=== PATIENT | male | born 1950 | race Caucasian/White ===

== ENCOUNTER 2017-12-21 10:11 | Outpatient (RCR) | payer MEDICARE, OTHER, SELFPAY | END 2017-12-27 23:59 | LOC: WC 10:11 | PROVIDERS: Visit Provider Podiatrist | DX: Z09 Encounter for follow-up examination after completed treatment for conditions other than malignant neoplasm (principal) ==

== ENCOUNTER → 2019-07-22 14:06 | Outpatient (CLI) | payer MEDICARE, OTHER, SELFPAY ==
--- NOTE | 2019-07-22 12:15 | TISS_PTH ---
PATIENT: KOSTAS WOLF LOC: [facility] U#:[id number] AGE/SX: 75/M ROOM: RE07/22/[address]: Dr. William Keating MD : [id number] BED: DIS: SPEC #: [id number] RECD: 07/22/19 13:47 STATUS: DELIA SHELLEY #: [id number] LAKISHA: 07/22/19 12:[address]: William Keating DEPT: SURGICAL PATHOLOGY RECD BY: Alan Carrizales Tissues: Skin of lip, NOS Procedures: Surgery Specimen Level IV HEADER OPERATION: Not noted PRE-OP DIAGNOSIS: Non healing ulcer, right lower lip TISSUE SUBMITTED: Bottom right lip, ulcer MICROSCOPIC DIAGNOSIS Bottom right lip, ulcer, punch biopsy: Moderate to marked chronic inflammation and lymphoid aggregates formation, favor benign. Reactive epithelial changes and hyperkeratosis. Special stain for fungi is negative for organisms; matched controls is appropriate. Negative for malignancy. SJ:sp 07/23/19 COMMENT Case has been reviewed in consultation with Dr. Renee who concurs with the above diagnosis. IDC:AM MICROSCOPIC DESCRIPTION Slides are reviewed. GROSS DESCRIPTION Received is one container labeled with the patient's name and not further designated. The specimen consists of a punch biopsy of mix-white skin measuring 0.4 cm in diameter and 0.3 cm in length. The specimen is entirely submitted on one cassette. /JESENIA:linda 07/22/19 TC: 3 CPT: 26934, 00817
== END ==
PROVIDERS: Referring Provider Otolaryngology; Visit Provider Otolaryngology
DX: K13.0 Diseases of lips (principal)
CPT/HCPCS: 88305

== ENCOUNTER 2023-02-08 02:52 | Emergency (ER) | payer OTHER, SELFPAY ==
[2023-02-08] VITALS (12 sets, daily range): BP systolic 86–112; BP diastolic 43–56; PULSE 60–87; RESP 18–26; TEMP 36.4–37.8; O2SAT 88–97; BMI 27.3
--- NOTE | 2023-02-08 03:28 | RAD_ITS ---
INDICATION: SOB EXAMINATION/TECHNIQUE: X-RAY - XR Chest 1 View COMPARISON: None. FINDINGS: LINES/DEVICES: Pacemaker on the left. LUNGS: No consolidation, edema or effusion. No pneumothorax. MEDIASTINUM AND CARDIOVASCULAR STRUCTURES: Moderate cardiomegaly and pulmonary vascular congestion. BONES AND SOFT TISSUES: Unremarkable. RAD/Chest 1 View (Portable) IMPRESSION: Moderate cardiomegaly and pulmonary vascular congestion. Electronically Signed: Sheri Doshi MD at 4:05 EDT ,
[2023-02-08 03:46] LABS: Absolute Lymphocyte Count 0.16 X10^3/uL (0.83-4.51); Absolute Neutrophil Count 12.2 X10^3/uL (2.0-7.7); Basophil# 0.07 X10^3/uL; Basophil% 0.5 % (0-1); Eosinophil# 0.03 X10^3/uL; Eosinophils% 0.2 % (0-5); Hematocrit 37.5 % (40-54); Hemoglobin 12.3 g/dL (13.0-16.5); Lymphocyte # 0.16 X10^3/ul (0.83-4.51); Lymphocyte % 1.2 % (19-41); Mean Corp Hgb Conc 32.8 g/dL (32-36); Mean Corpuscular Hgb 30.3 pg (27.0-32.0); Mean Corpuscular Volume 92.4 fL (80-94); Mean Platelet Vol. 10.6 fl (6.2-12.0); Monocyte# 0.75 X10^3/uL; Monocyte% 5.6 % (0-10); NRBC Flagged by Analyzer 0 % (0-5); Neutrophil # 12.24 X10^3/uL (2.7-7.7); Neutrophil % 91.8 % (47-70); POSITIVE DIFFERENTIAL YES; Platelet Count 211 K/mm3 (150-450); RBC Distribution Width CV 16.8 % (11.6-14.6); RBC Distribution Width SD 56.9 fl (35.1-43.9); Red Blood Count 4.06 M/mm3 (4.6-6.2); White Blood Count 13.3 K/mm3 (4.4-11.0)
[2023-02-08 03:49] LABS: Differential Indicated SCAN CRITERIA MET
[2023-02-08] MEDS: Acetaminophen 500 MG Tablet 1000 MG PO (03:49)
[2023-02-08 04:00] LABS: International Normalized Ratio 2.2; Prothrombin Time (Protime)PT. 23.9 SECONDS (11.7-14.9)
[2023-02-08 04:11] LABS: Anion Gap 9 (5-15); BUN 20 mg/dL (7-18); BUN/Creat Ratio 23.1 RATIO (10-20); Calcium,Total 8.3 mg/dL (8.5-10.1); Chloride 97 mmol/L (98-107); Creatinine, Serum 0.86 mg/dL (0.70-1.30); EST Glomerular Filtration Rate 92 mL/min (>60); Est Glom Filt Rate - Afr Amer 111 mL/min (>60); Estimated Creatinine Clearance 70.46 ml/min; Glucose 184 mg/dL (74-106); Magnesium 1.7 mg/dL (1.6-2.6); Potassium 3.2 mmol/L (3.5-5.1); Sodium Level 135 mmol/L (136-145)
[2023-02-08 04:11] LABS: BNP,B-Type NATRIURETIC PEPTIDE 510.8 pg/mL (0-100)
[2023-02-08 04:17] LABS: Lactic Acid 1.3 mmol/L (0.4-1.9)
[2023-02-08 04:21] LABS: Procalcitonin 0.32 ng/mL (0.00-0.09)
[2023-02-08 04:23] LABS: Differential Comment SCANNED
--- NOTE | 2023-02-08 05:14 | EDS_ITS ---
HPI History of Present Illness Chief Complaint: Shortness of Breath Narrative Narrative: Patient is a 72-year-old male with past medical history of COPD as well as mitral valve disease requiring replacement and aortic stenosis currently on Coumadin. He also has a past medical history of congestive heart failure and takes torsemide. Patient states he received his COVID booster yesterday around 1:00 or 2:00 in the afternoon. He states roughly 12 hours later he began experiencing chills and increased shortness of breath. Secondary to this EMS was called. EMS states when they arrive the patient had a pulse ox of 88% on room air and secondary to his report of increased shortness of breath with hypoxia was brought in for evaluation [facility] Home Medications amiodarone 200 mg tablet 200 mg PO DAILY 02/08/23 [History Last Taken Unknown] carvedilol 6.25 mg tablet 6.25 mg PO BID 02/08/23 [History Last Taken Unknown] Allergy/AdvReac Type Severity Reaction Status Date / Time lisinopril AdvReac Other Verified 02/08/23 02:59 Social History Smoking Status: Former smoker ROS ROS ED Constitutional Constitutional ED: Reports chills and subjective; Denies fever(s) ENT ENT ED: Denies sore throat Cardiovascular Cardiovascular: Denies chest pain Respiratory/Chest Respiratory/Chest: Reports cough, dyspnea and dyspnea on exertion Gastrointestinal Gastrointestinal: Denies abdominal pain, diarrhea, nausea or vomiting Genitourinary Genitourinary ED: Denies dysuria or hematuria Musculoskeletal Musculoskeletal: Denies myalgias Integumentary Denies rash Neurologic Neurologic: Denies headache(s) Hematologic/Lymphatic Hematologic/Lymphatic: Reports easy bleeding and easy bruising EXAM Physical Exam Const Vital Signs: 02/08/23 02:53 02/08/23 03:03 02/08/23 04:18 Temperature 100.0 F H Temperature Source Temporal Pulse Rate 65 62 Respiratory Rate 18 20 H Respiratory Effort Short of Breath Respiratory Depth Normal Respiratory Pattern Tachypnea Blood Pressure 105/43 L 94/55 L Blood Pressure Mean 63 68 Pulse Ox 88 92 Oxygen Delivery Method Room Air Room Air Nasal Cannula Oxygen Flow Rate (L/min) 2 02/08/23 04:50 02/08/23 06:00 02/08/23 06:00 Temperature 99.2 F H 99.6 F H Temperature Source Oral Oral Pulse Rate 64 63 63 Respiratory Rate 26 H 19 H 20 H Respiratory Effort Respiratory Depth Respiratory Pattern Blood Pressure 99/55 L 86/47 L 86/47 L Blood Pressure Mean 69 60 60 Pulse Ox 95 96 95 Oxygen Delivery Method Nasal Cannula Nasal Cannula Nasal Cannula Oxygen Flow Rate (L/min) 2 2 2 02/08/23 06:24 02/08/23 06:51 Temperature 98.7 F Temperature Source Oral Pulse Rate 61 60 Respiratory Rate 21 H 21 H Respiratory Effort Respiratory Depth Respiratory Pattern Blood Pressure 95/52 L 92/55 L Blood Pressure Mean 66 67 Pulse Ox 97 94 Oxygen Delivery Method Nasal Cannula Nasal Cannula Oxygen Flow Rate (L/min) 3 3 Positive well nourished and well developed General Appearance ED: well developed and pallor HEENT Reports dry mucous membranes HEENT Narrative: No tongue or lip swelling no oral lesions no airway edema or compromise Mouth ED: Yes dry mucous membranes Mouth: dry mucous membranes Eyes PERRL and EOMs intact bilaterally General Eye ED: Yes pale conjunctiva; Negative for scleral icterus Neck supple Neck Narrative: Bilateral JVD noted Chest Wall palpation of chest normal Resp Resp Narrative: Patient has mild tachypnea with diminished breath sounds throughout with diffuse rhonchi and crackles noted in the bilateral bases. No nasal flaring or retractions present Cardio regular rate and regular rhythm Rate: other Other Details: Radial pulses are plus 2 out of 4 bilaterally are equal and symmetric GI normal to inspection, nondistended, normoactive bowel sounds, non-tender, non- distended and no masses GI Narrative: No voluntary guarding or rigidity no pulsatile mass or fluid wave. Auscultation: normoactive bowel sounds Palpation: soft Extremity Extremity Narrative: Trace to +1 pitting edema to the bilateral lower extremities that is equal and symmetric Neuro oriented x3 and CN's II-XII intact bilaterally Sensorium / Orientation: alert Psych mental status grossly normal Skin no rashes or lesions noted General Skin Exam: pallor MDM MDM MDM Narrative Medical decision making narrative: Pain to the ER with low-grade fever and mild increased work of breathing. On 2 L of oxygen he is satting in the mid to low 90s. With his report of COVID vaccination this afternoon and increased work of breathing 12 hours later there is concern this could be a side effect of the recent vaccination. However there is also concern that this could be related to a pneumonia pneumothorax large pleural effusion or even acute anemia and secondary to this a work-up was obtained. As patient had a low-grade temperature there is also concern for underlying septicemia so blood cultures and lactic acid were ordered. Patient's white count is elevated at 13 but lactic acid is normal. The remainder of his labs show no clinically significant finding. His INR is just slightly subtherapeutic at 2.2 and proBNP is mildly elevated at 510. Chest x-ray showed cardiomegaly with vascular congestion which could be his baseline as we have no old images to compare to. He states he had a heart cath 2 to 3 weeks ago which was reportedly clean and as he has no chest pain I do not feel there is a need for troponin or acute EKG. the patient was ambulated in the ER without oxygen as he does not require supplemental oxygen at home and with this his pulse ox dropped to 84%. Therefore at this time as patient is showing oxygen desaturation with ambulation and is requiring supplemental oxygen which she does not have access to her need to be admitted to the hospital. As the patient receives all of his care at an outside facility he will be transferred as he is a complex patient and will receive more complete care if he is at a facility where he is known. This plan of care was discussed with the patient and family and both are agreeable to it. Please note that the patient did trigger the sepsis protocol but antibiotics were held as his chest x-ray and chest CT did not show acute lung infection and fluids were held as he is having a congestive heart failure exacerbation leading to hypoxia and the fluid bolus could lead to worsening of his shortness of breath. After discussion with [facility] they did request a CTA of his chest secondary to his symptoms and therefore this was obtained. CTA revealed no pulmonary embolus or dissection or acute pneumonia and these results were faxed to [facility] for their evaluation. History & Record Review Discussion w/independent historian: EMS personnel, Patient and Family Lab Data Attestation: I reviewed the patient's lab results. Labs: Laboratory Results - last 24 hr 02/08/23 02/08/23 02/08/23 03:03 03:38 03:38 WBC 13.3 H RBC 4.06 L Hgb 12.3 L Hct 37.5 L MCV 92.4 MCH 30.3 MCHC 32.8 RDW Std Deviation 56.9 H RDW Coeff of Rohit 16.8 H Plt Count 211 MPV 10.6 Immature Gran % (Auto) 0.700 Neut % (Auto) 91.8 H Lymph % (Auto) 1.2 L [place] % (Auto) 5.6 Eos % (Auto) 0.2 Baso % (Auto) 0.5 Absolute Neuts (auto) 12.2 H Absolute Lymphs (auto) 0.16 L Nucleated RBC % 0 Differential Comment SCANNED PT 23.9 H INR 2.2 Sodium Potassium Chloride Carbon Dioxide Anion Gap BUN Creatinine Estim Creat Clear Calc Est GFR (MDRD) Af Amer Est GFR (MDRD) Non-Af BUN/Creatinine Ratio Glucose Lactic Acid Calcium Magnesium B-Natriuretic Peptide 510.8 H Procalcitonin 02/08/23 02/08/23 02/08/23 03:38 03:38 03:38 WBC RBC Hgb Hct MCV MCH MCHC RDW Std Deviation RDW Coeff of Rohit Plt Count MPV Immature Gran % (Auto) Neut % (Auto) Lymph % (Auto) [place] % (Auto) Eos % (Auto) Baso % (Auto) Absolute Neuts (auto) Absolute Lymphs (auto) Nucleated RBC % Differential Comment PT INR Sodium 135 L Potassium 3.2 L Chloride 97 L Carbon Dioxide 29.0 Anion Gap 9 BUN 20 H Creatinine 0.86 Estim Creat Clear Calc 70.46 Est GFR (MDRD) Af Amer 111 Est GFR (MDRD) Non-Af 92 BUN/Creatinine Ratio 23.1 H Glucose 184 H Lactic Acid 1.3 Calcium 8.3 L Magnesium 1.7 B-Natriuretic Peptide Procalcitonin 0.32 H Radiography Diagnostic Testing: Clinical Impression(s) from Imaging Studies Chest X-Ray 02/08/23 03:28 IMPRESSION: Moderate cardiomegaly and pulmonary vascular congestion. Electronically Signed: Sheri Doshi MD at 4:05 EDT , Chest CTA 02/08/23 05:38 IMPRESSION: No demonstrated pulmonary embolism or arterial dissection. Electronically Signed: Sheri Doshi MD at 6:51 EDT , Chest x-ray as interpreted by the emergency medicine physician reveals moderate cardiomegaly with pulmonary vascular congestion but no acute infiltrate or pneumothorax Management Discussion w/another healthcare provider: Hospitalist Discharge Plan Triage Chief Complaint: Shortness of Breath ED Provider: Félix Razo Dx/Rx/DC Orders Clinical Impression: Acute respiratory failure with hypoxia, CHF exacerbation, Current use of penitentiary anticoagulation, Leukocytosis Prescriptions: No Action carvedilol 6.25 mg tablet 6.25 mg PO BID amiodarone 200 mg tablet 200 mg PO DAILY Primary Care Provider: Jovi Bradley NP Referrals: Jovi Bradley CERTIFIED HYPERBARIC TECHNICIAN, CERTIFIED HYPERBARIC TECHNICIAN-C [Primary Care Provider] - Disposition Disposition: Acute Care Hospital Discharge Location: [facility]
--- NOTE | 2023-02-08 05:38 | CT_ITS ---
STUDY: CTA CHEST REASON FOR EXAM: Male, 72 years old. dyspnea. COPD RADIATION DOSAGE (If Supplied By Facility): CTDIvol = ( 11.49 ) mGy, DLP = ( 396.47 ) mGycm TECHNIQUE: The examination was performed with the intravenous administration of IV 100mL Isovue-370. Post-processing of the angiographic images was performed, with multiplanar reformation and 3D reconstruction. Individualized dose optimization techniques were used for this CT. COMPARISON: None. FINDINGS: Normal enhancement of the main pulmonary artery and right and left pulmonary arteries. Normal enhancement of the bilateral peripheral pulmonary arteries. There is no demonstrated pulmonary embolism. Normal thoracic aorta and visualized great vessels. There is no demonstrated aortic dissection. Normal heart and pericardium. Normal mediastinum. Normal hilar regions. Normal visualized trachea and bronchi. There is dependent atelectasis in the lung bases. Normal pulmonary parenchyma. Normal pleura. Normal chest wall structures. Multiple compression fractures of T4, T5, T6, T7, T8, T9, T10, T11, T12, L1, L2. Normal visualized upper abdomen. CT/CTA Chest W/WO Contrast IMPRESSION: No demonstrated pulmonary embolism or arterial dissection. Electronically Signed: Sheri Doshi MD at 6:51 EDT ,
--- NOTE | 2023-02-08 06:05 | ED.RN ---
Dr. Razo notified for BP of /47, qualifying pt for sepsis protocols. no new orders at this time.
--- NOTE | 2023-02-08 07:00 | NURSING ---
faxed cta results to [phone]
--- NOTE | 2023-02-08 07:39 | ED.RN ---
PER DR. REDMOND AND DR. GALLEGO FLUID RESUSCITATION NOT INITIATED DUE TO PATIENT HAVING CHF EXACERBATION AND HYPOXIC. WILL CONTINUE TO MONITOR.
--- NOTE | 2023-02-08 07:50 | NURSING ---
CALLED [facility]. TALKED TO SAPNA.
--- NOTE | 2023-02-08 09:47 | NURSING ---
0911 CALLED ROSIE, ETA IS 90 MIN
== END 2023-02-08 10:05 | disposition short-term general hospital (02) ==
PROVIDERS: Emergency Provider Emergency Medicine; PCP Nurse Practitioner Family; Visit Provider Emergency Medicine
DX: J96.01 Acute respiratory failure with hypoxia (principal); J44.9 Chronic obstructive pulmonary disease, unspecified; I50.9 Heart failure, unspecified; Z87.891 Personal history of nicotine dependence; D72.829 Elevated white blood cell count, unspecified; Z79.01 Long term (current) use of anticoagulants; Z79.899 Other long term (current) drug therapy
CPT/HCPCS: 71045; 71275; 80048; 83605; 83735; 83880; 84145; 85025; 85610; 87040; 87428; 99285; Q9967

== ENCOUNTER 2023-03-29 09:33 | Inpatient (IN) | payer MEDICARE, OTHER, SELFPAY ==
[2023-03-29 09:35] VITALS: BP 115/59; PULSE 61; RESP 12; TEMP 36.4; O2SAT 93; BMI 24.5
[2023-03-29 09:42] VITALS: O2SAT 94
--- NOTE | 2023-03-29 09:59 | EX.ED.GENINJ ---
HPI History of Present Illness Chief Complaint: Fall Detail of Chief Complaint: Injury right hip Informant: patient Onset/Context/Timing Onset: Hours Mechanism/Context: Blunt Injury and Fall (Fell rolling out of bed) Location of pain/injuries: Right hip Quality of Pain: Dull Current Severity: Mild Maximum Severity: Severe Worsened by: Movement Relieved by: Remaining still Associated Symptoms Associated Symptoms: Positive for Loss of function and Inability to ambulate; Negative for Parasthesias, Weakness, Loss of consciousness or Amnesia Narrative Narrative: Patient is a 73-year-old male who recently had valvular heart surgery at [facility]. He also has history of pacemaker. Patient fell rolling out of bed this morning. He was unable to use his right lower extremity. He denies head trauma. He states blood thinners were discontinued last week. He denies head trauma. He denies headache. He denies visual, ocular auditory symptoms. He denies neck pain. He denies chest pain or shortness of breath. He denies upper or lower back pain. He denies pain in his shoulders, elbows or hands. He denies pain in his feet. He denies fever, chills night sweats. Denies weight gain or weight loss. He denies upper respiratory infectious symptoms. He denies GI or symptoms. Tetanus Immunization: Unknown Prior similar symptoms: No Recent Illness/[facility] Home Medications amiodarone 200 mg tablet 200 mg PO DAILY 02/08/23 [History Last Taken Unknown] carvedilol 6.25 mg tablet 6.25 mg PO BID 02/08/23 [History Last Taken Unknown] Allergy/AdvReac Type Severity Reaction Status Date / Time lisinopril Allergy Mild Laryngospas Verified 03/29/23 09:41 ms Social History Smoking Status: Former smoker ROS ROS ED Constitutional Constitutional ED: Denies chills, fever(s), subjective, sweats or weight loss Eyes Eyes: Denies blurry vision or change in vision ENT ENT ED: Denies ear pain, rhinorrhea or sore throat Cardiovascular Cardiovascular: Denies chest pain, palpitations, paroxysmal nocturnal dyspnea or racing heartbeat Respiratory/Chest Respiratory/Chest: Denies cough, dyspnea, dyspnea on exertion or paroxysmal nocturnal dyspnea Gastrointestinal Gastrointestinal: Denies abdominal pain, diarrhea, melena, nausea or vomiting Genitourinary Genitourinary ED: Denies dysuria, hematuria or urinary frequency Musculoskeletal Musculoskeletal: Reports other Details: Right hip pain ; Denies arthralgias, back pain, myalgias or neck pain Integumentary Denies rash Neurologic Neurologic: Denies headache(s), paresthesias or weakness Endocrine Endocrinology: Denies cold intolerance or heat intolerance Hematologic/Lymphatic Hematologic/Lymphatic: Reports easy bruising; Denies easy bleeding Allergic/Immunologic Allergic/Immunologic ED: Denies mouth swelling or tongue swelling EXAM Physical Exam Const Vital Signs: 03/29/23 09:35 03/29/23 09:42 Temperature 97.6 F L Temperature Source Temporal Pulse Rate 61 Respiratory Rate 12 Respiratory Effort Normal Non-Labored Respiratory Depth Normal Respiratory Pattern Normal Blood Pressure 115/59 L Blood Pressure Mean 77 Pulse Ox 93 94 Oxygen Delivery Method Room Air Room Air Positive well nourished and well developed General Appearance ED: well developed and NAD HEENT Reports TM's clear HEENT Narrative: Head is atraumatic and normocephalic. There is no clinical findings of basilar skull fracture. There is no septal deviation hematoma. Uvula is midline. There is no deviation of tongue with protrusion. There is no evidence of facial trauma. Tympanic Membrane ED: Yes TM's clear Eyes PERRL and EOMs intact bilaterally Neck full ROM Neck Narrative: Is no pain the patient of the posterior neck. Full active range of motion. Chest Wall inspection of chest normal and palpation of chest normal Resp normal respiratory effort and clear to auscultation bilaterally Cardio regular rhythm, S1 normal heart sound, S2 normal heart sound and no murmurs GI normal to inspection, nondistended, normoactive bowel sounds, non-tender, non-distended and no masses GI Narrative: There is no pain the patient over the left or right iliac wing or pubic symphysis. Extremity Negative for normal to inspection Extremity Narrative: The right lower extremity is slightly shortened and externally rotated. Neuro oriented x3, CN's II-XII intact bilaterally, moves all extremities and No gait normal Neuro Narrative: Patient is able to wiggle his toes on the right side. Edmund Coma Scale: document GCS findings Spontaneous Obeys Commands Oriented 15 Sensorium / Orientation: alert Plantar Reflex: Downgoing: bilateral Psych mental status grossly normal and thought process normal Skin no rashes or lesions noted, no wounds and No skin turgor normal Skin Narrative: Patient has multiple ecchymotic areas right forearm. He states this was to bruising easily when he was on anticoagulant, which she is no longer on. MDM MDM MDM Narrative Medical decision making narrative: Clinically patient has a fractured hip. Will obtain x-ray to determine what type of fracture. Since patient recently received care at [facility] he was question whether he had issues staying at [facility] for his presumed hip fracture and he responded no. We will need to ask patient and spouse his medications since he has not been here before. Will attempt to determine if there is any records using [employer]. Appropriate blood work was obtained for preoperative risk stratification which included EKG, chest x-ray, blood work and patient was typed and screened. Since patient has multiple bruises and was recently on anticoagulant coags were obtained. I was informed at approximately 1050 by dairy laboratory technician and patient's nurse that he is now requesting pain medicine. Pain medicine was ordered to facilitate obtaining x-rays of his chest and hip. History & Record Review Additional record(s) reviewed:: No prior records (Are available through [employer] Lab Data Attestation: I reviewed the patient's lab results. Lab results narrative: White count is slightly elevated and H&H is 12.3 and 37.9 which is slightly below lower end of normal. Coag are under workable. Sick metabolic panel reveals a glucose of 126 with normal CO2 and anion gap. Labs: Laboratory Results - last 24 hr 03/29/23 03/29/23 03/29/23 10:15 10:15 10:15 WBC 11.7 H RBC 4.14 L Hgb 12.3 L Hct 37.9 L MCV 91.5 MCH 29.7 MCHC 32.5 RDW Std Deviation 52.4 H RDW Coeff of Rohit 15.6 H Plt Count 273 MPV 10.1 Immature Gran % (Auto) 0.900 Neut % (Auto) 83.8 H Lymph % (Auto) 6.1 L [place] % (Auto) 9.0 Eos % (Auto) 0.0 Baso % (Auto) 0.2 Absolute Neuts (auto) 9.8 H Absolute Lymphs (auto) 0.71 L Nucleated RBC % 0 PT 15.1 H INR 1.2 APTT 30.1 Sodium 139 Potassium 3.5 Chloride 105 Carbon Dioxide 30.0 Anion Gap 4 L BUN 12 Creatinine 0.64 L Estim Creat Clear Calc 63.83 Est GFR (MDRD) Af Amer 156 Est GFR (MDRD) Non-Af 129 BUN/Creatinine Ratio 18.7 Glucose 126 H Calcium 8.4 L Radiography Chest X-Ray - ED: 1 View (1 view chest x-ray reveals cardiomegaly. There is a dual-chamber pacemaker noted as well as hardware due to valve replacement. There is no effusion, pneumothorax or hemothorax noted. There is no fractured ribs noted. This was independent reviewed interpreted by me at 1129.) and Read by ED Physician (Three-view x-ray of the right hip reveals a comminuted intertrochanteric fracture.) EKG Initial EKG: Interpretation: Paced (Rate is 64. EKG reveals AV dual paced rhythm. MT interval is 104 ms. Cures duration under 72 ms. QT duration 518 ms. [place] to left.) Management Discussion w/another healthcare provider: Hospitalist (Hospitalist was called for admission and surgical risk ratification prior to surgery.) and Real Estate Sales Agent (Dr. Vidal the orthopedist was contacted since patient require admission and open reduction internal fixation of his intertrochanteric fracture.) Discharge Plan Dx/Rx/DC Orders Clinical Impression: Closed comminuted intertrochanteric fracture of proximal end of right femur, Injury due to fall Disposition Disposition: Acute Care Hospital [facility]
--- NOTE | 2023-03-29 10:08 | NURSING ---
NO OLD EKGS
[2023-03-29 10:24] LABS: Absolute Lymphocyte Count 0.71 X10^3/uL (0.83-4.51); Absolute Neutrophil Count 9.8 X10^3/uL (2.0-7.7); Basophil# 0.02 X10^3/uL; Basophil% 0.2 % (0-1); Hematocrit 37.9 % (40-54); Hemoglobin 12.3 g/dL (13.0-16.5); Lymphocyte # 0.71 X10^3/ul (0.83-4.51); Lymphocyte % 6.1 % (19-41); Mean Corp Hgb Conc 32.5 g/dL (32-36); Mean Corpuscular Hgb 29.7 pg (27.0-32.0); Mean Corpuscular Volume 91.5 fL (80-94); Mean Platelet Vol. 10.1 fl (6.2-12.0); Monocyte# 1.05 X10^3/uL; NRBC Flagged by Analyzer 0 % (0-5); Neutrophil # 9.77 X10^3/uL (2.7-7.7); Neutrophil % 83.8 % (47-70); Platelet Count 273 K/mm3 (150-450); RBC Distribution Width CV 15.6 % (11.6-14.6); RBC Distribution Width SD 52.4 fl (35.1-43.9); Red Blood Count 4.14 M/mm3 (4.6-6.2); White Blood Count 11.7 K/mm3 (4.4-11.0)
[2023-03-29 10:31] LABS: International Normalized Ratio 1.2; Prothrombin Time (Protime)PT. 15.1 SECONDS (11.7-14.9)
[2023-03-29 10:32] LABS: Partial Thromboplast Time 30.1 Seconds (24.1-36.2)
[2023-03-29 10:36] LABS: Anion Gap 4 (5-15); BUN 12 mg/dL (7-18); BUN/Creat Ratio 18.7 RATIO (10-20); Calcium,Total 8.4 mg/dL (8.5-10.1); Chloride 105 mmol/L (98-107); Creatinine, Serum 0.64 mg/dL (0.70-1.30); EST Glomerular Filtration Rate 129 mL/min (>60); Est Glom Filt Rate - Afr Amer 156 mL/min (>60); Estimated Creatinine Clearance 63.83 ml/min; Glucose 126 mg/dL (74-106); Potassium 3.5 mmol/L (3.5-5.1); Sodium Level 139 mmol/L (136-145)
[2023-03-29] MEDS: Ondansetron 4 MG/2 ML Vial IV (11:03)
[2023-03-29] MEDS: HYDROmorphone 1 MG/ML Syringe 0.5 MG IV (11:03)
--- NOTE | 2023-03-29 11:20 | RAD_ITS ---
STUDY: X-RAY CHEST REASON FOR EXAM: Male, 73 years old. Preoperative evaluation. TECHNIQUE: Single AP portable view of the chest. COMPARISON: Comparison is made with prior study February 08, 2023. FINDINGS: EKG electrodes are seen. Scattered calcified granulomas. No acute abnormality is seen. There is no demonstrated pleural abnormality. Sternal cerclage wires are present from a prior sternotomy. Prior mitral valve and aortic valve replacement. A left-sided vertebral pacemaker is seen. Moderate degree of cardiomegaly. Clipping of the left atrial appendage. Normal mediastinum and billy. Normal visualized pulmonary arteries. There is atherosclerotic calcification of the aortic arch with tortuosity. Normal visualized thoracic spine. Normal visualized ribs, clavicles, and shoulders. There is no demonstrated abnormality of the visualized soft tissue structures of the upper abdomen. RAD/Chest 1 View (Portable) IMPRESSION: Cardiomegaly. No acute abnormality is seen. Electronically Signed: Capo Shafer MD at 11:55 EDT ,
--- NOTE | 2023-03-29 11:20 | RAD_ITS ---
STUDY: X-RAY - PELVIS AND RIGHT HIP REASON FOR EXAM: Male, 73 years old. Right hip pain following a fall from bed. TECHNIQUE: 3 views of the pelvis and hip. COMPARISON: None. FINDINGS: Large amount of fecal material is seen in the colon. There are atherosclerotic vascular calcifications of the pelvic arteries. There is narrowing with cortical sclerosis and osteophyte formation of the sacroiliac joint consistent with degenerative osteoarthritic changes. Normal bilateral superior and inferior pubic rami. There is narrowing with sclerosis of the pubic symphysis. Normal bilateral ischial tuberosities. Deformity of the lateral aspect of the left iliac wing most likely representing a graft bone donor site. Nondisplaced right intertrochanteric fracture. Prior pinning of the left proximal femur. RAD/HIP, UNI W/ Pelvis 2-3 Views IMPRESSION: Nondisplaced right intertrochanteric fracture. Electronically Signed: Capo Shafer MD at 11:57 EDT ,
--- NOTE | 2023-03-29 11:47 | NURSING ---
MED SURG KITTOE COMMINUTED RIGHT INTERTROCHANTIC FRACTURE
--- NOTE | 2023-03-29 11:56 | HP.PCM.HOS_ITS ---
HPI - General General Date of Admission: 03/29/23 Date of Service: 03/29/23 Chief Complaint: Right hip pain HPI Narrative KOSTAS WOLF, is a 73 M past cardiac history including recent TAVR at [facility], history of mitral valve repair as well as conduction system disorder status post pacemaker placement who presented with right hip pain. Per patient he woke up on the morning of his presentation tried to pivot and lost his danette ce resulting in the fall with resultant right hip pain. Patient presented to the emergency department as a result. Imaging studies obtained did show Nondisplaced right intertrochanteric fracture. Patient denied any lightheadedness chest pain or shortness of breath prior to the fall. Patient was admitted to regular nursing floor after the orthopedic surgeon on-call Dr. Vidal had been notified by Dr. Hilario from the ED. [facility] Medical History (Updated 03/29/23 @ 13:[address] Feroz Bucio MD) A-fib Closed right hip fracture Eye abnormality Pacemaker Home Medications amiodarone 200 mg tablet 200 mg PO DAILY 02/08/23 [History Last Taken Unknown] carvedilol 6.25 mg tablet 6.25 mg PO BID 02/08/23 [History Last Taken Unknown] acetaminophen 500 mg tablet 1,000 mg PO Q6H 03/29/23 [History Last Taken Unknown] aspirin 81 mg chewable tablet 81 mg PO DAILY 03/29/23 [History Last Taken Unkno wn] atorvastatin 80 mg tablet 80 mg PO DAILY 03/29/23 [History Last Taken Unknown] eplerenone 25 mg tablet 25 mg PO DAILY 03/29/23 [History Last Taken Unknown] fexofenadine 180 mg tablet (Reva Allergy) 180 mg PO DAILY 03/29/23 [History Last Taken Unknown] fluoxetine 40 mg capsule (Prozac) 40 mg PO DAILY 03/29/23 [History Last Taken Unknown] mecobalamin (vitamin B12) 1,000 mcg chewable tablet (B12 Active) 1,000 mcg PO DAILY 03/29/23 [History Last Taken Unknown] mexiletine 200 mg capsule 200 mg 03/29/23 [History Last Taken Unknown] potassium chloride 20 mEq tablet,extended release(part/cryst) 20 meq PO DAILY 03/29/23 [History Last Taken Unknown] sacubitril 24 mg-valsartan 26 mg tablet (Entresto) 1 tab PO BID 03/29/23 [History Last Taken Unknown] torsemide 20 mg tablet 20 mg PO DAILY 03/29/23 [History Last Taken Unknown] Allergy/AdvReac Type Severity Reaction Status Date / Time lisinopril Allergy Mild Laryngospas Verified 03/29/23 09:41 ms Family History Father CVA (cerebral vascular accident) Mother Laryngeal cancer Surgical History H/O cardiac radiofrequency ablation H/O eye surgery H/O heart surgery H/O total knee replacement History of appendectomy History of hip surgery History of surgery on arm Stented coronary artery Social History household members: spouse Smoking Status: Former smoker ROS ROS Narrative GENERAL: cooperative HEENT: Atraumatic; normocephalic EYES; Anicteric, Normal Conjunctiva NECK; supple, normal thyroid, RESPIRATORY: Diminished to auscultation CARDIOVASCULAR: Regular S1 S2, GI: soft, normoactive bowel sounds, : No Renal angle tenderness; EXTREMITIES: No edema, no clubbing, MUSCULOSKELETAL: no muscle wasting NEURO: Awake; no lateralizing signs. SKIN: No Rash PSYCH; Flat affect Vital Signs Vital Signs Vital Signs: 03/29/23 09:35 03/29/23 09:42 Temperature 97.6 F L Temperature Source Temporal Pulse Rate 61 Respiratory Rate 12 Respiratory Effort Normal Non-Labored Respiratory Depth Normal Respiratory Pattern Normal Blood Pressure 115/59 L Blood Pressure Mean 77 Pulse Ox 93 94 Oxygen Delivery Method Room Air Room Air Weight Weight: 75.4 kg Body Mass Index (BMI) 24.5 Results Lab / Micro Data Result Diagrams: 03/29/23 10:15 03/29/23 10:15 Labs: Laboratory Results - last 24 hr 03/29/23 10:15: WBC 11.7 H, RBC 4.14 L, Hgb 12.3 L, Hct 37.9 L, MCV 91.5, MCH 29.7, MCHC 32.5, RDW Std Deviation 52.4 H, RDW Coeff of Rohit 15.6 H, Plt Count 273, MPV 10.1, Immature Gran % (Auto) 0.900, Neut % (Auto) 83.8 H, Lymph % (Auto) 6.1 L, Sargent % (Auto) 9.0, Eos % (Auto) 0.0, Baso % (Auto) 0.2, Absolute Neuts (auto) 9.8 H, Absolute Lymphs (auto) 0.71 L, Nucleated RBC % 0 03/29/23 10:15: PT 15.1 H, INR 1.2, APTT 30.1 03/29/23 10:15: Sodium 139, Potassium 3.5, Chloride 105, Carbon Dioxide 30.0, Anion Gap 4 L, BUN 12, Creatinine 0.64 L, Estim Creat Clear Calc 63.83, Est GFR (MDRD) Af Amer 156, Est GFR (MDRD) Non-Af 129, BUN/Creatinine Ratio 18.7, Glucose 126 H, Calcium 8.4 L 03/29/23 10:28: Blood Type A POSITIVE, Antibody Screen NEGATIVE Radiology Impression Chest X-Ray 03/29/23 11:20 IMPRESSION: Cardiomegaly. No acute abnormality is seen. Electronically Signed: Capo Shafer MD at 11:55 EDT , Assessment & Plan Assessment/Plan (1) Closed right hip fracture: PLAN: Patient is a 73-year-old gentleman presented with a fall imaging studies demonstrated Nondisplaced right intertrochanteric fracture. Admitted to a monitored bed for further management 1. Nonsyncopal mechanical fall with resultant right hip fracture ? Imaging studies on admission demonstrated nondisplaced right intertrochanteric fracture. Patient has been admitted to regular nursing floor managed with immobilization pain meds with consultation placed to orthopedic surgery Patient has significant cardiac history including history of mitral valve repair, recent TAVR for aortic stenosis, paroxysmal A-fib and conduction system disorder. Patient has been admitted to regular nursing floor placed on continuous telemetry as part of his preop assessment ordered a 2D echo if there is any abnormality on the echo will obtain cardiology consultation. Patient risk for perioperative morbidity and mortality remains at moderate level 2. Valvular heart disease ? With recent TAVR at [facility] for aortic stenosis as well as previous history of mitral valve repair did obtain old records from [facility] 3. Conduction system disorder ? Status post pacemaker placement 4. Paroxysmal A-fib ? Rate controlled on amiodarone patient was previously on systemic anticoagulation which has since been discontinued 5.? Cardiomyopathy ? Patient is on torsemide, eplerenone as well as Entresto continued. Also o rdered a 2D echo for EF assessment 6. Hypertension - Blood pressure controlled, home medications continued with dose adjustment as needed 7. Depression ? Patient is on fluoxetine did continue 8. DVT prophylaxis ? Bilateral SCDs for now with plans to initiate chemoprophylaxis following patient surgical intervention Time spent in the patient's overall evaluation,decision-making process, review of diagnostic data, adjustment of management, discussion with other providers, nursing nursing and ancillary staff involved in patient's care documentation, 78 minutes Advance planning; did discuss with the patient and family regarding advanced directives as well as CODE STATUS. Did explain the various scenarios involved ( FULL CODE, DNR CCA, DNR CCA with no intubation, and DNR CC and what each meant) patient elected to remain full code with CPR and intubation if needed. Order was placed. Time spent on discussion 18 minutes. Charges/Coding Visit Charges Inpatient E&M: 50643 Init Hosp L3 Procedures Hospitalists Procedures: 33999 Advncd Care Plan 30 Min
[2023-03-29 12:02] VITALS: BP 129/60; PULSE 62; RESP 23; TEMP 36.3; O2SAT 93
--- NOTE | 2023-03-29 12:11 | ECHOD_ITS ---
Reason For Study: MURMUR Procedure This was a 2D Doppler, Color Flow transthoracic echocardiogram. Exam performed portable in patient room. Left Ventricle Normal LV size. The left ventricular ejection fraction is 55 %. Diastolic function is indeterminate. Right Ventricle Moderately dilated right ventricle. Moderately decreased right ventricular systolic function. Atria The left atrium is severely enlarged. The right atrium is severely enlarged. Mitral Valve Mitral valve annuloplasty repair. Trivial mitral valve insufficiency. Tricuspid Valve Moderate (2+) tricuspid valve insufficiency. Right ventricular systolic pressure estimated to be 58 mmHg. Aortic Valve Bioprosthetic aortic valve functioning normally. Pulmonic Valve The pulmonic valve is not well visualized. Mild (1+) pulmonic valve insufficiency. Great Vessels Normal sized aortic root. Pericardium/Pleural No pericardial effusion. MMode/2D Measurements & Calculations LVIDd: 6.2 cm IVSd: 1.2 cm LVOT diam: 2.2 cm LVIDs: 4.2 cm LVPWd: 1.0 cm LVOT area: 4.0 cm2 FS: 31.8 % Ao root diam: 3.6 cm LAV(MOD-bp): 155.4 ml LVAd ap4: 33.5 cm2 LAV(MOD-bp) Indexed: 81.4 ml/m2 LVLd ap4: 7.5 cm LAV(MOD-sp2): 148.6 ml EDV(MOD-sp4): 126.9 ml LAV(MOD-sp4): 157.9 ml EDV(sp4-el): 127.4 ml LVAs ap4: 18.0 cm2 LVLs ap4: 6.3 cm ESV(MOD-sp4): 44.3 ml ESV(sp4-el): 43.7 ml EF(MOD-sp4): 65.1 % EF(sp4-el): 65.7 % SV(MOD-sp4): 82.6 ml SV(sp4-el): 83.7 ml LA A4 area: 37.5 cm2 LA dimension(2D): 6.2 cm RA A4 area: 35.3 cm2 Time Measurements MV dec time: 0.23 sec Doppler Measurements & Calculations MV E max marco: 115.5 cm/sec Lat Peak E' Marco: 11.6 cm/sec Med Peak E' Marco: 8.9 cm/sec MV A max marco: 32.8 cm/sec E/E' lat: 9.9 E/E' med: 13.0 MV E/A: 3.5 MV V2 max: 153.6 cm/sec Ao V2 max: 199.5 cm/sec MV max P.4 mmHg MV dec slope: 512.9 cm/sec2 Ao max P.9 mmHg MV V2 mean: 68.0 cm/sec Ao V2 mean: 130.7 cm/sec MV mean P.4 mmHg Ao mean P.1 mmHg MV V2 VTI: 40.0 cm Ao V2 VTI: 41.1 cm AV (velocity ratio): 0.77 MVA(VTI): 3.2 cm2 WILL(I,D): 3.1 cm2 WILL(V,D): 2.9 cm2 LV V1 max: 146.0 cm/sec SV(LVOT): 125.9 ml PA V2 max: 120.6 cm/sec LV V1 max P.6 mmHg PA V2 mean: 71.0 cm/sec LV V1 mean P.4 mmHg LV V1 mean: 112.0 cm/sec LV V1 VTI: 31.8 cm TR max marco: 367.0 cm/sec TR max P.9 mmHg ECHO/Echo Complete Interpretation Summary The left ventricular ejection fraction is 55 %. Diastolic function is indeterminate. Moderately dilated right ventricle. Moderately decreased right ventricular systolic function The left atrium is severely enlarged. The right atrium is severely enlarged. Moderate (2+) tricuspid valve insufficiency. Right ventricular systolic pressure estimated to be 58 mmHg. Bioprosthetic aortic valve functioning normally. Ordering Physician: Feroz Bucio Referring Physician: FITO RAMIREZ Performed By: Yulissa Martinez RCS
[2023-03-29 13:02] VITALS: BMI 24.1
[2023-03-29] MEDS: HYDROmorphone 1 MG/ML Syringe IV ×3 (13:29→21:44)
[2023-03-29 13:30] VITALS: BP 104/60; PULSE 61; RESP 18; TEMP 36.8; O2SAT 95
[2023-03-29] MEDS: 0.9% Saline Lock 10 ML Syringe IV ×2 (13:30→18:06)
--- NOTE | 2023-03-29 13:33 | CON.PCM.OR_ITS ---
HPI Consult Data Date of Consult: 03/29/23 HPI Narrative HPI Narrative: KOSTAS WOLF, is a 73 M who presents to [facility] after patient lost his balance and fell on his right hip this morning. Noted immediate pain and inability to bear weight on his right lower extremity. He denies any antecedent right hip or groin pain. Denied any syncopal presyncopal symptoms, denies head injury or loss consciousness. Revealed a right intertrochanteric proximal femur fracture. I was consulted from the emergency department. Recommended admission under the service of the hospitalist. Of note, patient had recent TAVR at [facility] as well as history of mitral valve repair and pacemaker placement. Patient is no longer on any blood thinners, these were discontinued recently after his TAVR. Patient states he is minimally ambulatory with use of walker and rollator. He reports extensive history of low back pain and issues which is limited his ability to ambulate. Denies any history of anesthesia complications. [facility] Medical History (Updated 03/29/23 @ 13:[address] Feroz Bucio MD) A-fib Closed right hip fracture Eye abnormality Pacemaker Home Medications amiodarone 200 mg tablet 200 mg PO DAILY 02/08/23 [History Last Taken Unknown] carvedilol 6.25 mg tablet 6.25 mg PO BID 02/08/23 [History Last Taken Unknown] acetaminophen 500 mg tablet 1,000 mg PO Q6H 03/29/23 [History Last Taken Unknown] aspirin 81 mg chewable tablet 81 mg PO DAILY 03/29/23 [History Last Taken Unknown] atorvastatin 80 mg tablet 80 mg PO DAILY 03/29/23 [History Last Taken Unknown] eplerenone 25 mg tablet 25 mg PO DAILY 03/29/23 [History Last Taken Unknown] fexofenadine 180 mg tablet (Reva Allergy) 180 mg PO DAILY 03/29/23 [History Last Taken Unknown] fluoxetine 40 mg capsule (Prozac) 40 mg PO DAILY 03/29/23 [History Last Taken Unknown] mecobalamin (vitamin B12) 1,000 mcg chewable tablet (B12 Active) 1,000 mcg PO DAILY 03/29/23 [History Last Taken Unknown] mexiletine 200 mg capsule 200 mg 03/29/23 [History Last Taken Unknown] potassium chloride 20 mEq tablet,extended release(part/cryst) 20 meq PO DAILY 03/29/23 [History Last Taken Unknown] sacubitril 24 mg-valsartan 26 mg tablet (Entresto) 1 tab PO BID 03/29/23 [History Last Taken Unknown] torsemide 20 mg tablet 20 mg PO DAILY 03/29/23 [History Last Taken Unknown] Allergy/AdvReac Type Severity Reaction Status Date / Time lisinopril Allergy Mild Laryngospas Verified 03/29/23 09:41 ms Family History Father CVA (cerebral vascular accident) Mother Laryngeal cancer Surgical History H/O cardiac radiofrequency ablation H/O eye surgery H/O heart surgery H/O total knee replacement History of appendectomy History of hip surgery History of surgery on arm Stented coronary artery Social History household members: spouse Smoking Status: Former smoker ROS ROS Narrative 12 point review systems obtained, negative unless otherwise noted in HPI. Vital Signs Vital Signs Vital Signs: 03/29/23 09:35 03/29/23 09:42 03/29/23 12:02 Temperature 97.6 F L 97.4 F L Temperature Source Temporal Temporal Pulse Rate 61 62 Respiratory Rate 12 23 H Respiratory Effort Normal Non-Labored Respiratory Depth Normal Respiratory Pattern Normal Blood Pressure 115/59 L 129/60 H Blood Pressure Mean 77 83 Pulse Ox 93 94 93 Oxygen Delivery Method Room Air Room Air Room Air Weight Weight: 163 lb 5.8 oz Body Mass Index (BMI) 24.1 Physical Exam Narrative General -A&Ox3, NAD, appears stated age. Vital signs stable, afebrile. Respiratory -normal work of breathing, no intercostal retractions. CV -pulses regular, brisk capillary refill ?4 limbs. Abdomen-soft, nontender, nondistended. No guarding, rigidity, rebound tenderness. Musculoskeletal/neurologic -full range of motion nontender throughout bilateral upper extremities, left lower extremity with full sensation and strength in all dermatomes and myotomes. No midline cervical tenderness. Right lower extremity-no obvious deformity. Pain with logroll of the right lower extremity. Nontender throughout the right knee femoral shaft, tibial shaft and left foot/ankle. Brisk capillary refill. Sensation intact light touch L3-S1 dermatomes. DF, PF, EHL intact. DP, PT 2+. Pelvis is stable, nontender. Bilateral anterior knee small skin tears noted. Lab / Micro Data Result Diagrams: 03/29/23 10:15 03/29/23 10:15 Labs: Laboratory Results - last 24 hr 03/29/23 10:15: WBC 11.7 H, RBC 4.14 L, Hgb 12.3 L, Hct 37.9 L, MCV 91.5, MCH 29.7, MCHC 32.5, RDW Std Deviation 52.4 H, RDW Coeff of Rohit 15.6 H, Plt Count 273, MPV 10.1, Immature Gran % (Auto) 0.900, Neut % (Auto) 83.8 H, Lymph % (Auto) 6.1 L, Estill % (Auto) 9.0, Eos % (Auto) 0.0, Baso % (Auto) 0.2, Absolute Neuts (auto) 9.8 H, Absolute Lymphs (auto) 0.71 L, Nucleated RBC % 0 03/29/23 10:15: PT 15.1 H, INR 1.2, APTT 30.1 03/29/23 10:15: Sodium 139, Potassium 3.5, Chloride 105, Carbon Dioxide 30.0, Anion Gap 4 L, BUN 12, Creatinine 0.64 L, Estim Creat Clear Calc 63.83, Est GFR (MDRD) Af Amer 156, Est GFR (MDRD) Non-Af 129, BUN/Creatinine Ratio 18.7, Glucose 126 H, Calcium 8.4 L 03/29/23 10:28: Blood Type A POSITIVE, Antibody Screen NEGATIVE Radiology Impression Chest X-Ray 03/29/23 11:20 IMPRESSION: Cardiomegaly. No acute abnormality is seen. Electronically Signed: Capo Shafer MD at 11:55 EDT , Hip/Pelvis X-Ray 03/29/23 11:20 IMPRESSION: Nondisplaced right intertrochanteric fracture. Electronically Signed: Capo Shafer MD at 11:57 EDT , Assessment & Plan Assessment/Plan (1) Closed comminuted intertrochanteric fracture of proximal end of right femur: PLAN: Patient sustained a right intertrochanteric proximal femur fracture. -Closed, neurovascularly intact -Isolated injury -Recommending surgical intervention in the form of right femur cephalomedullary nailing -I discussed the procedure-its risks, benefits and alternative. Risks include but are not limited to bleeding, infection, loss of life or limb, risk of anest hesia, persistent pain or disability, need for additional surgery, nonunion, malunion, failure of orthopedic hardware, neurovascular injury, DVT or PE. Patient expressed understanding these risks and wished proceed with surgery. -Maintenance IV fluids, clear liquid diet after midnight n.p.o. at 2 hours prior to surgery -Type and screen -2 g Ancef on-call to the OR -Bedrest, heel protectors -Plan to proceed with surgery tomorrow when the OR time becomes available Thank you for this consultation.
--- NOTE | 2023-03-29 14:07 | NURSING ---
CALLED [facility] AND LEFT MESSAGE FOR THEM TO CALL US. NOT A SECURE LINE FOR OTHER INFO TO BE LEFT
[2023-03-29] MEDS: Acetaminophen 500 MG Tablet 1000 MG PO ×2 (14:25→22:29)
[2023-03-29] MEDS: KCl 20MEQ in D5NS 20 MEQ/1,000 ML IV.SOLN. 75 MEQ IV (14:59)
--- NOTE | 2023-03-29 17:10 | NURSING ---
CALLED [facility], TALKED TO ERNESTINA. HE TOOK INFO AND WILL RELAY IT.
[2023-03-29] MEDS: SACUBITRIL/VALSARTAN 24/26 MG TABLET 1 EACH PO (22:29)
[2023-03-29] MEDS: Carvedilol 6.25 MG Tablet PO (22:29)
[2023-03-29 22:32] VITALS: BP 115/62; PULSE 61; RESP 18; TEMP 36.4; O2SAT 94
[2023-03-30] VITALS (12 sets, daily range): BP systolic 94–116; BP diastolic 52–60; PULSE 59–65; RESP 16–18; TEMP 36.1–36.8; O2SAT 94–98; BMI 24.1
[2023-03-30] MEDS: HYDROmorphone 1 MG/ML Syringe IV ×4 (01:42→21:28)
[2023-03-30] MEDS: KCl 20MEQ in D5NS 20 MEQ/1,000 ML IV.SOLN. 75 MEQ IV ×2 (04:10→18:48)
[2023-03-30] MEDS: Acetaminophen 500 MG Tablet 1000 MG PO ×2 (06:09→20:20)
[2023-03-30 07:38] LABS: Absolute Lymphocyte Count 0.88 X10^3/uL (0.83-4.51); Absolute Neutrophil Count 11.4 X10^3/uL (2.0-7.7); Basophil# 0.03 X10^3/uL; Basophil% 0.2 % (0-1); Eosinophil# 0.01 X10^3/uL; Eosinophils% 0.1 % (0-5); Hematocrit 38.1 % (40-54); Hemoglobin 12.3 g/dL (13.0-16.5); Lymphocyte # 0.88 X10^3/ul (0.83-4.51); Lymphocyte % 6.1 % (19-41); Mean Corp Hgb Conc 32.3 g/dL (32-36); Mean Corpuscular Hgb 30.5 pg (27.0-32.0); Mean Corpuscular Volume 94.5 fL (80-94); Mean Platelet Vol. 10.1 fl (6.2-12.0); Monocyte% 13.9 % (0-10); NRBC Flagged by Analyzer 0 % (0-5); Neutrophil # 11.37 X10^3/uL (2.7-7.7); Neutrophil % 79.1 % (47-70); POSITIVE DIFFERENTIAL YES; Platelet Count 224 K/mm3 (150-450); RBC Distribution Width CV 15.9 % (11.6-14.6); RBC Distribution Width SD 55.6 fl (35.1-43.9); Red Blood Count 4.03 M/mm3 (4.6-6.2); White Blood Count 14.4 K/mm3 (4.4-11.0)
[2023-03-30 07:43] LABS: Anion Gap 5 (5-15); BUN 12 mg/dL (7-18); BUN/Creat Ratio 22.4 RATIO (10-20); Calcium,Total 8.3 mg/dL (8.5-10.1); Chloride 106 mmol/L (98-107); Creatinine, Serum 0.54 mg/dL (0.70-1.30); EST Glomerular Filtration Rate 159 mL/min (>60); Est Glom Filt Rate - Afr Amer 192 mL/min (>60); Estimated Creatinine Clearance 63.83 ml/min; Glucose 123 mg/dL (74-106); Magnesium 2.3 mg/dL (1.6-2.6); Phosphorus 3.8 mg/dL (2.5-4.9); Potassium 4.3 mmol/L (3.5-5.1); Sodium Level 138 mmol/L (136-145)
[2023-03-30 07:44] LABS: Differential Indicated SCAN CRITERIA MET
--- NOTE | 2023-03-30 08:20 | PN.HOSP_ITS ---
Reason for Visit Reason for Visit: Diagnoses Fracture of unspecified part of neck of right femur, initial encounter for clos ed fracture (03/29/23) Displaced intertrochanteric fracture of right femur, initial encounter for cl osed fracture (03/29/23) Subjective Subjective Patient is a 73-year-old gentleman presented with a fall imaging studies dem
--- NOTE | 2023-03-30 08:20 | PCM.PN.HOSP ---
Reason for Visit Reason for Visit: Diagnoses Fracture of unspecified part of neck of right femur, initial encounter for closed fracture (03/29/23) Displaced intertrochanteric fracture of right femur, initial encounter for closed fracture (03/29/23) Subjective Subjective Patient is a 73-year-old gentleman presented with a fall imaging studies demonstrated Nondisplaced right intertrochanteric fracture. Admitted to a monitored bed for further management 2D echo was ordered for evaluation prior to the patient's surgical procedure results pending. Objective Data Objective Data Vital Signs: Vital Signs Temp Pulse Resp BP Pulse Ox O2 Del Method 97.9 F 65 16 102/54 L 94 Room Air 03/30/23 01:50 03/30/23 01:50 03/30/23 01:50 03/30/23 01:50 03/30/23 07:39 03/30/23 07:39 Oxygen Delivery Method Room Air Weight: 74.1 kg Body Mass Index (BMI) 24.1 Intake & Output: Intake and Output for Last 24 Hours 03/28/23 03/29/23 03/30/23 23:59 23:59 23:59 Intake Total 988.75 / 988.75 Output Total 200 / 200 Balance -200 / -200 988.75 / 988.75 Lab / Micro Data Result Diagrams: 03/30/23 06:02 03/30/23 06:02 Labs: Laboratory Results - last 24 hr 03/29/23 10:15: WBC 11.7 H, RBC 4.14 L, Hgb 12.3 L, Hct 37.9 L, MCV 91.5, MCH 29.7, MCHC 32.5, RDW Std Deviation 52.4 H, RDW Coeff of Rohit 15.6 H, Plt Count 273, MPV 10.1, Immature Gran % (Auto) 0.900, Neut % (Auto) 83.8 H, Lymph % (Auto) 6.1 L, Glenn % (Auto) 9.0, Eos % (Auto) 0.0, Baso % (Auto) 0.2, Absolute Neuts (auto) 9.8 H, Absolute Lymphs (auto) 0.71 L, Nucleated RBC % 0 03/29/23 10:15: PT 15.1 H, INR 1.2, APTT 30.1 03/29/23 10:15: Sodium 139, Potassium 3.5, Chloride 105, Carbon Dioxide 30.0, Anion Gap 4 L, BUN 12, Creatinine 0.64 L, Estim Creat Clear Calc 63.83, Est GFR (MDRD) Af Amer 156, Est GFR (MDRD) Non-Af 129, BUN/Creatinine Ratio 18.7, Glucose 126 H, Calcium 8.4 L 03/29/23 10:28: Blood Type A POSITIVE, Antibody Screen NEGATIVE 03/30/23 06:02: WBC 14.4 H, RBC 4.03 L, Hgb 12.3 L, Hct 38.1 L, MCV 94.5 H, MCH 30.5, MCHC 32.3, RDW Std Deviation 55.6 H, RDW Coeff of Rohit 15.9 H, Plt Count 224, MPV 10.1, Immature Gran % (Auto) 0.600, Neut % (Auto) 79.1 H, Lymph % (Auto) 6.1 L, Glenn % (Auto) 13.9 H, Eos % (Auto) 0.1, Baso % (Auto) 0.2, Absolute Neuts (auto) 11.4 H, Absolute Lymphs (auto) 0.88, Nucleated RBC % 0 03/30/23 06:02: Sodium 138, Potassium 4.3, Chloride 106, Carbon Dioxide 27.0, Anion Gap 5, BUN 12, Creatinine 0.54 L, Estim Creat Clear Calc 63.83, Est GFR (MDRD) Af Amer 192, Est GFR (MDRD) Non-Af 159, BUN/Creatinine Ratio 22.4 H, Glucose 123 H, Calcium 8.3 L, Phosphorus 3.8, Magnesium 2.3 Radiography Diagnostic Testing: Radiology Impression Chest X-Ray 03/29/23 11:20 IMPRESSION: Cardiomegaly. No acute abnormality is seen. Electronically Signed: Capo Shafer MD at 11:55 EDT , Hip/Pelvis X-Ray 03/29/23 11:20 IMPRESSION: Nondisplaced right intertrochanteric fracture. Electronically Signed: Capo Shafer MD at 11:57 EDT , Physical Exam Narrative GENERAL: cooperative HEENT: Atraumatic; normocephalic EYES; Anicteric, Normal Conjunctiva NECK; supple, normal thyroid, RESPIRATORY: Diminished to auscultation CARDIOVASCULAR: Regular S1 S2, GI: soft, normoactive bowel sounds, : No Renal angle tenderness; EXTREMITIES: No edema, no clubbing, MUSCULOSKELETAL: no muscle wasting NEURO: Awake; no lateralizing signs. SKIN: No Rash PSYCH; Flat affect Assessment & Plan Assessment/Plan (1) Closed right hip fracture: PLAN: Patient is a 73-year-old gentleman presented with a fall imaging studies demonstrated Nondisplaced right intertrochanteric fracture. Admitted to a monitored bed for further management 1. Nonsyncopal mechanical fall with resultant right hip fracture ? Imaging studies on admission demonstrated nondisplaced right intertrochanteric fracture. Patient has been admitted to regular nursing floor managed with immobilization pain meds with consultation placed to orthopedic surgery Patient has significant cardiac history including history of mitral valve repair, recent TAVR for aortic stenosis, paroxysmal A-fib and conduction system disorder. Patient has been admitted to regular nursing floor placed on continuous telemetry as part of his preop assessment ordered a 2D echo if there is any abnormality on the echo will obtain cardiology consultation. Patient risk for perioperative morbidity and mortality remains at moderate level ? 03/30/2023 results of 2D echo ordered the day prior pending 2. Valvular heart disease ? With recent TAVR at [facility] for aortic stenosis as well as previous history of mitral valve repair did obtain old records from [facility] 3. Conduction system disorder ? Status post pacemaker placement 4. Paroxysmal A-fib ? Rate controlled on amiodarone patient was previously on systemic anticoagulation which has since been discontinued 5.? Cardiomyopathy ? Patient is on torsemide, eplerenone as well as Entresto continued. Also ordered a 2D echo for EF assessment 6. Hypertension - Blood pressure controlled, home medications continued with dose adjustment as needed 7. Depression ? Patient is on fluoxetine did continue 8. DVT prophylaxis ? Bilateral SCDs for now with plans to initiate chemoprophylaxis following patient surgical intervention Time spent in the patient's overall evaluation,decision-making process, review of diagnostic data, adjustment of management, discussion with other providers, nursing nursing and ancillary staff involved in patient's care documentation,55 minutes Charges/Coding Visit Charges Inpatient E&M: 32417 Subs Hosp L3
[2023-03-30] MEDS: Carvedilol 6.25 MG Tablet PO ×2 (09:20→20:20)
--- NOTE | 2023-03-30 10:52 | CASEMGMT ---
Discharge Planning SNF list created and given to SW. Michelle Díaz
--- NOTE | 2023-03-30 11:42 | CASEMGMT ---
Addendum entered by Valeriano Piedra 03/30/23 14:20: interested in medical alert information. Information placed in pt's room at this time. Original Note: RN?CM?HEALTH INFORMATION TECHNICIAN?CM?to room to meet with patient for initial transition planning/care coordination?assessment.?RN?CM?introduced self and role at [facility].? Pt voices understanding and consents to?assessment?at this time.? Pt resting in bed in no distress at this time.?, Kathleen, @ bedside. Pt is A/O at this time and answers all questions appropriately.?? Care providers, pharmacy, and demographics verified/updated at this time. PCP: Jovi Bradley, RADHA. Pt also goes to [facility] Specialists: Dr Pickett-import customs clearing agent in [place], Dr Joseph-cardiovascular surgeon in [place] Preferred Pharmacy: [facility] in [place] Insurance: [facility], [facility] Prescription Benefit:?[place] only Living Will/HPOA:?Has LW and HCPOA, who is his dtrAlethea. Pt and made aware copies are not on file @ [facility]. LNOK: Dtr/Alethea MAYORGA. , Kathleen. Son Living Arrangements: Lives w/ in 2-story home w/a basement and ramp entrance. FFSU. Indep @ baseline w/ADL's. does home mgmt tasks. Transportation:? DME: States has the following DME:?shower chair, comfort height commode, rails/grab bars, straight cane, quad cane, rollator, walker, lift chair. ?Pt states no need for further DME at this time.? HHC/SNF: No hx of SNF. Has had HHC in the past. Discussed options of SNF and HHC. A list of SNF providers and HHC providers including quality and resource use data and consistent with the patient?s preferred geographic region, medical needs, and insurance network were provided from the [employer] Guide. Pt states he wishes to return home and thinks he will be able to manage w/his 's assistance. He would like HHC and chose [facility] as his 1st choice. Call placed to Bertha @ [facility] and referral made. They are able to accept pt w/slated SOC for Sat, if pt is medically ready for discharge tomorrow. Pt and made aware, if after working w/therapy tomorrow, if they feel pt needs SNF prior to returning home, to let CM/SW know. They voice understanding. Pt wishes to return home and states has no concerns with going home at time of discharge.? CM?to follow for any further discharge planning/needs.? Pt and voice no further concerns/needs at this time.? Advised them to ask for?CM?if any further questions/concerns/needs arise.? They voice understanding. PLAN:??Home w/[facility] PT/OT evals pending. CM to follow for further d/c needs. Jarrett BSN?RN?CM
--- NOTE | 2023-03-30 11:48 | CASEMGMT ---
Discharge Planning Patient Choice list for HH created for patient and given to RN CM. Michelle Díaz
--- NOTE | 2023-03-30 12:12 | CASEMGMT ---
Social Work Per RNCM, pt does have advance directives in place and is aware that documents are not on file. RNCM requested documents be brought in for scanning into medical record. AVIS Manuel
--- NOTE | 2023-03-30 12:15 | RAD_ITS ---
STUDY: X-RAY - PELVIS AND RIGHT HIP REASON FOR EXAM: Male, 73 years old. Comminuted right intertrochanteric fx -- gamma nail TECHNIQUE: 3 views of the pelvis and hip. COMPARISON: None. FINDINGS: Intraoperative imaging provided for ORIF of the intertrochanteric fracture using a gamma nail. RAD/Hip 1 view with Pelvis IMPRESSION: Intraoperative imaging provided for ORIF of the right intertrochanteric fracture. Electronically Signed: Capo Shafer MD at 15:02 EDT ,
--- NOTE | 2023-03-30 13:39 | PCM.PN.ORT ---
Subjective Subjective Patient seen and examined. Pain controlled. Denies any new complaints. Denies fevers, chills, nausea vomiting, chest pain or shortness of breath. Objective Data Objective Data Vital Signs: Vital Signs Temp Pulse Resp BP Pulse Ox O2 Del Method 96.9 F L 63 16 96/55 L 94 Room Air 03/30/23 07:30 03/30/23 07:30 03/30/23 07:30 03/30/23 07:30 03/30/23 07:39 03/30/23 09:28 Oxygen Delivery Method Room Air Weight: 163 lb 5.8 oz Body Mass Index (BMI) 24.1 Intake & Output: Intake and Output for Last 24 Hours 03/28/23 03/29/23 03/30/23 23:59 23:59 23:59 Intake Total 988.75 / 988.75 Output Total 200 / 200 Balance -200 / -200 988.75 / 988.75 Lab / Micro Data Result Diagrams: 03/30/23 06:02 03/30/23 06:02 Labs: Laboratory Results - last 24 hr 03/30/23 06:02: WBC 14.4 H, RBC 4.03 L, Hgb 12.3 L, Hct 38.1 L, MCV 94.5 H, MCH 30.5, MCHC 32.3, RDW Std Deviation 55.6 H, RDW Coeff of Rohit 15.9 H, Plt Count 224, MPV 10.1, Immature Gran % (Auto) 0.600, Neut % (Auto) 79.1 H, Lymph % (Auto) 6.1 L, [place] % (Auto) 13.9 H, Eos % (Auto) 0.1, Baso % (Auto) 0.2, Absolute Neuts (auto) 11.4 H, Absolute Lymphs (auto) 0.88, Nucleated RBC % 0, Diff Path Review March03/30/23 06:02: Sodium 138, Potassium 4.3, Chloride 106, Carbon Dioxide 27.0, Anion Gap 5, BUN 12, Creatinine 0.54 L, Estim Creat Clear Calc 63.83, Est GFR (MDRD) Af Amer 192, Est GFR (MDRD) Non-Af 159, BUN/Creatinine Ratio 22.4 H, Glucose 123 H, Calcium 8.3 L, Phosphorus 3.8, Magnesium 2.3 Radiography Diagnostic Testing: Radiology Impression Echocardiogram 03/29/23 12:11 Interpretation Summary The left ventricular ejection fraction is 55 %. Diastolic function is indeterminate. Moderately dilated right ventricle. Moderately decreased right ventricular systolic function The left atrium is severely enlarged. The right atrium is severely enlarged. Moderate (2+) tricuspid valve insufficiency. Right ventricular systolic pressure estimated to be 58 mmHg. Bioprosthetic aortic valve functioning normally. Ordering Physician: Feroz Bucio Referring Physician: FITO RAMIREZ Performed By: Yulissa Martinez RCS Physical Exam Narrative General -A&Ox3, NAD, appears stated age. Vital signs stable, afebrile. Respiratory -normal work of breathing, no intercostal retractions. CV -pulses regular, brisk capillary refill ?4 limbs. Abdomen-soft, nontender, nondistended. No guarding, rigidity, rebound tenderness. Musculoskeletal/neurologic -full range of motion nontender throughout bilateral upper extremities, left lower extremity with full sensation and strength in all dermatomes and myotomes. No midline cervical tenderness. Right lower extremity-no obvious deformity. Pain with logroll of the right lower extremity. Nontender throughout the right knee femoral shaft, tibial shaft and left foot/ankle. Brisk capillary refill. Sensation intact light touch L3-S1 dermatomes. DF, PF, EHL intact. DP, PT 2+. Pelvis is stable, nontender. Bilateral anterior knee small skin tears noted. Assessment & Plan Assessment/Plan (1) Closed comminuted intertrochanteric fracture of proximal end of right femur: PLAN: Plan to proceed with right hip cephalomedullary nail. Informed consent confirmed with patient. All questions answered to the patient's satisfaction. Further recommendations pending surgery.
[2023-03-30] MEDS: Cefazolin 2 GM in 0.9% Normal Saline 100 ML IV ×2 (13:40→21:29)
--- NOTE | 2023-03-30 15:08 | OP.PCM_ITS ---
Report of Operation Date of Procedure: 03/30/23 Description of Surgical Findings:: Preoperative diagnosis: Right intertrochanteric proximal femur fracture Postoperative diagnosis: Right intertrochanteric proximal femur fracture Procedure: Treatment of intertrochanteric hip fracture with intramedullary nail right femur Surgeon: Chandler Vidal DO Terrazzo Finisher Helper: Whitney Foster PA-C Anesthesia: General endotracheal Anesthesiologist: Dr. Spivey Complications: None Drains: None Estimated blood loss: 250 cc Urinary output: None recorded IV fluids: 800 cc crystalloid Specimens: None Surgical implants: Spangler Gamma3 Cephalomedullary Nail 125 degree 11 mm x 180 mm right, 10.5 mm x 105 mm lag screw, Interlocking screw size 5 mm x 37.5 mm Surgical indications: This is a 73 male who presents presented to [facility] emergency department after a mechanical fall yesterday. EMS was called and brought the patient to the emergency department where x-rays revealed a right intertrochanteric proximal femur fracture. He denied any head injury, loss consciousness, syncopal or presyncopal symptoms prior to the fall. Denies any antecedent right hip or groin pain. Patient uses a walker to ambulate due to bilateral lower extremity weakness. Patient was admitted under the service of the hospitalist 03/29/2023. Orthopedics was consulted for surgical recommendations.I recommended cephalomedullary nail fixation of his right intertrochanteric proximal femur fracture. The risks, benefits, alternatives to procedure reviewed with the patient. The risks of the surgery included bleeding, infection, loss of life or limb, malunion, nonunion, damage to vital structures, neurovascular injury, failure of orthopedic hardware, need for additional surgery, persistent pain or disability, risk of anesthesia. The patient expressed understanding of these risks and agreed to proceed with surgery. Blood consent was also obtained. Description of procedure: Patient was seen in preoperative holding area. He was identified by name, medical record number, date of . The operative extremity was marked with a surgical marker. We confirmed informed consent with the patient and questions were answered to his satisfaction. Patient was brought to the operative suite, and general anesthesia was induced on her hospital bed. Endotracheal tube was secured. After adequate anesthesia, patient was transferred to a fracture table with all bony prominences being well-padded. A perineal post was placed to secure the patient on the table. We then applied a ski boot which was well-padded to the operative extremity. The well leg was dropped into extension and secured to the axial post of the fracture table with a pillow and Coban. The right arm was brought across patient's chest with a blanket on his chest. We then performed a closed reduction maneuver with external rotation, traction, internal rotation and adduction. Fluoroscopic images were obtained. Fracture appeared to be acceptably reduced following closed reduction. We then prepped and draped the right lower extremity in normal, sterile orthopedic fashion. A timeout was performed with all parties in attendance in agreement with the side, site, and operation be performed. 2 g Ancef was administered prior to incision. No concerns were voiced and we elected to proceed. I first used fluoroscopy to jamari the level of the fracture and planned incision for insertion of the cephalomedullary nail device. In line with the long axis of the femur, 4 fingerbreadths proximal to the tip of the greater trochanter, a full-thickness skin incision was planned.. Skin was sharply incised with 10 blade scalpel, carried into the subcutaneous tissues. The IT band was encountered and split and planned trajectory of the nail placement. The greater trochanter was then able to be palpated digitally. I then placed a threaded guidewire just medial to the tip of the greater trochanter and in the anterior third of it on the lateral. Opening reamer was then placed over top of the guidewire after placement was confirmed on C arm. A ball-tipped guidewire then was passed into the intramedullary canal after reamer was removed. We used C arm to confirm our placement within the bone. We then sequentially reamed to a final diameter of 12.5 mm using flexible reamers. Reduction was again confirmed. We selected her nail to be 18 cm x 11 mm diameter. Reamers were removed. Nail was assembled on the back table. We placed it over the ball- tipped guidewire and impacted to an appropriate depth. Rotation was confirmed on the lateral. Drill sleeve was placed through the targeting guide. Due to some calcar displacement, I placed a bone hook around the medial femoral neck applying a lateral transitory force. My assistant wrestling coach held the fracture reduced while I drilled the pin for the lag screw at an appropriate position and depth, tip to apex distance less than 25 mm on AP and lateral combined. Depth gauge was used to measure the length of the screw, 105 mm. We then used the cannulated drill to drill to an appropriate depth. Drill was removed, drill pin left in place. Lag screw was placed over top of the drill pin and tightened to an appropriate depth. Setscrew was then placed and tightened, and then turned back a quarter turn to allow the lag screw to slide. I then drilled for a static interlocking screw in the distal portion of the screw utilizing the outrigger. Skin was incised full-thickness down the level of the IT band which was also split in line with the skin incision. I drilled bicortically through the distal interlocking slot of the nail. I measured for a 37.5 mm interlocking screw which was placed by hand with excellent purchase. Instruments were removed as well as the outrigger for the nail. Final fluoroscopic images were obtained at the hip. Final fluoroscopic images were obtained. We irrigated the wounds copiously with normal saline solution. Hemostasis was excellent at this point. We then closed the deeper layers, IT band with 0 Vicryl. Intradermal buried stitches of 2-0 Vicryl were utilized and skin finally reapproximated with skin charles. Sterile compression dressing of Xeroform, 4 x 4's, and Tegaderm was applied. Patient tolerated procedure well without complication. He was transferred back to her hospital bed and subsequently to PACU in stable condition. Need for skilled assistant wrestling coach: Whitney Foster PA-C was critical to the outcome of the case. During the course of the procedure the physician assistant wrestling coach played a vital role. Her intimate knowledge of my steps in the procedure aided in safe and expedient completion of the procedure. The PA played a vital role in positioning particularly in obtaining the appropriate positioning. The PA was also vital in the retraction of soft tissues during the exposure and protecting vital structures. The PA was also vital and obtaining fracture reduction and assisting with hardware placement. She also played a vital role in closure and dressing application with my direct supervision. Intraoperative medications: 2 g Ancef IV Post Operative Plan: Weightbearing: Weightbearing as tolerated right lower extremity with a walker Antibiotics: Ancef 2 g x 3 doses postoperatively, 1 dose given preoperatively DVT Prophylaxis: Lovenox to start tomorrow morning, SCDs, TEDS, early mobilization Mcintosh: None Dressing: Dry sterile dressing changes daily and as needed for saturation X-Rays: 2 weeks postop in the office Follow-up: 2 weeks post-operatively with me in the office
[2023-03-30] MEDS: Calcium Carbonate 500 MG Tablet PO (16:47)
[2023-03-30] MEDS: Atorvastatin Calcium 80 MG Tablet PO (20:20)
[2023-03-30] MEDS: SACUBITRIL/VALSARTAN 24/26 MG TABLET 1 EACH PO (20:20)
[2023-03-31 05:00] VITALS: BP 107/62; PULSE 62; RESP 18; TEMP 36.7; O2SAT 94
[2023-03-31] MEDS: Acetaminophen 500 MG Tablet 1000 MG PO ×3 (05:41→22:36)
[2023-03-31] MEDS: Cefazolin 2 GM in 0.9% Normal Saline 100 ML IV ×2 (05:41→13:06)
[2023-03-31] MEDS: HYDROmorphone 1 MG/ML Syringe IV (05:47)
[2023-03-31 06:08] LABS: Absolute Lymphocyte Count 0.52 X10^3/uL (0.83-4.51); Absolute Neutrophil Count 14.4 X10^3/uL (2.0-7.7); Basophil# 0.02 X10^3/uL; Basophil% 0.1 % (0-1); Hematocrit 31.8 % (40-54); Hemoglobin 10.1 g/dL (13.0-16.5); Lymphocyte # 0.52 X10^3/ul (0.83-4.51); Lymphocyte % 3.1 % (19-41); Mean Corp Hgb Conc 31.8 g/dL (32-36); Mean Corpuscular Hgb 30.1 pg (27.0-32.0); Mean Corpuscular Volume 94.6 fL (80-94); Mean Platelet Vol. 10.2 fl (6.2-12.0); Monocyte# 1.88 X10^3/uL; Monocyte% 11.1 % (0-10); NRBC Flagged by Analyzer 0 % (0-5); Neutrophil # 14.41 X10^3/uL (2.7-7.7); Neutrophil % 84.7 % (47-70); POSITIVE DIFFERENTIAL YES; Platelet Count 194 K/mm3 (150-450); RBC Distribution Width CV 15.7 % (11.6-14.6); RBC Distribution Width SD 54.4 fl (35.1-43.9); Red Blood Count 3.36 M/mm3 (4.6-6.2)
[2023-03-31 06:13] LABS: Differential Indicated SCAN CRITERIA MET
[2023-03-31 06:43] LABS: Anion Gap 5 (5-15); BUN 13 mg/dL (7-18); BUN/Creat Ratio 22.7 RATIO (10-20); Calcium,Total 7.9 mg/dL (8.5-10.1); Chloride 108 mmol/L (98-107); Creatinine, Serum 0.57 mg/dL (0.70-1.30); EST Glomerular Filtration Rate 147 mL/min (>60); Est Glom Filt Rate - Afr Amer 178 mL/min (>60); Estimated Creatinine Clearance 63.83 ml/min; Glucose 161 mg/dL (74-106); Potassium 3.9 mmol/L (3.5-5.1); Sodium Level 139 mmol/L (136-145)
--- NOTE | 2023-03-31 07:27 | PCM.PN.HOSP ---
Reason for Visit Reason for Visit: Diagnoses Fracture of unspecified part of neck of right femur, initial encounter for closed fracture (03/29/23) Displaced intertrochanteric fracture of right femur, initial encounter for closed fracture (03/29/23) Subjective Subjective Patient underwent treatment of intertrochanteric hip fracture with intramedullary nail right femur on 03/30/2023 Objective Data Objective Data Vital Signs: Vital Signs Temp Pulse Resp BP Pulse Ox O2 Del Method O2 Flow Rate 98.0 F 62 18 107/62 94 Nasal Cannula 1 03/31/23 05:00 03/31/23 05:00 03/31/23 05:00 03/31/23 05:00 03/31/23 05:00 03/31/23 05:00 03/31/23 05:00 Oxygen Flow Rate (L/min) 1 Oxygen Delivery Method Nasal Cannula Weight: 74.1 kg Body Mass Index (BMI) 24.1 Intake & Output: Intake and Output for Last 24 Hours 03/29/23 03/30/23 03/31/23 23:59 23:59 23:59 Intake Total 2568.75 / 2568.75 926.25 / 926.25 Output Total 200 / 200 450 / 450 Balance -200 / -200 2568.75 / 2568.75 476.25 / 476.25 Lab / Micro Data Result Diagrams: 03/31/23 05:50 03/31/23 05:50 Labs: Laboratory Results - last 24 hr 03/30/23 06:02: WBC 14.4 H, RBC 4.03 L, Hgb 12.3 L, Hct 38.1 L, MCV 94.5 H, MCH 30.5, MCHC 32.3, RDW Std Deviation 55.6 H, RDW Coeff of Rohit 15.9 H, Plt Count 224, MPV 10.1, Immature Gran % (Auto) 0.600, Neut % (Auto) 79.1 H, Lymph % (Auto) 6.1 L, [place] % (Auto) 13.9 H, Eos % (Auto) 0.1, Baso % (Auto) 0.2, Absolute Neuts (auto) 11.4 H, Absolute Lymphs (auto) 0.88, Nucleated RBC % 0, Diff Path Review March03/30/23 06:02: Sodium 138, Potassium 4.3, Chloride 106, Carbon Dioxide 27.0, Anion Gap 5, BUN 12, Creatinine 0.54 L, Estim Creat Clear Calc 63.83, Est GFR (MDRD) Af Amer 192, Est GFR (MDRD) Non-Af 159, BUN/Creatinine Ratio 22.4 H, Glucose 123 H, Calcium 8.3 L, Phosphorus 3.8, Magnesium 2.3 03/31/23 05:50: WBC 17.0 H, RBC 3.36 L, Hgb 10.1 L, Hct 31.8 L, MCV 94.6 H, MCH 30.1, MCHC 31.8 L, RDW Std Deviation 54.4 H, RDW Coeff of Rohit 15.7 H, Plt Count 194, MPV 10.2, Immature Gran % (Auto) 1.000 H, Neut % (Auto) 84.7 H, Lymph % (Auto) 3.1 L, [place] % (Auto) 11.1 H, Eos % (Auto) 0.0, Baso % (Auto) 0.1, Absolute Neuts (auto) 14.4 H, Absolute Lymphs (auto) 0.52 L, Nucleated RBC % 0 03/31/23 05:50: Sodium 139, Potassium 3.9, Chloride 108 H, Carbon Dioxide 26.0, Anion Gap 5, BUN 13, Creatinine 0.57 L, Estim Creat Clear Calc 63.83, Est GFR (MDRD) Af Amer 178, Est GFR (MDRD) Non-Af 147, BUN/Creatinine Ratio 22.7 H, Glucose 161 H, Calcium 7.9 L Radiography Diagnostic Testing: Radiology Impression Echocardiogram 03/29/23 12:11 Interpretation Summary The left ventricular ejection fraction is 55 %. Diastolic function is indeterminate. Moderately dilated right ventricle. Moderately decreased right ventricular systolic function The left atrium is severely enlarged. The right atrium is severely enlarged. Moderate (2+) tricuspid valve insufficiency. Right ventricular systolic pressure estimated to be 58 mmHg. Bioprosthetic aortic valve functioning normally. Ordering Physician: Feroz Bucio Referring Physician: FITO RAMIREZ Performed By: Yulissa Martinez RCS Hip/Pelvis X-Ray 03/30/23 12:15 IMPRESSION: Intraoperative imaging provided for ORIF of the right intertrochanteric fracture. Electronically Signed: Capo Shafer MD at 15:02 EDT , Physical Exam Narrative GENERAL: cooperative HEENT: Atraumatic; normocephalic EYES; Anicteric, Normal Conjunctiva NECK; supple, normal thyroid, RESPIRATORY: Diminished to auscultation CARDIOVASCULAR: Regular S1 S2, GI: soft, normoactive bowel sounds, : No Renal angle tenderness; EXTREMITIES: No edema, no clubbing, MUSCULOSKELETAL: no muscle wasting NEURO: Awake; no lateralizing signs. SKIN: No Rash PSYCH; Flat affect Assessment & Plan Assessment/Plan (1) Closed right hip fracture: PLAN: Patient is a 73-year-old gentleman presented with a fall imaging studies demonstrated Nondisplaced right intertrochanteric fracture. Admitted to a monitored bed for further management 1. Nonsyncopal mechanical fall with resultant right hip fracture ? Imaging studies on admission demonstrated nondisplaced right intertrochanteric fracture. Patient has been admitted to regular nursing floor managed with immobilization pain meds with consultation placed to orthopedic surgery Patient has significant cardiac history including history of mitral valve repair, recent TAVR for aortic stenosis, paroxysmal A-fib and conduction system disorder. Patient has been admitted to regular nursing floor placed on continuous telemetry as part of his preop assessment ordered a 2D echo if there is any abnormality on the echo will obtain cardiology consultation. Patient risk for perioperative morbidity and mortality remains at moderate level ? 03/30/2023 results of 2D echo ordered the day prior pending 03/31/2023; patient underwent treatment of intertrochanteric hip fracture with intramedullary nail right femur on 03/30/2023 2. Valvular heart disease ? With recent TAVR at [facility] for aortic stenosis as well as previous history of mitral valve repair did obtain old records from [facility] 3. Conduction system disorder ? Status post pacemaker placement 4. Paroxysmal A-fib ? Rate controlled on amiodarone patient was previously on systemic anticoagulation which has since been discontinued 5.? Cardiomyopathy ? Patient is on torsemide, eplerenone as well as Entresto continued. Also ordered a 2D echo for EF assessment 6. Hypertension - Blood pressure controlled, home medications continued with dose adjustment as needed 7. Depression ? Patient is on fluoxetine did continue 8. DVT prophylaxis ? SC Lovenox 9. Anemia - Secondary to chronic disorder as well as anemia following surgery monitoring H&H and transfuse if patient becomes symptomatic or hemoglobin falls below 7 10. Physical deconditioning - Requested for PT OT eval and elementary school social worker to assist with discharge planning 11. Leukocytosis -most likely reactive no signs of infection we will continue with Time spent in the patient's overall evaluation,decision-making process, review of diagnostic data, adjustment of management, discussion with other providers, nursing nursing and ancillary staff involved in patient's care documentation,5 5 minutes Charges/Coding Visit Charges Inpatient E&M: 47311 Subs Hosp L3
[2023-03-31 08:18] VITALS: O2SAT 93
[2023-03-31 08:24] LABS: Differential Comment SCANNED
[2023-03-31 08:38] VITALS: BP 117/60; PULSE 78; RESP 18; TEMP 36.5; O2SAT 98
[2023-03-31] MEDS: Enoxaparin 40 MG/0.4 ML Syringe SC (08:43)
[2023-03-31] MEDS: Carvedilol 6.25 MG Tablet PO ×2 (08:43→22:36)
[2023-03-31] MEDS: Amiodarone 200 MG Tablet PO (08:43)
[2023-03-31] MEDS: Aspirin 81 MG TAB.CHEW PO (08:43)
[2023-03-31] MEDS: Calcium Carbonate 500 MG Tablet PO ×3 (08:43→16:42)
[2023-03-31] MEDS: Loratadine 10 MG Tablet PO (08:43)
[2023-03-31] MEDS: Fluoxetine HCl 40 MG CAPSULE PO (08:44)
[2023-03-31] MEDS: Eplerenone 25 MG Tablet 12.5 MG PO (08:44)
[2023-03-31] MEDS: Cyanocobalamin 500 MCG Tablet 1000 MCG PO (08:44)
[2023-03-31] MEDS: Furosemide 40 MG Tablet PO (08:44)
[2023-03-31] MEDS: SACUBITRIL/VALSARTAN 24/26 MG TABLET 1 EACH PO ×2 (08:44→22:36)
[2023-03-31] MEDS: Potassium Chloride Oral Tablet 20 MEQ PO (08:44)
[2023-03-31] MEDS: KCl 20MEQ in D5NS 20 MEQ/1,000 ML IV.SOLN. 75 MEQ IV (09:37)
[2023-03-31 10:03] LABS: Pathologist Review Reviewed
--- NOTE | 2023-03-31 10:46 | CASEMGMT ---
Addendum entered by Lisa Drummond 03/31/23 10:51: Updated by hospitalist that pt will dc tomorrow. Pt updated and Bertha at [facility] as well. Original Note: RN CM into pt room, sister at bedside. Pt states he feels he did well with therapy and has had other surgeries and would like to return home with [facility]. He is aware that they will be out tomorrow to see him. Updated Bertha at [facility] on dc. Pt son will be present when pt gets home to help him get into the house. Pt will be with him to assist as well. Pt denies further needs.
--- NOTE | 2023-03-31 12:30 | PCM.PN.ORT ---
Subjective Subjective Patient seen and examined. Denies any complaints. Up with therapy this morning. Therapy notes report patient able to ambulate with assistance 40 feet with walker. Patient reports some soreness in the right hip but he states he likely could have gone farther. Denies any fevers, chills, nausea vomiting, chest pain or shortness of breath. Patient states he is adamant about going home and feels comfortable with home health care as well as assistance from his neighbors and family at home. Objective Data Objective Data Vital Signs: Vital Signs Temp Pulse Resp BP Pulse Ox O2 Del Method O2 Flow Rate 97.7 F L 78 18 117/60 98 Room Air 1 03/31/23 08:38 03/31/23 08:38 03/31/23 08:38 03/31/23 08:38 03/31/23 08:38 03/31/23 08:50 03/31/23 08:18 Oxygen Flow Rate (L/min) 1 Oxygen Delivery Method Room Air Weight: 163 lb 5.8 oz Body Mass Index (BMI) 24.1 Intake & Output: Intake and Output for Last 24 Hours 03/29/23 03/30/23 03/31/23 23:59 23:59 23:59 Intake Total 2568.75 / 2568.75 1110.00 / 1110.00 Output Total 200 / 200 450 / 450 Balance -200 / -200 2568.75 / 2568.75 660.00 / 660.00 Lab / Micro Data Result Diagrams: 03/31/23 05:50 03/31/23 05:50 Labs: Laboratory Results - last 24 hr 03/30/23 06:02: Diff Path Review Reviewed 03/31/23 05:50: WBC 17.0 H, RBC 3.36 L, Hgb 10.1 L, Hct 31.8 L, MCV 94.6 H, MCH 30.1, MCHC 31.8 L, RDW Std Deviation 54.4 H, RDW Coeff of Rohit 15.7 H, Plt Count 194, MPV 10.2, Immature Gran % (Auto) 1.000 H, Neut % (Auto) 84.7 H, Lymph % (Auto) 3.1 L, [place] % (Auto) 11.1 H, Eos % (Auto) 0.0, Baso % (Auto) 0.1, Absolute Neuts (auto) 14.4 H, Absolute Lymphs (auto) 0.52 L, Nucleated RBC % 0, Differential Comment SCANNED, Diff Path Review March03/31/23 05:50: Sodium 139, Potassium 3.9, Chloride 108 H, Carbon Dioxide 26.0, Anion Gap 5, BUN 13, Creatinine 0.57 L, Estim Creat Clear Calc 63.83, Est GFR (MDRD) Af Amer 178, Est GFR (MDRD) Non-Af 147, BUN/Creatinine Ratio 22.7 H, Glucose 161 H, Calcium 7.9 L Radiography Diagnostic Testing: Radiology Impression Hip/Pelvis X-Ray 03/30/23 12:15 IMPRESSION: Intraoperative imaging provided for ORIF of the right intertrochanteric fracture. Electronically Signed: Capo Shafer MD at 15:02 EDT , Physical Exam Narrative General - A&Ox3, NAD. VSS/AF Right lower extremity -incisional dressing shows serosanguineous drainage. SILT Sural, Saphenous, SPN, DPN, Tibial N. distributions. DP, PT 2+. BCR. DF, PF, EHL 5/5. No calf TTP. Assessment & Plan Assessment/Plan (1) Closed comminuted intertrochanteric fracture of proximal end of right femur: PLAN: POD#1 s/p right femur CMN -Patient doing well from orthopedic standpoint. Anticipated drop in hemoglobin consistent with acute blood loss anemia, likely somewhat dilution component - Pain control - Medicine following for medical management - PT/OT -weightbearing as tolerated right lower extremity - DVT PPX -Lovenox 40 mg subcutaneously daily x28 days, SCDs, ANGELA hose, early mobilization - Dry sterile dressing changes as needed right hip incisions. Okay to leave open to air 7 days postoperatively. Okay to shower 7 days postoperatively if no drainage. I agree with 1 more day of inpatient physical therapy ensuring patient is safe for home discharge with home health care. -Plan to follow-up with me in 2 weeks for staple removal and x-rays. - Case management - D/C planning
[2023-03-31] MEDS: oxyCODONE 5 MG Tablet 10 MG PO ×2 (13:05→22:40)
[2023-03-31 13:07] VITALS: BP 95/53; PULSE 67; RESP 18; TEMP 36.8; O2SAT 98
[2023-03-31 16:38] VITALS: BP 110/55; PULSE 97; RESP 16; TEMP 36.5; O2SAT 97
[2023-03-31 22:32] VITALS: BP 136/50; PULSE 68; RESP 18; TEMP 36.4; O2SAT 93
[2023-03-31] MEDS: Atorvastatin Calcium 80 MG Tablet PO (22:36)
[2023-03-31] MEDS: 0.9% Saline Lock 10 ML Syringe IV (22:40)
[2023-04-01 05:46] VITALS: BP 106/50; PULSE 67; RESP 18; TEMP 36.3; O2SAT 92
[2023-04-01] MEDS: oxyCODONE 5 MG Tablet 10 MG PO ×2 (05:59→12:48)
[2023-04-01] MEDS: Acetaminophen 500 MG Tablet 1000 MG PO (05:59)
[2023-04-01 06:30] LABS: Absolute Lymphocyte Count 0.73 X10^3/uL (0.83-4.51); Absolute Neutrophil Count 13.3 X10^3/uL (2.0-7.7); Basophil# 0.01 X10^3/uL; Basophil% 0.1 % (0-1); Hematocrit 28.4 % (40-54); Hemoglobin 9.1 g/dL (13.0-16.5); Lymphocyte # 0.73 X10^3/ul (0.83-4.51); Lymphocyte % 4.5 % (19-41); Mean Corpuscular Hgb 30.1 pg (27.0-32.0); Mean Platelet Vol. 10.8 fl (6.2-12.0); Monocyte% 11.8 % (0-10); NRBC Flagged by Analyzer 0 % (0-5); Neutrophil # 13.33 X10^3/uL (2.7-7.7); Neutrophil % 82.5 % (47-70); POSITIVE DIFFERENTIAL YES; Platelet Count 184 K/mm3 (150-450); RBC Distribution Width CV 15.8 % (11.6-14.6); RBC Distribution Width SD 54.2 fl (35.1-43.9); Red Blood Count 3.02 M/mm3 (4.6-6.2); White Blood Count 16.2 K/mm3 (4.4-11.0)
[2023-04-01 06:44] LABS: Differential Indicated SCAN CRITERIA MET
--- NOTE | 2023-04-01 07:03 | PCM.PN.HOSP ---
Reason for Visit Reason for Visit: Diagnoses Fracture of unspecified part of neck of right femur, initial encounter for closed fracture (03/29/23) Displaced intertrochanteric fracture of right femur, initial encounter for closed fracture (03/29/23) Subjective Subjective Patient seen pain is tolerable plan is for patient to be assessed for possible discharge Objective Data Objective Data Vital Signs: Vital Signs Temp Pulse Resp BP Pulse Ox O2 Del Method O2 Flow Rate 97.4 F L 67 18 106/50 L 92 Nasal Cannula 1 04/01/23 05:46 04/01/23 05:46 04/01/23 05:46 04/01/23 05:46 04/01/23 05:46 04/01/23 05:46 03/31/23 08:18 Oxygen Flow Rate (L/min) 1 Oxygen Delivery Method Nasal Cannula Weight: 74.1 kg Body Mass Index (BMI) 24.1 Intake & Output: Intake and Output for Last 24 Hours 03/30/23 03/31/23 04/01/23 23:59 23:59 23:59 Intake Total 2568.75 / 2568.75 2436.25 / 2436.25 Output Total 1000 / 1000 250 / 250 Balance 2568.75 / 2568.75 1436.25 / 1436.25 -250 / -250 Lab / Micro Data Result Diagrams: 04/01/23 05:15 04/01/23 05:15 Labs: Laboratory Results - last 24 hr 03/30/23 06:02: Diff Path Review Reviewed 03/31/23 05:50: Differential Comment SCANNED, Diff Path Review March04/01/23 05:15: WBC 16.2 H, RBC 3.02 L, Hgb 9.1 L, Hct 28.4 L, MCV 94.0, MCH 30.1, MCHC 32.0, RDW Std Deviation 54.2 H, RDW Coeff of Rohit 15.8 H, Plt Count 184, MPV 10.8, Immature Gran % (Auto) 1.100 H, Neut % (Auto) 82.5 H, Lymph % (Auto) 4.5 L, [place] % (Auto) 11.8 H, Eos % (Auto) 0.0, Baso % (Auto) 0.1, Absolute Neuts (auto) 13.3 H, Absolute Lymphs (auto) 0.73 L, Nucleated RBC % 0 Physical Exam Narrative GENERAL: cooperative HEENT: Atraumatic; normocephalic EYES; Anicteric, Normal Conjunctiva NECK; supple, normal thyroid, RESPIRATORY: Diminished to auscultation CARDIOVASCULAR: Regular S1 S2, GI: soft, normoactive bowel sounds, : No Renal angle tenderness; EXTREMITIES: No edema, no clubbing, MUSCULOSKELETAL: no muscle wasting NEURO: Awake; no lateralizing signs. SKIN: No Rash PSYCH; Flat affect Assessment & Plan Assessment/Plan (1) Closed right hip fracture: PLAN: Patient is a 73-year-old gentleman presented with a fall imaging studies demonstrated Nondisplaced right intertrochanteric fracture. Admitted to a monitored bed for further management 1. Nonsyncopal mechanical fall with resultant right hip fracture ? Imaging studies on admission demonstrated nondisplaced right intertrochanteric fracture. Patient has been admitted to regular nursing floor managed with immobilization pain meds with consultation placed to orthopedic surgery Patient has significant cardiac history including history of mitral valve repair, recent TAVR for aortic stenosis, paroxysmal A-fib and conduction system disorder. Patient has been admitted to regular nursing floor placed on continuous telemetry as part of his preop assessment ordered a 2D echo if there is any abnormality on the echo will obtain cardiology consultation. Patient risk for perioperative morbidity and mortality remains at moderate level ? 03/30/2023 results of 2D echo ordered the day prior pending 03/31/2023; patient underwent treatment of intertrochanteric hip fracture with intramedullary nail right femur on 03/30/2023 2. Valvular heart disease ? With recent TAVR at [facility] for aortic stenosis as well as previous history of mitral valve repair did obtain old records from [facility] 3. Conduction system disorder ? Status post pacemaker placement 4. Paroxysmal A-fib ? Rate controlled on amiodarone patient was previously on systemic anticoagulation which has since been discontinued 5.? Cardiomyopathy ? Patient is on torsemide, eplerenone as well as Entresto continued. Also ordered a 2D echo for EF assessment 6. Hypertension - Blood pressure controlled, home medications continued with dose adjustment as needed 7. Depression ? Patient is on fluoxetine did continue 8. DVT prophylaxis ? SC Lovenox 9. Anemia - Secondary to chronic disorder as well as anemia following surgery monitoring H&H and transfuse if patient becomes symptomatic or hemoglobin falls below 7 10. Physical deconditioning - Requested for PT OT eval and group social worker to assist with discharge planning 11. Leukocytosis -most likely reactive no signs of infection we will continue with Time spent in the patient's overall evaluation,decision-making process, review of diagnostic data, adjustment of management, discussion with other providers, nursing nursing and ancillary staff involved in patient's care documentation, 45 minutes Charges/Coding Visit Charges Inpatient E&M: 74358 Subs Hosp L2
[2023-04-01 07:07] LABS: Anion Gap 4 (5-15); BUN 17 mg/dL (7-18); BUN/Creat Ratio 29.7 RATIO (10-20); Calcium,Total 8.2 mg/dL (8.5-10.1); Chloride 108 mmol/L (98-107); Creatinine, Serum 0.57 mg/dL (0.70-1.30); EST Glomerular Filtration Rate 147 mL/min (>60); Est Glom Filt Rate - Afr Amer 178 mL/min (>60); Estimated Creatinine Clearance 63.83 ml/min; Glucose 115 mg/dL (74-106); Potassium 4.7 mmol/L (3.5-5.1); Sodium Level 138 mmol/L (136-145)
[2023-04-01 07:10] LABS: Differential Comment SCANNED
[2023-04-01 07:50] VITALS: O2SAT 92
[2023-04-01] MEDS: Calcium Carbonate 500 MG Tablet PO ×2 (08:46→12:48)
[2023-04-01] MEDS: Fluoxetine HCl 40 MG CAPSULE PO (08:46)
[2023-04-01] MEDS: Cyanocobalamin 500 MCG Tablet 1000 MCG PO (08:46)
[2023-04-01] MEDS: Potassium Chloride Oral Tablet 20 MEQ PO (08:47)
[2023-04-01] MEDS: Loratadine 10 MG Tablet PO (08:48)
[2023-04-01] MEDS: Carvedilol 6.25 MG Tablet PO (08:48)
[2023-04-01] MEDS: Aspirin 81 MG TAB.CHEW PO (08:48)
--- NOTE | 2023-04-01 09:02 | DS.PCM_ITS ---
Providers Date of Admission: 03/29/23 Date of Discharge: 04/01/23 Primary Care Physician: VIV Mcdaniel Consultations 03/29/23 11:48 Consult: Orthopedics Routine Consulting Provider: Chandler Vidal Reason for Consult: Hip fracture EMERGENT Consult: No MD Notified: Yes Date Notified: 03/29/23 Time Notified: 11:53 Method of Notification: ED Physician Initiated Reason For Visit: COMMINUATED RIGHT INTERTROCHANTERIC FRACTURE Diagnosis Discharge Diagnosis (1) Closed right hip fracture: Status: Acute Code(s): S72.001A - Fracture of unspecified part of neck of right femur, initial en counter for closed fracture Plan: Patient is a 73-year-old gentleman presented with a fall imaging studies demonstrated Nondisplaced right intertrochanteric fracture. Admitted to a monitored bed for further management 1. Nonsyncopal mechanical fall with resultant right hip fracture ? Imaging studies on admission demonstrated nondisplaced right intertrochanteric fracture. Patient has been admitted to regular nursing floor managed with i mmobilization pain meds with consultation placed to orthopedic surgery Patient has significant cardiac history including history of mitral valve repair, recent TAVR for aortic stenosis, paroxysmal A-fib and conduction system disorder. Patient has been admitted to regular nursing floor placed on co ntinuous telemetry as part of his preop assessment ordered a 2D echo if there is any abnormality on the echo will obtain cardiology consultation. Patient risk for perioperative morbidity and mortality remains at moderate level ? 03/30/2023 results of 2D echo ordered the day prior pending 03/31/2023; patient underwent treatment of intertrochanteric hip fracture with intramedullary nail right femur on 03/30/2023 2. Valvular heart disease ? With recent TAVR at [facility] for aortic stenosis as well as previous history of mitral valve repair did obtain old records from [facility] 3. Conduction system disorder ? Status post pacemaker placement 4. Paroxysmal A-fib ? Rate controlled on amiodarone patient was previously on systemic anticoagulation which has since been discontinued 5.? Cardiomyopathy ? Patient is on torsemide, eplerenone as well as Entresto continued. Also or dered a 2D echo for EF assessment 6. Hypertension - Blood pressure controlled, home medications continued with dose adjustment as needed 7. Depression ? Patient is on fluoxetine did continue 8. DVT prophylaxis ? SC Lovenox 9. Anemia - Secondary to chronic disorder as well as anemia following surgery monitoring H&H and transfuse if patient becomes symptomatic or hemoglobin falls below 7 10. Physical deconditioning - Requested for PT OT eval and mental health social worker to assist with discharge planning 11. Leukocytosis -most likely reactive no signs of infection we will continue with Time spent in the patient's overall evaluation,decision-making process, review of diagnostic data, adjustment of management, discussion with other providers, nursing nursing and ancillary staff involved in patient's care documentation, 45 minutes Medications at Discharge Home Medications amiodarone 200 mg tablet 200 mg PO DAILY 02/08/23 carvedilol 6.25 mg tablet 6.25 mg PO BID 02/08/23 acetaminophen 500 mg tablet 1,000 mg PO Q6H 03/29/23 aspirin 81 mg chewable tablet 81 mg PO DAILY 03/29/23 atorvastatin 80 mg tablet 80 mg PO DAILY 03/29/23 eplerenone 25 mg tablet 12.5 mg PO DAILY Check with primary doctor 03/29/23 fexofenadine 180 mg tablet (Reva Allergy) 180 mg PO DAILY 03/29/23 fluoxetine 40 mg capsule (Prozac) 40 mg PO DAILY 03/29/23 mecobalamin (vitamin B12) 1,000 mcg chewable tablet (B12 Active) 1,000 mcg PO DAILY 03/29/23 mexiletine 200 mg capsule 200 mg 03/29/23 potassium chloride 20 mEq tablet,extended release(part/cryst) 20 meq PO DAILY 03/29/23 sacubitril 24 mg-valsartan 26 mg tablet (Entresto) 1 tab PO BID 03/29/23 torsemide 20 mg tablet 20 mg PO DAILY 03/29/23 oxycodone 5 mg tablet 5 mg PO Q4H PRN PRN Pain Score 4-10 5 days #20 tabs 04/01/23 rivaroxaban 10 mg tablet (Xarelto) 10 mg PO DAILY #35 tabs 04/01/23 sennosides 8.6 mg-docusate sodium 50 mg tablet (Stool Softener-Stimulant Laxative) 2 tab PO BID PRN PRN Constipation #60 tabs 04/01/23 Hospital Course Summary of Care Provided Minutes Spent on Discharge: 45 Physical Exam Narrative GENERAL: cooperative HEENT: Atraumatic; normocephalic EYES; Anicteric, Normal Conjunctiva NECK; supple, normal thyroid, RESPIRATORY: Diminished to auscultation CARDIOVASCULAR: Regular S1 S2, GI: soft, normoactive bowel sounds, : No Renal angle tenderness; EXTREMITIES: No edema, no clubbing, MUSCULOSKELETAL: no muscle wasting NEURO: Awake; no lateralizing signs. SKIN: No Rash PSYCH; Flat affect Weight / BMI Weight Weight: 74.1 kg Body Mass Index (BMI) 24.1 ABG / Lab / Microbiology Data Result Diagrams: 04/01/23 05:15 04/01/23 05:15 Laboratory: Laboratory Results - last 24 hr 03/30/23 06:02: Diff Path Review Reviewed 04/01/23 05:15: WBC 16.2 H, RBC 3.02 L, Hgb 9.1 L, Hct 28.4 L, MCV 94.0, MCH 30.1, MCHC 32.0, RDW Std Deviation 54.2 H, RDW Coeff of Rohit 15.8 H, Plt Count 184, MPV 10.8, Immature Gran % (Auto) 1.100 H, Neut % (Auto) 82.5 H, Lymph % (Auto) 4.5 L, [place] % (Auto) 11.8 H, Eos % (Auto) 0.0, Baso % (Auto) 0.1, Ab solute Neuts (auto) 13.3 H, Absolute Lymphs (auto) 0.73 L, Nucleated RBC % 0, Differential Comment SCANNED, Diff Path Review March04/01/23 05:15: Sodium 138, Potassium 4.7, Chloride 108 H, Carbon Dioxide 26.0, Anion Gap 4 L, BUN 17, Creatinine 0.57 L, Estim Creat Clear Calc 63.83, Est GFR (MDRD) Af Amer 178, Est GFR (MDRD) Non-Af 147, BUN/Creatinine Ratio 29.7 H, Glucose 115 H, Calcium 8.2 L D/C Instructions Discharge Diet: No restrictions Discharge Activity: Return to Normal Activity Call your doctor if you observe: Fever of 101 or Higher, Shortness of breath, Fainting spells and Chest pain Meaningful Use Info Meaningful Use Diagnoses (Choose all that apply): None applicable Discharge Plan Admission Admit Date/Time: 03/29/23 17:27 Attending Provider: Feroz Bucio Primary Care Provider: Jovi Bradley [employer]IGAR [employer]KING SUPERVISOR Consulting Providers: Chandler Vidal Discharge Orders/Prescriptions Prescriptions: New oxycodone 5 mg Tablet 5 mg PO Q4H PRN PRN (Reason: Pain Score 4-10) 5 Days Qty: 20 0RF Xarelto 10 mg tablet 10 mg PO DAILY Qty: 35 0RF sennosides-docusate sodium [Stool Softener-Stimulant Laxat] 8.6-50 mg Tablet 2 tab PO BID PRN PRN (Reason: Constipation) Qty: 60 0RF Continued carvedilol 6.25 mg tablet 6.25 mg PO BID amiodarone 200 mg tablet 200 mg PO DAILY acetaminophen 500 mg Tablet 1,000 mg PO Q6H mexiletine 200 mg capsule 200 mg fluoxetine [Prozac] 40 mg Capsule 40 mg PO DAILY atorvastatin 80 mg Tablet 80 mg PO DAILY torsemide 20 mg Tablet 20 mg PO DAILY fexofenadine [Reva Allergy] 180 mg Tablet 180 mg PO DAILY potassium chloride 20 mEq Tablet,Er Particles/Crystals 20 meq PO DAILY aspirin 81 mg Tablet,Chewable 81 mg PO DAILY eplerenone 25 mg Tablet 12.5 mg PO DAILY Entresto 24-26 mg Tablet 1 tab PO BID mecobalamin (vitamin B12) [B12 Active] 1,000 mcg Tablet,Chewable 1,000 mcg PO DAILY Referrals / Follow Up: Chandler Vidal DO [Med Staff - Active Staff] - 04/17/23 Jovi Bradley NP, CIGAR MAKING SUPERVISOR-C [Primary Care Provider] - Within 2 Weeks Disposition Disposition (needs filled in before D/C Order can be placed): Home Health Service Charges/Coding Visit Charges Inpatient E&M: 19279 Disch Hosp >30min
[2023-04-01 09:51] VITALS: BP 75/44; PULSE 60; RESP 16; TEMP 36.8; O2SAT 94
[2023-04-01 11:33] VITALS: BP 112/56; PULSE 75; RESP 18; TEMP 36.6; O2SAT 95
[2023-04-01] MEDS: Amiodarone 200 MG Tablet PO (11:38)
[2023-04-01] MEDS: Enoxaparin 40 MG/0.4 ML Syringe SC (11:39)
--- NOTE | 2023-04-01 12:43 | CASEMGMT ---
Cost of pt meds are $609.53. Xarelto savings card cannot be used for the dosage. Notified hospitalist, med changed to xarelto and savings card applied. NICOL CM into pt room to make aware, he would like meds delivered to room. Notified pharmacy. Cost is approx $18.
--- NOTE | 2023-04-01 13:41 | NURSING ---
Dr Bucio infomred that pt's bp 112/56, bp/heart meds were held, except amidarone. His reply was ok.
[2023-04-04 09:45] LABS: Pathologist Review Reviewed
[2023-04-04 09:48] LABS: Pathologist Review Reviewed
== END 2023-04-01 13:15 | disposition home health service (06) | DRG 481 ==
LOC: ED 12:00 → MS3 13:19
PROVIDERS: Student in an Organized Health Care Education/Training Program; Admitting Provider Internal Medicine; Emergency Provider Emergency Medicine; PCP Nurse Practitioner Family; Visit Provider Internal Medicine
PROC: 0QS636Z Reposition Right Upper Femur with Intramedullary Internal Fixation Device, Percutaneous Approach (ICD-10-PCS; CPT 27245; principal; 2023-03-30 12:55)
DX: S72.144A Nondisplaced intertrochanteric fracture of right femur, initial encounter for closed fracture (principal); I42.9 Cardiomyopathy, unspecified; D62 Acute posthemorrhagic anemia; I48.0 Paroxysmal atrial fibrillation; I35.0 Nonrheumatic aortic (valve) stenosis; I10 Essential (primary) hypertension; W19.XXXA Unspecified fall, initial encounter; Z95.5 Presence of coronary angioplasty implant and graft; Z95.2 Presence of prosthetic heart valve; Z95.0 Presence of cardiac pacemaker; Z87.891 Personal history of nicotine dependence; F32.A Depression, unspecified; Z79.899 Other long term (current) drug therapy
CPT/HCPCS: 36415; 71045; 73501; 73502; 76000; 80048; 83735; 84100; 85025; 85610; 85730; 86850; 86900; 86901; 93005; 93306; 97162; 97166; 97802; 99285; C1713; A4216; J2405

== ENCOUNTER 2023-04-08 10:11 | Inpatient (IN) | payer OTHER, SELFPAY ==
[2023-04-08] VITALS (11 sets, daily range): BP systolic 84–109; BP diastolic 42–76; PULSE 63–71; RESP 16–18; TEMP 36.3–37.2; O2SAT 88–98; BMI 25.6
--- NOTE | 2023-04-08 10:47 | CT_ITS ---
STUDY: CT BRAIN WITHOUT CONTRAST REASON FOR EXAM: Male, 73 years old.head injury FALL YEST, HIT RIBS ON RIGHT-C/O PAIN TO RT SIDE W/MOVEMENT AND DEEP BREATHING. 50MCG FENT IM X2 GIVEN PER SQUAD. RECENT RT HIP SURGERY RADIATION DOSAGE (If Supplied By Facility): CTDIvol = ( 44.99 ) mGy, DLP = ( 897.35 ) mGycm TECHNIQUE: Transaxial CT imaging of the brain was performed without administration of intravenous contrast material. Individualized dose optimization techniques were used for this CT. COMPARISON: None. FINDINGS: Normal soft tissue structures. Normal calvarium. No visualized skull fracture or significant scalp swelling or hematoma formation by CT criteria. No subdural hematoma or hemorrhagic contusions are seen. There is mild cerebral atrophy with widening of the extra-axial spaces and ventricular dilatation. Normal white matter tracts of the cerebral hemispheres. Normal basal ganglia and thalami. Normal brainstem. Normal cerebellum. There is no intracranial hemorrhage. There are no findings of an acute ischemic infarction. Normal visualized paranasal sinuses. CT/Brain/Head without Contrast IMPRESSION: 1. Chronic involutional changes of the brain. 2. No visualized skull fracture or significant scalp swelling or hematoma formation by CT criteria. No subdural hematoma or hemorrhagic contusions are seen. 3. If symptoms persist further assessment with brain MRI is recommended to look for diffuse axonal injury or other findings not detected by CT. Electronically Signed: Giovanny Shields MD at 12:30 EDT ,
--- NOTE | 2023-04-08 10:47 | CT_ITS ---
STUDY: CT CERVICAL SPINE WITHOUT CONTRAST REASON FOR EXAM: Male, 73 years old. Headache and neck pain after trauma RADIATION DOSAGE (If Supplied By Facility): CTDIvol = ( 23.98 ) mGy, DLP = ( 468.58 ) mGy TECHNIQUE: High resolution transaxial imaging was performed without contrast material. Sagittal and coronal images were reconstructed. Individualized dose optimization techniques were used for this CT. COMPARISON: None FINDINGS: Normal craniovertebral junction. There are degenerative changes of the anterior atlantoaxial articulation. Normal odontoid process. There is an exaggerated cervical lordosis. Bones are diffusely demineralized. C2-3: Normal endplates. Mild disc space narrowing.. Normal central canal and intervertebral neuroforamina. C3-4: Normal endplates. Mild disc space narrowing.. Normal central canal and intervertebral neuroforamina. C4-5: Normal endplates. Mild disc space narrowing. No central canal stenosis, mild bilateral foraminal narrowing due to facet joint hypertrophy. C5-6: Sclerotic endplate changes with significant disc space narrowing and vacuum disc phenomenon. No central canal stenosis, bilateral foraminal narrowing due to facet joint hypertrophy. C6-7: Normal endplates. Mild disc space narrowing. No central canal stenosis, mild bilateral foraminal narrowing due to facet joint hypertrophy. C7-T1: Normal endplates. Mild disc space narrowing.. Normal central canal and intervertebral neuroforamina. Normal visualized soft tissue structures. CT/Spine Cervical without Contras IMPRESSION: Multilevel degenerative changes, as described above. Electronically Signed: Lupillo Henderson MD at 12:20 EDT ,
--- NOTE | 2023-04-08 10:47 | EKG12_ITS ---
Test Reason : FALL Blood Pressure : / mmHG Vent. Rate : 069 BPM Atrial Rate : 067 BPM P-R Int : 000 ms QRS Dur : 168 ms QT Int : 508 ms P-R-T Axes : 000 -27 005 degrees QTc Int : 544 ms Ventricular-paced rhythm Abnormal ECG Confirmed by MARGARITA ANTON, CARISSA ([id number]), features editor IRAIS LAYTON ([id number]) on 04/10/2023 11:28:07 A M Referred By: Confirmed By:RICCARDO AVILA MD
--- NOTE | 2023-04-08 10:47 | CT_ITS ---
STUDY: CT CHEST WITHOUT CONTRAST REASON FOR EXAM: Male, 73 years old. blunt ches -- right ribs FALL YEST, HIT RIBS ON RIGHT-C/O PAIN TO RT SIDE W/MOVEMENT AND DEEP BREATHING. 50MCG FENT IM X2 GIVEN PER SQUAD. RECENT RT HIP SURGERY RADIATION DOSAGE (If Supplied By Facility): CTDIvol = ( 16.20 ) mGy, DLP = ( 668.12 ) mGycm TECHNIQUE: Transaxial imaging was performed without the administration of intravenous contrast material. Individualized dose optimization techniques were used for this CT. COMPARISON: Chest x-ray dated March 29, 2023. CTA of the chest dated February 07, 2023 FINDINGS: An acute mildly displaced fracture is present in the posterior midline of the right 10th rib. There are also acute minimally and nondisplaced fractures at the lateral aspects of the right ninth and 11th ribs. No pneumothorax or pleural effusion is present. No significant pulmonary contusion is seen. Mild bilateral lower lobe linear atelectasis and fibrotic scarring is visualized. All focal nodular areas of fibrosis and calcified granuloma are seen in the left lower lobe as well. The bilateral upper lung stanton are normal as well as the right middle lobe. Sternal cerclage wires and vascular clips are present from a prior sternotomy and coronary artery bypass graft procedure (CABG). There are calcifications of the coronary arteries. Normal heart size. No pericardial effusion is present. Left chest cardiac device and right heart leads and coronary sinus leads noted. No sternal fracture or mediastinal hematoma is present. Normal mediastinum. Normal hilar regions. Normal unenhanced pulmonary arteries. There is atherosclerotic calcification of the aortic arch with tortuosity and elongation of the aortic arch and descending thoracic aorta. There are multi-level degenerative changes of the thoracic spine. There is no demonstrated abnormality of the visualized upper abdomen. Fatty atrophy is seen in several of the flank and posterior body wall muscles. Diffuse body wall edema/anasarca noted. Numerous age indeterminate compression deformities of the thoracic and lumbar vertebral bodies are present with exaggeration of the thoracic kyphosis. Several of the vertebral bodies have a vertebra plana deformity due to significant loss of height. CT/Chest without Contrast IMPRESSION: 3 acute right rib fractures without pneumothorax or significant pulmonary contusion 1. An acute mildly displaced fracture is present in the posterior midline of the right 10th rib. There are also acute minimally and nondisplaced fractures at the lateral aspects of the right ninth and 11th ribs. No pneumothorax or pleural effusion is present. No significant pulmonary contusion is seen. 2. Mild bilateral lower lobe linear atelectasis and fibrotic scarring is visualized. All focal nodular areas of fibrosis and calcified granuloma are seen in the left lower lobe as well. The bilateral upper lung stanton are normal as well as the right middle lobe. 3. Numerous age indeterminate compression deformities of the thoracic and lumbar vertebral bodies are present with exaggeration of the thoracic kyphosis. Several of the vertebral bodies have a vertebra plana deformity due to significant loss of height. Electronically Signed: Giovanny Shields MD at 12:36 EDT ,
--- NOTE | 2023-04-08 10:52 | ED.VIS.FALL ---
HPI HPI - Fall History of Present Illness Chief Complaint: Fall Informant: patient, spouse/S.O. and EMS Narrative Narrative: Presenting here with sick no other by EMS from home fall yesterday right rib injury. He is approximate 1 week postop right hip replacement due to fall and fracture. He was discharged a week ago today. He went home and wanted to do home rehab but was started he is using a walker yesterday got up was feeling weak he fell to his right side. He is on Eliquis for DVT prophylaxis. Significant other reports increasing leg swelling bilaterally. He does have difficulty walking. Skin tear to the right elbow from the fall, tetanus unknown. History of cardiomyopathy with a defibrillator. Tetanus Immunization: Unknown [facility] Medical History A-fib Closed right hip fracture Eye abnormality Pacemaker Home Medications amiodarone 200 mg tablet 200 mg PO DAILY 02/08/23 [History Last Taken Unknown] carvedilol 6.25 mg tablet 6.25 mg PO BID 02/08/23 [History Last Taken Unknown] acetaminophen 500 mg tablet 1,000 mg PO Q6H 03/29/23 [History Last Taken Unknown] aspirin 81 mg chewable tablet 81 mg PO DAILY 03/29/23 [History Last Taken Unknown] atorvastatin 80 mg tablet 80 mg PO DAILY 03/29/23 [History Last Taken Unknown] eplerenone 25 mg tablet 12.5 mg PO DAILY Check with primary doctor 03/29/23 [History Last Taken Unknown] fexofenadine 180 mg tablet (Reva Allergy) 180 mg PO DAILY 03/29/23 [History Last Taken Unknown] fluoxetine 40 mg capsule (Prozac) 40 mg PO DAILY 03/29/23 [History Last Taken Unknown] mecobalamin (vitamin B12) 1,000 mcg chewable tablet (B12 Active) 1,000 mcg PO DAILY 03/29/23 [History Last Taken Unknown] mexiletine 200 mg capsule 200 mg PO TID 03/29/23 [History Last Taken Unknown] potassium chloride 20 mEq tablet,extended release(part/cryst) 20 meq PO DAILY 03/29/23 [History Last Taken Unknown] sacubitril 24 mg-valsartan 26 mg tablet (Entresto) 1 tab PO BID 03/29/23 [History Last Taken Unknown] torsemide 20 mg tablet 20 mg PO DAILY 03/29/23 [History Last Taken Unknown] apixaban 2.5 mg tablet 2.5 mg PO BID #60 tabs 04/01/23 [Rx Last Taken Unknown] oxycodone 5 mg tablet 5 mg PO Q4H PRN PRN Pain Score 4-10 5 days #20 tabs 04/01/23 [Rx Last Taken Unknown] sennosides 8.6 mg-docusate sodium 50 mg tablet (Stool Softener-Stimulant Laxative) 2 tab PO BID PRN PRN Constipation #60 tabs 04/01/23 [Rx Last Taken Unknown] Allergy/AdvReac Type Severity Reaction Status Date / Time lisinopril Allergy Mild Laryngospas Verified 04/08/23 10:21 ms Family History Father CVA (cerebral vascular accident) Mother Laryngeal cancer Surgical History H/O cardiac radiofrequency ablation H/O eye surgery H/O heart surgery H/O total knee replacement History of appendectomy History of hip surgery History of surgery on arm Stented coronary artery Social History household members: spouse Smoking Status: Former smoker ROS ROS ED Constitutional Constitutional ED: Denies chills, fever(s) or sweats Eyes Eyes: Denies change in vision ENT ENT ED: Denies dysphagia or sore throat Cardiovascular Cardiovascular: Denies chest pain, leg edema, palpitations or racing heartbeat Respiratory/Chest Respiratory/Chest: Reports cough; Denies dyspnea or dyspnea on exertion Gastrointestinal Gastrointestinal: Denies abdominal pain, diarrhea, nausea or vomiting Genitourinary Genitourinary ED: Denies dysuria, hematuria or urinary frequency Musculoskeletal Musculoskeletal: Reports other Details: Right rib pain ; Denies back pain, extremity pain or neck pain Integumentary Denies rash or wounds Neurologic Neurologic: Reports weakness; Denies headache(s) or paresthesias EXAM Physical Exam Const Vital Signs: 04/08/23 10:12 04/08/23 10:12 04/08/23 10:21 Temperature 97.7 F L Temperature Source Oral Pulse Rate 71 Respiratory Rate 16 Respiratory Effort Normal Non-Labored Respiratory Depth Normal Respiratory Pattern Normal Blood Pressure 92/55 L Blood Pressure Mean 67 Pulse Ox 88 92 Oxygen Delivery Method Room Air Room Air 04/08/23 12:08 04/08/23 13:26 04/08/23 13:26 Temperature 97.6 F L Temperature Source Oral Pulse Rate 64 65 66 Respiratory Rate 16 18 17 Respiratory Effort Respiratory Depth Respiratory Pattern Blood Pressure 91/57 L 95/76 109/63 Blood Pressure Mean 68 82 78 Pulse Ox 92 92 95 Oxygen Delivery Method Room Air Room Air Room Air Positive well nourished and well developed Constitutional Narrative: CS 15 General Appearance ED: well developed and NAD HEENT Reports TM's normal bilaterally and moist mucous membranes normocephalic and atraumatic Eyes PERRL, EOMs intact bilaterally and conjunctivae normal General Eye ED: Yes normal appearance of both eyes Neck full ROM, no lymphadenopathy and supple General: Negative for tenderness Chest Wall Chest Narrative: Tenderness right lateral ribs there is no crepitus no ecchymosis Chest: Negative for tenderness Resp normal respiratory effort and normal air movement Effort and Inspection: symmetric chest movement; Negative for respiratory distress Cardio regular rate, regular rhythm and no murmurs Peripheral Pulses: pulses 2+ throughout GI normal to inspection, nondistended, normoactive bowel sounds and non-tender Palpation: Negative for guarding or rebound tenderness present Back/Spine no CVA tenderness and no thoracic nor lumbar tenderness Extremity Extremity Narrative: Right upper extremity: Dressing taken at the elbow there is palm-sized skin tear across the joint there is no active bleeding. Bandage at the distal forearm clean, dry, intact. No deformities or tenderness at the forearm or wrist. Neuro vas intact distally. Left upper extremity: Full range of motion without tenderness. Right lower extremity: Dressing removed from the incision, there is dried drainage on the dressing there were charles are clean, dry, intact. Negative logroll. 2+ lower extremity edema with clear drainage anteriorly. General Extremety ED: Negative for edema or tenderness General Extremity: Negative for edema Neuro oriented x3 and no sensory deficits noted Sensorium / Orientation: awake and alert Skin Skin Narrative: See above MDM MDM MDM Narrative Medical decision making narrative: Interventions / MDM: Differential diagnosis: Rib fractures, chest wall contusion, weakness, electrolyte abnormalities, infection Diagnosis considered but do not suspect: N/A My EKG interpretation: Ventricular paced 69, no acute findings Imaging independently reviewed and interpreted by myself: CT brain/cervical spine: No intracranial bleed, no cervical fractures. Also read by radiology. CT chest noncontrast: Right rib fractures 9, 10 and 11, no pneumothorax. This was read by radiology. External documents reviewed: Echocardiogram 03/29/2023: EF of 55% Test considered but not ordered:N/A ED course: Patient soft blood pressure in the 90s on arrival however presents with bilateral leg swelling status post fall with increasing weakness. He status post fentanyl IM by EMS. Tender right rib cage. He is on Eliquis DVT prophylaxis twice a day. Trauma scans head and neck obtained and negative. Chest scan positive with 3 rib fractures pain only with movement. Laboratory studies no KELVIN creatinine 1.3 up from 0.5 a week ago. Hemoglobin 10.5. White count up to 28 from 13-week ago. His surgical wound clean, dry intact with no exudates or erythema around this area. Chest scan had no signs of infiltrates. Urine was added with him clinically being asymptomatic. I added blood cultures and urine culture due to the leukocytosis. Per family he had dexamethasone injection with spine a week before his hip fracture this would have been nearly 3 weeks ago. He had a 13,000 white count on discharge. Is less likely the reason for this. Re-evaluation: stable, spoke with hospitalist Dr. Dennison, with preserved ejection fraction we will give additional 500 cc bolus will continue at 150 for concerns for prerenal. Discussed his leg swelling he is on Eliquis therefore lower suspicion for DVT. We will empirically cover with Zosyn due to the leukocytosis. Patient be admitted to the medical floor for further management. Urine to test positive leukocytes at 25. Disposition discussed with patient/family/significant other: Patient and family Case discussed with consulting clinician: Hospitalist Dr. dennison Lab Data Attestation: I reviewed the patient's lab results. Labs: Laboratory Results - last 24 hr 04/08/23 04/08/23 04/08/23 11:22 11:22 13:20 WBC 28.0 H RBC 3.43 L Hgb 10.5 L Hct 31.6 L MCV 92.1 MCH 30.6 MCHC 33.2 RDW Std Deviation 53.9 H RDW Coeff of Rohit 16.3 H Plt Count 328 MPV 10.3 Immature Gran % (Auto) 3.300 H Neut % (Auto) 85.5 H Lymph % (Auto) 3.3 L Norman % (Auto) 7.7 Eos % (Auto) 0.0 Baso % (Auto) 0.2 Absolute Neuts (auto) 23.9 H Absolute Lymphs (auto) 0.91 Nucleated RBC % 0 Differential Comment SCANNED Diff Path Review May foll Sodium 131 L Potassium 3.8 Chloride 94 L Carbon Dioxide 29.0 Anion Gap 8 BUN 48 H Creatinine 1.31 H Estim Creat Clear Calc 47.14 Est GFR (MDRD) Af Amer 69 Est GFR (MDRD) Non-Af 57 L BUN/Creatinine Ratio 36.6 H Glucose 136 H Calcium 7.9 L Urine Color Yellow Urine Clarity Clear Urine pH 5.0 Ur Specific [place] 1.015 Urine Protein 15 H Urine Glucose (UA) Normal Urine Ketones Negative Urine Occult Blood Negative Urine Nitrite Negative Urine Bilirubin Negative Urine Urobilinogen 1 H Ur Leukocyte Esterase 25 H Radiography Diagnostic Testing: Clinical Impression(s) from Imaging Studies Brain CT 04/08/23 10:47 IMPRESSION: 1. Chronic involutional changes of the brain. 2. No visualized skull fracture or significant scalp swelling or hematoma formation by CT criteria. No subdural hematoma or hemorrhagic contusions are seen. 3. If symptoms persist further assessment with brain MRI is recommended to look for diffuse axonal injury or other findings not detected by CT. Electronically Signed: Giovanny Shields MD at 12:30 EDT Reading Location ID and State: [facility] / [place] , Service support , Cervical Spine CT 04/08/23 10:47 IMPRESSION: Multilevel degenerative changes, as described above. Electronically Signed: Lupillo Henderson MD at 12:20 EDT , Chest CT 04/08/23 10:47 IMPRESSION: 3 acute right rib fractures without pneumothorax or significant pulmonary contusion 1. An acute mildly displaced fracture is present in the posterior midline of the right 10th rib. There are also acute minimally and nondisplaced fractures at the lateral aspects of the right ninth and 11th ribs. No pneumothorax or pleural effusion is present. No significant pulmonary contusion is seen. 2. Mild bilateral lower lobe linear atelectasis and fibrotic scarring is visualized. All focal nodular areas of fibrosis and calcified granuloma are seen in the left lower lobe as well. The bilateral upper lung [place] are normal as well as the right middle lobe. 3. Numerous age indeterminate compression deformities of the thoracic and lumbar vertebral bodies are present with exaggeration of the thoracic kyphosis. Several of the vertebral bodies have a vertebra plana deformity due to significant loss of height. Electronically Signed: Giovanny Shields MD at 12:36 EDT , Elbow X-Ray 04/08/23 11:09 IMPRESSION: Osteopenia with degenerative arthrosis, no demonstrated fracture or suspicious osseous lesion Electronically Signed: Lupillo Henderson MD at 11:40 EDT , Discharge Plan Triage Chief Complaint: Fall ED Provider: Fidencio Fontana Dx/Rx/DC Orders Clinical Impression: Multiple rib fractures, Fall, Weakness, KELVIN (acute kidney injury), Leukocytosis, Edema, peripheral, S/P total right hip arthroplasty Primary Care Provider: Jovi Bradley NP Disposition Disposition: Acute Care [facility]
--- NOTE | 2023-04-08 11:09 | RAD_ITS ---
STUDY: X-RAY - RIGHT ELBOW REASON FOR EXAM: Male, 73 years old. Pain and stiffness TECHNIQUE: 3 view(s) of the elbow. COMPARISON: None. FINDINGS: There is demineralization of the visualized humerus, radius and ulna. There is degenerative arthrosis of the radiocapitellar and ulnotrochlear articulations. The soft tissue structures are unremarkable. RAD/Elbow min 3 Views IMPRESSION: Osteopenia with degenerative arthrosis, no demonstrated fracture or suspicious osseous lesion Electronically Signed: Lupillo Henderson MD at 11:40 EDT ,
[2023-04-08] MEDS: Diphth,Pertuss(Acell),Tet Vac 0.5 ML Vial IM (11:27)
[2023-04-08] MEDS: BACITRACIN 15 GM Tube 1 APPLIC TOPICAL (11:28)
[2023-04-08 11:35] LABS: Absolute Lymphocyte Count 0.91 X10^3/uL (0.83-4.51); Absolute Neutrophil Count 23.9 X10^3/uL (2.0-7.7); Basophil# 0.05 X10^3/uL; Basophil% 0.2 % (0-1); Eosinophil# 0.01 X10^3/uL; Hematocrit 31.6 % (40-54); Hemoglobin 10.5 g/dL (13.0-16.5); Lymphocyte # 0.91 X10^3/ul (0.83-4.51); Lymphocyte % 3.3 % (19-41); Mean Corp Hgb Conc 33.2 g/dL (32-36); Mean Corpuscular Hgb 30.6 pg (27.0-32.0); Mean Corpuscular Volume 92.1 fL (80-94); Mean Platelet Vol. 10.3 fl (6.2-12.0); Monocyte# 2.16 X10^3/uL; Monocyte% 7.7 % (0-10); NRBC Flagged by Analyzer 0 % (0-5); Neutrophil # 23.94 X10^3/uL (2.7-7.7); Neutrophil % 85.5 % (47-70); POSITIVE DIFFERENTIAL YES; Platelet Count 328 K/mm3 (150-450); RBC Distribution Width CV 16.3 % (11.6-14.6); RBC Distribution Width SD 53.9 fl (35.1-43.9); Red Blood Count 3.43 M/mm3 (4.6-6.2)
[2023-04-08 11:39] LABS: Differential Indicated SCAN CRITERIA MET
[2023-04-08 11:42] LABS: Anion Gap 8 (5-15); BUN 48 mg/dL (7-18); BUN/Creat Ratio 36.6 RATIO (10-20); Calcium,Total 7.9 mg/dL (8.5-10.1); Chloride 94 mmol/L (98-107); Creatinine, Serum 1.31 mg/dL (0.70-1.30); EST Glomerular Filtration Rate 57 mL/min (>60); Est Glom Filt Rate - Afr Amer 69 mL/min (>60); Estimated Creatinine Clearance 47.14 ml/min; Glucose 136 mg/dL (74-106); Potassium 3.8 mmol/L (3.5-5.1); Sodium Level 131 mmol/L (136-145)
[2023-04-08 12:12] LABS: Differential Comment SCANNED
--- NOTE | 2023-04-08 13:03 | ED.RN ---
Paged hospitalist for Dr Fontana
[2023-04-08 13:32] LABS: Mucous, Urine 0 SEEN /hpf (<or=2+); Red Blood Cells-Urine 0 SEEN /hpf (0-5)
[2023-04-08 13:55] LABS: Color, Urine Yellow (Yellow); Glucose, Dipstick Normal (Normal); Ketone-Dipstick Negative (Negative); Leukocyte Esterase-Dipstick 25 /ul (Negative); Nitrite-Dipstick Negative (Negative); Occult Blood-Urine Negative /ul (Negative); Protein-Dipstick 15 mg/dl (Negative); Specific Gravity, Urine 1.015 (1.002-1.030); Urine Bilirubin Dipstick Negative (Negative); Urine Clarity Clear (Clear); Urine Urobilinogen 1 mg/dl (Normal)
[2023-04-08] MEDS: 0.9% Normal Saline 1,000 ML 150 ML IV (14:00)
[2023-04-08 14:10] LABS: Bacteria RARE /hpf (None Seen); Squamous Epithelial Cells - UA 0-5 SEEN /hpf (0-5); White Blood Cells 0-5 SEEN /hpf (0-5)
--- NOTE | 2023-04-08 14:10 | CT_ITS ---
CT RIGHT LOWER EXTREMITY WITH 3-D IMAGING CLINICAL INDICATION: swelling bruising right thigh TECHNIQUE: Axial CT images of the RIGHT lower extremity was performed IV contrast material. Coronal and sagittal reformats were provided. RADIATION DOSAGE (If Supplied By Facility): CTDIvol = ( 18.59 ) mGy, DLP = ( 1116.24 ) mGycm COMPARISON: Right hip x-rays March 30, 2023 FINDINGS: Bones: Postsurgical changes status post open reduction internal fixation of intratrochanteric fracture of the right hip with indwelling orthopedic hardware.. There is incomplete fusion of the supratrochanteric fracture fragments as well as the greater trochanter fracture with separation of fracture fragments. The acetabulum is intact Soft Tissues: There is swelling of the gluteal muscles as well as intramuscular hemorrhage. There also appears to be a hematoma within the posterolateral fat.. There is a large right inguinal hernia containing small bowel CT/Extremity Lower without Contra IMPRESSION: Postsurgical changes status post open reduction internal fixation of intertrochanteric fracture of the right hip with associated hematoma in the subcutaneous fat as well as intramuscular swelling and hematoma.. Electronically Signed: Neri Ventura MD at 19:54 EDT ,
--- NOTE | 2023-04-08 14:10 | VDLE_ITS ---
Reason For Study: BLE SWELLING RIGHT LEFT GSV is normal. GSV is normal. CFV is compressible, spontaneous, phasic, CFV is compressible, spontaneous, phasic, competent and demonstrates normal competent, and demonstrates normal augmentation. augmentation. FV is compressible, spontaneous, phasic, FV is compressible, spontaneous, phasic, competent and demonstrates normal competent and demonstrates normal augmentation. augmentation. PTV is compressible. PTV is compressible. RT PerV is compressible. LT PerV is compressible. Procedure This is a venous duplex using B-mode, color flow and spectral Doppler. Exam performed portable in patient room. The study was technically difficult. Unable to image POP V & T/P Trunk due to PT unable to hold position accordingly. Multiple attempts. A preliminary report was called and/or faxed to [id number]. VL/Venous Duplex US - Ron Extrem Interpretation Summary Deep veins of the bilateral lower extremities are patent and compressible segme ntally. There is no evidence of bilateral lower extremity deep vein thrombosis. The bilateral great saphenous veins appear patent and compressible segmentally. Ordering Physician: Barbara Dean Referring Physician: Jovi Bradley Performed By: Katheryn Lam, ANA, RVT
[2023-04-08] MEDS: fentaNYL 100 MCG/2 ML Ampul 50 MCG IV (14:27)
--- NOTE | 2023-04-08 14:28 | PCM.HP.STD ---
HPI - General General Date of Admission: 04/08/23 Date of Service: 04/08/23 Chief Complaint: Generalized weakness and functional decline HPI Narrative KOSTAS WOLF, is a 73 M with a history of cardiomyopathy, aortic stenosis status post TAVR, paroxysmal atrial fibrillation and mitral valve repair and hypertension and who recently underwent ORIF with intramedullary nail insertion for right hip intertrochanteric fracture. Was discharged home however has been progressively getting weak with a functional decline and yesterday suffered a mechanical fall onto a table with subsequent right-sided posterior rib fractures as noted on the x-rays done today in the emergency department. Patient's appetite has been poor and intake as well poor. Denies any fever or chills or feeling particularly unwell. Denies any pain from the site of surgery or drainage and wound appears to be healing well. He does not report any chest pain no particular shortness of breath. Does not report any urinary symptoms. Has continued to take his torsemide and is compliant with his low-dose Eliquis at 2.5 mg twice a day which I believe was prescribed for DVT prophylaxis. [facility] Medical History A-fib Closed right hip fracture Eye abnormality Pacemaker Home Medications amiodarone 200 mg tablet 200 mg PO DAILY 02/08/23 [History Last Taken Unknown] carvedilol 6.25 mg tablet 6.25 mg PO BID 02/08/23 [History Last Taken Unknown] acetaminophen 500 mg tablet 1,000 mg PO Q6H 03/29/23 [History Last Taken Unknown] aspirin 81 mg chewable tablet 81 mg PO DAILY 03/29/23 [History Last Taken Unknown] atorvastatin 80 mg tablet 80 mg PO DAILY 03/29/23 [History Last Taken Unknown] eplerenone 25 mg tablet 12.5 mg PO DAILY Check with primary doctor 03/29/23 [History Last Taken Unknown] fexofenadine 180 mg tablet (Reva Allergy) 180 mg PO DAILY 03/29/23 [History Last Taken Unknown] fluoxetine 40 mg capsule (Prozac) 40 mg PO DAILY 03/29/23 [History Last Taken Unknown] mecobalamin (vitamin B12) 1,000 mcg chewable tablet (B12 Active) 1,000 mcg PO DAILY 03/29/23 [History Last Taken Unknown] mexiletine 200 mg capsule 200 mg PO TID 03/29/23 [History Last Taken Unknown] potassium chloride 20 mEq tablet,extended release(part/cryst) 20 meq PO DAILY 03/29/23 [History Last Taken Unknown] sacubitril 24 mg-valsartan 26 mg tablet (Entresto) 1 tab PO BID 03/29/23 [History Last Taken Unknown] torsemide 20 mg tablet 20 mg PO DAILY 03/29/23 [History Last Taken Unknown] apixaban 2.5 mg tablet 2.5 mg PO BID #60 tabs 04/01/23 [Rx Last Taken Unknown] oxycodone 5 mg tablet 5 mg PO Q4H PRN PRN Pain Score 4-10 5 days #20 tabs 04/01/23 [Rx Last Taken Unknown] sennosides 8.6 mg-docusate sodium 50 mg tablet (Stool Softener-Stimulant Laxative) 2 tab PO BID PRN PRN Constipation #60 tabs 04/01/23 [Rx Last Taken Unknown] Allergy/AdvReac Type Severity Reaction Status Date / Time lisinopril Allergy Mild Laryngospas Verified 04/08/23 10:21 ms Family History Father CVA (cerebral vascular accident) Mother Laryngeal cancer Surgical History H/O cardiac radiofrequency ablation H/O eye surgery H/O heart surgery H/O total knee replacement History of appendectomy History of hip surgery History of surgery on arm Stented coronary artery Social History household members: spouse Smoking Status: Former smoker ROS ROS Narrative Denies any substernal chest pain or shortness of breath. States he has a rattling cough. Has right-sided rib pain from the fractures. Has had some nausea but no vomiting. All other systems reviewed and essentially negative. Vital Signs Vital Signs Vital Signs: 04/08/23 10:12 04/08/23 10:12 04/08/23 10:21 Temperature 36.5 C L Temperature Source Oral Pulse Rate 71 Respiratory Rate 16 Respiratory Effort Normal Non-Labored Respiratory Depth Normal Respiratory Pattern Normal Blood Pressure 92/55 L Blood Pressure Mean 67 Pulse Ox 88 92 Oxygen Delivery Method Room Air Room Air 04/08/23 12:08 04/08/23 13:26 04/08/23 13:26 Temperature 36.4 C L Temperature Source Oral Pulse Rate 64 65 66 Respiratory Rate 16 18 17 Respiratory Effort Respiratory Depth Respiratory Pattern Blood Pressure 91/57 L 95/76 109/63 Blood Pressure Mean 68 82 78 Pulse Ox 92 92 95 Oxygen Delivery Method Room Air Room Air Room Air Weight Weight: 78.5 kg Body Mass Index (BMI) 25.6 Physical Exam Narrative General exam. Elderly man, ill-appearing, weak appearing but not in any particular distress HEENT. Oral mucosa moist no pallor or jaundice. Neck. No jugular venous distention Lungs. Diminished breath sounds in the bases but otherwise clear. Heart. Heart sounds regular. No murmurs heard Abdomen. Moves with respiration Extremities. Bilateral lower extremity swelling right significantly worse than the left skin tear noted in the preston of the right leg with excessive serous drainage and seepage. Extensive bruising noted in the medial compartment of the right thigh with induration. Surgical incisions in the right lateral thigh are well opposed with charles and gentle pressure did not elicit any drainage or oozing. There is no malodor and wound appears to be healing well. [employer]. Conscious alert to exam 3. Hard of hearing. Has hearing aid in the right ear. Results Medical Records Data Attestation: I reviewed the patient's medical records Medical records narrative: Reviewed previous echocardiograms and most recent discharge summary Lab / Micro Data Attestation: I reviewed the patient's lab results. Result Diagrams: 04/08/23 11:22 04/08/23 11:22 Labs: Laboratory Results - last 24 hr 04/08/23 11:22: WBC 28.0 H, RBC 3.43 L, Hgb 10.5 L, Hct 31.6 L, MCV 92.1, MCH 30.6, MCHC 33.2, RDW Std Deviation 53.9 H, RDW Coeff of Rohit 16.3 H, Plt Count 328, MPV 10.3, Immature Gran % (Auto) 3.300 H, Neut % (Auto) 85.5 H, Lymph % (Auto) 3.3 L, [place] % (Auto) 7.7, Eos % (Auto) 0.0, Baso % (Auto) 0.2, Absolute Neuts (auto) 23.9 H, Absolute Lymphs (auto) 0.91, Nucleated RBC % 0, Differential Comment SCANNED, Diff Path Review March04/08/23 11:22: Sodium 131 L, Potassium 3.8, Chloride 94 L, Carbon Dioxide 29.0, Anion Gap 8, BUN 48 H, Creatinine 1.31 H, Estim Creat Clear Calc 47.14, Est GFR (MDRD) Af Amer 69, Est GFR (MDRD) Non-Af 57 L, BUN/Creatinine Ratio 36.6 H, Glucose 136 H, Calcium 7.9 L 04/08/23 13:20: Urine Color Yellow, Urine Clarity Clear, Urine pH 5.0, Ur Specific [place] 1.015, Urine Protein 15 H, Urine Glucose (UA) Normal, Urine Ketones Negative, Urine Occult Blood Negative, Urine Nitrite Negative, Urine Bilirubin Negative, Urine Urobilinogen 1 H, Ur Leukocyte Esterase 25 H, Urine RBC 0 SEEN, Urine WBC 0-5 SEEN, Ur Squamous Epith Cells 0-5 SEEN, Urine Bacteria RARE, Urine Mucus 0 SEEN Radiology Impression Brain CT 04/08/23 10:47 IMPRESSION: 1. Chronic involutional changes of the brain. 2. No visualized skull fracture or significant scalp swelling or hematoma formation by CT criteria. No subdural hematoma or hemorrhagic contusions are seen. 3. If symptoms persist further assessment with brain MRI is recommended to look for diffuse axonal injury or other findings not detected by CT. Electronically Signed: Giovanny Shields MD at 12:30 EDT Reading Location ID and State: [facility] / [place] , Service support , Cervical Spine CT 04/08/23 10:47 IMPRESSION: Multilevel degenerative changes, as described above. Electronically Signed: Lupillo Henderson MD at 12:20 EDT , Chest CT 04/08/23 10:47 IMPRESSION: 3 acute right rib fractures without pneumothorax or significant pulmonary contusion 1. An acute mildly displaced fracture is present in the posterior midline of the right 10th rib. There are also acute minimally and nondisplaced fractures at the lateral aspects of the right ninth and 11th ribs. No pneumothorax or pleural effusion is present. No significant pulmonary contusion is seen. 2. Mild bilateral lower lobe linear atelectasis and fibrotic scarring is visualized. All focal nodular areas of fibrosis and calcified granuloma are seen in the left lower lobe as well. The bilateral upper lung stanton are normal as well as the right middle lobe. 3. Numerous age indeterminate compression deformities of the thoracic and lumbar vertebral bodies are present with exaggeration of the thoracic kyphosis. Several of the vertebral bodies have a vertebra plana deformity due to significant loss of height. Electronically Signed: Giovanny Shields MD at 12:36 EDT , Elbow X-Ray 04/08/23 11:09 IMPRESSION: Osteopenia with degenerative arthrosis, no demonstrated fracture or suspicious osseous lesion Electronically Signed: Lupillo Henderson MD at 11:40 EDT , Assessment & Plan Assessment/Plan (1) Weakness: PLAN: Plan Assessment and plan 1. Progressive weakness, functional decline and fall post surgery for right hip fracture. Unclear etiology and possibly patient has just not been able to bounce back from surgery. Nutritional and fluid intake has been poor this might be contributing as well. We will get physical Occupational Therapy to evaluate and I think patient may benefit this time from short-term rehabilitation. 2. Bilateral lower extremity swelling right significantly worse than the left. Patient has been on low-dose Eliquis presumed for DVT prophylaxis. Given differential and swelling significant bruising in the right thigh as well as relative immobility and believe we should rule out DVT. Will order venous ultrasound Doppler for both lower extremities and if positive start on heparin by weight. I do not believe lower extremity swelling is related to heart disease or heart failure exacerbation but likely from a possible DVT or immobility/venous insufficiency. Consult wound care for draining superficial wound. 3. Acute kidney injury. Most likely prerenal secondary to reduced intake in the face of continued use of diuretics and ARNI. We will hold Torsemide for now as well as Entresto. Gentle IV fluids for 24 to 48 hours. 4. Leukocytosis. Had leukocytosis at time of discharge however this has worsened. We will follow-up with urinalysis and do urine cultures. Follow-up on blood cultures that were obtained as well. Doubt full effect related to wound infection from prior surgery as clinically wound does not appear infected and is not dehisced. Nonetheless we will do a CT of the thigh to rule out any potential underlying infectious collections. DVT to be ruled out as above. Start on empiric antibiotics with vancomycin and Zosyn. 5. Right-sided rib fractures. Optimize pain control. Provide other supportive care. 6. Paroxysmal atrial fibrillation, status post TAVR for aortic stenosis and mitral valve repair, hypertension. Stable at this time. We will keep in view his chronic diagnosis during his hospitalization. Charges/Coding Visit Charges Inpatient E&M: 50260 Init Hosp L3
[2023-04-08] MEDS: guaiFENesin 1,200 MG Tablet 1200 MG PO (15:47)
[2023-04-08] MEDS: 0.9% Saline Lock 10 ML Syringe IV (15:47)
[2023-04-08] MEDS: KCl 20MEQ in D5NS 20 MEQ/1,000 ML IV.SOLN. 75 MEQ IV (16:05)
[2023-04-08] MEDS: oxyCODONE 5 MG Tablet PO (17:55)
--- NOTE | 2023-04-08 20:32 | PCM.PN.BLA ---
Progress Note Patient meet 1 of 2 criteria for sepsis. She has leukocytosis but does not meet other SIRS criteria He is hypotensive. Sepsis ruled out at this point. Blood pressure will be repeated and if it is still low will consider additional fluid bolus vs pressors. Echo on 03/29/2023 showed preserved EF of 55%
[2023-04-08] MEDS: 0.9% Normal Saline 1,000 ML 999 ML IV (21:31)
[2023-04-08] MEDS: Atorvastatin Calcium 80 MG Tablet PO (21:39)
[2023-04-08] MEDS: APIXABAN 2.5 MG TABLET (WCH) PO (21:39)
[2023-04-08] MEDS: Acetaminophen 500 MG Tablet 1000 MG PO (21:39)
--- NOTE | 2023-04-08 22:54 | NURSING ---
2119-PER DR HILLMAN, PT HAVING ONLY HAVING THE LOW BP DOES NOT MEET SEPSIS PROTOCOL
[2023-04-09 00:05] LABS: Lactic Acid 2.8 mmol/L (0.4-1.9)
[2023-04-09] MEDS: oxyCODONE 5 MG Tablet PO ×5 (00:15→23:23)
[2023-04-09 00:25] VITALS: BP 95/45; PULSE 71; RESP 17; TEMP 36.7; O2SAT 93
[2023-04-09 03:30] LABS: Reflex Lactate? Y
[2023-04-09 03:34] VITALS: BMI 25.6
[2023-04-09 03:58] LABS: Absolute Lymphocyte Count 0.96 X10^3/uL (0.83-4.51); Basophil# 0.03 X10^3/uL; Basophil% 0.1 % (0-1); Eosinophil# 0.01 X10^3/uL; Hemoglobin 8.8 g/dL (13.0-16.5); Lymphocyte # 0.96 X10^3/ul (0.83-4.51); Lymphocyte % 4.4 % (19-41); Mean Corp Hgb Conc 33.8 g/dL (32-36); Mean Corpuscular Volume 91.5 fL (80-94); Mean Platelet Vol. 10.2 fl (6.2-12.0); Monocyte# 2.17 X10^3/uL; NRBC Flagged by Analyzer 0 % (0-5); Neutrophil # 17.97 X10^3/uL (2.7-7.7); Neutrophil % 82.7 % (47-70); POSITIVE DIFFERENTIAL YES; Platelet Count 280 K/mm3 (150-450); RBC Distribution Width CV 16.5 % (11.6-14.6); RBC Distribution Width SD 53.6 fl (35.1-43.9); Red Blood Count 2.84 M/mm3 (4.6-6.2); White Blood Count 21.8 K/mm3 (4.4-11.0)
[2023-04-09 04:00] VITALS: BP 102/50; PULSE 77; RESP 16; TEMP 36.7; O2SAT 98
[2023-04-09 04:00] LABS: Differential Indicated SCAN CRITERIA MET
[2023-04-09 04:21] LABS: Lactic Acid 1.4 mmol/L (0.4-1.9)
[2023-04-09 04:22] LABS: Anion Gap 4 (5-15); BUN 40 mg/dL (7-18); BUN/Creat Ratio 47.5 RATIO (10-20); Calcium,Total 7.1 mg/dL (8.5-10.1); Chloride 103 mmol/L (98-107); Creatinine, Serum 0.84 mg/dL (0.70-1.30); EST Glomerular Filtration Rate 94 mL/min (>60); Est Glom Filt Rate - Afr Amer 114 mL/min (>60); Estimated Creatinine Clearance 73.51 ml/min; Glucose 123 mg/dL (74-106); Potassium 3.8 mmol/L (3.5-5.1); Sodium Level 134 mmol/L (136-145)
[2023-04-09 06:05] LABS: Differential Comment SCANNED; Smudge Cells RARE
[2023-04-09] MEDS: Acetaminophen 500 MG Tablet 1000 MG PO ×3 (06:08→21:28)
[2023-04-09] MEDS: KCl 20MEQ in D5NS 20 MEQ/1,000 ML IV.SOLN. 75 MEQ IV (06:10)
--- NOTE | 2023-04-09 07:44 | PN.HOSP_ITS ---
Reason for Visit Reason for Visit: Diagnoses Weakness (04/08/23) Presence of right artificial hip joint (04/08/23) Subjective Subjective Reports having some pain and feeling like it is difficult to take deep breath due to the pain in his ribs, is coughing but does have chronic cough. Describes right preston pain as well Objective Data Objective Data Vital Signs: Vital Signs Temp Pulse Resp BP Pulse Ox O2 Del Method 98.0 F 77 16 102/50 L 98 Room Air 04/09/23 04:00 04/09/23 04:00 04/09/23 04:00 04/09/23 04:00 04/09/23 04:00 04/09/23 04:00 Oxygen Delivery Method Room Air Weight: 78.5 kg Body Mass Index (BMI) 25.6 Intake & Output: Intake and Output for Last 24 Hours 04/07/23 04/08/23 04/09/23 23:59 23:59 23:59 Intake Total 2823.75 / 3123.75 1313.75 / 1313.75 Output Total 151 / 451 1100 / 1100 Balance 2672.75 / 2672.75 213.75 / 213.75 Lab / Micro Data Result Diagrams: 04/09/23 03:48 04/09/23 03:48 Labs: Laboratory Results - last 24 hr 04/08/23 11:22: WBC 28.0 H, RBC 3.43 L, Hgb 10.5 L, Hct 31.6 L, MCV 92.1, MCH 30.6, MCHC 33.2, RDW Std Deviation 53.9 H, RDW Coeff of Rohit 16.3 H, Plt Count 328, MPV 10.3, Immature Gran % (Auto) 3.300 H, Neut % (Auto) 85.5 H, Lymph % (Auto) 3.3 L, [place] % (Auto) 7.7, Eos % (Auto) 0.0, Baso % (Auto) 0.2, Absolute Neuts (auto) 23.9 H, Absolute Lymphs (auto) 0.91, Nucleated RBC % 0, Differential Comment SCANNED, Diff Path Review March04/08/23 11:22: Sodium 131 L, Potassium 3.8, Chloride 94 L, Carbon Dioxide 29.0, Anion Gap 8, BUN 48 H, Creatinine 1.31 H, Estim Creat Clear Calc 47.14, Est GFR (MDRD) Af Amer 69, Est GFR (MDRD) Non-Af 57 L, BUN/Creatinine Ratio 36.6 H, Glucose 136 H, Calcium 7.9 L 04/08/23 13:20: Urine Color Yellow, Urine Clarity Clear, Urine pH 5.0, Ur Specific [place] 1.015, Urine Protein 15 H, Urine Glucose (UA) Normal, Urine Ketones Negative, Urine Occult Blood Negative, Urine Nitrite Negative, Urine Bilirubin Negative, Urine Urobilinogen 1 H, Ur Leukocyte Esterase 25 H, Urine RBC 0 SEEN, Urine WBC 0-5 SEEN, Ur Squamous Epith Cells 0-5 SEEN, Urine Bacteria RARE, Urine Mucus 0 SEEN 04/08/23 23:25: Lactic Acid 2.8 H* 04/09/23 03:48: WBC 21.8 H, RBC 2.84 L, Hgb 8.8 L, Hct 26.0 L, MCV 91.5, MCH 31.0, MCHC 33.8, RDW Std Deviation 53.6 H, RDW Coeff of Rohit 16.5 H, Plt Count 280, MPV 10.2, Immature Gran % (Auto) 2.800 H, Neut % (Auto) 82.7 H, Lymph % (Auto) 4.4 L, [place] % (Auto) 10.0, Eos % (Auto) 0.0, Baso % (Auto) 0.1, Absolute Neuts (auto) 18.0 H, Absolute Lymphs (auto) 0.96, Nucleated RBC % 0, Differential Comment SCANNED, Diff Path Review May foll, Smudge Cells RARE 04/09/23 03:48: Sodium 134 L, Potassium 3.8, Chloride 103, Carbon Dioxide 27.0, Anion Gap 4 L, BUN 40 H, Creatinine 0.84, Estim Creat Clear Calc 73.51, Est GFR (MDRD) Af Amer 114, Est GFR (MDRD) Non-Af 94, BUN/Creatinine Ratio 47.5 H, G lucose 123 H, Calcium 7.1 L 04/09/23 03:48: Lactic Acid 1.4 Radiography Diagnostic Testing: Radiology Impression Brain CT 04/08/23 10:47 IMPRESSION: 1. Chronic involutional changes of the brain. 2. No visualized skull fracture or significant scalp swelling or hematoma formation by CT criteria. No subdural hematoma or hemorrhagic contusions are seen. 3. If symptoms persist further assessment with brain MRI is recommended to look for diffuse axonal injury or other findings not detected by CT. Electronically Signed: Giovanny Shields MD at 12:30 EDT , Cervical Spine CT 04/08/23 10:47 IMPRESSION: Multilevel degenerative changes, as described above. Electronically Signed: Lupillo Henderson MD at 12:20 EDT , Chest CT 04/08/23 10:47 IMPRESSION: 3 acute right rib fractures without pneumothorax or significant pulmonary contusion 1. An acute mildly displaced fracture is present in the posterior midline of the right 10th rib. There are also acute minimally and nondisplaced fractures at the lateral aspects of the right ninth and 11th ribs. No pneumothorax or pleural effusion is present. No significant pulmonary contusion is seen. 2. Mild bilateral lower lobe linear atelectasis and fibrotic scarring is visualized. All focal nodular areas of fibrosis and calcified granuloma are seen in the left lower lobe as well. The bilateral upper lung stanton are normal as well as the right middle lobe. 3. Numerous age indeterminate compression deformities of the thoracic and lumbar vertebral bodies are present with exaggeration of the thoracic kyphosis. Several of the vertebral bodies have a vertebra plana deformity due to significant loss of height. Electronically Signed: Giovanny Shields MD at 12:36 EDT , Elbow X-Ray 04/08/23 11:09 IMPRESSION: Osteopenia with degenerative arthrosis, no demonstrated fracture or suspicious osseous lesion Electronically Signed: Lupillo Henderson MD at 11:40 EDT , Lower Extremity CT 04/08/23 14:10 IMPRESSION: Postsurgical changes status post open reduction internal fixation of intertrochanteric fracture of the right hip with associated hematoma in the subcutaneous fat as well as intramuscular swelling and hematoma.. Electronically Signed: Neri Ventura MD at 19:54 EDT Reading Location ID and State: [address] [place] [address] , Service support , Physical Exam Narrative General: Alert, oriented, no apparent distress HEENT: Atraumatic, normocephalic Eyes: Anicteric, normal conjunctiva, extraocular movements grossly intact Neck: Supple Respiratory: Sounds to have wet cough in the room, normal respiratory effort Cardiovascular: Regular rate GI: Soft, nontender, nondistended Extremities: Bilateral lower extremity swelling Musculoskeletal: Moving all extremities Neuro: No overt focal neurological deficits Skin: No rashes appreciated Psych: Cooperative Assessment & Plan Assessment/Plan (1) Weakness: PLAN: Plan KOSTAS WOLF, is a 73 M with a history of cardiomyopathy, aortic stenosis status post TAVR, paroxysmal atrial fibrillation and mitral valve repair and hypertension and who recently underwent ORIF with intramedullary nail insertion for right hip intertrochanteric fracture.? Was discharged home however has been progressively getting weak with a functional decline. Day prior to admission suffered mechanical fall with right-sided posterior rib fractures noted on x- rays in the ED. #Progressive weakness, functional decline, fall status post surgery for right hip fracture -Surgery on 03/[address] Vidal -PT/OT -Will likely need placement -Continued hematoma and swelling as well as some of the residual pain may be part of the falls and failure to thrive -Optimize volume and nutritional status -Pain control #Bilateral lower extremity swelling -Right leg greater than left -Was on low-dose Eliquis for possible DVT prophylaxis -Lower extremity duplex ordered to rule out DVT, will need full dose anticoagulation if positive but do not feel we need to fully anticoagulate at this time -Wound care consult for draining wound -Echo 03/29/2023 with preserved EF of 55% #Leukocytosis -Possibly reactive in nature, afebrile, no other signs or symptoms of infection -White blood cell count downtrending today with fluids and supportive care -UA not suggestive of infection -Lower extremity CT on admission with postsurgical changes with associated hematoma which could be culprit of his leukocytosis -Started empirically on Zosyn -We will follow cultures that were drawn in the ED just to verify no other underlying infection and de-escalate antibiotics as appropriate #KELVIN -Likely prerenal, improving with fluids #Lactic acidosis?resolved -Status post fluids, sepsis ruled out on admission #Right-sided rib fractures -Pain control -Supportive care -Incentive spirometry #Paroxysmal atrial fibrillation/status post TAVR for aortic stenosis and mitral valve repair/hypertension -Stable -Echo 03/29/2023 with preserved EF of 55% #DVT ppx: Low-dose Tiannaquis Magalys Peres MD Time spent in the patient's overall evaluation,decision-making process, review of diagnostic data, adjustment of management, discussion with other providers, nursing nursing and ancillary staff involved in patient's care documentation, 30 minutes Charges/Coding Visit Charges Inpatient E&M: 77674 Subs Hosp L2
[2023-04-09] MEDS: Fluoxetine HCl 40 MG CAPSULE PO (08:32)
[2023-04-09] MEDS: APIXABAN 2.5 MG TABLET (WCH) PO (08:32)
[2023-04-09] MEDS: Senna/Docusate Sodium 1 Tablet 2 TABLET PO ×2 (08:32→21:28)
[2023-04-09] MEDS: Aspirin 81 MG TAB.CHEW PO (08:32)
[2023-04-09] MEDS: guaiFENesin 1,200 MG Tablet 1200 MG PO ×2 (08:33→21:28)
[2023-04-09 09:42] VITALS: BP 96/54; PULSE 65; RESP 16; TEMP 36.6; O2SAT 93
[2023-04-09] MEDS: Ensure Plus High Protein 120 ML LIQUID PO ×2 (14:33→17:22)
[2023-04-09 15:00] VITALS: BP 97/49; PULSE 64; RESP 16; TEMP 36.6; O2SAT 98
[2023-04-09] MEDS: Lidocaine 5% Patch 1 PATCH TOPICAL (15:22)
[2023-04-09] MEDS: Arthritis Pain Compound 60 CLICK TUBE TOPICAL (15:25)
--- NOTE | 2023-04-09 17:03 | PCM.HOSP.N ---
Hospitalist Note Discussed ED findings with Dr. Willis on-call for Dr. Vidal and he was felt that these changes are not unexpected postsurgery and that this could be monitored and no need for further evaluation or intervention at this time.
[2023-04-09 21:21] VITALS: BP 107/51; PULSE 68; RESP 18; TEMP 36.6; O2SAT 96
[2023-04-09] MEDS: Atorvastatin Calcium 80 MG Tablet PO (21:28)
[2023-04-09] MEDS: Morphine 2 MG/ML Syringe IV (21:37)
[2023-04-09] MEDS: 0.9% Saline Lock 10 ML Syringe IV (21:38)
[2023-04-10 02:35] VITALS: BMI 25.6
[2023-04-10 04:00] VITALS: BP 116/47; PULSE 67; RESP 18; TEMP 36.5; O2SAT 95
[2023-04-10] MEDS: 0.9% Saline Lock 10 ML Syringe IV ×2 (04:35→10:19)
[2023-04-10] MEDS: Morphine 2 MG/ML Syringe IV ×2 (04:36→10:18)
[2023-04-10] MEDS: oxyCODONE 5 MG Tablet PO ×4 (06:16→23:23)
[2023-04-10] MEDS: Acetaminophen 500 MG Tablet 1000 MG PO ×3 (06:17→21:08)
[2023-04-10 06:20] LABS: Absolute Lymphocyte Count 0.87 X10^3/uL (0.83-4.51); Absolute Neutrophil Count 14.8 X10^3/uL (2.0-7.7); Basophil# 0.04 X10^3/uL; Basophil% 0.2 % (0-1); Eosinophil# 0.05 X10^3/uL; Eosinophils% 0.3 % (0-5); Hematocrit 26.1 % (40-54); Hemoglobin 8.5 g/dL (13.0-16.5); Lymphocyte # 0.87 X10^3/ul (0.83-4.51); Lymphocyte % 4.8 % (19-41); Mean Corp Hgb Conc 32.6 g/dL (32-36); Mean Corpuscular Hgb 30.4 pg (27.0-32.0); Mean Corpuscular Volume 93.2 fL (80-94); Mean Platelet Vol. 10.3 fl (6.2-12.0); Monocyte% 10.4 % (0-10); NRBC Flagged by Analyzer 0 % (0-5); Neutrophil # 14.84 X10^3/uL (2.7-7.7); Neutrophil % 81.6 % (47-70); POSITIVE DIFFERENTIAL YES; Platelet Count 306 K/mm3 (150-450); RBC Distribution Width CV 17.2 % (11.6-14.6); RBC Distribution Width SD 56.6 fl (35.1-43.9); White Blood Count 18.2 K/mm3 (4.4-11.0)
[2023-04-10 06:24] LABS: Differential Indicated SCAN CRITERIA MET
[2023-04-10 06:40] LABS: Anisocytosis 1+
[2023-04-10 07:05] LABS: Anion Gap 5 (5-15); BUN 23 mg/dL (7-18); BUN/Creat Ratio 39.2 RATIO (10-20); Calcium,Total 7.5 mg/dL (8.5-10.1); Chloride 106 mmol/L (98-107); Creatinine, Serum 0.59 mg/dL (0.70-1.30); EST Glomerular Filtration Rate 143 mL/min (>60); Est Glom Filt Rate - Afr Amer 174 mL/min (>60); Estimated Creatinine Clearance 61.75 ml/min; Glucose 100 mg/dL (74-106); Potassium 3.8 mmol/L (3.5-5.1); Sodium Level 137 mmol/L (136-145)
--- NOTE | 2023-04-10 07:32 | PN.HOSP_ITS ---
Reason for Visit Reason for Visit: Diagnoses Weakness (04/08/23) Presence of right artificial hip joint (04/08/23) Subjective Subjective Patient complain of pain over both chest with more on the right anterolateral lower region. Hematoma on the right posterior lateral thigh Objective Data Objective Data Vital Signs: Vital Signs Temp Pulse Resp BP Pulse Ox O2 Del Method 97.7 F L 67 18 116/47 L 95 Room Air 04/10/23 04:00 04/10/23 04:00 04/10/23 04:00 04/10/23 04:00 04/10/23 04:00 04/10/23 04:00 Oxygen Delivery Method Room Air Weight: 173 lb 1.006 oz Body Mass Index (BMI) 25.6 Intake & Output: Intake and Output for Last 24 Hours 04/08/23 04/09/23 04/10/23 23:59 23:59 23:59 Intake Total 2823.75 / 3123.75 2613.75 / 2613.75 50 / 50 Output Total 151 / 451 2450 / 2450 600 / 600 Balance 2672.75 / 2672.75 163.75 / 163.75 -550 / -550 Medical Nutrition Assessment Dietitian: Malnutrition Criteria Met Start: 04/09/23 10:40 Freq: Status: Active Protocol: Document 04/09/23 10:40 AG (Rec: 04/09/23 10:40 AG [id number]) Nutrition Malnutrition Evidence of Malnutrition Exists Yes Malnutrition (moderate): Chronic Evidenced By Suboptimal Energy Intake ( Moderate),Physical Changes ( Mild) Clinical Problem Chronic Disease or Condition Related Malnutrition Etiology moderate, chronic malnutrition related to inadequate energy intake d/t decreased appetite Signs/Symptoms as evidenced by estimated PO intake meeting <75% of estimated energy needs > 3 months; Mild muscle wasting/ fat loss evident in orbital, clavicle, acromion, and temporal areas per physical exam Status Active Problem Recommendation Dietitian Recommendations/Changes regular diet w/ 120mL ensure plus high protein 4x/day given evidence of malnutrition Lab / Micro Data Result Diagrams: 04/10/23 05:38 04/10/23 05:38 Labs: Laboratory Results - last 24 hr 04/10/23 05:38: WBC 18.2 H, RBC 2.80 L, Hgb 8.5 L, Hct 26.1 L, MCV 93.2, MCH 30.4, MCHC 32.6, RDW Std Deviation 56.6 H, RDW Coeff of Rohit 17.2 H, Plt Count 306, MPV 10.3, Immature Gran % (Auto) 2.700 H, Neut % (Auto) 81.6 H, Lymph % (Auto) 4.8 L, [place] % (Auto) 10.4 H, Eos % (Auto) 0.3, Baso % (Auto) 0.2, Absolute Neuts (auto) 14.8 H, Absolute Lymphs (auto) 0.87, Nucleated RBC % 0, Diff Path Review May foll, Anisocytosis 1+ 04/10/23 05:38: Sodium 137, Potassium 3.8, Chloride 106, Carbon Dioxide 26.0, Anion Gap 5, BUN 23 H, Creatinine 0.59 L, Estim Creat Clear Calc 61.75, Est GFR (MDRD) Af Amer 174, Est GFR (MDRD) Non-Af 143, BUN/Creatinine Ratio 39.2 H, Glucose 100, Calcium 7.5 L Micro: Microbiology 04/08/23 13:20 Urine, Clean Catch Urine Culture - Final Mixed Gram Pos & Gram Neg Org Radiography Diagnostic Testing: Radiology Impression Venous Doppler Study 04/08/23 14:10 Interpretation Summary Deep veins of the bilateral lower extremities are patent and compressible segmentally. There is no evidence of bilateral lower extremity deep vein thrombosis. The bilateral great saphenous veins appear patent and compressible segmentally. Ordering Physician: Barbara Dean Referring Physician: Jovi Bradley Performed By: Katheryn Lam, ANA, RVT Physical Exam Narrative Patient has mild low pitch cough, not able to bring up phlegm. Seen and examined. General: Awake, Oriented x3, lethargy HEENT: Atraumatic, PERRLA, EOMI, Normocephalic Oral: Oral mucosa moist. No Gingival or Mucosal Lesions/ Ulcerations Neck: Supple, No JVD, Negative Carotid Bruits Chest/lungs: Tenderness present over her right anterior lateral chest wall. No crepitation/surgical emphysema palpable. Air entry diminished in bilateral lung bases. No crepitation/rhonchi Cardiovascular: Regular rate, Regular Rhythm, Normal S1, Normal S2, No murmurs Abdomen: Bowel Sounds Present, Soft, Non Tender, Non-Distended : No renal angle tenderness. No suprapubic tenderness. Extremities: No edema, Capillary Refill Less than 3 Seconds Skin: No rashes, No breakdown Musculoskeletal: Tenderness present over right posterior thigh. Hematoma. Dressing present. ROM restricted and did not attempt. Neurological: Cranial nerves II-XII grossly intact, DTR 2+/4, muscle strength right lower extremity decreased due to hematoma and pain Psych/Mental Status: Flat affect. Assessment & Plan Assessment/Plan (1) Weakness: PLAN: Krishan WOLF, is a 73 M with a history of cardiomyopathy, aortic stenosis status post TAVR, paroxysmal atrial fibrillation and mitral valve repair and hypertension and who recently underwent ORIF with intramedullary nail insertion for right hip intertrochanteric fracture.? Was discharged home however has been progressively getting weak with a functional decline. Day prior to admission suffered mechanical fall with right-sided posterior rib fractures noted on x- rays in the ED. #Progressive weakness, functional decline, fall status post surgery for right hip fracture -Surgery on 03/[address] Vidal. Hospitalist Patient discussed with Dr. Willis on-call for [facility] and reviewed CT scan. Orthopedics suggested no further evaluation or intervention needed at this time. Pain control. PT and OT. Clinical monitoring of hematoma and swelling. #Bilateral lower extremity swelling -Right leg greater than left -Was on low-dose Eliquis for possible DVT prophylaxis. Venous duplex negative for acute DVT. -Wound care consult for draining wound -Echo 03/29/2023 with preserved EF of 55% #Leukocytosis -Possibly reactive in nature, fall with hematoma, afebrile, no other signs or symptoms of infection -White blood cell count downtrending today with fluids and supportive care -UA not suggestive of infection -Lower extremity CT on admission with postsurgical changes with associated hematoma which could be culprit of his leukocytosis -Started empirically on Zosyn. Blood cultures showed no growth for 48 hours. If no further fever, will discontinue tomorrow a.m. #KELVIN -Likely prerenal, improving with fluids . UN/creatinine 23/0.59. KELVIN resolved. #Lactic acidosis?resolved -Status post fluids, sepsis ruled out on admission #Right-sided rib fractures -Pain control -Supportive care -Incentive spirometry. PEP added. #Paroxysmal atrial fibrillation/status post TAVR for aortic stenosis and mitral valve repair/hypertension -Stable -Echo 03/29/2023 with preserved EF of 55% #DVT ppx: Low-dose Eliquis on hold due to hematoma. Charges/Coding Visit Charges Inpatient E&M: 46961 Subs Hosp L2
[2023-04-10] MEDS: Aspirin 81 MG TAB.CHEW PO (07:56)
[2023-04-10 08:04] VITALS: BP 126/63; PULSE 66; RESP 18; TEMP 36.7; O2SAT 98
--- NOTE | 2023-04-10 09:18 | WOUNDNOTE ---
wound photo: right lower leg
--- NOTE | 2023-04-10 09:19 | WOUNDNOTE ---
wound photo: right elbow
--- NOTE | 2023-04-10 09:49 | CASEMGMT ---
NICOL ROBINS Readmission Note Previous Admission:? ?? Diagnosis:? R comminuted intertrochanteric fx DC Disposition: Home with?[facility] PT, OT Current Admission? Current Diagnosis: weakness, leukocytosis? Pt is a 73 M with a history of cardiomyopathy, aortic stenosis status post TAVR, paroxysmal atrial fibrillation and mitral valve repair and hypertension and who recently underwent ORIF with intramedullary nail insertion for right hip intertrochanteric fracture.? Was discharged home however has been progressively getting weak with a functional decline. Day prior to admission suffered mechanical fall with right-sided posterior rib fractures noted on x-rays in the ED. NICOL ROBINS into pt room, pt sitting up in bed. Pt states [facility] had been out to see him for one visit. States the following day after [facility] eval, he was attempting to do exercises and fell at home. Pt states he has been taking his medications as ordered and has not yet had a follow up appt with ortho. Pt reports this is on the of this month. Noted therapy is recommending SNF at this time as pt is not safe to go home. Discussed this with pt. Pt states he would like to return home with [facility] coming everday. Discussed with pt that [facility] cannot visit daily for therapy. Pt is aware to have daily therapy, he could go to a facility of his choosing short term. Pt states his sister and other family are coming to visit him. He would like to discuss this with them. He does request a list of available SNF's. Updated SW. DC Plan: TBD, therapy recommending SNF
--- NOTE | 2023-04-10 10:05 | CASEMGMT ---
Discharge Planning SNF list created for patient and sent to SW. Michelle Díaz
[2023-04-10] MEDS: Arthritis Pain Compound 60 CLICK TUBE TOPICAL ×2 (10:21→21:08)
[2023-04-10] MEDS: guaiFENesin 1,200 MG Tablet 1200 MG PO ×2 (10:22→21:09)
[2023-04-10] MEDS: Lidocaine 5% Patch 1 PATCH TOPICAL (10:22)
[2023-04-10] MEDS: Fluoxetine HCl 40 MG CAPSULE PO (10:23)
[2023-04-10] MEDS: Senna/Docusate Sodium 1 Tablet 2 TABLET PO ×2 (10:23→21:09)
[2023-04-10] MEDS: Ensure Plus High Protein 120 ML LIQUID PO ×4 (10:23→21:08)
--- NOTE | 2023-04-10 11:14 | CASEMGMT ---
Addendum entered by Glendy Castro 04/10/23 15:58: SW in to follow up with pt regarding SNF choice. Pt stated he had seen the list but has not yet had time to review it with and asked for time to discuss with later tonight. SW will follow up with pt tomorrow morning. Original Note: Social Work RN JULIENNE reported to SW that pt considering SNF- TBD pending todays therapy session and discussion with family. RN stated pt wanting list of SNFs just in case it is needed. A list of SNF providers including quality and resource use data consistent with the patient?s preferred geographic region, medical needs, and insurance network was provided from the [employer] Guide. Pt sleeping soundly, not waking at this time. SW left list on bedside table and will follow up with pt once a determination is made on if SNF is needed. AVIS Saenz
[2023-04-10 12:41] LABS: Pathologist Review Reviewed
[2023-04-10 12:42] LABS: Pathologist Review Reviewed
[2023-04-10] MEDS: Pantoprazole Sodium 40 MG Tablet PO (12:53)
[2023-04-10 13:15] VITALS: O2SAT 98
[2023-04-10 16:05] VITALS: BP 94/45; PULSE 67; RESP 18; TEMP 36.9; O2SAT 98
[2023-04-10] MEDS: Atorvastatin Calcium 80 MG Tablet PO (21:09)
[2023-04-10 21:43] VITALS: BP 103/55; PULSE 103; RESP 18; TEMP 36.9; O2SAT 94
[2023-04-10 22:00] VITALS: PULSE 103; O2SAT 94
[2023-04-11 05:37] VITALS: BP 113/47; PULSE 66; RESP 15; TEMP 37; O2SAT 98
[2023-04-11] MEDS: oxyCODONE 5 MG Tablet PO ×4 (05:41→22:59)
[2023-04-11] MEDS: Acetaminophen 500 MG Tablet 1000 MG PO ×3 (05:41→22:59)
[2023-04-11 05:56] VITALS: BMI 24.8
[2023-04-11 06:50] LABS: Anion Gap 4 (5-15); BUN 19 mg/dL (7-18); BUN/Creat Ratio 36.5 RATIO (10-20); Calcium,Total 7.3 mg/dL (8.5-10.1); Chloride 107 mmol/L (98-107); Creatinine, Serum 0.52 mg/dL (0.70-1.30); EST Glomerular Filtration Rate 164 mL/min (>60); Est Glom Filt Rate - Afr Amer 199 mL/min (>60); Estimated Creatinine Clearance 61.75 ml/min; Glucose 95 mg/dL (74-106); Potassium 4.7 mmol/L (3.5-5.1); Sodium Level 135 mmol/L (136-145)
[2023-04-11 07:47] VITALS: BP 120/61; PULSE 68; RESP 16; TEMP 37.2; O2SAT 98
[2023-04-11] MEDS: Aspirin 81 MG TAB.CHEW PO (07:48)
[2023-04-11 08:09] LABS: Absolute Lymphocyte Count 1.01 X10^3/uL (0.83-4.51); Absolute Neutrophil Count 16.6 X10^3/uL (2.0-7.7); Basophil# 0.04 X10^3/uL; Basophil% 0.2 % (0-1); Eosinophil# 0.07 X10^3/uL; Eosinophils% 0.3 % (0-5); Lymphocyte # 1.01 X10^3/ul (0.83-4.51); Mean Corpuscular Hgb 30.4 pg (27.0-32.0); Mean Platelet Vol. 10.8 fl (6.2-12.0); Monocyte# 2.14 X10^3/uL; Monocyte% 10.6 % (0-10); NRBC Flagged by Analyzer 0 % (0-5); POSITIVE DIFFERENTIAL YES; Platelet Count 300 K/mm3 (150-450); RBC Distribution Width CV 17.4 % (11.6-14.6); RBC Distribution Width SD 61.7 fl (35.1-43.9); Red Blood Count 2.96 M/mm3 (4.6-6.2); White Blood Count 20.3 K/mm3 (4.4-11.0)
[2023-04-11 08:28] LABS: Differential Indicated SCAN CRITERIA MET
--- NOTE | 2023-04-11 08:30 | CONS.ORTHO ---
HPI Consult Data Date of Consult: 04/11/23 HPI Narrative Reason for Consultation: Right hip hematoma status post right femur cephalomedullary nail HPI Narrative: KOSTAS WOLF, is a 73 M who presented to [facility] emergency department after mechanical fall due to progressive weakness at home 04/07/2023. Patient underwent uncomplicated right femur cephalomedullary nail fixation with myself on 03/30/2023 due to a mechanical fall. Patient was discharged home with home health care. He returned to the emergency department due to rib pain status post most recent fall. CT scan of the chest revealed fracture of the right ninth through 11th ribs without pneumothorax with multiple compression deformities were noted in the thoracic spine as well as considerable kyphotic deformity. Patient states his right hip has been draining fluid as well as significant bruising about the lateral right hip. He reports his right hip feels great . His main complaint is his right-sided chest and back. He reports difficulty with mobilizing due to this pain. He denies any fevers, chills, nausea or vomiting, chest pain or shortness of breath but does report it is difficult to take a deep breath due to pain. [facility] Medical History A-fib Closed right hip fracture Eye abnormality Pacemaker Home Medications amiodarone 200 mg tablet 200 mg PO DAILY 02/08/23 [History Last Taken Unknown] carvedilol 6.25 mg tablet 6.25 mg PO BID 02/08/23 [History Last Taken Unknown] acetaminophen 500 mg tablet 1,000 mg PO Q6H 03/29/23 [History Last Taken Unknown] aspirin 81 mg chewable tablet 81 mg PO DAILY 03/29/23 [History Last Taken Unknown] atorvastatin 80 mg tablet 80 mg PO DAILY 03/29/23 [History Last Taken Unknown] eplerenone 25 mg tablet 12.5 mg PO DAILY Check with primary doctor 03/29/23 [History Last Taken Unknown] fexofenadine 180 mg tablet (Reva Allergy) 180 mg PO DAILY 03/29/23 [History Last Taken Unknown] fluoxetine 40 mg capsule (Prozac) 40 mg PO DAILY 03/29/23 [History Last Taken Unknown] mecobalamin (vitamin B12) 1,000 mcg chewable tablet (B12 Active) 1,000 mcg PO DAILY 03/29/23 [History Last Taken Unknown] mexiletine 200 mg capsule 200 mg PO TID 03/29/23 [History Last Taken Unknown] potassium chloride 20 mEq tablet,extended release(part/cryst) 20 meq PO DAILY 03/29/23 [History Last Taken Unknown] sacubitril 24 mg-valsartan 26 mg tablet (Entresto) 1 tab PO BID 03/29/23 [History Last Taken Unknown] torsemide 20 mg tablet 20 mg PO DAILY 03/29/23 [History Last Taken Unknown] apixaban 2.5 mg tablet 2.5 mg PO BID #60 tabs 04/01/23 [Rx Last Taken Unknown] oxycodone 5 mg tablet 5 mg PO Q4H PRN PRN Pain Score 4-10 5 days #20 tabs 04/01/23 [Rx Last Taken Unknown] sennosides 8.6 mg-docusate sodium 50 mg tablet (Stool Softener-Stimulant Laxative) 2 tab PO BID PRN PRN Constipation #60 tabs 04/01/23 [Rx Last Taken Unknown] Allergy/AdvReac Type Severity Reaction Status Date / Time lisinopril Allergy Mild Laryngospas Verified 04/08/23 10:21 ms Family History Father CVA (cerebral vascular accident) Mother Laryngeal cancer Surgical History H/O cardiac radiofrequency ablation H/O eye surgery H/O heart surgery H/O total knee replacement History of appendectomy History of hip surgery History of surgery on arm Stented coronary artery Social History household members: spouse Smoking Status: Former smoker ROS ROS Narrative 12 point review of systems obtained, negative unless otherwise noted in HPI. Vital Signs Vital Signs Vital Signs: 04/10/23 09:54 04/10/23 10:00 04/10/23 13:15 Temperature Temperature Source Pulse Rate Pulse Strength Weak (1+) Respiratory Rate Respiratory Effort Normal Non-Labored Respiratory Depth Respiratory Pattern Blood Pressure Blood Pressure Mean Blood Pressure Source Blood Pressure Position Blood Pressure Location Pulse Ox 98 Oxygen Delivery Method Room Air 04/10/23 13:15 04/10/23 16:05 04/10/23 16:00 Temperature 98.5 F Temperature Source Oral Pulse Rate 67 Pulse Strength Respiratory Rate 18 Respiratory Effort Non-Labored Respiratory Depth Respiratory Pattern Blood Pressure 94/45 L Blood Pressure Mean 61 Blood Pressure Source Monitor Blood Pressure Position Semi-Fowlers Blood Pressure Location Right Arm Pulse Ox 98 98 Oxygen Delivery Method Room Air 04/10/23 21:39 04/10/23 21:43 04/10/23 22:00 Temperature 98.5 F Temperature Source Temporal Pulse Rate 103 H 103 H Pulse Strength Normal (2+) Respiratory Rate 18 Respiratory Effort Normal Respiratory Depth Normal Respiratory Pattern Normal Blood Pressure 103/55 L Blood Pressure Mean 71 Blood Pressure Source Monitor Blood Pressure Position Semi-Fowlers Blood Pressure Location Right Arm Pulse Ox 94 94 Oxygen Delivery Method Room Air Room Air 04/11/23 05:37 04/11/23 07:47 Temperature 98.6 F 98.9 F Temperature Source Oral Oral Pulse Rate 66 68 Pulse Strength Respiratory Rate 15 16 Respiratory Effort Respiratory Depth Respiratory Pattern Blood Pressure 113/47 L 120/61 Blood Pressure Mean 69 80 Blood Pressure Source Monitor Monitor Blood Pressure Position Semi-Fowlers Semi-Fowlers Blood Pressure Location Right Arm Right Arm Pulse Ox 98 98 Oxygen Delivery Method Room Air Room Air Weight Weight: 167 lb 15.876 oz Body Mass Index (BMI) 24.8 Physical Exam Narrative General -A&Ox3, NAD, appears stated age. Vital signs stable, afebrile. Respiratory -normal work of breathing, no intercostal retractions. CV -pulses regular, brisk capillary refill ?4 limbs. Abdomen-soft, nontender, nondistended. No guarding, rigidity, rebound tenderness. Musculoskeletal/neurologic -full range of motion nontender throughout bilateral upper extremities, left lower extremity with full sensation and strength in all dermatomes and myotomes. No midline cervical tenderness. Posterior lateral chest wall tenderness noted. Right lower extremity-diffuse ecchymosis noted along the lateral and posterior lateral right thigh. Compartments are soft and compressible. Lateral hip incisions are well approximated with charles. There is serous drainage noted on the surgical dressings which were removed for examination. There is no significant erythema surrounding the incisions. No pain with logroll of the right hip. Negative Homans' sign. Calves are soft and nontender. DP pulse 2+ brisk capillary fill in toes. Edema is noted bilateral lower extremities. Medical Records Data Medical Nutrition Assessment Dietitian: Malnutrition Criteria Met Start: 04/09/23 10:40 Freq: Status: Active Protocol: Document 04/09/23 10:40 AG (Rec: 04/09/23 10:40 AG [id number]) Nutrition Malnutrition Evidence of Malnutrition Exists Yes Malnutrition (moderate): Chronic Evidenced By Suboptimal Energy Intake ( Moderate),Physical Changes ( Mild) Clinical Problem Chronic Disease or Condition Related Malnutrition Etiology moderate, chronic malnutrition related to inadequate energy intake d/t decreased appetite Signs/Symptoms as evidenced by estimated PO intake meeting <75% of estimated energy needs > 3 months; Mild muscle wasting/ fat loss evident in orbital, clavicle, acromion, and temporal areas per physical exam Status Active Problem Recommendation Dietitian Recommendations/Changes regular diet w/ 120mL ensure plus high protein 4x/day given evidence of malnutrition Lab / Micro Data Result Diagrams: 04/11/23 07:59 04/11/23 05:35 Labs: Laboratory Results - last 24 hr 04/08/23 11:22: Diff Path Review Reviewed 04/09/23 03:48: Diff Path Review Reviewed 04/11/23 05:20: WBC Cancelled, Corrected WBC Cancelled, RBC Cancelled, Hgb Cancelled, Hct Cancelled, MCV Cancelled, MCH Cancelled, MCHC Cancelled, RDW Std Deviation Cancelled, RDW Coeff of Rohit Cancelled, Plt Count Cancelled, MPV Cancelled, Immature Gran % (Auto) Cancelled, Neut % (Auto) Cancelled, Lymph % (Auto) Cancelled, [place] % (Auto) Cancelled, Eos % (Auto) Cancelled, Baso % (Auto) Cancelled, Absolute Neuts (auto) Cancelled, Absolute Lymphs (auto) Cancelled, Total Counted Cancelled, Neutrophils % (Manual) Cancelled, Band Neutrophils % Cancelled, Lymphocytes % (Manual) Cancelled, Monocytes % (Manual) Cancelled, Eosinophils % (Manual) Cancelled, Basophils % (Manual) Cancelled, Metamyelocytes % Cancelled, Myelocytes % Cancelled, Promyelocytes % Cancelled, Blast Cells % Cancelled, Plasma Cell % (Manual) Cancelled, Other Cells % Cancelled, Nucleated RBC % Cancelled, Nucleated RBCs/100 WBC Cancelled, Differential Comment Cancelled, Diff Path Review Cancelled, Hypersegmented Neuts Cancelled, Atypical Lymphocytes Cancelled, Reactive Lymphocytes Cancelled, Smudge Cells Cancelled, Toxic Granulation Cancelled, Toxic Vacuolation Cancelled, Dohle Bodies Cancelled, Eileen Rods Cancelled, Platelet Estimate Cancelled, Plt Morphology Comment Cancelled, RBC Morphology Cancelled, Polychromasia Cancelled, Hypochromasia Cancelled, Poikilocytosis Cancelled, Basophilic Stippling Cancelled, Anisocytosis Cancelled, Microcytosis Cancelled, Macrocytosis Cancelled, Spherocytes Cancelled, Sickle Cells Cancelled, Target Cells Cancelled, Tear Drop Cells Cancelled, Ovalocytes Cancelled, Stomatocytes Cancelled, [place] Bodies Cancelled, [place] Cells Cancelled, Bite Cells Cancelled, Crenated Cell Cancelled, Acanthocytes (Spur) Cancelled, Rouleaux Cancelled, Schistocytes Cancelled 04/11/23 05:35: Sodium 135 L, Potassium 4.7, Chloride 107, Carbon Dioxide 24.0, Anion Gap 4 L, BUN 19 H, Creatinine 0.52 L, Estim Creat Clear Calc 61.75, Est GFR (MDRD) Af Amer 199, Est GFR (MDRD) Non-Af 164, BUN/Creatinine Ratio 36.5 H, Glucose 95, Calcium 7.3 L 04/11/23 07:59: WBC 20.3 H, RBC 2.96 L, Hgb 9.0 L, Hct 29.0 L, MCV 98.0 H D, MCH 30.4, MCHC 31.0 L, RDW Std Deviation 61.7 H, RDW Coeff of Rohit 17.4 H, Plt Count 300, MPV 10.8, Immature Gran % (Auto) 1.900 H, Neut % (Auto) 82.0 H, Lymph % (Auto) 5.0 L, [place] % (Auto) 10.6 H, Eos % (Auto) 0.3, Baso % (Auto) 0.2, Absolute Neuts (auto) 16.6 H, Absolute Lymphs (auto) 1.01, Nucleated RBC % 0 Micro: Microbiology 04/08/23 13:22 Blood Culture (Wb) - Left Forearm Blood Culture - Preliminary No growth in 48 hours. 04/08/23 13:05 Blood Culture (Wb) - Right Forearm Blood Culture - Preliminary No growth in 48 hours. Assessment & Plan Assessment/Plan (1) Closed intertrochanteric fracture of right femur with routine healing: QUALIFIERS: Fracture alignment: displaced Qualified Code(s): S72.141D - Displaced intertrochanteric fracture of right femur, subsequent encounter for closed fracture with routine healing PLAN: Patient is status post right hip cephalomedullary nail fixation on 03/30/2023. Hematoma noted on CT scan upon admission, bony fixation appears stable. No evidence of impending skin necrosis or compartment syndrome. No plan for additional surgical intervention at this time. Due to high risk of DVT and low concern for continued bleeding in the right hip, I would recommend restarting some form of DVT prophylaxis. Suspect third spacing causing serous drainage to the right hip. Edema control per primary. Encourage patient to mobilize as much as possible physical therapy to help with edema. No evidence of infection on exam of the right hip. Dry sterile dressing changes daily and as needed for saturation. Further evaluation of leukocytosis per primary. Plan to remove surgical charles approximately 04/15/23. I will plan to follow peripherally. Please not hesitate to call if any questions or concerns arise.
[2023-04-11 08:38] LABS: Burr Cells 1+
[2023-04-11 08:39] LABS: Total Cells Counted 20.3 (MANUAL DIFF)
--- NOTE | 2023-04-11 08:58 | CASEMGMT ---
Social Work SW in to pt room to follow up on SNF choice. Pt stated has not had much time to discuss with but [facility] would be first choice. Pt does not have other choices at this time, until meets with today. SW sent referral to [facility] at [facility]. Will await determination from [facility] on acceptance. PLAN: [facility], pending acceptance AVIS Saenz
--- NOTE | 2023-04-11 10:23 | CASEMGMT ---
Addendum entered by Lisa Drummond 04/11/23 14:21: Updated Bertha at [facility] that pt will dc to [facility]. Original Note: NICOL CM into pt room, [facility] a [facility].
[2023-04-11] MEDS: Arthritis Pain Compound 60 CLICK TUBE TOPICAL ×2 (10:39→20:24)
[2023-04-11] MEDS: Senna/Docusate Sodium 1 Tablet 2 TABLET PO ×2 (10:40→20:24)
[2023-04-11] MEDS: Pantoprazole Sodium 40 MG Tablet PO (10:40)
[2023-04-11] MEDS: Lidocaine 5% Patch 1 PATCH TOPICAL (10:40)
[2023-04-11] MEDS: Ensure Plus High Protein 120 ML LIQUID PO ×4 (10:40→20:25)
[2023-04-11] MEDS: guaiFENesin 1,200 MG Tablet 1200 MG PO ×2 (10:40→20:24)
[2023-04-11] MEDS: Polyethylene Glycol 3350 17 GM PACKET PO (10:42)
--- NOTE | 2023-04-11 14:12 | CASEMGMT ---
Social Work Mulu from [facility] has accepted pt on stipulation that pt cannot have eplerenone (Inspra), medication from pt's home med list or bring it from home due to being Medicare patient. Upon review of pt chart, pt is not taking this med while at [facility] currently. SW in to speak with pt. Shared details and stipulation for being accepted at [facility]. Pt stated has not taken this med for some time and is alright with not having it while at [facility]. Pt also gave SW permission to call and update on the plan. SW called pt , Kathleen, to report plan for TCU. Left voicemail with update and provided contact number should Kathleen need to call back with questions. MD See updated as well. PLAN: TCU, tomorrow when bed opens AVIS Saenz
[2023-04-11 14:43] LABS: Pathologist Review Reviewed
--- NOTE | 2023-04-11 14:46 | PCM.PN.HOSP ---
Reason for Visit Reason for Visit: Diagnoses Weakness (04/08/23) Displaced intertrochanteric fracture of right femur, subsequent encounter for closed fracture with routine healing (04/08/23) Presence of right artificial hip joint (04/08/23) Subjective Subjective Follow-up after fall with gluteal and posterior lateral thigh, right-sided hematoma Patient sitting in the chair. Objective Data Objective Data Vital Signs: Vital Signs Temp Pulse Resp BP Pulse Ox O2 Del Method 98.9 F 68 16 120/61 98 Room Air 04/11/23 07:47 04/11/23 07:47 04/11/23 07:47 04/11/23 07:47 04/11/23 07:47 04/11/23 08:52 Oxygen Delivery Method Room Air Weight: 167 lb 15.876 oz Body Mass Index (BMI) 24.8 Intake & Output: Intake and Output for Last 24 Hours 04/09/23 04/10/23 04/11/23 23:59 23:59 23:59 Intake Total 2613.75 / 2613.75 1400 / 1650 300 / 300 Output Total 2450 / 2450 1650 / 1950 500 / 500 Balance 163.75 / 163.75 -250 / -300 -200 / -200 Medical Nutrition Assessment Dietitian: Malnutrition Criteria Met Start: 04/09/23 10:40 Freq: Status: Active Protocol: Document 04/09/23 10:40 AG (Rec: 04/09/23 10:40 AG [id number]) Nutrition Malnutrition Evidence of Malnutrition Exists Yes Malnutrition (moderate): Chronic Evidenced By Suboptimal Energy Intake ( Moderate),Physical Changes ( Mild) Clinical Problem Chronic Disease or Condition Related Malnutrition Etiology moderate, chronic malnutrition related to inadequate energy intake d/t decreased appetite Signs/Symptoms as evidenced by estimated PO intake meeting <75% of estimated energy needs > 3 months; Mild muscle wasting/ fat loss evident in orbital, clavicle, acromion, and temporal areas per physical exam Status Active Problem Recommendation Dietitian Recommendations/Changes regular diet w/ 120mL ensure plus high protein 4x/day given evidence of malnutrition Lab / Micro Data Result Diagrams: 04/11/23 07:59 04/11/23 05:35 Labs: Laboratory Results - last 24 hr 04/10/23 05:38: Diff Path Review Reviewed 04/11/23 05:20: WBC Cancelled, Corrected WBC Cancelled, RBC Cancelled, Hgb Cancelled, Hct Cancelled, MCV Cancelled, MCH Cancelled, MCHC Cancelled, RDW Std Deviation Cancelled, RDW Coeff of Rohit Cancelled, Plt Count Cancelled, MPV Cancelled, Immature Gran % (Auto) Cancelled, Neut % (Auto) Cancelled, Lymph % (Auto) Cancelled, Reagan % (Auto) Cancelled, Eos % (Auto) Cancelled, Baso % (Auto) Cancelled, Absolute Neuts (auto) Cancelled, Absolute Lymphs (auto) Cancelled, Total Counted Cancelled, Neutrophils % (Manual) Cancelled, Band Neutrophils % Cancelled, Lymphocytes % (Manual) Cancelled, Monocytes % (Manual) Cancelled, Eosinophils % (Manual) Cancelled, Basophils % (Manual) Cancelled, Metamyelocytes % Cancelled, Myelocytes % Cancelled, Promyelocytes % Cancelled, Blast Cells % Cancelled, Plasma Cell % (Manual) Cancelled, Other Cells % Cancelled, Nucleated RBC % Cancelled, Nucleated RBCs/100 WBC Cancelled, Differential Comment Cancelled, Diff Path Review Cancelled, Hypersegmented Neuts Cancelled, Atypical Lymphocytes Cancelled, Reactive Lymphocytes Cancelled, Smudge Cells Cancelled, Toxic Granulation Cancelled, Toxic Vacuolation Cancelled, Dohle Bodies Cancelled, Eileen Rods Cancelled, Platelet Estimate Cancelled, Plt Morphology Comment Cancelled, RBC Morphology Cancelled, Polychromasia Cancelled, Hypochromasia Cancelled, Poikilocytosis Cancelled, Basophilic Stippling Cancelled, Anisocytosis Cancelled, Microcytosis Cancelled, Macrocytosis Cancelled, Spherocytes Cancelled, Sickle Cells Cancelled, Target Cells Cancelled, Tear Drop Cells Cancelled, Ovalocytes Cancelled, Stomatocytes Cancelled, Do-Roxbury Bodies Cancelled, Beverley Cells Cancelled, Bite Cells Cancelled, Crenated Cell Cancelled, Acanthocytes (Spur) Cancelled, Rouleaux Cancelled, Schistocytes Cancelled 04/11/23 05:35: Sodium 135 L, Potassium 4.7, Chloride 107, Carbon Dioxide 24.0, Anion Gap 4 L, BUN 19 H, Creatinine 0.52 L, Estim Creat Clear Calc 61.75, Est GFR (MDRD) Af Amer 199, Est GFR (MDRD) Non-Af 164, BUN/Creatinine Ratio 36.5 H, Glucose 95, Calcium 7.3 L 04/11/23 07:59: WBC 20.3 H, RBC 2.96 L, Hgb 9.0 L, Hct 29.0 L, MCV 98.0 H D, MCH 30.4, MCHC 31.0 L, RDW Std Deviation 61.7 H, RDW Coeff of Rohit 17.4 H, Plt Count 300, MPV 10.8, Immature Gran % (Auto) 1.900 H, Neut % (Auto) 82.0 H, Lymph % (Auto) 5.0 L, Reagan % (Auto) 10.6 H, Eos % (Auto) 0.3, Baso % (Auto) 0.2, Absolute Neuts (auto) 16.6 H, Absolute Lymphs (auto) 1.01, Total Counted 20.3, Nucleated RBC % 0, Diff Path Review March Garret hintonr Cells 1+ Micro: Microbiology 04/08/23 13:22 Blood Culture (Wb) - Left Forearm Blood Culture - Preliminary No growth in 48 hours. 04/08/23 13:05 Blood Culture (Wb) - Right Forearm Blood Culture - Preliminary No growth in 48 hours. 04/08/23 13:20 Urine, Clean Catch Urine Culture - Final Mixed Gram Pos & Gram Neg Org Physical Exam Narrative Patient still needs 1 person assist for standing. Difficulty in walking. Needs rehab. Patient is stated he felt little confused yesterday but he is good now. He also has constipation, last bowel movement Monday/Monday. Seen and examined. General: Awake, Oriented x3, alert. HEENT: Atraumatic, PERRLA, EOMI, Normocephalic Oral: Oral mucosa moist. No Gingival or Mucosal Lesions/ Ulcerations Neck: Supple, No JVD, Negative Carotid Bruits Chest/lungs: Tenderness present over her right anterior lateral chest wall. No crepitation/surgical emphysema palpable. Air entry diminished in bilateral lung bases. No crepitation/rhonchi Cardiovascular: Regular rate, Regular Rhythm, Normal S1, Normal S2, No murmurs Abdomen: Bowel Sounds Present, Soft, Non Tender, Non-Distended : No renal angle tenderness. No suprapubic tenderness. Extremities: No edema, Capillary Refill Less than 3 Seconds Skin: Skin discoloration/bruise, subcutaneous hematoma over right posterior lateral upper thigh and gluteal region. Musculoskeletal: Mild tenderness present over right posterior thigh. Hematoma. Dressing present. ROM restricted and did not attempt. Neurological: Cranial nerves II-XII grossly intact, DTR 2+/4, muscle strength right lower extremity decreased due to hematoma and pain Psych/Mental Status: Flat affect. Assessment & Plan Assessment/Plan (1) Weakness: PLAN: Plan KOSTAS WOLF, is a 73 M with a history of cardiomyopathy, aortic stenosis status post TAVR, paroxysmal atrial fibrillation and mitral valve repair and hypertension and who recently underwent ORIF with intramedullary nail insertion for right hip intertrochanteric fracture.? Was discharged home however has been progressively getting weak with a functional decline. Day prior to admission suffered mechanical fall with right-sided posterior rib fractures noted on x-rays in the ED. #Progressive weakness, functional decline, fall status post surgery for right hip fracture -Surgery on 03/[address] Vidal. Hospitalist Patient discussed with Dr. Willis on-call for [facility] and reviewed CT scan. Orthopedics suggested no further evaluation or intervention needed at this time. Pain control. PT and OT. Clinical monitoring of hematoma and swelling. 04/11: Discussed with the PT case management assistant and psychiatric social worker. Plan for transfer to TCU. Patient was evaluated by orthopedic surgeon in the morning today. Bony surgical fixation appears stable. No impending skin necrosis or compartment syndrome. No plan for additional surgical intervention. Patient is started on low-dose Eliquis today. #Bilateral lower extremity swelling -Right leg greater than left -Was on low-dose Eliquis for possible DVT prophylaxis. Venous duplex negative for acute DVT. -Wound care consult for draining wound -Echo 03/29/2023 with preserved EF of 55% #Leukocytosis -Possibly reactive in nature, fall with hematoma, afebrile, no other signs or symptoms of infection -White blood cell count downtrending today with fluids and supportive care -UA not suggestive of infection -Lower extremity CT on admission with postsurgical changes with associated hematoma which could be culprit of his leukocytosis -Started empirically on Zosyn. Blood cultures showed no growth for 48 hours. If no further fever, will discontinue tomorrow a.m. #KELVIN -Likely prerenal, improving with fluids . UN/creatinine 23/0.59. KELVIN resolved. #Lactic acidosis?resolved -Status post fluids, sepsis ruled out on admission #Right-sided rib fractures -Pain control -Supportive care -Incentive spirometry. PEP added. #CAD status post stent, paroxysmal atrial fibrillation/status post TAVR for aortic stenosis and mitral valve repair/hypertension, status post radiofrequency ablation and pacemaker -Stable -Echo 03/29/2023 with preserved EF of 55%. Patient on baby aspirin. Home medications amiodarone, carvedilol, mexiletine, Entresto, torsemide continued. Eplerenone is nonformulary and serum potassium is 4.7. Patient on high intensity atorvastatin. #DVT ppx: Low-dose Eliquis on hold due to hematoma. Charges/Coding Visit Charges Inpatient E&M: 77262 Subs Hosp L2
[2023-04-11 15:26] VITALS: BP 122/49; PULSE 67; RESP 16; TEMP 36.9; O2SAT 98
--- NOTE | 2023-04-11 15:36 | CASEMGMT ---
Provided update to [facility] for dc plan for pt. He requests DC summary be faxed to [phone] upon dc.
[2023-04-11 19:55] VITALS: RESP 28; O2SAT 85
[2023-04-11 20:03] VITALS: BP 149/59; PULSE 79; RESP 22; TEMP 36.3; O2SAT 98
[2023-04-11] MEDS: 0.9% Saline Lock 10 ML Syringe IV (20:24)
[2023-04-11] MEDS: SACUBITRIL/VALSARTAN 24/26 MG TABLET 1 EACH PO (20:26)
[2023-04-11] MEDS: Carvedilol 6.25 MG Tablet PO (20:26)
[2023-04-11] MEDS: Atorvastatin Calcium 80 MG Tablet PO (20:26)
[2023-04-11] MEDS: Mexiletine 150 MG Capsule PO (20:27)
[2023-04-11] MEDS: MELATONIN 3 MG TABLET PO (23:01)
[2023-04-11 23:03] VITALS: BP 97/50; PULSE 66; RESP 20; TEMP 36.3; O2SAT 94
[2023-04-12 06:00] VITALS: BMI 24.7
[2023-04-12 07:04] LABS: Basophil# 0.03 X10^3/uL; Basophil% 0.2 % (0-1); Eosinophil# 0.07 X10^3/uL; Eosinophils% 0.4 % (0-5); Hematocrit 27.1 % (40-54); Mean Corp Hgb Conc 33.2 g/dL (32-36); Mean Corpuscular Hgb 30.3 pg (27.0-32.0); Mean Corpuscular Volume 91.2 fL (80-94); Mean Platelet Vol. 10.5 fl (6.2-12.0); Monocyte# 1.77 X10^3/uL; Monocyte% 9.8 % (0-10); NRBC Flagged by Analyzer 0 % (0-5); Neutrophil # 14.96 X10^3/uL (2.7-7.7); Neutrophil % 82.5 % (47-70); POSITIVE DIFFERENTIAL YES; Platelet Count 348 K/mm3 (150-450); RBC Distribution Width CV 17.2 % (11.6-14.6); RBC Distribution Width SD 57.1 fl (35.1-43.9); Red Blood Count 2.97 M/mm3 (4.6-6.2); White Blood Count 18.1 K/mm3 (4.4-11.0)
[2023-04-12] MEDS: Acetaminophen 500 MG Tablet 1000 MG PO ×2 (07:04→13:27)
[2023-04-12] MEDS: oxyCODONE 5 MG Tablet PO ×2 (07:04→11:51)
[2023-04-12] MEDS: Mexiletine 150 MG Capsule PO ×2 (07:05→13:26)
[2023-04-12 07:07] VITALS: BP 111/52; PULSE 66; RESP 22; TEMP 36.6; O2SAT 95
[2023-04-12 07:08] LABS: Differential Indicated SCAN CRITERIA MET
[2023-04-12 07:24] LABS: Anisocytosis 1+
--- NOTE | 2023-04-12 07:40 | PCM.TXEXTCAR ---
Diet Diet Order/Speech Therapy: 04/09/23 10:40 Diet: Regular - General Is pt able to select menu?: Yes Routine Orders/Code Status Suppository Type: Dulcolax 10mg Suppository Frequency: Daily PRN Code Status: Full Code Wound(s) RIGHT HIP: Wound Type: Surgical Incision RIGHT ELBOW: Wound Type: Skin Tear Dressing Change: Adaptic mid [place]: Wound Type: Skin Tear Dressing Change: Adaptic outside of rt knee: Wound Type: Skin Tear Dressing Change: Adaptic Therapies Weight Bearing: Weight bearing as tolerated Extremity Affected:: Right Lower Physical Therapy: Eval and Treat Occupational Therapy: Eval and Treat Speech Therapy: Eval and Treat Problem/Diagnosis (1) Weakness: Status: Acute Code(s): R53.1 - Weakness Plan KOSTAS WOLF, is a 73 M with a history of cardiomyopathy, aortic stenosis status post TAVR, paroxysmal atrial fibrillation and mitral valve repair and hypertension and who recently underwent ORIF with intramedullary nail insertion for right hip intertrochanteric fracture.? Was discharged home however has been progressively getting weak with a functional decline. Day prior to admission suffered mechanical fall with right-sided posterior rib fractures noted on x-rays in the ED. #Progressive weakness, functional decline, fall status post surgery for right hip fracture -Surgery on 03/[address] Vidal. Hospitalist Patient discussed with Dr. Willis on-call for Dr. Cardoza and reviewed CT scan. Orthopedics suggested no further evaluation or intervention needed at this time. Pain control. PT and OT. Clinical monitoring of hematoma and swelling. 04/11: Discussed with the PT gearcase assembler and social media community manager. Plan for transfer to TCU. Patient was evaluated by orthopedic surgeon in the morning today. Bony surgical fixation appears stable. No impending skin necrosis or compartment syndrome. No plan for additional surgical intervention. Patient is started on low-dose Eliquis today. #Bilateral lower extremity swelling -Right leg greater than left -Was on low-dose Eliquis for possible DVT prophylaxis. Venous duplex negative for acute DVT. -Wound care consult for draining wound -Echo 03/29/2023 with preserved EF of 55% #Leukocytosis -Possibly reactive in nature, fall with hematoma, afebrile, no other signs or symptoms of infection -White blood cell count downtrending today with fluids and supportive care -UA not suggestive of infection -Lower extremity CT on admission with postsurgical changes with associated hematoma which could be culprit of his leukocytosis -Started empirically on Zosyn. Blood cultures showed no growth for 48 hours. If no further fever, will discontinue tomorrow a.m. #KELVIN -Likely prerenal, improving with fluids . UN/creatinine 23/0.59. KELVIN resolved. #Lactic acidosis?resolved -Status post fluids, sepsis ruled out on admission #Right-sided rib fractures -Pain control -Supportive care -Incentive spirometry. PEP added. #CAD status post stent, paroxysmal atrial fibrillation/status post TAVR for aortic stenosis and mitral valve repair/hypertension, status post radiofrequency ablation and pacemaker -Stable -Echo 03/29/2023 with preserved EF of 55%. Patient on baby aspirin. Home medications amiodarone, carvedilol, mexiletine, Entresto, torsemide continued. Eplerenone is nonformulary and serum potassium is 4.7. Patient on high intensity atorvastatin. #DVT ppx: Low-dose Eliquis on hold due to hematoma. Allergies/Procedures Done in Hospital Allergies lisinopril Allergy (Mild, Verified 04/08/23 10:21) Laryngospasms Type of Care/Length of Stay Estimated LOS: Convalescent Care Less Than 30 days Type of Care Needed: Skilled Rehab Potential: Good Prognosis: Good Additional Orders/Day of Discharge Day of Discharge: 04/12/23 Dietary and Speech Recommendations Dietitian Recommendations/Changes: regular diet w/ 120mL ensure plus high protein 4x/day given evidence of malnutrition Discharge Plan Admission Admit Date/Time: 04/08/23 14:12 Primary Reason for Your Visit: Fall with gluteal, posterior lateral thigh hematoma, right ribs fracture. Attending Provider: Cam See Primary Care Provider: Jovi Bradley [employer] Consulting Providers: Barbara Dean ; Magalys Peres ; Chandler Vidal Discharge Orders/Prescriptions Prescriptions: New polyethylene glycol 3350 17 gram Powder In Packet 17 g PO DAILY Qty: 0 0RF sennosides-docusate sodium [Stool Softener-Stimulant Laxat] 8.6-50 mg Tablet 2 tab PO BID Qty: 0 0RF acetaminophen 500 mg Tablet 1,000 mg PO TID Qty: 0 0RF Rx Instructions: For 5 more days and then as needed pain pantoprazole 40 mg Tablet,Delayed Release (Dr/Ec) 40 mg PO DAILY Qty: 0 0RF lidocaine 5 % Adhesive Patch,Medicated 1 patch topical DAILY Qty: 0 0RF Protocol: *Topical Application Instructions APPLICATION INSTRUCTIONS: to right side/ ribs Rx Instructions: Remove for sedation confusion or disorientation. oxycodone 5 mg Tablet 2.5 - 5 mg PO Q6 Qty: 0 0RF Mucus Relief ER 1,200 mg Tablet Extended Release 12hr 1,200 mg PO BID 7 Days Qty: 14 0RF Remove Patch 1 patch topical DAILY@2200 Qty: 0 0RF Continued carvedilol 6.25 mg tablet 6.25 mg PO BID amiodarone 200 mg tablet 200 mg PO DAILY mexiletine 200 mg capsule 200 mg PO TID fluoxetine [Prozac] 40 mg Capsule 40 mg PO DAILY atorvastatin 80 mg Tablet 80 mg PO DAILY torsemide 20 mg Tablet 20 mg PO DAILY aspirin 81 mg Tablet,Chewable 81 mg PO DAILY Entresto 24-26 mg Tablet 1 tab PO BID mecobalamin (vitamin B12) [B12 Active] 1,000 mcg Tablet,Chewable 1,000 mcg PO DAILY apixaban 2.5 mg tablet 2.5 mg PO BID Qty: 60 0RF Changed fexofenadine [Reva Allergy] 180 mg Tablet 180 mg PO DAILY PRN (Reason: allergy) 30 Days Qty: 0 0RF eplerenone 25 mg Tablet 25 mg PO DAILY Qty: 30 0RF Rx Instructions: Hold for potassium more than 5.0. Discontinued acetaminophen 500 mg Tablet 1,000 mg PO Q6H potassium chloride 20 mEq Tablet,Er Particles/Crystals 20 meq PO DAILY oxycodone 5 mg Tablet 5 mg PO Q4H PRN PRN (Reason: Pain Score 4-10) 5 Days Qty: 20 0RF sennosides-docusate sodium [Stool Softener-Stimulant Laxat] 8.6-50 mg Tablet 2 tab PO BID PRN PRN (Reason: Constipation) Qty: 60 0RF Referrals / Follow Up: Jovi Bradley NP, [employer] [Primary Care Provider] - Disposition Disposition (needs filled in before D/C Order can be placed): [facility]
[2023-04-12 07:44] LABS: Anion Gap 5 (5-15); BUN 20 mg/dL (7-18); BUN/Creat Ratio 36.4 RATIO (10-20); Calcium,Total 7.8 mg/dL (8.5-10.1); Chloride 104 mmol/L (98-107); Creatinine, Serum 0.55 mg/dL (0.70-1.30); EST Glomerular Filtration Rate 155 mL/min (>60); Est Glom Filt Rate - Afr Amer 187 mL/min (>60); Estimated Creatinine Clearance 61.75 ml/min; Glucose 107 mg/dL (74-106); Potassium 3.9 mmol/L (3.5-5.1); Sodium Level 135 mmol/L (136-145)
--- NOTE | 2023-04-12 07:50 | DS.PCM_ITS ---
Providers Date of Admission: 04/08/23 Date of Discharge: 04/12/23 Primary Care Physician: Jovi Bradley, VIV Consultations 04/08/23 14:13 Consult: Onc/Wound/director employment Routine Comment: Reason for Consult:: leg wounds 04/10/23 14:53 Consult: Orthopedics Routine Consulting Provider: Chandler Vidal Reason for Consult: right gluteal hematoma, s/p right hip ORIF EMERGENT Consult: No MD Notified: Yes Date Notified: 04/10/23 Time Notified: 14:53 Method of Notification: Verbal Reason For Visit: WEAKNESS, LEUKOCYTOSIS Diagnosis Discharge Diagnosis (1) Weakness: Status: Acute Code(s): R53.1 - Weakness Plan KOSTAS WOLF, is a 73 M with a history of cardiomyopathy, aortic stenosis status post TAVR, paroxysmal atrial fibrillation and mitral valve repair and hypertension and who recently underwent ORIF with intramedullary nail insertion for right hip intertrochanteric fracture.? Was discharged home however has been progressively getting weak with a functional decline. Day prior to admission suffered mechanical fall with right-sided posterior rib fractures noted on x- rays in the ED. #Progressive weakness, functional decline, fall status post surgery for right hip fracture -Surgery on 03/[address] Vidal. Hospitalist Patient discussed with Dr. Willis on-call for [facility] and reviewed CT scan. Orthopedics suggested no further evaluation or intervention needed at this time. Pain control. PT and OT. Clinical monitoring of hematoma and swelling. 04/11: Discussed with the PT skilled nursing case manager and social worker clinical. Plan for transfer to TCU. Patient was evaluated by orthopedic surgeon in the morning today. Bony surgical fixation appears stable. No impending skin necrosis or compartment syndrome. No plan for additional surgical intervention. Patient is started on low-dose Eliquis today. 04/12: Planning discharge to TCU. Rest as mentioned above. #Bilateral lower extremity swelling -Right leg greater than left -Was on low-dose Eliquis for possible DVT prophylaxis. Venous duplex negative for acute DVT. -Wound care consult for draining wound -Echo 03/29/2023 with preserved EF of 55% #Leukocytosis -Possibly reactive in nature, fall with hematoma, afebrile, no other signs or symptoms of infection -White blood cell count downtrending today with fluids and supportive care -UA not suggestive of infection -Lower extremity CT on admission with postsurgical changes with associated hematoma which could be culprit of his leukocytosis -Started empirically on Zosyn. Blood cultures showed no growth for 48 hours. If no further fever, will discontinue tomorrow a.m. 04/12: Urine culture shows mixed gram-positive and negative organisms history of contamination. Antibiotic discontinued admission 04/10 night. #KELVIN -Likely prerenal, improving with fluids . UN/creatinine 23/0.59. KELVIN resolved. 04/12: KELVIN resolved. #Lactic acidosis?resolved -Status post fluids, sepsis ruled out on admission #Right-sided rib fractures -Pain control -Supportive care -Incentive spirometry. PEP added. #CAD status post stent, paroxysmal atrial fibrillation/status post TAVR for aortic stenosis and mitral valve repair/hypertension, status post radiofrequency ablation and pacemaker -Stable -Echo 03/29/2023 with preserved EF of 55%. Patient on baby aspirin. Home medications amiodarone, carvedilol, mexiletine, Entresto, torsemide continued. Eplerenone is nonformulary and serum potassium is 4.7. Patient on high intensity atorvastatin. 04/12: Patient follows outside pathology specialist Dr. Pickett, in [place]. Advised to follow-up in 1 month. Home medications resumed as mentioned above. Potassium 3.9. Heparin 1 dose increased to 25 mg daily with holding parameters of serum potassium more than 5.0. Potassium supplement discontinued. Continue follow-up weekly BMP and CBC. #DVT ppx: Low-dose Eliquis on hold due to hematoma. Discharge medication reconciliation done. Discharge follow-up instructions completed. Discharge process discussed with the patient and all questions were answered to patient's satisfaction. Total time spent, exact 35 minutes on discharge meds reconciliation, examination, coordination of care with nurses and ancillary staff, review of imaging and blood test and discussion with the patient on follow-up instructions. Microbiology Past 72 Hours 04/08/23 13:22 Blood Culture (Wb) - Left Forearm Blood Culture - Preliminary No growth in 48 hours. 04/08/23 13:05 Blood Culture (Wb) - Right Forearm Blood Culture - Preliminary No growth in 48 hours. 04/08/23 13:20 Urine, Clean Catch Urine Culture - Final Mixed Gram Pos & Gram Neg Org Laboratory Results 04/10/23 05:38: Diff Path Review Reviewed 04/11/23 07:59: Total Counted 20.3, Diff Path Review May jamaal, Beverley Cells 1+ 04/12/23 06:25: WBC 18.1 H, RBC 2.97 L, Hgb 9.0 L, Hct 27.1 L, MCV 91.2 D, MCH 30.3, MCHC 33.2 D, RDW Std Deviation 57.1 H, RDW Coeff of Rohit 17.2 H, Plt Count 348, MPV 10.5, Immature Gran % (Auto) 2.100 H, Neut % (Auto) 82.5 H, Lymph % (Auto) 5.0 L, Saunders % (Auto) 9.8, Eos % (Auto) 0.4, Baso % (Auto) 0.2, Absolute Neuts (auto) 15.0 H, Absolute Lymphs (auto) 0.90, Nucleated RBC % 0, Diff Path Review May foll, Anisocytosis 1+ 04/12/23 06:25: Sodium 135 L, Potassium 3.9, Chloride 104, Carbon Dioxide 26.0, Anion Gap 5, BUN 20 H, Creatinine 0.55 L, Estim Creat Clear Calc 61.75, Est GFR (MDRD) Af Amer 187, Est GFR (MDRD) Non-Af 155, BUN/Creatinine Ratio 36.4 H, Glucose 107 H, Calcium 7.8 L Medications at Discharge Home Medications amiodarone 200 mg tablet 200 mg PO DAILY 02/08/23 carvedilol 6.25 mg tablet 6.25 mg PO BID 02/08/23 aspirin 81 mg chewable tablet 81 mg PO DAILY 03/29/23 atorvastatin 80 mg tablet 80 mg PO DAILY 03/29/23 fluoxetine 40 mg capsule (Prozac) 40 mg PO DAILY 03/29/23 mecobalamin (vitamin B12) 1,000 mcg chewable tablet (B12 Active) 1,000 mcg PO DAILY 03/29/23 mexiletine 200 mg capsule 200 mg PO TID 03/29/23 sacubitril 24 mg-valsartan 26 mg tablet (Entresto) 1 tab PO BID 03/29/23 torsemide 20 mg tablet 20 mg PO DAILY 03/29/23 apixaban 2.5 mg tablet 2.5 mg PO BID #60 tabs 04/01/23 Remove Patch 1 patch topical DAILY@2200 ##0 04/12/23 acetaminophen 500 mg tablet 1,000 mg PO TID #0 tabs 04/12/23 eplerenone 25 mg tablet 25 mg PO DAILY Check with primary doctor #30 tabs 04/12/23 fexofenadine 180 mg tablet (Reva Allergy) 180 mg PO DAILY PRN allergy 30 days #0 tabs 04/12/23 guaifenesin 1,200 mg tablet, extended release 12 hr (Mucus Relief ER) 1,200 mg PO BID 7 days #14 tabs 04/12/23 lidocaine 5 % topical patch 1 patch topical DAILY #0 ea 04/12/23 oxycodone 5 mg tablet 2.5 - 5 mg PO Q6 #0 tabs 04/12/23 pantoprazole 40 mg tablet,delayed release 40 mg PO DAILY #0 tabs 04/12/23 polyethylene glycol 3350 17 gram oral powder packet 17 g PO DAILY #0 ea 04/12/23 sennosides 8.6 mg-docusate sodium 50 mg tablet (Stool Softener-Stimulant Laxative) 2 tab PO BID #0 tabs 04/12/23 Physical Exam Narrative Patient still needs 1 person assist for standing. Home and to bathroom with help. Confusion resolved. Patient had 2-3 bowel movements yesterday. Seen and examined. General: Awake, Oriented x3, alert. HEENT: Atraumatic, PERRLA, EOMI, Normocephalic Oral: Oral mucosa moist. No Gingival or Mucosal Lesions/ Ulcerations Neck: Supple, No JVD, Negative Carotid Bruits Chest/lungs: Tenderness present over her right anterior lateral chest wall. No crepitation/surgical emphysema palpable. Air entry diminished in bilateral lung bases. No crepitation/rhonchi Cardiovascular: Regular rate, Regular Rhythm, Normal S1, Normal S2, No murmurs Abdomen: Bowel Sounds Present, Soft, Non Tender, Non-Distended : No renal angle tenderness. No suprapubic tenderness. Extremities: No edema, Capillary Refill Less than 3 Seconds Skin: Skin discoloration/bruise, subcutaneous hematoma over right posterior lateral upper thigh and gluteal region. Musculoskeletal: No tenderness present over right posterior thigh. Hematoma. Dressing present. ROM restricted and patient attempted walking with PT for last 2 days. Neurological: Cranial nerves II-XII grossly intact, DTR 2+/4, muscle strength right lower extremity decreased due to hematoma and pain Psych/Mental Status: Flat affect. Medical Records Data Medical Nutrition Assessment Dietitian: Malnutrition Criteria Met Start: 04/09/23 10:40 Freq: Status: Active Protocol: Document 04/09/23 10:40 AG (Rec: 04/09/23 10:40 AG [id number]) Nutrition Malnutrition Evidence of Malnutrition Exists Yes Malnutrition (moderate): Chronic Evidenced By Suboptimal Energy Intake ( Moderate),Physical Changes ( Mild) Clinical Problem Chronic Disease or Condition Related Malnutrition Etiology moderate, chronic malnutrition related to inadequate energy intake d/t decreased appetite Signs/Symptoms as evidenced by estimated PO intake meeting <75% of estimated energy needs > 3 months; Mild muscle wasting/ fat loss evident in orbital, clavicle, acromion, and temporal areas per physical exam Status Active Problem Recommendation Dietitian Recommendations/Changes regular diet w/ 120mL ensure plus high protein 4x/day given evidence of malnutrition Weight / BMI Weight Weight: 167 lb 1.766 oz Body Mass Index (BMI) 24.7 ABG / Lab / Microbiology Data Result Diagrams: 04/12/23 06:25 04/12/23 06:25 Laboratory: Laboratory Results - last 24 hr 04/10/23 05:38: Diff Path Review Reviewed 04/11/23 07:59: WBC 20.3 H, RBC 2.96 L, Hgb 9.0 L, Hct 29.0 L, MCV 98.0 H D, MCH 30.4, MCHC 31.0 L, RDW Std Deviation 61.7 H, RDW Coeff of Rohit 17.4 H, Plt Count 300, MPV 10.8, Immature Gran % (Auto) 1.900 H, Neut % (Auto) 82.0 H, Lymph % (Auto) 5.0 L, Saunders % (Auto) 10.6 H, Eos % (Auto) 0.3, Baso % (Auto) 0.2, Absolute Neuts (auto) 16.6 H, Absolute Lymphs (auto) 1.01, Total Counted 20.3, Nucleated RBC % 0, Diff Path Review May Beverley hinton 1+ 04/12/23 06:25: WBC 18.1 H, RBC 2.97 L, Hgb 9.0 L, Hct 27.1 L, MCV 91.2 D, MCH 30.3, MCHC 33.2 D, RDW Std Deviation 57.1 H, RDW Coeff of Rohit 17.2 H, Plt Count 348, MPV 10.5, Immature Gran % (Auto) 2.100 H, Neut % (Auto) 82.5 H, Lymph % (Auto) 5.0 L, Saunders % (Auto) 9.8, Eos % (Auto) 0.4, Baso % (Auto) 0.2, Absolute Neuts (auto) 15.0 H, Absolute Lymphs (auto) 0.90, Nucleated RBC % 0, Diff Path Review May foll, Anisocytosis 1+ 04/12/23 06:25: Sodium 135 L, Potassium 3.9, Chloride 104, Carbon Dioxide 26.0, Anion Gap 5, BUN 20 H, Creatinine 0.55 L, Estim Creat Clear Calc 61.75, Est GFR (MDRD) Af Amer 187, Est GFR (MDRD) Non-Af 155, BUN/Creatinine Ratio 36.4 H, Glucose 107 H, Calcium 7.8 L Microbiology: Microbiology 04/08/23 13:22 Blood Culture (Wb) - Left Forearm Blood Culture - Preliminary No growth in 48 hours. 04/08/23 13:05 Blood Culture (Wb) - Right Forearm Blood Culture - Preliminary No growth in 48 hours. 04/08/23 13:20 Urine, Clean Catch Urine Culture - Final Mixed Gram Pos & Gram Neg Org Meaningful Use Info Meaningful Use Diagnoses (Choose all that apply): None applicable Discharge Plan Admission Admit Date/Time: 04/08/23 14:12 Primary Reason for Your Visit: Fall with gluteal, posterior lateral thigh hematoma, right ribs fracture. Attending Provider: Cam See Primary Care Provider: Jovi Bradley CHINCHILLA MACHINE OPERATOR Consulting Providers: Barbara Dean ; Magalys Peres ; Chandler Vidal Instructions Additional Instructions / Restrictions: ABC and BMP every week for 2 to 3 weeks until hemoglobin, kidney function and serum potassium is stable. In 1 month Discharge Orders/Prescriptions Prescriptions: New polyethylene glycol 3350 17 gram Powder In Packet 17 g PO DAILY Qty: 0 0RF sennosides-docusate sodium [Stool Softener-Stimulant Laxat] 8.6-50 mg Tablet 2 tab PO BID Qty: 0 0RF acetaminophen 500 mg Tablet 1,000 mg PO TID Qty: 0 0RF Rx Instructions: For 5 more days and then as needed pain pantoprazole 40 mg Tablet,Delayed Release (Dr/Ec) 40 mg PO DAILY Qty: 0 0RF lidocaine 5 % Adhesive Patch,Medicated 1 patch topical DAILY Qty: 0 0RF Protocol: *Topical Application Instructions APPLICATION INSTRUCTIONS: to right side/ ribs Rx Instructions: Remove for sedation confusion or disorientation. oxycodone 5 mg Tablet 2.5 - 5 mg PO Q6 Qty: 0 0RF Mucus Relief ER 1,200 mg Tablet Extended Release 12hr 1,200 mg PO BID 7 Days Qty: 14 0RF Remove Patch 1 patch topical DAILY@2200 Qty: 0 0RF Continued carvedilol 6.25 mg tablet 6.25 mg PO BID amiodarone 200 mg tablet 200 mg PO DAILY mexiletine 200 mg capsule 200 mg PO TID fluoxetine [Prozac] 40 mg Capsule 40 mg PO DAILY atorvastatin 80 mg Tablet 80 mg PO DAILY torsemide 20 mg Tablet 20 mg PO DAILY aspirin 81 mg Tablet,Chewable 81 mg PO DAILY Entresto 24-26 mg Tablet 1 tab PO BID mecobalamin (vitamin B12) [B12 Active] 1,000 mcg Tablet,Chewable 1,000 mcg PO DAILY apixaban 2.5 mg tablet 2.5 mg PO BID Qty: 60 0RF Changed fexofenadine [Reva Allergy] 180 mg Tablet 180 mg PO DAILY PRN (Reason: allergy) 30 Days Qty: 0 0RF eplerenone 25 mg Tablet 25 mg PO DAILY Qty: 30 0RF Rx Instructions: Hold for potassium more than 5.0. Discontinued acetaminophen 500 mg Tablet 1,000 mg PO Q6H potassium chloride 20 mEq Tablet,Er Particles/Crystals 20 meq PO DAILY oxycodone 5 mg Tablet 5 mg PO Q4H PRN PRN (Reason: Pain Score 4-10) 5 Days Qty: 20 0RF sennosides-docusate sodium [Stool Softener-Stimulant Laxat] 8.6-50 mg Tablet 2 tab PO BID PRN PRN (Reason: Constipation) Qty: 60 0RF Referrals / Follow Up: Chandler Vidal DO [Med Staff - Active Staff] - Within 2 Weeks Jovi Bradley NP, CHINCHILLA MACHINE OPERATOR-C [Primary Care Provider] - Disposition Disposition (needs filled in before D/C Order can be placed): [facility] Charges/Coding Visit Charges Inpatient E&M: 69905 Disch Hosp >30min
--- NOTE | 2023-04-12 08:43 | WOUNDNOTE ---
Will leave dressings in place to the right leg and right arm skin tears since patient is being discharged to TCU today. the skin tears have been stable and there has been less drainage.
[2023-04-12 09:13] VITALS: BP 108/50; PULSE 63; RESP 20; TEMP 36.6; O2SAT 95
[2023-04-12] MEDS: Ensure Plus High Protein 120 ML LIQUID PO ×2 (09:20→13:26)
[2023-04-12] MEDS: Arthritis Pain Compound 60 CLICK TUBE TOPICAL (09:20)
[2023-04-12] MEDS: Pantoprazole Sodium 40 MG Tablet PO (09:21)
[2023-04-12] MEDS: Furosemide 40 MG Tablet PO (09:21)
[2023-04-12] MEDS: Lidocaine 5% Patch 1 PATCH TOPICAL (09:21)
[2023-04-12] MEDS: guaiFENesin 1,200 MG Tablet 1200 MG PO (09:22)
[2023-04-12] MEDS: Aspirin 81 MG TAB.CHEW PO (09:22)
[2023-04-12] MEDS: Amiodarone 200 MG Tablet PO (09:22)
[2023-04-12] MEDS: SACUBITRIL/VALSARTAN 24/26 MG TABLET 1 EACH PO (09:25)
[2023-04-12] MEDS: Carvedilol 6.25 MG Tablet PO (09:25)
[2023-04-12 09:33] VITALS: O2SAT 93
--- NOTE | 2023-04-12 10:18 | PHA.DC.MR ---
Pharmacy Service has performed discharge medication reconciliation for this patient. The patient's discharge medication list was reviewed for discrepancies and discrepancies were resolved. Home Medications amiodarone 200 mg tablet 200 mg PO DAILY 02/08/23 carvedilol 6.25 mg tablet 6.25 mg PO BID 02/08/23 aspirin 81 mg chewable tablet 81 mg PO DAILY 03/29/23 atorvastatin 80 mg tablet 80 mg PO DAILY 03/29/23 fluoxetine 40 mg capsule (Prozac) 40 mg PO DAILY 03/29/23 mecobalamin (vitamin B12) 1,000 mcg chewable tablet (B12 Active) 1,000 mcg PO DAILY 03/29/23 mexiletine 200 mg capsule 200 mg PO TID 03/29/23 sacubitril 24 mg-valsartan 26 mg tablet (Entresto) 1 tab PO BID 03/29/23 torsemide 20 mg tablet 20 mg PO DAILY 03/29/23 apixaban 2.5 mg tablet 2.5 mg PO BID #60 tabs 04/01/23 Remove Patch 1 patch topical DAILY@2200 ##0 04/12/23 acetaminophen 500 mg tablet 1,000 mg PO TID #0 tabs 04/12/23 eplerenone 25 mg tablet 25 mg PO DAILY Check with primary doctor #30 tabs 04/12/23 fexofenadine 180 mg tablet (Reva Allergy) 180 mg PO DAILY PRN allergy 30 days #0 tabs 04/12/23 guaifenesin 1,200 mg tablet, extended release 12 hr (Mucus Relief ER) 1,200 mg PO BID 7 days #14 tabs 04/12/23 lidocaine 5 % topical patch 1 patch topical DAILY #0 ea 04/12/23 oxycodone 5 mg tablet 2.5 - 5 mg PO Q6 #0 tabs 04/12/23 pantoprazole 40 mg tablet,delayed release 40 mg PO DAILY #0 tabs 04/12/23 polyethylene glycol 3350 17 gram oral powder packet 17 g PO DAILY #0 ea 04/12/23 sennosides 8.6 mg-docusate sodium 50 mg tablet (Stool Softener-Stimulant Laxative) 2 tab PO BID #0 tabs 04/12/23
--- NOTE | 2023-04-12 11:08 | NURSING ---
report called by this RN and given to Yesika on TCU
--- NOTE | 2023-04-12 12:01 | CASEMGMT ---
Social Work Note SW reviewed patient's chart for AD documents. NICOL Bal completed an assessment 03/30/23 and verified with patient and patient's HCPOA and LW were completed but not on file. Patient informed Valeriano his daughter Alethea is his HCPOA and was encouraged to bring in a copy of documents to add to patient's chart. Maureen Kyle WIRE RIGGER, CEMENT MASON
--- NOTE | 2023-04-12 12:12 | CASEMGMT ---
Social Work SW contacted TCU admissions staff Mulu to inquire about patient's progress/needs to be transferred to TCU. No SW needs. JIMMY faxed discharge summary to [facility] at [phone]. Maureen GRAJEDA, YOBANY
[2023-04-13 10:02] LABS: Pathologist Review Reviewed
[2023-04-13 10:03] LABS: Pathologist Review Reviewed
--- NOTE | 2023-04-13 14:40 | CASEMGMT ---
[facility] at [facility].
== END 2023-04-12 14:08 | disposition skilled nursing facility (03) | DRG 641 ==
LOC: ED 13:25 → MS3 14:09
PROVIDERS: Hospitalist; Internal Medicine; Admitting Provider Internal Medicine; Emergency Provider Emergency Medicine; PCP Nurse Practitioner Family; Visit Provider Internal Medicine
DX: R62.7 Adult failure to thrive (principal); E44.0 Moderate protein-calorie malnutrition; N17.9 Acute kidney failure, unspecified; I42.9 Cardiomyopathy, unspecified; L76.32 Postprocedural hematoma of skin and subcutaneous tissue following other procedure; S22.41XA Multiple fractures of ribs, right side, initial encounter for closed fracture; I95.9 Hypotension, unspecified; I48.0 Paroxysmal atrial fibrillation; I25.10 Atherosclerotic heart disease of native coronary artery without angina pectoris; I35.0 Nonrheumatic aortic (valve) stenosis; I87.2 Venous insufficiency (chronic) (peripheral); I10 Essential (primary) hypertension; M79.89 Other specified soft tissue disorders; S72.141D Displaced intertrochanteric fracture of right femur, subsequent encounter for closed fracture with routine healing; R53.1 Weakness; Z68.24 Body mass index [BMI] 24.0-24.9, adult; Z79.01 Long term (current) use of anticoagulants; Z79.82 Long term (current) use of aspirin; Z79.899 Other long term (current) drug therapy; Z95.5 Presence of coronary angioplasty implant and graft; Z95.810 Presence of automatic (implantable) cardiac defibrillator; Z96.641 Presence of right artificial hip joint; Z95.2 Presence of prosthetic heart valve; Z87.891 Personal history of nicotine dependence
CPT/HCPCS: 36415; 70450; 71250; 72125; 73080; 73700; 80048; 81001; 83605; 85025; 87040; 87086; 87088; 87426; 90715; 93005; 93970; 94668; 97110; 97116; 97162; 97166; 97530; 97535; 97802; 99285; J7030; J7040; A4216

== ENCOUNTER 2023-04-12 14:20 | Inpatient (IN) | payer MEDICARE, OTHER, SELFPAY ==
[2023-04-12 14:59] VITALS: BP 80/40; PULSE 63; RESP 19; TEMP 35.7; O2SAT 93
--- NOTE | 2023-04-12 15:00 | NURSING ---
Low BP, patient groggy but easy to wake up and is appropriate. Otherwise vitals ok. Updated Dr. Winn on BP, order for 1L NS bolus.
[2023-04-12 15:30] VITALS: PULSE 63; RESP 18; O2SAT 93
--- NOTE | 2023-04-12 15:33 | CASEMGMT ---
Social Work Met with patient to complete initial assessment. Introduced self and role. Verified contacts. Discussed code status and MOLST form. Pt confirms full code. MOLST placed in Dr folder. Pt agreed to have dtr provide copies of advanced directives. Educated to Medicare benefit. Pt does not have secondary insurance, aside from [employer], and educated to $200/day copay from days 21-100. SW to continue to follow for DC planning. Geraldine Barajas, AVIATION ORDNANCE OFFICER CAR DISTRIBUTOR
[2023-04-12] MEDS: 0.9% Saline Lock 10 ML Syringe IV (15:45)
[2023-04-12] MEDS: 0.9% Normal Saline 1,000 ML 999 ML IV (15:45)
[2023-04-12 16:10] VITALS: BMI 25.9
[2023-04-12 17:12] VITALS: BP 98/74; PULSE 56
[2023-04-12] MEDS: Ensure Plus High Protein 120 ML LIQUID PO ×2 (18:23→21:55)
[2023-04-12] MEDS: Senna/Docusate Sodium 1 Tablet 2 TABLET PO (18:24)
[2023-04-12] MEDS: guaiFENesin 1,200 MG Tablet 1200 MG PO (18:25)
[2023-04-12] MEDS: APIXABAN 2.5 MG TABLET (WCH) PO (18:25)
[2023-04-12] MEDS: Menthol/Lanolin/Calamine/Znox 113 GM Tube 1 APPLIC TOPICAL (18:32)
[2023-04-12] MEDS: oxyCODONE 5 MG Tablet PO (18:33)
[2023-04-12] MEDS: Nystatin Powder 15gm Bottle 1 APPLIC TOPICAL (18:33)
[2023-04-12] MEDS: Carvedilol 3.125 MG TABLET PO (18:35)
--- NOTE | 2023-04-12 19:38 | HP.PCM_ITS ---
HPI - General General Date of Admission: 04/12/23 Date of Service: 04/12/23 Chief Complaint: Here for rehabilitation. HPI Narrative 04/08/2023 KOSTAS WOLF, is a 73 Male who presents to [facility] Emergency Department with fall. 04/08/2023 EKG ventricular paced rhythm. Fall, right rib injury, right hip replaced 9 days ago due to fall. Increased bilateral lower extremity swelling, difficulty walking. Trauma scan shows 3 rib fracture. Panculture, Zosyn iv for leukocytosis. Lumbar epidural steroid injection recently. 04/08/2023 Admit to Hospital. PT/OT for SNF. Doppler ultrasound bilateral lower extremity to rule out DVT. Hold Torsemide, Hold Entresto, gentle IV fluids for acute kidney injury. Vancomycin, Zosyn for elevated WBC. CT right thigh to rule out abscess, showed right thigh hematoma. Hold Eliquis for right thigh hematoma. 04/08/2023 Sepsis ruled out. Consider fluids or pressors for low blood pressure. 04/09/2023 Pain from rib fractures, chronic cough. PT/OT for SNF. Eliquis 2.5mg twice daily for DVT prophylaxis. CT right thigh showed hematoma. 04/09/2023 Dr. Willis feels hematoma, post surgical, not abnormal. 04/10/2023 Right chest pain, right lateral thigh hematoma. Doppler ultrasound bilateral lower extremity NEGATIVE DVT. Zosyn IV for leukocytosis, if cultures negative, stop Zosyn. Acute kidney injury resolved. 04/11/2023 PT/OT for SNF. Restart Eliquis 2.5mg twice daily secondary to high risk of DVT. 04/12/2023 Admit to TCU with debility, here for rehabilitation, strengthening, prior to discharge home with . [facility] Medical History (Updated 04/12/23 @ 19:[address] Romario Winn MD) A-fib Closed right hip fracture Eye abnormality Pacemaker Home Medications amiodarone 200 mg tablet 200 mg PO DAILY heart 02/08/23 [History Last Taken Unknown] carvedilol 6.25 mg tablet 6.25 mg PO BID heart 02/08/23 [History Last Taken Unknown] aspirin 81 mg chewable tablet 81 mg PO DAILY heart health 03/29/23 [History Last Taken Unknown] atorvastatin 80 mg tablet 80 mg PO DAILY cholesterol 03/29/23 [History Last Taken Unknown] fluoxetine 40 mg capsule (Prozac) 40 mg PO DAILY anxiety 03/29/23 [History Last Taken Unknown] mecobalamin (vitamin B12) 1,000 mcg chewable tablet (B12 Active) 1,000 mcg PO DAILY supplement 03/29/23 [History Last Taken Unknown] mexiletine 200 mg capsule 200 mg PO TID heart 03/29/23 [History Last Taken Unknown] sacubitril 24 mg-valsartan 26 mg tablet (Entresto) 1 tab PO BID heart 03/29/23 [History Last Taken Unknown] torsemide 20 mg tablet 20 mg PO DAILY heart 03/29/23 [History Last Taken Unknown] Remove Patch 1 patch topical DAILY@2200 pain 04/12/23 [History Last Taken Unknown] acetaminophen 500 mg tablet 1,000 mg PO TID pain 04/12/23 [History Last Taken Unknown] apixaban 2.5 mg tablet 2.5 mg PO BID blood thinner 04/12/23 [History Last Taken Unknown] eplerenone 25 mg tablet 25 mg PO DAILY Check with primary doctor #30 tabs 04/12/23 [Rx Last Taken Unknown] fexofenadine 180 mg tablet (Reva Allergy) 180 mg PO DAILY PRN allergy 30 days #0 tabs 04/12/23 [Rx Last Taken Unknown] guaifenesin 1,200 mg tablet, extended release 12 hr (Mucus Relief ER) 1,200 mg PO BID cough 04/12/23 [History Last Taken Unknown] lidocaine 5 % topical patch 1 patch topical DAILY pain 04/12/23 [History Last Taken Unknown] oxycodone 5 mg tablet 2.5 - 5 mg PO Q6 pain 04/12/23 [History Last Taken Unknown] pantoprazole 40 mg tablet,delayed release 40 mg PO DAILY stomach 04/12/23 [History Last Taken Unknown] polyethylene glycol 3350 17 gram oral powder packet 17 g PO DAILY constipation 04/12/23 [History Last Taken Unknown] sennosides 8.6 mg-docusate sodium 50 mg tablet (Stool Softener-Stimulant Laxative) 2 tab PO BID constipation 04/12/23 [History Last Taken Unknown] Allergy/AdvReac Type Severity Reaction Status Date / Time lisinopril Allergy Mild Laryngospas Verified 04/08/23 10:21 ms Family History Father CVA (cerebral vascular accident) Mother Laryngeal cancer Surgical History (Updated 04/12/23 @ 19:[address] Romario Winn MD) H/O cardiac radiofrequency ablation H/O eye surgery H/O heart surgery H/O total knee replacement History of appendectomy History of hip surgery History of surgery on arm History of transcatheter aortic valve replacement (TAVR) Stented coronary artery Social History (Updated 04/12/23 @ 19:[address] Romario Winn MD) household members: spouse Smoking Status: Former smoker alcohol intake: never substance use type: does not use ROS Constitutional Constitutional: Denies chills, fever(s) or weight gain ENT HEENT: Denies headache(s), nasal congestion or nasal discharge Cardiovascular Cardiovascular: Denies chest pain or palpitations Respiratory/Chest Respiratory/Chest: Reports cough and other Details: Right sided chest pain. ; Denies excessive phlegm production or shortness of breath with exertion Gastrointestinal Gastrointestinal: Denies abdominal pain, nausea or vomiting Genitourinary Genitourinary: Denies dysuria Musculoskeletal Musculoskeletal: Denies joint pain or joint swelling Integumentary Integumentary: Denies rash or wounds Neurologic Neurologic: Denies focal weakness, numbness or tingling Psychiatric Psychiatric: Denies anxiety, auditory hallucinations, depression, homicidal ideation or suicidal ideation Vital Signs Vital Signs Vital Signs: 04/12/23 14:59 04/12/23 17:12 04/12/23 15:30 Temperature 96.3 F L Temperature Source Temporal Pulse Rate 63 56 L 63 Pulse Rhythm Regular Pulse Strength Normal (2+) Respiratory Rate 19 H 18 Respiratory Effort Normal Respiratory Depth Normal Respiratory Pattern Normal Blood Pressure 80/40 L 98/74 Blood Pressure Mean 53 82 Blood Pressure Source Monitor Manual Blood Pressure Position Supine Semi-Fowlers Blood Pressure Location Left Arm Left Arm Pulse Ox 93 93 Oxygen Delivery Method Room Air Room Air Weight Weight: 79.878 kg Body Mass Index (BMI) 25.9 Physical Exam Const alert General Appearance: cooperative HEENT normocephalic Eyes PERRL and EOMs intact bilaterally Neck supple, no JVD and no carotid bruits Resp normal respiratory effort, normal air movement and clear to auscultation bilaterally Cardio regular rate and regular rhythm GI normal to inspection, nondistended, normoactive bowel sounds, non-tender and non-distended Extremity normal capillary refill General Extremity: Negative for edema Skin no rashes or lesions noted General Skin Exam: no breakdown Psych affect normal Appearance: appropriate Assessment & Plan Assessment/Plan (1) Debility: (2) Fall: (3) Multiple rib fractures: (4) Leukocytosis: (5) KELVIN (acute kidney injury): (6) Weakness: (7) Edema, peripheral: (8) S/P total right hip arthroplasty: (9) Hematoma of right thigh: (10) Atrial fibrillation: (11) Hyperlipidemia: (12) Allergic rhinitis: (13) Depression: (14) Hypokalemia: (15) Chronic diastolic congestive heart failure: (16) Aortic stenosis: PLAN: Plan 73 year old male with recent right hip replacement after right hip fracture, hospitalized for fall, multiple rib fractures, right thigh hematoma, complicated by acute kidney injury, admitted to TCU with debility, here for rehabilitation, strengthening, prior to discharge home with . * Debility - PT/OT. * Cognition - ST. * Pain - Tylenol 1000mg tid thru 04/17/2023, 1000mg tid prn, Oxycodone 5mg q6h, Lidoderm patch 1 patch topical daily, Tramadol 50mg q6h prn pain (1-10). * Bowel - Miralax 17gm bid, senna/colace 2 tablets bid, Dulcolax 10mg pr x 1 prn, Lactulose 20gm po x 1 prn. * Adult immunization - Administer pneumonia vaccine, covid19 vaccine, flu vaccine as appropriate. * DVT prophylaxis - on Eliquis. * Atrial fibrillation - Coreg 3.125mg bid, Amiodarone 200mg daily, Mexiletine 150mg tid, Eliquis 2.5mg bid. * Hyperlipidemia - Atorvastatin 80mg qhs. * Nutrition - Ensure Plus 120ml 4x/day. * Depression - Fluoxetine 40mg daily, stable chronic intermediate use, GDR not recommended. * Chronic diastolic congestive heart failure Coreg 3.125mg bid, Furosemide 20mg daily. * Mucinex 1200mg bid. * Allergic rhinitis - Loratadine 10mg daily. * Skin irritation - Calmoseptine topical bid. * Tinea Corporis - Nystatin powder topical bid. * GERD - Pantoprazole 40mg daily.
[2023-04-12] MEDS: traMADol 50 MG Tablet PO (21:49)
[2023-04-12] MEDS: Mexiletine 150 MG Capsule PO (21:50)
[2023-04-12] MEDS: Atorvastatin Calcium 80 MG Tablet PO (21:52)
[2023-04-12] MEDS: Acetaminophen 500 MG Tablet 1000 MG PO (21:52)
[2023-04-13] MEDS: oxyCODONE 5 MG Tablet PO ×5 (00:11→22:47)
[2023-04-13 04:38] VITALS: BP 119/56; PULSE 71; RESP 18; TEMP 36
[2023-04-13 04:44] VITALS: PULSE 69; RESP 20; O2SAT 93
--- NOTE | 2023-04-13 04:49 | NURSING ---
C/O SOB in this bed, I breathe easier when I'm in my chair VSS. Spo2 92% on RA, lung sounds clear/diminished. O2 2L via NC applied to promote comfort, SPo2 at 94%. Assisted x2 max assist to recliner per patient request. Patient states that feels better. Patient A&Ox2-3. Unable to state correct month. Able to voice needs. No cyanosis observed. No distress observed. TV on per preference, personal items within reach. Call light in reach, educated to call for staff assist at any time, verbalized understanding. Denies further requests.
[2023-04-13 05:06] LABS: Bedside Glucose 113 mg/dL (74-106)
[2023-04-13 06:04] LABS: Absolute Lymphocyte Count 0.85 X10^3/uL (0.83-4.51); Absolute Neutrophil Count 16.7 X10^3/uL (2.0-7.7); Basophil# 0.02 X10^3/uL; Basophil% 0.1 % (0-1); Eosinophils% 0.5 % (0-5); Hematocrit 27.5 % (40-54); Lymphocyte # 0.85 X10^3/ul (0.83-4.51); Lymphocyte % 4.3 % (19-41); Mean Corp Hgb Conc 32.7 g/dL (32-36); Mean Corpuscular Hgb 30.4 pg (27.0-32.0); Mean Corpuscular Volume 92.9 fL (80-94); Monocyte# 1.74 X10^3/uL; Monocyte% 8.8 % (0-10); NRBC Flagged by Analyzer 0 % (0-5); Neutrophil # 16.66 X10^3/uL (2.7-7.7); Neutrophil % 83.8 % (47-70); POSITIVE DIFFERENTIAL YES; Platelet Count 384 K/mm3 (150-450); RBC Distribution Width CV 17.3 % (11.6-14.6); RBC Distribution Width SD 57.7 fl (35.1-43.9); Red Blood Count 2.96 M/mm3 (4.6-6.2); White Blood Count 19.9 K/mm3 (4.4-11.0)
[2023-04-13 06:14] LABS: Differential Indicated SCAN CRITERIA MET
[2023-04-13] MEDS: 0.9% Saline Lock 10 ML Syringe IV ×2 (06:29→09:24)
[2023-04-13] MEDS: Menthol/Lanolin/Calamine/Znox 113 GM Tube 1 APPLIC TOPICAL ×2 (06:29→17:11)
[2023-04-13] MEDS: Ensure Plus High Protein 120 ML LIQUID PO ×4 (06:29→21:54)
[2023-04-13] MEDS: Polyethylene Glycol 3350 17 GM PACKET PO (06:30)
[2023-04-13] MEDS: Pantoprazole Sodium 40 MG Tablet PO (06:31)
[2023-04-13] MEDS: Amiodarone 200 MG Tablet PO (06:31)
[2023-04-13] MEDS: Mexiletine 150 MG Capsule PO ×3 (06:31→21:53)
[2023-04-13] MEDS: APIXABAN 2.5 MG TABLET (WCH) PO ×2 (06:31→17:08)
[2023-04-13] MEDS: Acetaminophen 500 MG Tablet 1000 MG PO ×3 (06:31→21:52)
[2023-04-13] MEDS: guaiFENesin 1,200 MG Tablet 1200 MG PO ×2 (06:32→17:09)
[2023-04-13] MEDS: Lidocaine 5% Patch 1 PATCH TOPICAL (06:35)
[2023-04-13] MEDS: Senna/Docusate Sodium 1 Tablet 2 TABLET PO (06:35)
[2023-04-13] MEDS: Fluoxetine HCl 40 MG CAPSULE PO (06:36)
[2023-04-13] MEDS: Nystatin Powder 15gm Bottle 1 APPLIC TOPICAL ×2 (06:36→17:11)
[2023-04-13] MEDS: Furosemide 20 MG Tablet PO (06:36)
[2023-04-13 06:51] VITALS: BP 100/49; PULSE 65; RESP 18
[2023-04-13 06:53] LABS: Anisocytosis 1+
[2023-04-13 06:54] LABS: Platelet Morphology LARGE
[2023-04-13 06:58] LABS: Anion Gap 6 (5-15); BUN 26 mg/dL (7-18); BUN/Creat Ratio 33.3 RATIO (10-20); Calcium,Total 7.4 mg/dL (8.5-10.1); Chloride 103 mmol/L (98-107); Creatinine, Serum 0.78 mg/dL (0.70-1.30); EST Glomerular Filtration Rate 103 mL/min (>60); Est Glom Filt Rate - Afr Amer 125 mL/min (>60); Estimated Creatinine Clearance 63.83 ml/min; Glucose 116 mg/dL (74-106); Potassium 4.1 mmol/L (3.5-5.1); Sodium Level 133 mmol/L (136-145)
[2023-04-13] MEDS: Carvedilol 3.125 MG TABLET PO ×2 (07:47→17:08)
[2023-04-13] MEDS: Furosemide 40 MG/4 ML Vial IV (09:22)
[2023-04-13] MEDS: traMADol 50 MG Tablet PO (09:32)
[2023-04-13 09:33] VITALS: O2SAT 96
[2023-04-13] MEDS: Tuberculin,Purif.prot.deriv. 50 TU/ML Vial 0.1 ML ID (11:45)
--- NOTE | 2023-04-13 12:53 | RAD_ITS ---
STUDY: X-RAY CHEST REASON FOR EXAM: Male, 73 years old. Shortness of breath. TECHNIQUE: PA and lateral views of the chest. COMPARISON: CT of the chest, April 08, 2023. Chest, March 29, 2023. FINDINGS: There is chronic interstitial changes in the lungs. There is no new infiltrate or mass. There is no demonstrated pleural abnormality. The heart is mildly enlarged. Again seen is evidence of cardiac valvuloplasty. Stable cardiac pacemaker/ICD. Normal mediastinum and billy. Normal visualized pulmonary arteries. There is atherosclerotic calcification of the aortic arch with tortuosity. The thoracic spine is obscured by the mediastinum. There is degenerative osteoarthritis of the bilateral shoulders. There is no demonstrated abnormality of the visualized soft tissue structures of the upper abdomen. RAD/Chest PA and Lateral IMPRESSION: No acute abnormality or major interval change. Electronically Signed: Gustavo Mcpherson DO at 17:05 EDT ,
[2023-04-13 13:13] LABS: Pathologist Review Reviewed
[2023-04-13 16:00] VITALS: BP 103/46; PULSE 64; RESP 14; TEMP 36.2; O2SAT 91; O2SAT 96
[2023-04-13] MEDS: Atorvastatin Calcium 80 MG Tablet PO (21:53)
[2023-04-13 22:00] VITALS: PULSE 70; RESP 22; O2SAT 97
--- NOTE | 2023-04-13 22:25 | NURSING ---
While cutting off pt's old drsg to RLE pt jerked his leg which moved this nurse's hands and the scissors cut the top of pt's R foot. Cut cleaned and DSD applied.
[2023-04-14] VITALS: PULSE 67; RESP 20; O2SAT 98
[2023-04-14] MEDS: Albuterol 2.5 MG/3 ML VIAL.NEB. INHALATION
[2023-04-14 05:13] VITALS: BP 122/50; PULSE 71
[2023-04-14] MEDS: Menthol/Lanolin/Calamine/Znox 113 GM Tube 1 APPLIC TOPICAL ×2 (05:13→17:20)
[2023-04-14] MEDS: oxyCODONE 5 MG Tablet PO ×4 (05:13→23:33)
[2023-04-14] MEDS: guaiFENesin 1,200 MG Tablet 1200 MG PO ×2 (05:14→17:18)
[2023-04-14] MEDS: Fluoxetine HCl 40 MG CAPSULE PO (05:14)
[2023-04-14] MEDS: Pantoprazole Sodium 40 MG Tablet PO (05:14)
[2023-04-14] MEDS: Acetaminophen 500 MG Tablet 1000 MG PO ×3 (05:14→22:41)
[2023-04-14] MEDS: APIXABAN 2.5 MG TABLET (WCH) PO ×2 (05:14→17:18)
[2023-04-14] MEDS: Amiodarone 200 MG Tablet PO (05:14)
[2023-04-14] MEDS: Senna/Docusate Sodium 1 Tablet 2 TABLET PO (05:14)
[2023-04-14] MEDS: Nystatin Powder 15gm Bottle 1 APPLIC TOPICAL ×2 (05:14→17:20)
[2023-04-14] MEDS: Carvedilol 3.125 MG TABLET PO ×2 (05:14→17:18)
[2023-04-14] MEDS: Furosemide 40 MG/4 ML Vial IV (05:15)
[2023-04-14] MEDS: Ensure Plus High Protein 120 ML LIQUID PO ×2 (05:15→22:36)
[2023-04-14] MEDS: Lidocaine 5% Patch 1 PATCH TOPICAL (05:16)
[2023-04-14] MEDS: Mexiletine 150 MG Capsule PO ×3 (05:16→22:37)
[2023-04-14 05:50] LABS: Absolute Lymphocyte Count 1.03 X10^3/uL (0.83-4.51); Absolute Neutrophil Count 20.9 X10^3/uL (2.0-7.7); Basophil# 0.04 X10^3/uL; Basophil% 0.2 % (0-1); Eosinophil# 0.03 X10^3/uL; Eosinophils% 0.1 % (0-5); Hematocrit 29.1 % (40-54); Hemoglobin 9.4 g/dL (13.0-16.5); Lymphocyte # 1.03 X10^3/ul (0.83-4.51); Lymphocyte % 4.2 % (19-41); Mean Corp Hgb Conc 32.3 g/dL (32-36); Mean Corpuscular Hgb 29.7 pg (27.0-32.0); Mean Corpuscular Volume 92.1 fL (80-94); Mean Platelet Vol. 10.3 fl (6.2-12.0); Monocyte# 2.05 X10^3/uL; Monocyte% 8.3 % (0-10); NRBC Flagged by Analyzer 0 % (0-5); Neutrophil # 20.85 X10^3/uL (2.7-7.7); Neutrophil % 84.2 % (47-70); POSITIVE DIFFERENTIAL YES; Platelet Count 420 K/mm3 (150-450); RBC Distribution Width CV 16.9 % (11.6-14.6); RBC Distribution Width SD 55.7 fl (35.1-43.9); Red Blood Count 3.16 M/mm3 (4.6-6.2); White Blood Count 24.7 K/mm3 (4.4-11.0)
[2023-04-14 05:54] LABS: Differential Indicated SCAN CRITERIA MET
[2023-04-14 06:20] LABS: Anion Gap 4 (5-15); BUN 30 mg/dL (7-18); BUN/Creat Ratio 42.4 RATIO (10-20); Calcium,Total 7.6 mg/dL (8.5-10.1); Chloride 102 mmol/L (98-107); Creatinine, Serum 0.71 mg/dL (0.70-1.30); EST Glomerular Filtration Rate 115 mL/min (>60); Est Glom Filt Rate - Afr Amer 140 mL/min (>60); Estimated Creatinine Clearance 63.83 ml/min; Glucose 113 mg/dL (74-106); Potassium 4.3 mmol/L (3.5-5.1); Sodium Level 132 mmol/L (136-145)
[2023-04-14 06:26] LABS: Anisocytosis 1+
[2023-04-14 07:53] VITALS: O2SAT 97
--- NOTE | 2023-04-14 09:34 | PHA.CONS_ITS ---
TCU RX Drug Regimen Review Subjective: TCU Admission. 73 YOM presented to the ER with a fall. Recent right hip replacement after right hip fracture. Hospitalized for fall, multiple rib fractures, right thigh hematoma, complicated by acute kidney injury. Admitted to TCU with debility for strengthening and rehabilitation. Objective: Allergies lisinopril Allergy (Mild, Verified 04/08/23 10:21) Laryngospasms Current Medications Generic Name Dose Route Start Last Admin Trade Name Freq PRN Reason Stop Dose Admin Acetaminophen 1,000 mg 04/12/23 22:00 04/14/23 05:14 Acetaminophen 500 Mg Tablet PO 04/17/23 22:01 1,000 mg TID PROSPER Administration Acetaminophen 1,000 mg 04/18/23 06:00 Acetaminophen 500 Mg Tablet PO TID PRN LOVE 1-10 Albuterol Sulfate 2.5 mg 04/13/23 07:43 04/14/23 00:00 Albuterol 2.5 Mg/3 Ml Vial.Neb. INHALATION 2.5 mg Q2H PRN PRN Administration SHORTNESS OF BREATH Amiodarone HCl 200 mg 04/13/23 06:00 04/14/23 05:14 Amiodarone 200 Mg Tablet PO 200 mg DAILY PROSPER Administration Apixaban 2.5 mg 04/12/23 18:00 04/14/23 05:14 Apixaban 2.5 Mg Tablet ([facility]) PO 2.5 mg BID PROSPER Administration Atorvastatin Calcium 80 mg 04/12/23 22:00 04/13/23 21:53 Atorvastatin Calcium 80 Mg Tablet PO 80 mg QHS PROSPER Administration Bisacodyl 10 mg 04/12/23 14:49 Bisacodyl 5 Mg Tablet PO DAILY PRN Constipation Calamine/Phenol 1 applic 04/12/23 18:00 04/14/23 05:13 Menthol/Lanolin/Calamine/Znox 113 Gm Tube TOPICAL 1 applic BID PROSPER Administration Protocol Carvedilol 3.125 mg 04/12/23 18:00 04/14/23 05:14 Carvedilol 3.125 Mg Tablet PO 3.125 mg BID PROSPER Administration Fluoxetine HCl 40 mg 04/13/23 06:00 04/14/23 05:14 Fluoxetine Hcl 40 Mg Capsule PO 40 mg DAILY PROSPER Administration Furosemide 40 mg 04/13/23 08:00 04/14/23 05:15 Furosemide 40 Mg/4 Ml Vial IV 40 mg DAILY PROSPER Administration Guaifenesin 1,200 mg 04/12/23 18:00 04/14/23 05:14 Guaifenesin 1,200 Mg Tablet PO 1,200 mg BID PROSPER Administration Lactulose 20 gm 04/12/23 20:00 Lactulose 20 Gm/30 Ml Udc PO X1 PRN CONSTIPATION Lidocaine 1 patch 04/13/23 06:00 04/14/23 05:16 Lidocaine 5% Patch TOPICAL 1 patch DAILY PROSPER Administration Protocol Loratadine 10 mg 04/12/23 15:35 Loratadine 10 Mg Tablet PO DAILY PRN allergy Mexiletine HCl 150 mg 04/12/23 22:00 04/14/23 05:16 Mexiletine 150 Mg Capsule PO 150 mg TID PROSPER Administration Nutritional Formula (Lactose Free) 120 ml 04/12/23 17:00 04/14/23 05:15 Ensure Plus High Protein 120 Ml Liquid PO 120 ml 4X/DAY PROSPER Administration Nystatin 1 applic 04/12/23 18:00 04/14/23 05:14 Nystatin Powder 15gm Bottle TOPICAL 1 applic BID PROSPER Administration Protocol Oxycodone HCl 5 mg 04/13/23 00:00 04/14/23 05:13 Oxycodone 5 Mg Tablet PO 5 mg Q6 PROSPER Administration Pantoprazole Sodium 40 mg 04/13/23 06:00 04/14/23 05:14 Pantoprazole Sodium 40 Mg Tablet PO 40 mg DAILY PROSPER Administration Polyethylene Glycol 17 gm 04/13/23 06:00 04/14/23 05:15 Polyethylene Glycol 3350 17 Gm Packet PO Not Given BID PROSPER Senna/Docusate Sodium 2 tablet 04/12/23 18:00 04/14/23 05:14 Senna/Docusate Sodium 1 Tablet PO 2 tablet BID PROSPER Administration Sodium Chloride 10 - 40 ml 04/12/23 15:03 04/13/23 09:24 0.9% Saline Lock 10 Ml Syringe IV 10 ml UD PRN Administration SALINE FLUSH Tramadol HCl 50 mg 04/12/23 20:00 04/13/23 09:32 Tramadol 50 Mg Tablet PO 50 mg Q6H PRN PRN Administration Pain Score 1-10 Tuberculin PPD 0.1 ml 04/20/23 10:00 Tuberculin,Purif.Prot.Deriv. 50 Tu/Ml Vial ID 04/20/23 10:01 X1 ONE Problem List (Last Updated 04/12/23 @ 19:[address] Romario Winn MD) Aortic stenosis (Acute) Chronic diastolic congestive heart failure (Chronic) Hypokalemia (Acute) Depression (Acute) Allergic rhinitis (Acute) Hyperlipidemia (Acute) Atrial fibrillation (Acute) Hematoma of right thigh (Acute) Debility (Acute) Multiple rib fractures (Acute) Fall (Acute) Weakness (Acute) KELVIN (acute kidney injury) (Acute) Leukocytosis (Acute) Edema, peripheral (Acute) S/P total right hip arthroplasty (Acute) Vital Signs Temp Pulse Resp BP Pulse Ox O2 Del Method O2 Flow Rate 97.1 F L 71 20 H 122/50 H 97 Nasal Cannula 2 04/13/23 16:00 04/14/23 05:13 04/14/23 00:00 04/14/23 05:13 04/14/23 07:53 04/14/23 07:53 04/14/23 07:53 Oxygen Flow Rate (L/min) 2 Oxygen Delivery Method Nasal Cannula Weight: 79.878 kg Body Mass Index (BMI) 25.9 Sodium 132 mmol/L (136-145) L 04/14/23 05:32 Potassium 4.3 mmol/L (3.5-5.1) 04/14/23 05:32 Chloride 102 mmol/L (98-107) 04/14/23 05:32 Carbon Dioxide 26.0 mmol/L (21.0-32.0) 04/14/23 05:32 Anion Gap 4 (5-15) L 04/14/23 05:32 BUN 30 mg/dL (7-18) H 04/14/23 05:32 Creatinine 0.71 mg/dL (0.70-1.30) 04/14/23 05:32 Est GFR (MDRD) Af Amer 140 mL/min (>60) 04/14/23 05:32 Est GFR (MDRD) Non-Af 115 mL/min (>60) 04/14/23 05:32 BUN/Creatinine Ratio 42.4 RATIO (10-20) H 04/14/23 05:32 Glucose 113 mg/dL (74-106) H 04/14/23 05:32 Assessment/Plan: 1. Pain: acetaminophen 1000mg PO TID thru 04/17 then 1000mg PO TID PRN pain 1-10 starting 04/18, oxycodone 5mg PO Q6, lidocaine 5% patch topical (right ribs) daily and tramadol 50mg PO Q6H PRN pain 1-10. Resident has received 2 doses of tramadol for pain scores of 7-8 in the ribs/hip. Please continue to monitor for increased pain, PRN usage, rash, renal function, constipation and respiratory depression. 2. Bowel: Miralax 17gm PO BID, senna/docusate 2T PO BID, bisacodyl 10mg PO x1 PRN constipation and lactulose 20gm PO x1 PRN constipation. Resident has not used any PRN doses. Please continue to monitor for constipation and PRN usage. Last documented bowel movement today, 04/14. 3. Atrial fibrillation/CHF: carvedilol 3.125mg PO BID, amiodarone 200mg PO daily, mexiletine 150mg PO TID, furosemide 40mg IV daily and apixaban 2.5mg PO BID. Please continue to monitor BP (last 122/50), HR (last 71), sodium (last 132mmol/L), potassium (last 4.3mmol/L), LFTs (hepatotoxicity is a black box warning for mexiletine), edema, renal function, S/S of bleeding and hemoglobin (last 9.4g/dL). Per hospitalist discharged note from 04/01, resident was initially supposed to go home with Xarelto 10mg x 35 days for DVT prophylaxis but this was changed to apixaban 2.5mg PO BID x 30 days due to insurance coverage. Hospitalist also noted that resident was on warfarin for atrial fibrillation but anticoagulation had been discontinued and resident remained on aspirin. If resident is to remain on apixaban for stroke prophylaxis secondary to atrial fibrillation, please consider changing dose to 5mg as the resident does not meet any criteria for the reduced dose. If resident is to remain on 2.5mg dose for DVT prophylaxis following hip replacement, please consider adding a stop date of 05/02/23 (30 days since initial Rx). Thanks. 4. Hyperlipidemia: atorvastatin 80mg PO QHS. Please consider ordering a lipid panel (no panel in the chart) and LFTs (no levels in chart) if clinically appropriate. Thanks. Please continue to monitor for muscle pain. 5. Allergic rhinitis: loratadine 10mg PO daily PRN allergies. Resident has not used any doses so far. Please continue to monitor for allergy symptoms and PRN usage. 6. GERD: pantoprazole 40mg PO daily. Please continue to monitor for S/S of GERD and diarrhea (BEERs medication). 7. Shortness of breath: albuterol nebulized solution 2.5mg inhalation Q2H PRN shortness of breath. Resident has used 1 PRN dose. Please continue to monitor for S/S of SOB and PRN usage. 8. Chronic cough: guaifenesin 1200mg PO BID. Please continue to monitor for cough. Assessment/Plan for indications treated with psychotropic medications: 1. Depression: fluoxetine 40mg PO daily. Please see physician note regarding GDR. Please continue to monitor for suicidal ideation (black box warning), falls/factures (BEERs medication), sodium and weight gain. Medical chart and medication regimen reviewed. The following medication irregularities or issues were identified: *1. Apixaban 2.5mg PO BID. Per hospitalist discharged note from 04/01, resident was initially supposed to go home with Xarelto 10mg x 35 days for DVT prophylaxis but this was changed to apixaban 2.5mg PO BID x 30 days due to insurance coverage. Hospitalist also noted that resident was on warfarin for atrial fibrillation but anticoagulation had been discontinued adn resident remained on aspirin. If resident is to remain on apixaban for stroke prophylaxis secondary to atrial fibrillation, please consider changing dose to 5mg as the resident does not meet any criteria for the reduced dose. If resident is to remain on 2.5mg dose for DVT prophylaxis following hip replacement, please consider adding a stop date of 05/02/23 (30 days since initial Rx). Thanks. *2. Atorvastatin 80mg PO QHS. Please consider ordering a lipid panel (no panel in the chart) and LFTs (no levels in chart) if clinically appropriate. Thanks. Date of Note:: 04/14/23
[2023-04-14 10:00] VITALS: PULSE 70; RESP 20; O2SAT 97
[2023-04-14] MEDS: traMADol 50 MG Tablet PO ×2 (10:18→17:14)
[2023-04-14 10:31] LABS: Pathologist Review Reviewed
--- NOTE | 2023-04-14 11:29 | NURSING ---
Corrections Officer Note: Activity Asset: Ronen Bean prefers to be called Bertrand. Bertrand is independent in his choice of daily activities. His family and friends will visit weekly and bring him items he may need or want. He has a tablet he plats games on. He enjoys sitting outside w/his friends when at home. Bertrand is not interested in group activities at this time, will continue to do social visit and encourage small group activities for social well-being.
[2023-04-14 11:53] LABS: Procalcitonin 0.22 ng/mL (0.00-0.09)
--- NOTE | 2023-04-14 12:28 | PCM.CONS.GEN ---
Assessment & Plan Assessment/Plan (1) Leukocytosis: PLAN: Will treat for pneumonia given his symptoms and exam. Checking sputum cx and UAgs. Will do doxy and ceftriaxone. Will follow, thank you, d/w nursing HPI Consult Data Date of Consult: 04/14/23 HPI Narrative Reason for Consultation: leukocytosis HPI Narrative: KOSTAS WOLF, is a 73 M with h/o heart failure, presented with fall, rib fracture, R thigh hematoma and fracture requiring recent IM nail placement. Came back to hospital. Given zosyn briefly, stopped when cxs neg. Seen by ortho. Transferred to TCU, wbc rising, increasing sputum and dyspnea. No fever. Full ROS performed and neg except as noted above. [facility] Medical History A-fib Closed right hip fracture Eye abnormality Pacemaker Home Medications amiodarone 200 mg tablet 200 mg PO DAILY heart 02/08/23 [History Last Taken Unknown] carvedilol 6.25 mg tablet 6.25 mg PO BID heart 02/08/23 [History Last Taken Unknown] aspirin 81 mg chewable tablet 81 mg PO DAILY heart health 03/29/23 [History Last Taken Unknown] atorvastatin 80 mg tablet 80 mg PO DAILY cholesterol 03/29/23 [History Last Taken Unknown] fluoxetine 40 mg capsule (Prozac) 40 mg PO DAILY anxiety 03/29/23 [History Last Taken Unknown] mecobalamin (vitamin B12) 1,000 mcg chewable tablet (B12 Active) 1,000 mcg PO DAILY supplement 03/29/23 [History Last Taken Unknown] mexiletine 200 mg capsule 200 mg PO TID heart 03/29/23 [History Last Taken Unknown] sacubitril 24 mg-valsartan 26 mg tablet (Entresto) 1 tab PO BID heart 03/29/23 [History Last Taken Unknown] torsemide 20 mg tablet 20 mg PO DAILY heart 03/29/23 [History Last Taken Unknown] Remove Patch 1 patch topical DAILY@2200 pain 04/12/23 [History Last Taken Unknown] acetaminophen 500 mg tablet 1,000 mg PO TID pain 04/12/23 [History Last Taken Unknown] apixaban 2.5 mg tablet 2.5 mg PO BID blood thinner 04/12/23 [History Last Taken Unknown] eplerenone 25 mg tablet 25 mg PO DAILY Check with primary doctor #30 tabs 04/12/23 [Rx Last Taken Unknown] fexofenadine 180 mg tablet (Reva Allergy) 180 mg PO DAILY PRN allergy 30 days #0 tabs 04/12/23 [Rx Last Taken Unknown] guaifenesin 1,200 mg tablet, extended release 12 hr (Mucus Relief ER) 1,200 mg PO BID cough 04/12/23 [History Last Taken Unknown] lidocaine 5 % topical patch 1 patch topical DAILY pain 04/12/23 [History Last Taken Unknown] oxycodone 5 mg tablet 2.5 - 5 mg PO Q6 pain 04/12/23 [History Last Taken Unknown] pantoprazole 40 mg tablet,delayed release 40 mg PO DAILY stomach 04/12/23 [History Last Taken Unknown] polyethylene glycol 3350 17 gram oral powder packet 17 g PO DAILY constipation 04/12/23 [History Last Taken Unknown] sennosides 8.6 mg-docusate sodium 50 mg tablet (Stool Softener-Stimulant Laxative) 2 tab PO BID constipation 04/12/23 [History Last Taken Unknown] Allergy/AdvReac Type Severity Reaction Status Date / Time lisinopril Allergy Mild Laryngospas Verified 04/08/23 10:21 ms Family History Father CVA (cerebral vascular accident) Mother Laryngeal cancer Surgical History (Updated 04/12/23 @ 19:[address] Romario Winn MD) H/O cardiac radiofrequency ablation H/O eye surgery H/O heart surgery H/O total knee replacement History of appendectomy History of hip surgery History of surgery on arm History of transcatheter aortic valve replacement (TAVR) Stented coronary artery Social History (Updated 04/12/23 @ 19:[address] Romario Winn MD) household members: spouse Smoking Status: Former smoker alcohol intake: never substance use type: does not use Physical Exam Const alert, oriented x3 and no apparent distress General Appearance: cooperative HEENT normocephalic and head/scalp atraumatic Eyes PERRL and EOMs intact bilaterally Neck supple and No nodes Resp Auscultation: rhonchi, wheezes and diminished lung sounds Cardio regular rate and regular rhythm GI soft to palpation, non-tender and non-distended Extremity General Extremity: edema Skin Skin Narrative: bruising, hematoma, skin tears Neuro CN's II-XII intact bilaterally Medical Records Data Medical Nutrition Assessment Dietitian: Malnutrition Criteria Met Start: 04/13/23 09:41 Freq: Status: Active Protocol: Document 04/13/23 09:41 (Rec: 04/13/23 09:41 [id number]) Nutrition Malnutrition Evidence of Malnutrition Exists Yes Malnutrition (moderate): Chronic Evidenced By Suboptimal Energy Intake ( Moderate),Physical Changes ( Mild) Clinical Problem Chronic Disease or Condition Related Malnutrition Etiology moderate, chronic malnutrition related to inadequate energy intake d/t decreased appetite Signs/Symptoms as evidenced by estimated PO intake meeting <75% of estimated energy needs > 3 months; Mild muscle wasting/ fat loss evident in orbital, clavicle, acromion, and temporal areas per physical exam Status Active Problem Recommendation Dietitian Recommendations/Changes continue regular diet w/ 120mL ensure plus high protein 4x/ day d/t malnutrition; will also add Galdino BID w/ breakfast and dinner d/t wounds. Lab / Micro Data Result Diagrams: 04/14/23 05:32 04/14/23 05:32 Labs: Laboratory Results - last 24 hr 04/13/23 05:44: Diff Path Review Reviewed 04/14/23 05:32: WBC 24.7 H, RBC 3.16 L, Hgb 9.4 L, Hct 29.1 L, MCV 92.1, MCH 29.7, MCHC 32.3, RDW Std Deviation 55.7 H, RDW Coeff of Rohit 16.9 H, Plt Count 420, MPV 10.3, Immature Gran % (Auto) 3.000 H, Neut % (Auto) 84.2 H, Lymph % (Auto) 4.2 L, Craven % (Auto) 8.3, Eos % (Auto) 0.1, Baso % (Auto) 0.2, Absolute Neuts (auto) 20.9 H, Absolute Lymphs (auto) 1.03, Nucleated RBC % 0, Diff Path Review Reviewed, Anisocytosis 1+ 04/14/23 05:32: Sodium 132 L, Potassium 4.3, Chloride 102, Carbon Dioxide 26.0, Anion Gap 4 L, BUN 30 H, Creatinine 0.71, Estim Creat Clear Calc 63.83, Est GFR (MDRD) Af Amer 140, Est GFR (MDRD) Non-Af 115, BUN/Creatinine Ratio 42.4 H, Glucose 113 H, Calcium 7.6 L 04/14/23 11:17: Procalcitonin 0.22 H Micro: Microbiology 04/14/23 05:15 Nasal Secretion SARS-CoV-2 Antigen (Rapid) - Final Radiology Impression Chest X-Ray 04/13/23 12:53 IMPRESSION: No acute abnormality or major interval change. Electronically Signed: Gustavo Mcpherson DO at 17:05 EDT Reading Location ID and State: [facility] / [place] Tel [phone], Service support ,
[2023-04-14] MEDS: Doxycycline 100 MG CAPSULE PO ×2 (13:27→18:36)
--- NOTE | 2023-04-14 14:49 | NS ---
Provided written copy of daily specials/first choice menu w/ instructions on how to order. Food dislikes: some meats -eats chicken, fish and pork.
[2023-04-14 16:00] VITALS: BP 119/69; PULSE 83; RESP 16; TEMP 36.9; O2SAT 98
[2023-04-14] MEDS: 0.9% Saline Lock 10 ML Syringe IV ×2 (17:25→18:51)
[2023-04-14] MEDS: Atorvastatin Calcium 80 MG Tablet PO (22:36)
--- NOTE | 2023-04-15 00:10 | NURSING ---
Dr. Winn updated on postivie urine antigen
--- NOTE | 2023-04-15 00:13 | NURSING ---
Dr. Winn updated on urine results. ATB therapy to cont. as ordered.
[2023-04-15] MEDS: Doxycycline 100 MG CAPSULE PO ×2 (06:23→18:25)
[2023-04-15] MEDS: Senna/Docusate Sodium 1 Tablet 2 TABLET PO (06:23)
[2023-04-15] MEDS: guaiFENesin 1,200 MG Tablet 1200 MG PO ×2 (06:23→18:26)
[2023-04-15] MEDS: Acetaminophen 500 MG Tablet 1000 MG PO ×3 (06:23→20:52)
[2023-04-15] MEDS: Pantoprazole Sodium 40 MG Tablet PO (06:23)
[2023-04-15] MEDS: Fluoxetine HCl 40 MG CAPSULE PO (06:23)
[2023-04-15] MEDS: Mexiletine 150 MG Capsule PO ×3 (06:23→20:52)
[2023-04-15] MEDS: APIXABAN 2.5 MG TABLET (WCH) PO ×2 (06:23→18:25)
[2023-04-15] MEDS: Menthol/Lanolin/Calamine/Znox 113 GM Tube 1 APPLIC TOPICAL ×2 (06:24→18:24)
[2023-04-15] MEDS: Nystatin Powder 15gm Bottle 1 APPLIC TOPICAL ×2 (06:24→18:26)
[2023-04-15] MEDS: Furosemide 40 MG/4 ML Vial IV (06:27)
[2023-04-15] MEDS: Lidocaine 5% Patch 1 PATCH TOPICAL (06:27)
[2023-04-15] MEDS: Ensure Plus High Protein 120 ML LIQUID PO ×4 (06:27→20:56)
[2023-04-15 06:30] VITALS: O2SAT 97
[2023-04-15] MEDS: oxyCODONE 5 MG Tablet PO ×3 (06:31→18:32)
[2023-04-15] MEDS: Polyethylene Glycol 3350 17 GM PACKET PO (06:39)
[2023-04-15 08:36] LABS: Absolute Lymphocyte Count 0.85 X10^3/uL (0.83-4.51); Absolute Neutrophil Count 18.1 X10^3/uL (2.0-7.7); Basophil# 0.02 X10^3/uL; Basophil% 0.1 % (0-1); Eosinophil# 0.04 X10^3/uL; Eosinophils% 0.2 % (0-5); Hemoglobin 8.9 g/dL (13.0-16.5); Lymphocyte # 0.85 X10^3/ul (0.83-4.51); Lymphocyte % 4.1 % (19-41); Mean Corpuscular Hgb 30.5 pg (27.0-32.0); Mean Corpuscular Volume 92.5 fL (80-94); Mean Platelet Vol. 10.5 fl (6.2-12.0); Monocyte# 1.25 X10^3/uL; Monocyte% 6.1 % (0-10); NRBC Flagged by Analyzer 0 % (0-5); Neutrophil # 18.08 X10^3/uL (2.7-7.7); Neutrophil % 87.5 % (47-70); Platelet Count 362 K/mm3 (150-450); RBC Distribution Width CV 17.2 % (11.6-14.6); Red Blood Count 2.92 M/mm3 (4.6-6.2); White Blood Count 20.7 K/mm3 (4.4-11.0)
[2023-04-15] MEDS: Amiodarone 200 MG Tablet PO (08:40)
[2023-04-15 08:58] LABS: Anion Gap 5 (5-15); BUN 24 mg/dL (7-18); BUN/Creat Ratio 35.5 RATIO (10-20); Calcium,Total 6.9 mg/dL (8.5-10.1); Chloride 104 mmol/L (98-107); Creatinine, Serum 0.68 mg/dL (0.70-1.30); EST Glomerular Filtration Rate 121 mL/min (>60); Est Glom Filt Rate - Afr Amer 147 mL/min (>60); Estimated Creatinine Clearance 63.83 ml/min; Glucose 150 mg/dL (74-106); Potassium 4.4 mmol/L (3.5-5.1); Sodium Level 133 mmol/L (136-145)
[2023-04-15 14:41] VITALS: O2SAT 96
[2023-04-15 15:02] VITALS: O2SAT 98
[2023-04-15 16:00] VITALS: BP 119/60; PULSE 67; RESP 16; TEMP 36.1; O2SAT 98
--- NOTE | 2023-04-15 17:08 | NURSING ---
Pt c/o of feeling full of fluid. Pt weight completed and had weight gain. Per daughter pt weights 160lbs. Dr. Winn updated N.O. for Lasix 80mg IV BID, K-Dur 20meq BID, and BMP on 04/16/23. Orders read back.
[2023-04-15] MEDS: Furosemide 100 MG/10 ML Vial 80 MG IV (18:28)
[2023-04-15] MEDS: 0.9% Saline Lock 10 ML Syringe IV (18:33)
[2023-04-15 20:00] VITALS: PULSE 66; RESP 20; O2SAT 97
[2023-04-15] MEDS: Carvedilol 3.125 MG TABLET PO (20:52)
[2023-04-15] MEDS: Atorvastatin Calcium 80 MG Tablet PO (20:52)
[2023-04-16] MEDS: oxyCODONE 5 MG Tablet PO ×4 (00:10→18:31)
[2023-04-16] MEDS: Mexiletine 150 MG Capsule PO ×3 (05:20→20:22)
[2023-04-16] MEDS: Doxycycline 100 MG CAPSULE PO ×2 (05:20→18:35)
[2023-04-16] MEDS: Ensure Plus High Protein 120 ML LIQUID PO ×3 (05:20→18:32)
[2023-04-16] MEDS: Acetaminophen 500 MG Tablet 1000 MG PO ×3 (05:20→20:22)
[2023-04-16] MEDS: Fluoxetine HCl 40 MG CAPSULE PO (05:21)
[2023-04-16] MEDS: guaiFENesin 1,200 MG Tablet 1200 MG PO ×2 (05:21→18:31)
[2023-04-16] MEDS: APIXABAN 2.5 MG TABLET (WCH) PO ×2 (05:21→18:34)
[2023-04-16] MEDS: Pantoprazole Sodium 40 MG Tablet PO (05:21)
[2023-04-16] MEDS: Furosemide 100 MG/10 ML Vial 80 MG IV ×3 (05:45→20:22)
[2023-04-16] MEDS: Menthol/Lanolin/Calamine/Znox 113 GM Tube 1 APPLIC TOPICAL ×2 (05:49→18:33)
[2023-04-16 06:00] VITALS: BMI 25.9
[2023-04-16] MEDS: Lidocaine 5% Patch 1 PATCH TOPICAL (06:05)
[2023-04-16] MEDS: Nystatin Powder 15gm Bottle 1 APPLIC TOPICAL ×2 (06:07→18:31)
[2023-04-16 06:16] VITALS: O2SAT 97
--- NOTE | 2023-04-16 07:30 | NURSING ---
Lab attempted to draw labs, unable to obtain. This nurse attempted x 2 to obtain labs, unsuccessful. Informed next shift of issues, glue specialty supervisor contacted. Possibility of PICC placement due to difficulty of obtaining lab draws.
[2023-04-16] MEDS: Carvedilol 3.125 MG TABLET PO ×2 (09:09→20:21)
[2023-04-16] MEDS: 0.9% Saline Lock 10 ML Syringe IV ×2 (09:10→14:39)
[2023-04-16] MEDS: Potassium Chloride Oral Tablet 20 MEQ PO ×3 (09:10→18:33)
[2023-04-16] MEDS: Amiodarone 200 MG Tablet PO (09:10)
[2023-04-16 10:43] LABS: Anion Gap 6 (5-15); BUN 35 mg/dL (7-18); BUN/Creat Ratio 44.9 RATIO (10-20); Calcium,Total 7.5 mg/dL (8.5-10.1); Chloride 97 mmol/L (98-107); Creatinine, Serum 0.78 mg/dL (0.70-1.30); EST Glomerular Filtration Rate 103 mL/min (>60); Est Glom Filt Rate - Afr Amer 125 mL/min (>60); Estimated Creatinine Clearance 63.83 ml/min; Glucose 110 mg/dL (74-106); Potassium 3.3 mmol/L (3.5-5.1); Sodium Level 132 mmol/L (136-145)
--- NOTE | 2023-04-16 13:58 | RAD_ITS ---
EXAM: XR CHEST, 1 VIEW CLINICAL INDICATION: Check right sided line placement. TECHNIQUE: Frontal view of the chest. COMPARISON: 04/13/2023. FINDINGS: LUNGS AND PLEURAL SPACES: Unremarkable. No pneumothorax. No effusion. No suspicious infiltrates. HEART: Cardiomegaly is unchanged. Metallic stent across the aortic valve and the metallic ring in the mitral annulus are unchanged. Metallic clip in the left atrial appendage is unchanged. MEDIASTINUM: Central airways and mediastinal contour are unremarkable. BONES/JOINTS: Pronounced narrowing of the right subacromial space presumably due to chronic rotator cuff tear is unchanged. Old fractures of the right rib cage are unchanged. SOFT TISSUES: Unremarkable. TUBES, LINES AND DEVICES: Right PICC line catheter tip is in the distal SVC. Pacing lead tips in the right atrium, right ventricle and branch of the left coronary sinus are unchanged. RAD/CXR for Line Placement IMPRESSION: 1. Right PICC line catheter tip is in the distal SVC. 2. No acute chest abnormality. 3. No other additional findings or changes. Electronically Signed: Jimmy Shafer MD at 15:58 EDT ,
[2023-04-16] MEDS: traMADol 50 MG Tablet PO (14:39)
[2023-04-16 15:12] VITALS: BP 113/54; PULSE 65; RESP 16; TEMP 35.9; O2SAT 98
[2023-04-16] MEDS: Senna/Docusate Sodium 1 Tablet 2 TABLET PO (18:32)
[2023-04-16] MEDS: Atorvastatin Calcium 80 MG Tablet PO (20:21)
--- NOTE | 2023-04-16 21:41 | NURSING ---
Paged Dr. Winn w/ immediate return call. Questioned if Oxycodone dose could be changed to PRN from routine per pt request and if pt should have a fluid restriction implemented d/t current orders for diuretic therapy. New orders received to change Oxycodone to PRN from routine-reflected on JAN and start 1500 ml fluid restriction. Will continue to monitor.
--- NOTE | 2023-04-16 22:24 | NURSING ---
Order received earlier in day to have PICC line placed. Single lumen PICC placed in right upper arm, 41cm in length with 0cm exposed. X-ray obtained, with tip noted to be in distal SVC. PICC line flushes without difficulty and blood return is noted. Will continue to monitor.
--- NOTE | 2023-04-17 02:13 | NURSING ---
CASH REGISTER MECHANIC reported that when assisting patient from sitting on side of bed to getting back into bed that an area on right leg was bleeding. Patient noted to have skin tear on lateral aspect of right thigh, just above knee. Appears to have already been there, but dressing had slid down. Area redressed, adaptic, gauze and ABD applied, secured with kerlix. RLE then wrapped with carolyn wraps. Patient tolerated well. Will continue to monitor.
--- NOTE | 2023-04-17 02:33 | NURSING ---
New orders received prior shift to increase Lasix to 80mg IV TID and to place conway. Conway in place, patent and draining won urine. Some blood noted in tubing at HS. Will continue to monitor. Patient also placed on 1500cc FR. Will continue to monitor.
[2023-04-17] MEDS: Lidocaine 5% Patch 1 PATCH TOPICAL (05:03)
[2023-04-17] MEDS: Ensure Plus High Protein 120 ML LIQUID PO ×2 (05:03→12:09)
[2023-04-17] MEDS: Acetaminophen 500 MG Tablet 1000 MG PO ×3 (05:07→19:47)
[2023-04-17] MEDS: Pantoprazole Sodium 40 MG Tablet PO (05:07)
[2023-04-17] MEDS: Furosemide 100 MG/10 ML Vial 80 MG IV ×3 (05:08→19:48)
[2023-04-17] MEDS: Doxycycline 100 MG CAPSULE PO ×2 (05:08→18:14)
[2023-04-17] MEDS: Senna/Docusate Sodium 1 Tablet 2 TABLET PO (05:08)
[2023-04-17] MEDS: guaiFENesin 1,200 MG Tablet 1200 MG PO ×2 (05:08→18:14)
[2023-04-17] MEDS: APIXABAN 2.5 MG TABLET (WCH) PO ×2 (05:08→18:14)
[2023-04-17] MEDS: Fluoxetine HCl 40 MG CAPSULE PO (05:08)
[2023-04-17] MEDS: Mexiletine 150 MG Capsule PO ×3 (05:09→19:46)
[2023-04-17] MEDS: Nystatin Powder 15gm Bottle 1 APPLIC TOPICAL ×2 (05:35→18:18)
[2023-04-17] MEDS: Menthol/Lanolin/Calamine/Znox 113 GM Tube 1 APPLIC TOPICAL ×2 (05:35→18:18)
[2023-04-17 07:43] LABS: Absolute Lymphocyte Count 0.74 X10^3/uL (0.83-4.51); Absolute Neutrophil Count 14.6 X10^3/uL (2.0-7.7); Basophil# 0.03 X10^3/uL; Basophil% 0.2 % (0-1); Eosinophil# 0.07 X10^3/uL; Eosinophils% 0.4 % (0-5); Hematocrit 27.5 % (40-54); Hemoglobin 8.8 g/dL (13.0-16.5); Lymphocyte # 0.74 X10^3/ul (0.83-4.51); Lymphocyte % 4.3 % (19-41); Mean Corpuscular Hgb 29.6 pg (27.0-32.0); Mean Corpuscular Volume 92.6 fL (80-94); Mean Platelet Vol. 10.2 fl (6.2-12.0); Monocyte# 1.43 X10^3/uL; Monocyte% 8.4 % (0-10); NRBC Flagged by Analyzer 0 % (0-5); Neutrophil # 14.62 X10^3/uL (2.7-7.7); Neutrophil % 85.5 % (47-70); Platelet Count 408 K/mm3 (150-450); RBC Distribution Width CV 17.2 % (11.6-14.6); Red Blood Count 2.97 M/mm3 (4.6-6.2); White Blood Count 17.1 K/mm3 (4.4-11.0)
[2023-04-17 08:00] VITALS: BMI 25.3
[2023-04-17 08:32] LABS: Anion Gap 6 (5-15); BUN 32 mg/dL (7-18); BUN/Creat Ratio 46.9 RATIO (10-20); Calcium,Total 7.2 mg/dL (8.5-10.1); Chloride 98 mmol/L (98-107); Creatinine, Serum 0.68 mg/dL (0.70-1.30); EST Glomerular Filtration Rate 120 mL/min (>60); Est Glom Filt Rate - Afr Amer 145 mL/min (>60); Estimated Creatinine Clearance 63.83 ml/min; Glucose 131 mg/dL (74-106); Potassium 3.1 mmol/L (3.5-5.1); Sodium Level 136 mmol/L (136-145)
[2023-04-17] MEDS: Potassium Chloride Oral Tablet 20 MEQ PO (09:25)
[2023-04-17] MEDS: Amiodarone 200 MG Tablet PO (09:25)
[2023-04-17] MEDS: Carvedilol 3.125 MG TABLET PO ×2 (09:25→19:48)
[2023-04-17] MEDS: Potassium Chloride Oral Tablet 20 MEQ 60 MEQ PO (12:05)
--- NOTE | 2023-04-17 13:25 | ST.MBS ---
Modified Barium Swallow - Patient Information Study Date: 04/17/23 Study Time: 12:30 Direct Billable Minutes: 120 Total Minutes procedure & reportin Diagnosis: debility (R53.81) Referring Physician: Romario Winn Chi Reason for Referral: Objectively assess swallow function, risk for aspiration, and determine recommendations for least restrictive diet textures and compensatory strategies to improve safety of swallow. Medical History: Vikas Hussein is a 73yo M who presents to [facility] ED w/ fall w/ right rib injury, right hip replaced 9 days ago due to fall. Increased bilateral lower extremity swelling, difficulty walking. Trauma scan shows 3 rib fracture. Right chest pain, right lateral thigh hematoma. On 04/12/23 - admit to TCU with debility, here for rehabilitation, strengthening, prior to discharge home with . Speech therapy consulted for cognition / swallowing concerns per nursing staff. Current Diet Ordered: Regular textures / Thin liquids Dentition: Edentulous Mental Status: WNL Respiratory Status: Oxygenating on 2L/M nasal cannula - Penetration-Aspiration Scale Penetration-Aspiration Scale: OBJECTIVE ASSESSMENT OF SWALLOW FUNCTION (QUANTITATIVE ? PER TRIAL): PENETRATION / ASPIRATION SCALE (LUQUE): 1 = does not enter airway 2 = enters airway/above vocal folds/ejected 3 = enters airway/above vocal folds/not ejected 4 = enters airway/contacts vocal folds/ejected 5 = enters airway/contacts vocal folds/not ejected 6 = enters airway/below vocal folds/ejected 7 = enters airway/below vocal folds/not ejected despite effort 8 = enters airway/below vocal folds/no effort VIDEOFLOROSCOPIC SCALE SCORE (LUQUE): Grade I = aspiration of material that has penetrated into the laryngeal vestibule, intact cough reflex Grade II = aspiration < 10 % of the bolus, intact cough reflex Grade III = aspiration of < 10 % of the bolus, reduced cough reflex or aspiration of > 10 % of the bolus, intact cough reflex Grade IV = aspiration of > 10 % of the bolus, reduced cough reflex - Penetration-Aspiration Scale Score Thin Liquid via teaspoon Result: 1= does not enter airway Thin Liquid via large single sip from cup Result: 1= does not enter airway Thin Liquid via large single sip from cup Trial 2 Result: 5= enters airways/contacts vocal folds/not ejected Comment: post prandial aspiration PAS = 8 unintentional chin tuck by patient causing post prandial aspiration Thin Liquid via small single sip from cup Result: 5= enters airways/contacts vocal folds/not ejected Comment: post prandial aspiration PAS = 8 [place] Thick Liquid via small single sip from cup Result: 1= does not enter airway [place] Thick Liquid via small single sip from cup Trial 2 Result: 5= enters airways/contacts vocal folds/not ejected Thin Liquid via teaspoon Trial 2 Result: 2= enter airway/above vocal folds/ejected Thin Liquid via small single sip from cup Trial 2 Result: 2= enter airway/above vocal folds/ejected Pudding Result: 1= does not enter airway Cookie Result: 1= does not enter airway Thin Liquid via small single sip from cup Trial 3 Result: 1= does not enter airway - Oral Phase Labial Seal: No Labial Escape Tongue Control During Bolus Hold: Posterior escape of greater than half of bolus Bolus Preparation/Mastication: Slow prolonged chewing/mashing with complete recollection Bolus Transport/Lingual Motion: Repetitive/disorganized tongue motion Oral Residue: Trace residue lining oral structures - Pharyngeal Phase Initiation of Pharyngeal Swallow: Bolus head in valleculae Soft Palate Elevation: No bolus between soft palate and pharyngeal wall Laryngeal Elevation: Partial superior movement thyroid cart/partial apprx aryt-epig petiole Anterior Hyoid Excursion: Partial anterior movement - minimal anterior movement Epiglottic Movement: Partial inversion Laryngeal Vestibule Closure at Height of Swallow: Incomplete; narrow column of air/contrast in laryngeal vestibule Pharyngeal Stripping Wave: Present - diminished Pharyngoesophageal Segment Opening: Parital distension and partial duration; parital obstruction of flow Tongue Base Retraction: Narrow column of contrast between tongue base & post. pharyngeal wall Pharyngeal Residue: Collection of residue within or on pharyngeal structures - Diagnosis/Impression Diagnosis: moderate oropharyngeal dysphagia R13.12 Impression: Oral phase primarily marked by... - slowed mastication of Chanelle gleason secondary to poor dentition - repetitive and disorganized tongue control - swallow onset delay resulting in premature bolus loss to the valleculae Pharyngeal phase primarily marked by... - decreased airway closure during deglutition attributed to reduced laryngeal elevation and minimal anterior hyoid excursion. - laryngeal penetration seen w/ thin via tsp, thin via cup and NTL via cup that was not fully ejected increased risk for post prandial aspiration of residue remaining in laryngeal vestibule. - Patient naturally leans forward and chin tucks which was contributing to aspiration w/ thin via cup d/t suboptimal posture. - collection of pharyngeal residue within the valleculae contributing to post prandial aspiration. - Recommendations Diet: Regular Textures - Easy to Chew , Thin Liquids Compensatory Strategies: Small Bites, Small Sips, Slow Rate, Alternate bites/solids and sips/liquids, Sitting upright - slightly reclined, Remain sitting upright for 30 minutes after PO intake, Assist with verbal cues to use recommended strategies Supervision: Distant Supervision Recommend Repeat Modified Barium Swallow: TBD Need for Skilled Speech Therapy Services: Yes Comment: Will recommend the patient for dysphagia therapy to address moderate deficits in oropharyngeal swallow function. Would consider the patient for oropharyngeal strengthening. The patient would benefit from thorough education regarding diet recommendations and recommended compensatory strategies to improve swallow function and decrease risk of aspiration w/ PO intake. Education Completed: 1. Described result of evaluation., 2. Pt understands evaluation & agrees with goals and treatment plan. - Status Active ST Patient: Active - Contact Information [facility] Speech Therapy:: Anette Perez M.A., CCC-FA[employer] MEMBER Speech-Language Pathologist [facility] [address] [place] [address] [email or web address] [phone] 04/17/23 14:00
--- NOTE | 2023-04-17 13:26 | NURSING ---
Addendum entered by Dona Edwards 04/17/23 15:02: Patient had bring in vaccine card, he is up to date, flowsheet updated. Original Note: Offered Covid vaccine, education about vaccine provided. Patient refuses at this time.
[2023-04-17] MEDS: 0.9% Saline Lock 10 ML Syringe IV (14:43)
[2023-04-17] MEDS: oxyCODONE 5 MG Tablet PO (14:46)
[2023-04-17 16:00] VITALS: BP 109/55; PULSE 88; RESP 22; TEMP 36.1; O2SAT 98
[2023-04-17] MEDS: Potassium Chloride Oral Tablet 20 MEQ 40 MEQ PO (18:14)
[2023-04-17] MEDS: Juven (unflavored) Packet 1 PACKET PO (18:14)
[2023-04-17 19:42] VITALS: BP 110/51; PULSE 79
[2023-04-17] MEDS: Atorvastatin Calcium 80 MG Tablet PO (19:47)
[2023-04-18] MEDS: oxyCODONE 5 MG Tablet PO ×3 (00:58→22:23)
[2023-04-18 05:48] VITALS: BP 126/57; PULSE 70
[2023-04-18] MEDS: Fluoxetine HCl 40 MG CAPSULE PO (05:49)
[2023-04-18] MEDS: traMADol 50 MG Tablet PO (05:49)
[2023-04-18] MEDS: Doxycycline 100 MG CAPSULE PO ×2 (05:50→18:07)
[2023-04-18] MEDS: Furosemide 100 MG/10 ML Vial 80 MG IV ×3 (05:50→21:58)
[2023-04-18] MEDS: Mexiletine 150 MG Capsule PO ×3 (05:50→22:01)
[2023-04-18] MEDS: Pantoprazole Sodium 40 MG Tablet PO (05:50)
[2023-04-18] MEDS: guaiFENesin 1,200 MG Tablet 1200 MG PO ×2 (05:50→18:08)
[2023-04-18] MEDS: APIXABAN 2.5 MG TABLET (WCH) PO ×2 (05:50→18:08)
[2023-04-18] MEDS: Nystatin Powder 15gm Bottle 1 APPLIC TOPICAL ×2 (05:51→18:09)
[2023-04-18] MEDS: Menthol/Lanolin/Calamine/Znox 113 GM Tube 1 APPLIC TOPICAL ×2 (05:51→18:09)
[2023-04-18] MEDS: Lidocaine 5% Patch 1 PATCH TOPICAL (05:55)
[2023-04-18 06:00] VITALS: BMI 25.2
[2023-04-18] MEDS: 0.9% Saline Lock 10 ML Syringe IV ×3 (07:02→13:04)
[2023-04-18 08:01] LABS: Anion Gap 4 (5-15); BUN 30 mg/dL (7-18); BUN/Creat Ratio 43.3 RATIO (10-20); Calcium,Total 7.4 mg/dL (8.5-10.1); Chloride 98 mmol/L (98-107); Creatinine, Serum 0.69 mg/dL (0.70-1.30); EST Glomerular Filtration Rate 118 mL/min (>60); Est Glom Filt Rate - Afr Amer 143 mL/min (>60); Estimated Creatinine Clearance 63.83 ml/min; Glucose 104 mg/dL (74-106); Potassium 3.3 mmol/L (3.5-5.1); Sodium Level 134 mmol/L (136-145)
[2023-04-18 08:09] VITALS: O2SAT 94
[2023-04-18] MEDS: Potassium Chloride Oral Tablet 20 MEQ 60 MEQ PO (08:30)
[2023-04-18] MEDS: Juven (unflavored) Packet 1 PACKET PO ×2 (08:30→18:07)
[2023-04-18] MEDS: Carvedilol 3.125 MG TABLET PO ×2 (08:33→22:01)
[2023-04-18] MEDS: Amiodarone 200 MG Tablet PO (08:39)
[2023-04-18] MEDS: Potassium Chloride Oral Tablet 20 MEQ 40 MEQ PO ×3 (10:30→18:07)
[2023-04-18 13:00] VITALS: PULSE 78; RESP 23; O2SAT 99
[2023-04-18] MEDS: Albuterol 2.5 MG/3 ML VIAL.NEB. INHALATION (13:00)
[2023-04-18 14:40] VITALS: BP 110/85; PULSE 68; RESP 20; TEMP 37.1; O2SAT 96
[2023-04-18 16:17] VITALS: BMI 25.2
[2023-04-18] MEDS: Senna/Docusate Sodium 1 Tablet 2 TABLET PO (18:08)
[2023-04-18 21:45] VITALS: BP 125/68; PULSE 71
[2023-04-18] MEDS: Atorvastatin Calcium 80 MG Tablet PO (22:01)
[2023-04-19 06:00] VITALS: BMI 24.6
[2023-04-19] MEDS: guaiFENesin 1,200 MG Tablet 1200 MG PO ×2 (06:30→17:05)
[2023-04-19] MEDS: Doxycycline 100 MG CAPSULE PO ×2 (06:30→17:04)
[2023-04-19] MEDS: Furosemide 100 MG/10 ML Vial 80 MG IV ×3 (06:30→22:50)
[2023-04-19] MEDS: Senna/Docusate Sodium 1 Tablet 2 TABLET PO (06:30)
[2023-04-19] MEDS: APIXABAN 2.5 MG TABLET (WCH) PO ×2 (06:30→17:05)
[2023-04-19] MEDS: Pantoprazole Sodium 40 MG Tablet PO (06:30)
[2023-04-19] MEDS: Fluoxetine HCl 40 MG CAPSULE PO (06:30)
[2023-04-19] MEDS: Lidocaine 5% Patch 1 PATCH TOPICAL (06:30)
[2023-04-19] MEDS: Mexiletine 150 MG Capsule PO ×3 (06:30→21:33)
[2023-04-19] MEDS: Menthol/Lanolin/Calamine/Znox 113 GM Tube 1 APPLIC TOPICAL ×2 (06:31→17:05)
[2023-04-19] MEDS: Nystatin Powder 15gm Bottle 1 APPLIC TOPICAL ×2 (06:31→17:05)
[2023-04-19 06:40] VITALS: BP 124/71; PULSE 74; RESP 18; O2SAT 98
[2023-04-19 07:11] VITALS: O2SAT 98
--- NOTE | 2023-04-19 07:44 | NURSING ---
Mcintosh removed per order. 9ml saline removed from balloon. Tip intact and patient tolerated well. Purewic placed for I/O monitoring.
[2023-04-19 07:51] LABS: Anion Gap 2 (5-15); BUN 31 mg/dL (7-18); BUN/Creat Ratio 45.6 RATIO (10-20); Calcium,Total 7.8 mg/dL (8.5-10.1); Chloride 99 mmol/L (98-107); Creatinine, Serum 0.68 mg/dL (0.70-1.30); EST Glomerular Filtration Rate 121 mL/min (>60); Est Glom Filt Rate - Afr Amer 146 mL/min (>60); Estimated Creatinine Clearance 63.83 ml/min; Glucose 107 mg/dL (74-106); Potassium 3.9 mmol/L (3.5-5.1); Sodium Level 135 mmol/L (136-145)
[2023-04-19] MEDS: Potassium Chloride Oral Tablet 20 MEQ 40 MEQ PO ×3 (07:53→17:04)
[2023-04-19] MEDS: Carvedilol 3.125 MG TABLET PO ×2 (07:54→21:33)
[2023-04-19] MEDS: Amiodarone 200 MG Tablet PO (07:59)
[2023-04-19] MEDS: oxyCODONE 5 MG Tablet PO ×3 (08:25→21:33)
[2023-04-19] MEDS: 0.9% Saline Lock 10 ML Syringe IV ×4 (11:06→23:06)
--- NOTE | 2023-04-19 13:07 | CASEMGMT ---
Social Work IDT met with patient, and dtr for care plan meeting. Discussed patient's progress in PT/OT/ST/SN. Educated to Medicare benefit. Explained pt has [employer] secondary insurance and TCU is not in-network with VA, thus not covering copays from days 21-100. Day 21 is 6/6 and copay is $200/day. Pt wanting to DC by that date. However, family stating pt has another secondary insurance - insurance card given by , copied and sent to registration to verify. Therapy scheduled family training to determine ability to care for pt at home. SW to coordinate skilled HHC and DME needs at DC. Will continue to follow. NICCI Driver BUSINESS INTELLIGENCE ARCHITECT
--- NOTE | 2023-04-19 13:32 | PCM.PN.ID ---
Physical Exam Narrative Feeling better, breathing improved, less sputum, no fever Const alert and no apparent distress General Appearance: cooperative Resp clear to auscultation bilaterally Auscultation: diminished lung sounds Cardio regular rate GI soft to palpation, non-tender and non-distended Skin no rashes or lesions noted ID ID: Route of nutrition/ use of supplements: [] Nutritional Intake: [] IV Site: [] Mcintosh Catheter: [] Assessment & Plan Assessment/Plan (1) Leukocytosis: PLAN: Treating for pneumonia given his symptoms and exam. Checking sputum cx and UAgs. On doxy and ceftriaxone. Feeling better, wbc steadily improving. Strep Ag (+), sputum with raoultella, enterobacter, serratia. Day 5 of abx, plan on 3 more days with stop date 04/22. Can change to po doxy 100mg bid and omnicef 300mg bid if he leave prior to completion. Will follow
[2023-04-19 15:19] VITALS: BP 128/66; PULSE 66; RESP 16; TEMP 36.1; O2SAT 98
--- NOTE | 2023-04-19 16:42 | CASEMGMT ---
Social Work BIMS () and PHQ-9 (07/23) completed for MDS assessment. SW explored positive responses. pt reports he prefers to lay in bed and relax; feeling tired r/t multiple infections and having poor appetite r/t feeling ill. Pt denies depression and is motivated to improve to return home. SW to monitor. Geraldine Barajas, [employer] WORK[employer]
[2023-04-19] MEDS: Juven (unflavored) Packet 1 PACKET PO (17:04)
[2023-04-19 19:50] VITALS: PULSE 70; RESP 18; O2SAT 98
[2023-04-19 20:09] VITALS: BP 129/56; PULSE 70
[2023-04-19] MEDS: Atorvastatin Calcium 80 MG Tablet PO (21:33)
[2023-04-19] MEDS: Calcium Carbonate 500 MG Tablet 1000 MG PO (21:34)
[2023-04-20] MEDS: traMADol 50 MG Tablet PO (00:36)
[2023-04-20] MEDS: Nystatin Powder 15gm Bottle 1 APPLIC TOPICAL ×2 (05:18→18:24)
[2023-04-20] MEDS: Menthol/Lanolin/Calamine/Znox 113 GM Tube 1 APPLIC TOPICAL ×2 (05:18→18:23)
[2023-04-20] MEDS: Doxycycline 100 MG CAPSULE PO ×2 (05:19→18:24)
[2023-04-20] MEDS: Mexiletine 150 MG Capsule PO ×3 (05:19→22:35)
[2023-04-20] MEDS: Senna/Docusate Sodium 1 Tablet 2 TABLET PO (05:19)
[2023-04-20] MEDS: APIXABAN 2.5 MG TABLET (WCH) PO ×2 (05:19→18:23)
[2023-04-20] MEDS: Pantoprazole Sodium 40 MG Tablet PO (05:20)
[2023-04-20] MEDS: guaiFENesin 1,200 MG Tablet 1200 MG PO ×2 (05:20→18:23)
[2023-04-20] MEDS: Fluoxetine HCl 40 MG CAPSULE PO (05:20)
[2023-04-20] MEDS: Lidocaine 5% Patch 1 PATCH TOPICAL (05:20)
[2023-04-20] MEDS: oxyCODONE 5 MG Tablet PO ×3 (05:29→22:35)
[2023-04-20 05:34] VITALS: BP 125/64; PULSE 72
[2023-04-20 06:00] VITALS: BMI 24.4
[2023-04-20] MEDS: 0.9% Saline Lock 10 ML Syringe IV ×4 (06:58→13:25)
[2023-04-20 07:05] VITALS: O2SAT 96
[2023-04-20] MEDS: Furosemide 100 MG/10 ML Vial 80 MG IV ×3 (07:07→22:34)
[2023-04-20 07:30] LABS: Absolute Lymphocyte Count 0.97 X10^3/uL (0.83-4.51); Absolute Neutrophil Count 13.7 X10^3/uL (2.0-7.7); Basophil# 0.03 X10^3/uL; Basophil% 0.2 % (0-1); Eosinophil# 0.05 X10^3/uL; Eosinophils% 0.3 % (0-5); Hematocrit 26.8 % (40-54); Hemoglobin 8.6 g/dL (13.0-16.5); Lymphocyte # 0.97 X10^3/ul (0.83-4.51); Lymphocyte % 5.8 % (19-41); Mean Corp Hgb Conc 32.1 g/dL (32-36); Mean Corpuscular Volume 93.4 fL (80-94); Mean Platelet Vol. 9.9 fl (6.2-12.0); Monocyte# 1.67 X10^3/uL; NRBC Flagged by Analyzer 0 % (0-5); Neutrophil # 13.68 X10^3/uL (2.7-7.7); Neutrophil % 82.3 % (47-70); POSITIVE DIFFERENTIAL YES; Platelet Count 285 K/mm3 (150-450); RBC Distribution Width CV 17.7 % (11.6-14.6); RBC Distribution Width SD 59.4 fl (35.1-43.9); Red Blood Count 2.87 M/mm3 (4.6-6.2); White Blood Count 16.6 K/mm3 (4.4-11.0)
[2023-04-20 07:50] LABS: Anion Gap 4 (5-15); BUN 30 mg/dL (7-18); BUN/Creat Ratio 46.8 RATIO (10-20); Calcium,Total 7.8 mg/dL (8.5-10.1); Chloride 96 mmol/L (98-107); Creatinine, Serum 0.64 mg/dL (0.70-1.30); EST Glomerular Filtration Rate 129 mL/min (>60); Est Glom Filt Rate - Afr Amer 157 mL/min (>60); Estimated Creatinine Clearance 63.83 ml/min; Glucose 98 mg/dL (74-106); Potassium 3.8 mmol/L (3.5-5.1); Sodium Level 134 mmol/L (136-145)
[2023-04-20 07:58] LABS: Differential Indicated SCAN CRITERIA MET; Hypersegmented Neutrophils 1+
[2023-04-20] MEDS: Potassium Chloride Oral Tablet 20 MEQ 40 MEQ PO ×3 (08:15→18:22)
[2023-04-20] MEDS: Carvedilol 3.125 MG TABLET PO ×2 (08:15→22:35)
[2023-04-20] MEDS: Juven (unflavored) Packet 1 PACKET PO ×2 (08:15→18:22)
[2023-04-20] MEDS: Amiodarone 200 MG Tablet PO (08:17)
[2023-04-20] MEDS: Tuberculin,Purif.prot.deriv. 50 TU/ML Vial 0.1 ML ID (13:12)
[2023-04-20 15:51] VITALS: BP 114/63; PULSE 61; RESP 18; TEMP 36.3; O2SAT 97
[2023-04-20] MEDS: Calcium Carbonate 500 MG Tablet 1000 MG PO (18:23)
[2023-04-20] MEDS: Atorvastatin Calcium 80 MG Tablet PO (22:35)
[2023-04-21] MEDS: traMADol 50 MG Tablet PO ×3 (01:40→22:28)
[2023-04-21] MEDS: Acetaminophen 500 MG Tablet 1000 MG PO ×3 (01:41→17:54)
[2023-04-21 06:00] VITALS: BMI 24.2
[2023-04-21] MEDS: Menthol/Lanolin/Calamine/Znox 113 GM Tube 1 APPLIC TOPICAL ×2 (06:21→17:43)
[2023-04-21] MEDS: Senna/Docusate Sodium 1 Tablet 2 TABLET PO ×2 (06:21→17:46)
[2023-04-21] MEDS: Fluoxetine HCl 40 MG CAPSULE PO (06:21)
[2023-04-21] MEDS: guaiFENesin 1,200 MG Tablet 1200 MG PO ×2 (06:21→17:45)
[2023-04-21] MEDS: Doxycycline 100 MG CAPSULE PO ×2 (06:21→17:47)
[2023-04-21] MEDS: APIXABAN 2.5 MG TABLET (WCH) PO ×2 (06:21→17:45)
[2023-04-21] MEDS: Pantoprazole Sodium 40 MG Tablet PO (06:21)
[2023-04-21] MEDS: Mexiletine 150 MG Capsule PO ×3 (06:21→22:28)
[2023-04-21 06:23] LABS: Absolute Lymphocyte Count 0.93 X10^3/uL (0.83-4.51); Absolute Neutrophil Count 15.5 X10^3/uL (2.0-7.7); Basophil# 0.05 X10^3/uL; Basophil% 0.3 % (0-1); Eosinophil# 0.08 X10^3/uL; Eosinophils% 0.4 % (0-5); Hematocrit 29.5 % (40-54); Hemoglobin 9.1 g/dL (13.0-16.5); Lymphocyte # 0.93 X10^3/ul (0.83-4.51); Lymphocyte % 4.9 % (19-41); Mean Corp Hgb Conc 30.8 g/dL (32-36); Mean Corpuscular Hgb 29.9 pg (27.0-32.0); Mean Platelet Vol. 10.3 fl (6.2-12.0); Monocyte# 1.87 X10^3/uL; Monocyte% 9.9 % (0-10); NRBC Flagged by Analyzer 0 % (0-5); Neutrophil # 15.52 X10^3/uL (2.7-7.7); Neutrophil % 82.6 % (47-70); POSITIVE DIFFERENTIAL YES; Platelet Count 285 K/mm3 (150-450); RBC Distribution Width CV 18.5 % (11.6-14.6); RBC Distribution Width SD 63.7 fl (35.1-43.9); Red Blood Count 3.04 M/mm3 (4.6-6.2); White Blood Count 18.8 K/mm3 (4.4-11.0)
[2023-04-21] MEDS: Lidocaine 5% Patch 1 PATCH TOPICAL (06:23)
[2023-04-21 06:37] LABS: Anion Gap 4 (5-15); BUN 34 mg/dL (7-18); Calcium,Total 7.9 mg/dL (8.5-10.1); Chloride 98 mmol/L (98-107); Creatinine, Serum 0.74 mg/dL (0.70-1.30); EST Glomerular Filtration Rate 110 mL/min (>60); Est Glom Filt Rate - Afr Amer 133 mL/min (>60); Estimated Creatinine Clearance 63.83 ml/min; Glucose 107 mg/dL (74-106); Sodium Level 133 mmol/L (136-145)
[2023-04-21 06:39] LABS: Differential Indicated SCAN CRITERIA MET
[2023-04-21] MEDS: Furosemide 100 MG/10 ML Vial 80 MG IV ×3 (06:51→22:29)
[2023-04-21] MEDS: Nystatin Powder 15gm Bottle 1 APPLIC TOPICAL ×2 (06:52→17:46)
[2023-04-21 07:15] LABS: Differential Comment SCANNED
[2023-04-21 08:08] VITALS: O2SAT 97
[2023-04-21] MEDS: Potassium Chloride Oral Tablet 20 MEQ 40 MEQ PO ×3 (08:41→17:43)
[2023-04-21] MEDS: Carvedilol 3.125 MG TABLET PO ×2 (08:42→22:28)
[2023-04-21] MEDS: Calcium Carbonate 500 MG Tablet 1000 MG PO ×2 (08:43→17:42)
[2023-04-21] MEDS: Juven (unflavored) Packet 1 PACKET PO ×2 (08:43→17:42)
[2023-04-21] MEDS: oxyCODONE 5 MG Tablet PO ×2 (08:50→17:54)
[2023-04-21] MEDS: Amiodarone 200 MG Tablet PO (08:50)
[2023-04-21] MEDS: 0.9% Saline Lock 10 ML Syringe IV (10:59)
--- NOTE | 2023-04-21 13:28 | PN_ITS ---
Subjective Subjective Ceftriaxone day #8/10 Doxycycline day #8 Afebrile VSS Maintaining appropriate oxygen saturation on 2 L of nasal with a pulse ox of 97%. Oral intake is variable. He ate 25 to 49% of his breakfast but 50 to 75% of his lunch. Has been diagnosed with malnutrition by the dietitian. Fluid balance is -7240 since 04/16/2023. Weight is down approximately 13 pounds since 04/16/2023. Discussed with nursing - no problems that need addressed Reviewed the PT/OT/ST notes Medication list reviewed. White blood cell count has been elevated since admission on 03/29/2023. Hemoglobin is stable at 9.1. He has a persistent left shift with 83% neutrophils of 1.9% immature granulocytes. Sodium is persistently mildly decreased and today is 133. Potassium is 4.0. BUN is 34 and stable with a creatinine of 0.74 which is stable. Procalcitonin was elevated at 0.22 on 04/14/2023. Calcium is low at 7.9 however there is no albumin. The last urine on the chart is from 04/08/2023 and it was negative for urinary tract infection. Respiratory panel on 04/14/2023 was positive for strep pneumoniae. Sputum culture from 04/14/2023 is positive for Serratia marcescens, Enterobacter cloacae and Raoultella Ornithinolytica. Serratia marcescens is sensitive to ceftriaxone and the Enterobacter and Raoultella were both resistant to cefazolin and not checked to ceftriaxone. I reviewed Dr. Cates's 2 notes on the chart. Ceftriaxone and doxycycline are to continue until midnight on 04/22/2023. I reviewed chest studies from radiology going back to 03/29/2023. The most recent studies were reported as no pleural effusions and no infiltrates however when comparing the chest x-ray from 03/29/2023 to the chest x-ray on 04/16/2023 and today there is clearly blunting of both costophrenic angles and there is no effusion in the right base. 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 He had ORIF of the right hip and was discharged the following day by Dr. Vidal. After going home he fell again and return to the emergency department at [facility] on 04/08/2023. He sustained 3 rib fractures on the right and had a large hematoma of the right hip. Objective Data Objective Data Vital Signs: Vital Signs Temp Pulse Resp BP Pulse Ox O2 Del Method O2 Flow Rate 97.4 F L 61 18 114/63 97 Nasal Cannula 2 04/20/23 15:51 04/20/23 15:51 04/20/23 15:51 04/20/23 15:51 04/21/23 08:08 04/21/23 08:08 04/21/23 10:02 Oxygen Flow Rate (L/min) 2 Oxygen Delivery Method Nasal Cannula Weight: 163 lb 5 oz Body Mass Index (BMI) 24.2 Intake & Output: Intake and Output for Last 24 Hours 04/19/23 04/20/23 04/21/23 23:59 23:59 23:59 Intake Total 1060 / 1060 1030 / 1030 410 / 410 Output Total 1850 / 1850 850 / 850 1300 / 1300 Balance -790 / -790 180 / 180 -890 / -890 Medical Nutrition Assessment Dietitian: Malnutrition Criteria Met Start: 04/13/23 09:41 Freq: Status: Active Protocol: Document 04/17/23 14:03 [facility] (Rec: 04/17/23 14:03 [facility] [id number]) Nutrition Malnutrition Evidence of Malnutrition Exists Yes Malnutrition (moderate): Chronic Evidenced By Suboptimal Energy Intake ( Moderate),Physical Changes ( Mild) Clinical Problem Chronic Disease or Condition Related Malnutrition Etiology moderate, chronic malnutrition related to inadequate energy intake d/t decreased appetite Signs/Symptoms as evidenced by estimated PO intake meeting <75% of estimated energy needs > 3 months; Mild muscle wasting/ fat loss evident in orbital, clavicle, acromion, and temporal areas per physical exam Status Active Problem Recommendation Dietitian Recommendations/Changes continue regular diet w/ 120mL ensure plus high protein 3x/ day w/ meals d/t malnutrition; will change Galdino BID w/ medpass d/t wounds Lab / Micro Data Result Diagrams: 04/21/23 05:40 04/21/23 05:40 Labs: Laboratory Results - last 24 hr 04/21/23 05:40: WBC 18.8 H, RBC 3.04 L, Hgb 9.1 L, Hct 29.5 L, MCV 97.0 H, MCH 29.9, MCHC 30.8 L, RDW Std Deviation 63.7 H, RDW Coeff of Rohit 18.5 H, Plt Count 285, MPV 10.3, Immature Gran % (Auto) 1.900 H, Neut % (Auto) 82.6 H, Lymph % (Auto) 4.9 L, [place] % (Auto) 9.9, Eos % (Auto) 0.4, Baso % (Auto) 0.3, Absolute Neuts (auto) 15.5 H, Absolute Lymphs (auto) 0.93, Nucleated RBC % 0, Differential Comment SCANNED, Diff Path Review March04/21/23 05:40: Sodium 133 L, Potassium 4.0, Chloride 98, Carbon Dioxide 31.0, Anion Gap 4 L, BUN 34 H, Creatinine 0.74, Estim Creat Clear Calc 63.83, Est GFR (MDRD) Af Amer 133, Est GFR (MDRD) Non-Af 110, BUN/Creatinine Ratio 46.0 H, Glucose 107 H, Calcium 7.9 L Micro: Microbiology 04/14/23 22:53 Sputum, Expectorated/Coughed Gram Stain - Final 04/14/23 22:53 Sputum, Expectorated/Coughed Respiratory Culture - Final Raoultella ornithinolytica Enterobacter cloacae complex Serratia marcescens 04/16/23 09:20 Nasal Secretion SARS-CoV-2 Antigen (Rapid) - Final 04/14/23 22:55 Urine Catheter - Catheter Legionella Antigen - Final 04/14/23 22:55 Urine Catheter - Catheter Streptococcus pneumoniae Antigen (M - Final Streptococcus pneumonia Ag 04/14/23 05:15 Nasal Secretion SARS-CoV-2 Antigen (Rapid) - Final Physical Exam Const alert Constitutional Narrative: He is tachypneic and has conversational dyspnea. He appears very weak and fatigued. General Appearance: cooperative HEENT head/scalp atraumatic HEENT Narrative: No evidence of thrush and patient denies sore mouth or painful swallowing. Resp Resp Narrative: He is tachypneic and has conversational dyspnea, even sitting upright. He tells me he does not notice a difference when he lays down. Breath sounds are markedly diminished throughout but especially in the lower half of each lung posteriorly. He has some gurgling in his throat but I do not appreciate any crackles, wheezes or rhonchi in the lung stanton. Cardio regular rate, regular rhythm and no gallops GI normal to inspection, nondistended, normoactive bowel sounds and soft to palpation Extremity no calf tenderness Extremity Narrative: He has varicosities both lower extremities. On the right leg the recent incisions from the ORIF are intact with no purulent discharge, no erythema and no increased warmth to touch. There is serous drainage. He also has a skin tear on the right lateral knee with serous drainage. There is extensive dependent ecchymosis of the right lateral hip. General Extremity: edema Skin Skin Narrative: There is hyperpigmentation of the distal lower extremities more likely than not secondary to venous insufficiency chronically. Rashes: no rashes Wound Narrative: See the extremity exam for description of the incisions and skin tear. Neuro CN's II-XII intact bilaterally Psych Psych Narrative: Flat affect. His daughter feels that he is depressed. He is currently taking Prozac 40 mg daily. Assessment & Plan Assessment/Plan (1) Debility: (2) Weakness: (3) Acute congestive heart failure: (4) Pneumonia: (5) Dysphagia: (6) COPD (chronic obstructive pulmonary disease): (7) Restrictive lung disease due to kyphoscoliosis: PLAN: Plan 1. Continue therapy 2. Liver panel, ESR and CRP now. BNP now. 3. Continue Lasix 80 mg every 8 hours 4. PA and lateral chest [id number]- radiologist reports the CXR is stable? I am not in agreement with this.........consider a CT 5. I suspect he is third spacing fluid at this time secondary to hypoalbuminemia. Suspect his dry weight is considerably less than it used to be. 6. He does have dysphagia and penetration on the MBS. He is also kyphotic and likely has reflux (possibly into the larynx).........this may be aspiration PNA + strep PNA, may need to change the antibiotic 7. I spoke with his daughter and explained the current situation and the plan for treatment. Charges/Coding Visit Charges Inpatient E&M: 75471 Subs Hosp L3
--- NOTE | 2023-04-21 13:35 | RAD_ITS ---
STUDY: X-RAY CHEST REASON FOR EXAM: Male, 73 years old. Shortness of breath. CAD. TECHNIQUE: Frontal and lateral views of the chest. COMPARISON: April 16, 2023. FINDINGS: Stable right PICC with tip projected over the mid-SVC. Cardiomegaly, dual lead cardiac pacer, sternotomy wires, aortic graft, left atrial appendage closure device, aortic tortuosity with calcification, mild hyperinflation of both lung stanton, patchy opacity at the right base and multiple right rib fractures, all unchanged. No new or acute finding. No demonstrated abnormality of the visualized soft tissue structures of the upper abdomen. RAD/Chest PA and Lateral IMPRESSION: Stable chest with no acute finding. Electronically Signed: Memo Mcgill MD at 14:41 EDT ,
[2023-04-21 15:29] LABS: AST(SGOT) 75 U/L (15-37); Alanine Aminotransfer ALT/SGPT 83 U/L (16-61); Albumin, Serum 2.1 g/dL (3.2-5.0); Alkaline Phosphatase 258 U/L (45-117); Bilirubin, Direct 0.59 mg/dL (0.00-0.30); Globulin 3.2 g/dL (2.2-4.2); Protein, Total 5.3 g/dL (6.4-8.2); Thyroid Stim Hormone (TSH) 2.57 uIU/mL (0.358-3.74)
[2023-04-21 15:46] LABS: Erythrocyte Sedimentation Rate 7 mm/hr (0-20)
[2023-04-21 16:00] VITALS: BP 122/61; PULSE 83; RESP 20; TEMP 35.8; O2SAT 95
[2023-04-21 16:02] LABS: BNP,B-Type NATRIURETIC PEPTIDE 391.2 pg/mL (0-100)
[2023-04-21 17:23] VITALS: O2SAT 97
[2023-04-21] MEDS: Polyethylene Glycol 3350 17 GM PACKET PO (17:45)
[2023-04-21 19:58] VITALS: PULSE 70; RESP 18; O2SAT 98
[2023-04-21] MEDS: Albuterol 2.5 MG/3 ML VIAL.NEB. INHALATION (19:58)
[2023-04-21] MEDS: Atorvastatin Calcium 80 MG Tablet PO (22:28)
[2023-04-22] MEDS: oxyCODONE 5 MG Tablet PO ×3 (04:44→20:03)
[2023-04-22] MEDS: Senna/Docusate Sodium 1 Tablet 2 TABLET PO ×2 (04:45→17:46)
[2023-04-22] MEDS: Mexiletine 150 MG Capsule PO ×3 (04:46→21:37)
[2023-04-22] MEDS: Fluoxetine HCl 40 MG CAPSULE PO (04:46)
[2023-04-22] MEDS: Pantoprazole Sodium 40 MG Tablet PO (04:46)
[2023-04-22] MEDS: APIXABAN 2.5 MG TABLET (WCH) PO ×2 (04:46→17:45)
[2023-04-22] MEDS: guaiFENesin 1,200 MG Tablet 1200 MG PO (04:46)
[2023-04-22] MEDS: Doxycycline 100 MG CAPSULE PO (04:46)
[2023-04-22] MEDS: Lidocaine 5% Patch 1 PATCH TOPICAL (04:47)
[2023-04-22] MEDS: Furosemide 100 MG/10 ML Vial 80 MG IV ×2 (05:11→13:16)
[2023-04-22] MEDS: Menthol/Lanolin/Calamine/Znox 113 GM Tube 1 APPLIC TOPICAL ×2 (05:17→17:45)
[2023-04-22] MEDS: Nystatin Powder 15gm Bottle 1 APPLIC TOPICAL ×2 (05:18→17:45)
[2023-04-22 05:45] VITALS: BMI 23.8
[2023-04-22 08:20] VITALS: PULSE 75; RESP 16; O2SAT 94
[2023-04-22] MEDS: Albuterol 2.5 MG/3 ML VIAL.NEB. INHALATION ×3 (08:20→20:00)
[2023-04-22] MEDS: Spironolactone 25 MG Tablet PO (08:33)
[2023-04-22] MEDS: Potassium Chloride Oral Tablet 20 MEQ 40 MEQ PO ×3 (08:34→17:44)
[2023-04-22] MEDS: Carvedilol 3.125 MG TABLET PO ×2 (08:38→20:03)
[2023-04-22] MEDS: Amiodarone 200 MG Tablet PO (08:38)
[2023-04-22] MEDS: Juven (unflavored) Packet 1 PACKET PO ×2 (08:39→17:44)
[2023-04-22] MEDS: Calcium Carbonate 500 MG Tablet 1000 MG PO (08:39)
[2023-04-22] MEDS: 0.9% Saline Lock 10 ML Syringe IV ×2 (09:41→13:26)
[2023-04-22 10:55] VITALS: BP 110/54; BP 129/72; BP 97/53; PULSE 70; PULSE 73; PULSE 76
--- NOTE | 2023-04-22 11:54 | PCM.PROGNOTE ---
Subjective Subjective Day #1 Augmentin Afebrile - but he is taking Tylenol 1000 mg 3 times a day. VSS Maintaining appropriate oxygen saturation on RA Oral intake is poor. He tells me he is eating more this week than he was last week. He does not like the food here. I told him his family is welcome to bring him in food if he desires. Discussed with nursing - no problems that need addressed Reviewed the PT/OT/ST notes Medication list reviewed. He is c/o being Thirsty all the time. Mouth is very dry. He tells me he is sleeping a lot. He is complaining the large pills are hard to swallow. Occasional cough. SOB with exertion. Denies CP and palpitations. He denies lightheadedness when sitting at the side of the bed. Denies dysuria. He does use the IS and the PEP, when he can reach them. I put the devices in the bed with him so he can easily access them. Objective Data Objective Data Vital Signs: Vital Signs Temp Pulse Resp BP Pulse Ox O2 Del Method O2 Flow Rate 96.5 F L 75 16 122/61 H 94 Nasal Cannula 2 04/21/23 16:00 04/22/23 08:20 04/22/23 08:20 04/21/23 16:00 04/22/23 08:20 04/22/23 08:20 04/22/23 08:20 Oxygen Flow Rate (L/min) 2 Oxygen Delivery Method Nasal Cannula Weight: 161 lb 4 oz Body Mass Index (BMI) 23.8 Intake & Output: Intake and Output for Last 24 Hours 04/20/23 04/21/23 04/22/23 23:59 23:59 23:59 Intake Total 1030 / 1030 770 / 770 240 / 240 Output Total 850 / 850 2650 / 2650 1050 / 1050 Balance 180 / 180 -1880 / -1880 -810 / -810 Medical Nutrition Assessment Dietitian: Malnutrition Criteria Met Start: 04/13/23 09:41 Freq: Status: Active Protocol: Document 04/17/23 14:03 [facility] (Rec: 04/17/23 14:03 [facility] [id number]) Nutrition Malnutrition Evidence of Malnutrition Exists Yes Malnutrition (moderate): Chronic Evidenced By Suboptimal Energy Intake ( Moderate),Physical Changes ( Mild) Clinical Problem Chronic Disease or Condition Related Malnutrition Etiology moderate, chronic malnutrition related to inadequate energy intake d/t decreased appetite Signs/Symptoms as evidenced by estimated PO intake meeting <75% of estimated energy needs > 3 months; Mild muscle wasting/ fat loss evident in orbital, clavicle, acromion, and temporal areas per physical exam Status Active Problem Recommendation Dietitian Recommendations/Changes continue regular diet w/ 120mL ensure plus high protein 3x/ day w/ meals d/t malnutrition; will change Galdino BID w/ medpass d/t wounds Lab / Micro Data Result Diagrams: 04/21/23 05:40 04/21/23 05:40 Labs: Laboratory Results - last 24 hr 04/21/23 05:40: ESR 7 04/21/23 05:40: Total Bilirubin 1.20 H, Direct Bilirubin 0.59 H, AST 75 H, ALT 83 H, Alkaline Phosphatase 258 H, C-React Prot Ext Range 25.90 H, Total Protein 5.3 L, Albumin 2.1 L, Globulin 3.2, TSH 2.57 04/21/23 05:40: B-Natriuretic Peptide 391.2 H Micro: Microbiology 04/14/23 22:53 Sputum, Expectorated/Coughed Gram Stain - Final 04/14/23 22:53 Sputum, Expectorated/Coughed Respiratory Culture - Final Raoultella ornithinolytica Enterobacter cloacae complex Serratia marcescens 04/16/23 09:20 Nasal Secretion SARS-CoV-2 Antigen (Rapid) - Final 04/14/23 22:55 Urine Catheter - Catheter Legionella Antigen - Final 04/14/23 22:55 Urine Catheter - Catheter Streptococcus pneumoniae Antigen (M - Final Streptococcus pneumonia Ag 04/14/23 05:15 Nasal Secretion SARS-CoV-2 Antigen (Rapid) - Final Radiography Diagnostic Testing: Radiology Impression Chest X-Ray 04/21/23 13:35 IMPRESSION: Stable chest with no acute finding. Electronically Signed: Memo Mcgill MD at 14:41 EDT , Physical Exam Const alert, oriented x3 and no apparent distress Constitutional Narrative: He is lying in bed watching TV. He appears more alert and a little less weak. Voice is louder and projecting better today. He has better color in his face. Pleasant and appropriate. General Appearance: cooperative Orientation / Consciousness: Negative for confused HEENT HEENT Narrative: No evidence of thrush, he has only 5 teeth in his mouth Mouth: dry mucous membranes Resp Resp Narrative: Better air exchange today. I can hear some coarse crackles in the bases. Minimal conversational dyspnea today. No wheezes and no rhonchi. Breathing is not labored. Cardio regular rate, regular rhythm, no rub and no gallops GI normal to inspection, nondistended, normoactive bowel sounds, soft to palpation and non-tender GI Narrative: No guarding with palpation. No pitting edema in the flanks. Extremity no calf tenderness Extremity Narrative: Still with pitting edema of both ankles today. Incision R hip is intact and there is no erythema or increased warmth to touch. Small amount of serous drainage today. No odor. 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 Continue therapy 2. Transition all large pills that I can to liquids 3. Reinforced the need to take all liquids on a spoon to minimize aspiration 4. Decrease the Lasix to 80 mg IV BID 5. He may have unlimited ice chips. 6. Continue daily weights. 7. BMP, CBC with differential, magnesium, phosphorus and a vitamin D level on Monday 8. Add a vitamin D supplement to his drug regimen 9. DC doxycycline and Rocephin and start Augmentin 500 mg (liquid) 3 times daily -discussed with Dr. Cates this AM and he is in agreement. 10. Reinforced with Bertrand that he has been through a lot in the past couple months and he is weak and malnourished. He needs to focus on eating, getting proper rest and getting stronger prior to trying to go home again. We talked about why he aspirates and we also talked about kyphosis, reflux and aspiration. 11. DC the Mucinex and start Mucomyst BID. Charges/Coding Visit Charges Inpatient E&M: 49428 [facility] Subs L2
[2023-04-22] MEDS: Ergocalciferol 1.25 MG (50, 000 UNIT) Capsule PO (13:13)
[2023-04-22 14:25] VITALS: PULSE 75; RESP 16; O2SAT 97
[2023-04-22] MEDS: Acetylcysteine 800 MG/4 ML VIAL.NEB. INHALATION ×2 (14:25→20:23)
[2023-04-22] MEDS: Amox/Clav 250mg/5ml Suspension 500 MG PO ×2 (14:55→21:37)
[2023-04-22 15:02] VITALS: BP 111/55; PULSE 70; RESP 20; TEMP 36.6; O2SAT 98
[2023-04-22] MEDS: traMADol 50 MG Tablet PO (17:44)
[2023-04-22] MEDS: Polyethylene Glycol 3350 17 GM PACKET PO (17:45)
[2023-04-22] MEDS: Calcium Carbonate 1250 MG/5 ML PO (17:48)
[2023-04-22 20:00] VITALS: PULSE 71; PULSE 77; RESP 16; O2SAT 94
[2023-04-22] MEDS: Acetaminophen 500 MG Tablet 1000 MG PO (21:35)
[2023-04-22] MEDS: Atorvastatin Calcium 80 MG Tablet PO (21:37)
[2023-04-23] MEDS: traMADol 50 MG Tablet PO ×4 (00:09→17:50)
[2023-04-23 06:00] VITALS: BMI 23.8
[2023-04-23 07:18] VITALS: BP 131/65; PULSE 58; O2SAT 96
[2023-04-23 07:20] VITALS: PULSE 68; RESP 20; O2SAT 98
[2023-04-23] MEDS: Acetylcysteine 800 MG/4 ML VIAL.NEB. INHALATION (07:20)
[2023-04-23] MEDS: Albuterol 2.5 MG/3 ML VIAL.NEB. INHALATION ×2 (07:20→13:35)
[2023-04-23] MEDS: Menthol/Lanolin/Calamine/Znox 113 GM Tube 1 APPLIC TOPICAL ×2 (07:26→17:48)
[2023-04-23] MEDS: APIXABAN 2.5 MG TABLET (WCH) PO ×2 (07:26→17:49)
[2023-04-23] MEDS: Furosemide 100 MG/10 ML Vial 80 MG IV ×2 (07:26→15:22)
[2023-04-23] MEDS: Polyethylene Glycol 3350 17 GM PACKET PO (07:27)
[2023-04-23] MEDS: Mexiletine 150 MG Capsule PO ×3 (07:27→21:49)
[2023-04-23] MEDS: Nystatin Powder 15gm Bottle 1 APPLIC TOPICAL ×2 (07:27→17:49)
[2023-04-23] MEDS: Lidocaine 5% Patch 1 PATCH TOPICAL (07:27)
[2023-04-23] MEDS: Pantoprazole Sodium 40 MG Tablet PO (07:28)
[2023-04-23] MEDS: Fluoxetine HCl 40 MG CAPSULE PO (07:28)
[2023-04-23] MEDS: Senna/Docusate Sodium 1 Tablet 2 TABLET PO (07:28)
[2023-04-23] MEDS: Calcium Carbonate 1250 MG/5 ML PO ×2 (07:28→17:51)
[2023-04-23] MEDS: 0.9% Saline Lock 10 ML Syringe IV ×2 (07:30→15:23)
[2023-04-23] MEDS: Amox/Clav 250mg/5ml Suspension 500 MG PO ×3 (07:35→21:49)
[2023-04-23] MEDS: Juven (unflavored) Packet 1 PACKET PO (09:26)
[2023-04-23] MEDS: Spironolactone 25 MG Tablet PO (09:26)
[2023-04-23] MEDS: Carvedilol 3.125 MG TABLET PO ×2 (09:26→20:33)
[2023-04-23] MEDS: Potassium Chloride Oral Tablet 20 MEQ 40 MEQ PO ×3 (09:26→17:48)
[2023-04-23 09:35] VITALS: O2SAT 93
[2023-04-23] MEDS: oxyCODONE 5 MG Tablet PO ×2 (09:40→20:31)
[2023-04-23] MEDS: Amiodarone 200 MG Tablet PO (09:40)
[2023-04-23 13:35] VITALS: PULSE 70; RESP 16
[2023-04-23 13:50] VITALS: O2SAT 94
[2023-04-23 14:48] VITALS: BP 100/49; PULSE 66; RESP 20; TEMP 35.8; O2SAT 92
[2023-04-23] MEDS: Atorvastatin Calcium 80 MG Tablet PO (21:49)
[2023-04-24] MEDS: traMADol 50 MG Tablet PO ×5 (00:07→23:20)
[2023-04-24] MEDS: oxyCODONE 5 MG Tablet PO ×2 (04:02→15:23)
[2023-04-24] MEDS: Amox/Clav 250mg/5ml Suspension 500 MG PO ×3 (05:58→20:52)
[2023-04-24] MEDS: 0.9% Saline Lock 10 ML Syringe IV ×2 (05:58→13:19)
[2023-04-24] MEDS: Senna/Docusate Sodium 1 Tablet 2 TABLET PO (05:59)
[2023-04-24] MEDS: Mexiletine 150 MG Capsule PO ×3 (05:59→20:47)
[2023-04-24] MEDS: APIXABAN 2.5 MG TABLET (WCH) PO ×2 (05:59→17:36)
[2023-04-24 06:00] VITALS: BMI 23.6
[2023-04-24] MEDS: Calcium Carbonate 1250 MG/5 ML PO ×2 (06:00→17:38)
[2023-04-24] MEDS: Fluoxetine HCl 40 MG CAPSULE PO (06:00)
[2023-04-24] MEDS: Furosemide 100 MG/10 ML Vial 80 MG IV ×2 (06:00→13:19)
[2023-04-24] MEDS: Lidocaine 5% Patch 1 PATCH TOPICAL (06:05)
[2023-04-24] MEDS: Menthol/Lanolin/Calamine/Znox 113 GM Tube 1 APPLIC TOPICAL ×2 (06:07→17:37)
[2023-04-24] MEDS: Nystatin Powder 15gm Bottle 1 APPLIC TOPICAL ×2 (06:07→17:37)
[2023-04-24] MEDS: Pantoprazole Sodium 40 MG Tablet PO (06:08)
[2023-04-24 08:00] VITALS: PULSE 66; RESP 20; O2SAT 97
[2023-04-24] MEDS: Potassium Chloride Oral Tablet 20 MEQ 40 MEQ PO ×3 (08:04→17:36)
[2023-04-24] MEDS: Carvedilol 3.125 MG TABLET PO ×2 (08:05→20:48)
[2023-04-24] MEDS: Spironolactone 25 MG Tablet PO (08:07)
[2023-04-24] MEDS: Amiodarone 200 MG Tablet PO (08:08)
[2023-04-24] MEDS: Acetylcysteine 800 MG/4 ML VIAL.NEB. INHALATION ×2 (08:44→20:09)
[2023-04-24] MEDS: Albuterol 2.5 MG/3 ML VIAL.NEB. INHALATION ×4 (08:44→20:09)
[2023-04-24 13:02] LABS: Absolute Lymphocyte Count 0.91 X10^3/uL (0.83-4.51); Absolute Neutrophil Count 13.1 X10^3/uL (2.0-7.7); Basophil# 0.06 X10^3/uL; Basophil% 0.4 % (0-1); Eosinophil# 0.09 X10^3/uL; Eosinophils% 0.6 % (0-5); Hematocrit 29.7 % (40-54); Hemoglobin 9.5 g/dL (13.0-16.5); Lymphocyte # 0.91 X10^3/ul (0.83-4.51); Lymphocyte % 5.6 % (19-41); Mean Corpuscular Hgb 31.5 pg (27.0-32.0); Mean Corpuscular Volume 98.3 fL (80-94); Mean Platelet Vol. 10.2 fl (6.2-12.0); Monocyte# 1.81 X10^3/uL; Monocyte% 11.1 % (0-10); NRBC Flagged by Analyzer 0 % (0-5); Neutrophil # 13.14 X10^3/uL (2.7-7.7); Neutrophil % 80.9 % (47-70); POSITIVE DIFFERENTIAL YES; POSITIVE MORPHOLOGY YES; Platelet Count 268 K/mm3 (150-450); RBC Distribution Width CV 19.2 % (11.6-14.6); RBC Distribution Width SD 67.7 fl (35.1-43.9); Red Blood Count 3.02 M/mm3 (4.6-6.2); White Blood Count 16.2 K/mm3 (4.4-11.0)
[2023-04-24 13:12] VITALS: PULSE 89; RESP 24; O2SAT 97
[2023-04-24 13:22] LABS: Anion Gap 5 (5-15); BUN 23 mg/dL (7-18); BUN/Creat Ratio 27.6 RATIO (10-20); Calcium,Total 7.9 mg/dL (8.5-10.1); Chloride 101 mmol/L (98-107); Creatinine, Serum 0.83 mg/dL (0.70-1.30); EST Glomerular Filtration Rate 95 mL/min (>60); Est Glom Filt Rate - Afr Amer 116 mL/min (>60); Glucose 172 mg/dL (74-106); Phosphorus 2.5 mg/dL (2.5-4.9); Potassium 4.7 mmol/L (3.5-5.1); Sodium Level 138 mmol/L (136-145)
[2023-04-24 13:37] LABS: Differential Indicated SCAN CRITERIA MET
[2023-04-24 14:06] LABS: Anisocytosis 1+; Crenated RBC 1+; Pathologist Review May foll
--- NOTE | 2023-04-24 14:37 | PCM.PROGNOTE ---
Subjective Subjective Day #3 Augmentin Afebrile VSS Maintaining appropriate oxygen saturation on RA -while on room air yesterday ranged from 92 to 97%. Currently is on 2 L at 97%. Oral intake is slowly improving solid food. He took 50 to 75% of his supper last night but only 25 to 49% of his breakfast today. Fluid balance yesterday was -1480. Fluid intake was 720 however he is consuming a good amount of ice chips. Weight today is down to 159 pounds and 8 ounces. Discussed with nursing - no problems that need addressed Reviewed the PT/OT/ST notes Medication list reviewed. All lab from today was personally reviewed. The white blood cell count today is 16.2, down from 18.8 on 04/21/2023. Hemoglobin is stable at 9.5. Platelets are within normal limits. Differential shows 81% neutrophils and an elevated immature granulocyte count of 1.4% which is actually down from 1.9% on 04/21/2023. Sodium is now normal at 138 and potassium is 4.7. Lasix was decreased to twice daily yesterday. BUN is 23 and the creatinine is 0.83. Phosphorus and magnesium are within normal limits. Vitamin D is pending. Creatinine is up to 0.83 from 0.74 on 04/21/2023 and the BUN decreasing. suspect his dry weight is now closer to 155 than 160....may even be a little lower. He says he is less SOB and he is not feeling as tired. CP from fractured ribs is tolerable. He is doing the IS and the PEP. Denies N/v/abd pain but, tells me that he just does not have an Appetite. He is not drinking his coffee from a spoon as directed......he is sipping. Objective Data Objective Data Vital Signs: Vital Signs Temp Pulse Resp BP Pulse Ox O2 Del Method O2 Flow Rate 96.4 F L 89 24 H 100/49 L 97 Nasal Cannula 2 04/23/23 14:48 04/24/23 13:12 04/24/23 13:12 04/23/23 14:48 04/24/23 13:12 04/24/23 13:12 04/24/23 13:12 Oxygen Flow Rate (L/min) 2 Oxygen Delivery Method Nasal Cannula Weight: 159 lb 8 oz Body Mass Index (BMI) 23.6 Intake & Output: Intake and Output for Last 24 Hours 04/22/23 04/23/23 04/24/23 23:59 23:59 23:59 Intake Total 1528.75 / 1528.75 720 / 720 480 / 480 Output Total 1450 / 1450 2200 / 2200 900 / 900 Balance 78.75 / 78.75 -1480 / -1480 -420 / -420 Medical Nutrition Assessment Dietitian: Malnutrition Criteria Met Start: 04/13/23 09:41 Freq: Status: Active Protocol: Document 04/17/23 14:03 [facility] (Rec: 04/17/23 14:03 [facility] [id number]) Nutrition Malnutrition Evidence of Malnutrition Exists Yes Malnutrition (moderate): Chronic Evidenced By Suboptimal Energy Intake ( Moderate),Physical Changes ( Mild) Clinical Problem Chronic Disease or Condition Related Malnutrition Etiology moderate, chronic malnutrition related to inadequate energy intake d/t decreased appetite Signs/Symptoms as evidenced by estimated PO intake meeting <75% of estimated energy needs > 3 months; Mild muscle wasting/ fat loss evident in orbital, clavicle, acromion, and temporal areas per physical exam Status Active Problem Recommendation Dietitian Recommendations/Changes continue regular diet w/ 120mL ensure plus high protein 3x/ day w/ meals d/t malnutrition; will change Galdino BID w/ medpass d/t wounds Lab / Micro Data Result Diagrams: 04/24/23 12:50 04/24/23 12:50 Labs: Laboratory Results - last 24 hr 04/24/23 12:50: WBC 16.2 H, RBC 3.02 L, Hgb 9.5 L, Hct 29.7 L, MCV 98.3 H, MCH 31.5, MCHC 32.0, RDW Std Deviation 67.7 H, RDW Coeff of Rohit 19.2 H, Plt Count 268, MPV 10.2, Immature Gran % (Auto) 1.400 H, Neut % (Auto) 80.9 H, Lymph % (Auto) 5.6 L, [place] % (Auto) 11.1 H, Eos % (Auto) 0.6, Baso % (Auto) 0.4, Absolute Neuts (auto) 13.1 H, Absolute Lymphs (auto) 0.91, Nucleated RBC % 0, Diff Path Review May foll, Anisocytosis 1+, Crenated Cell 1+ 04/24/23 12:50: Sodium 138, Potassium 4.7, Chloride 101, Carbon Dioxide 32.0, Anion Gap 5, BUN 23 H, Creatinine 0.83, Estim Creat Clear Calc 76.90, Est GFR (MDRD) Af Amer 116, Est GFR (MDRD) Non-Af 95, BUN/Creatinine Ratio 27.6 H, Glucose 172 H, Calcium 7.9 L, Phosphorus 2.5, Magnesium 2.0 Micro: Microbiology 04/14/23 22:53 Sputum, Expectorated/Coughed Gram Stain - Final 04/14/23 22:53 Sputum, Expectorated/Coughed Respiratory Culture - Final Raoultella ornithinolytica Enterobacter cloacae complex Serratia marcescens 04/16/23 09:20 Nasal Secretion SARS-CoV-2 Antigen (Rapid) - Final 04/14/23 22:55 Urine Catheter - Catheter Legionella Antigen - Final 04/14/23 22:55 Urine Catheter - Catheter Streptococcus pneumoniae Antigen (M - Final Streptococcus pneumonia Ag 04/14/23 05:15 Nasal Secretion SARS-CoV-2 Antigen (Rapid) - Final Physical Exam Const Constitutional Narrative: More alert today. He is doing his PT when I entered the room. No conversational dyspnea while doing the therapy. Asking me some of the same questions he asked the other day. I tell him every day that he has PNA and it is more likely than not due to aspiration. He then asks me again if bacterial or viral. Memory seems impaired. Overall he looks better and appears less fatigued today. General Appearance: cooperative HEENT Mouth: dry mucous membranes Resp Resp Narrative: Better air exchange today. Crackles in the L base, BS's are diminished in the R base. No conversational dyspnea today Effort and Inspection: Negative for tachypneic Cardio regular rate, regular rhythm and no gallops GI normal to inspection, nondistended, normoactive bowel sounds, soft to palpation and non-tender Extremity Extremity Narrative: The edema in the ankles is getting better. No edema in the flanks today. General Extremity: edema Skin Rashes: no rashes Neuro Neuro Narrative: Generalized weakness, poor memory. Assessment & Plan Assessment/Plan (1) Debility: (2) Weakness: (3) Acute congestive heart failure: (4) Pneumonia: (5) Dysphagia: (6) COPD (chronic obstructive pulmonary disease): (7) Restrictive lung disease due to kyphoscoliosis: (8) Leukocytosis: PLAN: Plan 1. Continue therapy 2. Continue Augmentin for 7-10 days 3. Add Dronabinol 2.5 mg at HS to stimulate appetite. 4. I think he needs to see Heme/onc for persistently elevated WBC - AML? Immature granulocytes have been elevated since 03/30/2023. He has had leukocytosis since at least 02/08/2023 and this is as far back as his lab goes at [facility]. 5. Order a peripheral smear to be reviewed by the pathologist. Charges/Coding Visit Charges Inpatient E&M: 25023 [facility] Subs L2
[2023-04-24 14:43] VITALS: BP 115/55; PULSE 73; RESP 16; TEMP 35.9; O2SAT 97
[2023-04-24 16:10] VITALS: PULSE 71; RESP 18
[2023-04-24 16:44] LABS: Ferritin 280 ng/mL (26-388); Iron 34 ug/dL (65-175); Iron Binding Capacity,Total 249 ug/dL (250-450); PERCENT IRON SATURATION 13.7 % (15.0-55.0)
[2023-04-24] MEDS: Juven (unflavored) Packet 1 PACKET PO (17:36)
[2023-04-24 20:10] VITALS: PULSE 76; RESP 18; O2SAT 98
[2023-04-24] MEDS: Dronabinol 2.5 MG Capsule PO (20:47)
[2023-04-24] MEDS: Atorvastatin Calcium 80 MG Tablet PO (20:48)
[2023-04-24 22:33] VITALS: O2SAT 97
[2023-04-24] MEDS: Acetaminophen 500 MG Tablet 1000 MG PO (23:20)
--- NOTE | 2023-04-24 23:28 | NURSING ---
B/L hearing aides placed on columnist.
[2023-04-25] MEDS: oxyCODONE 5 MG Tablet PO ×3 (02:02→21:45)
[2023-04-25] MEDS: Pantoprazole Sodium 40 MG Tablet PO (04:20)
[2023-04-25] MEDS: Senna/Docusate Sodium 1 Tablet 2 TABLET PO (04:20)
[2023-04-25] MEDS: Bumetanide 2 MG Tablet PO (04:20)
[2023-04-25] MEDS: APIXABAN 2.5 MG TABLET (WCH) PO ×2 (04:20→18:23)
[2023-04-25] MEDS: Amox/Clav 250mg/5ml Suspension 500 MG PO ×3 (04:20→21:44)
[2023-04-25] MEDS: Fluoxetine HCl 40 MG CAPSULE PO (04:20)
[2023-04-25] MEDS: Mexiletine 150 MG Capsule PO ×3 (04:20→21:42)
[2023-04-25] MEDS: Calcium Carbonate 1250 MG/5 ML PO ×2 (04:21→18:25)
[2023-04-25] MEDS: Menthol/Lanolin/Calamine/Znox 113 GM Tube 1 APPLIC TOPICAL ×2 (04:22→18:24)
[2023-04-25] MEDS: Lidocaine 5% Patch 1 PATCH TOPICAL (04:22)
[2023-04-25] MEDS: Nystatin Powder 15gm Bottle 1 APPLIC TOPICAL ×2 (04:22→18:24)
[2023-04-25 04:32] VITALS: BP 127/68; PULSE 72
[2023-04-25 06:00] VITALS: BMI 23.4
[2023-04-25] MEDS: traMADol 50 MG Tablet PO ×2 (06:37→18:34)
[2023-04-25 07:25] VITALS: PULSE 80; RESP 18; O2SAT 99
[2023-04-25] MEDS: Acetylcysteine 800 MG/4 ML VIAL.NEB. INHALATION ×2 (07:25→18:51)
[2023-04-25] MEDS: Albuterol 2.5 MG/3 ML VIAL.NEB. INHALATION ×2 (07:25→18:50)
[2023-04-25] MEDS: Potassium Chloride Oral Tablet 20 MEQ 40 MEQ PO ×3 (08:02→18:22)
[2023-04-25] MEDS: Spironolactone 25 MG Tablet PO (08:03)
[2023-04-25] MEDS: Carvedilol 3.125 MG TABLET PO ×2 (08:04→21:42)
[2023-04-25] MEDS: Juven (unflavored) Packet 1 PACKET PO ×2 (08:04→18:00)
[2023-04-25] MEDS: Amiodarone 200 MG Tablet PO (08:10)
[2023-04-25 08:35] LABS: Vitamin D,25 Hydroxy 50.3 ng/mL
--- NOTE | 2023-04-25 08:42 | MDS.RN ---
Information for the mds was obtained from review of the clinical record, interview of resident, staff, and direct observation of resident's care.
[2023-04-25 08:52] LABS: Vitamin B12 1717 pg/mL (211-911)
[2023-04-25 08:59] LABS: Pathologist Review Reviewed
[2023-04-25 09:05] LABS: Pathologist Review Reviewed
[2023-04-25 10:00] VITALS: PULSE 72; O2SAT 95
[2023-04-25 15:06] VITALS: BP 123/86; PULSE 71; RESP 16; TEMP 36.1; O2SAT 98
--- NOTE | 2023-04-25 15:25 | PCM.PN.BLA ---
Progress Note Remains a febrile. Blood pressure is stable and the blood pressure today is actually 127/68 at 4 AM and 123/86 at 3 PM. Oxygen saturation is 95 to 99% on 2 L nasal cannula. Heart rate is within normal limits. Weight today is 158.5, down from 159.5 yesterday. Fluid balance for 04/24/2023 was -1020. Overnight he had a balance of -340. Iron studies are consistent with iron deficiency. B12, folate and TSH are all within normal limits. Vitamin D is also within normal limits. Bertrand can not tell me if his WBC count has been elevated prior to most recent admission. He tells me that he is feeling better and denies SOB at this time. He clears his throat fairly frequently. Weak cough. He no longer has the gurgling in his throat that he had last Monday and his secretions are easier to clear when he clears his throat since the Mucomyst was started. He is non-compliant with taking fluids on a spoon and he gulps his fluids. I spoke with the ST and he is also no really compliant with doing his swallowing exercises with the therapist. He likes to do what he wants. Both the ST and myself have explained on more than 1 occasion about the dysphagia and the esophageal reflux from GERD + kyphosis. We explained that he will have recurrent pneumonia's if swallowing doesn't improve if he keeps gulping liquids. Lungs - very diminished posteriorly but no crackles and no wheezes. Air exchange is better anteriorly and he is clear to auscultation anterior and lateral. No conversational dyspnea today and he is not tachypneic and breathing is not labored. Heart-regular rate and rhythm, no gallop Abdomen-soft, nontender, nondistended and no pitting in the flanks. He still has pitting edema of the posterior thighs and of the ankles and distal lower extremities. Impressions 1. Aspiration pneumonia-he is on day 4 of Augmentin - would continue for 7-10 days 2. 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 Tachypnea and conversational dyspnea have resolved. 3. Persistent leukocytosis with hypersegmented neutrophils - due to infection? or or could he have leukemia or another myelogenous process going on? I am requesting records from PCP for CBC's for the past year. If the WBC's from PCP are elevated he should be referred to Heme/onc. 4. Abnormal LFT's - new? 5. dysphagia 6. Malnutrition-started dronabinol to stimulate appetite.......he is already on Prozac 40 mg daily and he does not seem depressed. 7. iron deficiency - likely does not absorb oral iron due to chronic Protonix for HH and GERD. Will order iron sucrose and after 700 mg start Ferrous sulfate with Vitamin C. 8. cognitive deficits - can not remeber what I tell him from day to day. 9. Hold p.o. Bumex in the a.m. and give 25 g of albumin IV followed by Bumex 2 mg IV 1 hour after the albumin infusion is completed. His alb is only 1.8 and he is third spacing fluids into the dependent portions of body. Recheck a BMP and also a CBC on . Visit Charges Inpatient E&M: 39628 SNF Subs L2
[2023-04-25] MEDS: 0.9% Saline Lock 10 ML Syringe IV (18:40)
[2023-04-25 18:50] VITALS: PULSE 73; RESP 20
--- NOTE | 2023-04-25 18:59 | NURSING ---
04/25/23@3960- PT EXTREMELY ARGUMENTATIVE AND AGITATED OVER FLUID RESTRICTION IN RESPECT TO ICE INTAKE. PT EDUCATED MULTIPLE TIMES WITHOUT PT UNDERSTANDING.
--- NOTE | 2023-04-25 19:32 | NURSING ---
04/25/23@ 3280- CBC records for the last year were requested by Dr. Frederick. PCP notified and fax number given.
[2023-04-25] MEDS: Atorvastatin Calcium 80 MG Tablet PO (21:42)
[2023-04-25] MEDS: Dronabinol 2.5 MG Capsule PO (21:42)
[2023-04-26] VITALS (7 sets, daily range): BP systolic 104–113; BP diastolic 53; PULSE 65–72; RESP 16–18; TEMP 36.8; O2SAT 95–97; BMI 23.5
[2023-04-26] MEDS: traMADol 50 MG Tablet PO ×3 (00:08→11:19)
[2023-04-26] MEDS: Calcium Carbonate 1250 MG/5 ML PO ×2 (04:43→17:57)
[2023-04-26] MEDS: Mexiletine 150 MG Capsule PO ×3 (04:43→21:10)
[2023-04-26] MEDS: Fluoxetine HCl 40 MG CAPSULE PO (04:43)
[2023-04-26] MEDS: Amox/Clav 250mg/5ml Suspension 500 MG PO ×3 (04:43→21:14)
[2023-04-26] MEDS: APIXABAN 2.5 MG TABLET (WCH) PO ×2 (04:44→17:51)
[2023-04-26] MEDS: Pantoprazole Sodium 40 MG Tablet PO (04:44)
[2023-04-26] MEDS: Senna/Docusate Sodium 1 Tablet 2 TABLET PO (04:44)
[2023-04-26] MEDS: oxyCODONE 5 MG Tablet PO ×2 (04:44→18:08)
[2023-04-26] MEDS: Lidocaine 5% Patch 1 PATCH TOPICAL (04:49)
[2023-04-26] MEDS: Menthol/Lanolin/Calamine/Znox 113 GM Tube 1 APPLIC TOPICAL ×2 (04:53→17:54)
[2023-04-26] MEDS: Nystatin Powder 15gm Bottle 1 APPLIC TOPICAL ×2 (04:53→17:51)
[2023-04-26 06:02] LABS: Anion Gap 4 (5-15); BUN 19 mg/dL (7-18); BUN/Creat Ratio 31.5 RATIO (10-20); Chloride 103 mmol/L (98-107); EST Glomerular Filtration Rate 139 mL/min (>60); Est Glom Filt Rate - Afr Amer 168 mL/min (>60); Estimated Creatinine Clearance 63.83 ml/min; Glucose 90 mg/dL (74-106); Potassium 4.2 mmol/L (3.5-5.1); Sodium Level 139 mmol/L (136-145)
[2023-04-26] MEDS: Albuterol 2.5 MG/3 ML VIAL.NEB. INHALATION ×4 (07:18→20:00)
[2023-04-26] MEDS: Acetylcysteine 800 MG/4 ML VIAL.NEB. INHALATION (07:18)
[2023-04-26] MEDS: Albumin Human 25% (100 mL) 25 GM/100 ML BAG IV (08:17)
[2023-04-26] MEDS: Spironolactone 25 MG Tablet PO (08:17)
[2023-04-26] MEDS: Potassium Chloride Oral Tablet 20 MEQ 40 MEQ PO ×3 (08:17→17:49)
[2023-04-26] MEDS: Carvedilol 3.125 MG TABLET PO ×2 (08:18→21:09)
[2023-04-26] MEDS: Amiodarone 200 MG Tablet PO (08:25)
[2023-04-26] MEDS: Bumetanide 1 MG/4 ML Vial 2 MG IV (11:20)
[2023-04-26] MEDS: Juven (unflavored) Packet 1 PACKET PO ×2 (11:21→17:48)
[2023-04-26] MEDS: 0.9% Saline Lock 10 ML Syringe IV (11:22)
[2023-04-26] MEDS: Atorvastatin Calcium 80 MG Tablet PO (21:10)
[2023-04-26] MEDS: Dronabinol 2.5 MG Capsule PO (21:14)
[2023-04-27] MEDS: oxyCODONE 5 MG Tablet PO ×4 (00:14→21:48)
[2023-04-27] MEDS: Amox/Clav 250mg/5ml Suspension 500 MG PO ×3 (05:59→21:13)
[2023-04-27 06:00] VITALS: BMI 23.4
[2023-04-27] MEDS: Calcium Carbonate 1250 MG/5 ML PO ×2 (06:00→13:43)
[2023-04-27] MEDS: Pantoprazole Sodium 40 MG Tablet PO (06:01)
[2023-04-27] MEDS: Mexiletine 150 MG Capsule PO ×3 (06:01→21:10)
[2023-04-27] MEDS: Senna/Docusate Sodium 1 Tablet 2 TABLET PO (06:01)
[2023-04-27] MEDS: Lidocaine 5% Patch 1 PATCH TOPICAL (06:01)
[2023-04-27] MEDS: APIXABAN 2.5 MG TABLET (WCH) PO ×2 (06:01→17:36)
[2023-04-27] MEDS: Nystatin Powder 15gm Bottle 1 APPLIC TOPICAL ×2 (06:01→17:36)
[2023-04-27] MEDS: Fluoxetine HCl 40 MG CAPSULE PO (06:01)
[2023-04-27] MEDS: Menthol/Lanolin/Calamine/Znox 113 GM Tube 1 APPLIC TOPICAL ×2 (06:02→17:37)
[2023-04-27 06:22] LABS: Absolute Lymphocyte Count 1.17 X10^3/uL (0.83-4.51); Absolute Neutrophil Count 9.4 X10^3/uL (2.0-7.7); Basophil# 0.07 X10^3/uL; Basophil% 0.5 % (0-1); Eosinophil# 0.14 X10^3/uL; Eosinophils% 1.1 % (0-5); Hematocrit 26.7 % (40-54); Hemoglobin 8.2 g/dL (13.0-16.5); Lymphocyte # 1.17 X10^3/ul (0.83-4.51); Lymphocyte % 9.2 % (19-41); Mean Corp Hgb Conc 30.7 g/dL (32-36); Mean Corpuscular Hgb 30.3 pg (27.0-32.0); Mean Corpuscular Volume 98.5 fL (80-94); Mean Platelet Vol. 10.5 fl (6.2-12.0); Monocyte% 13.4 % (0-10); NRBC Flagged by Analyzer 0 % (0-5); Neutrophil # 9.38 X10^3/uL (2.7-7.7); Neutrophil % 73.7 % (47-70); POSITIVE DIFFERENTIAL YES; POSITIVE MORPHOLOGY YES; Platelet Count 246 K/mm3 (150-450); RBC Distribution Width CV 19.4 % (11.6-14.6); RBC Distribution Width SD 69.4 fl (35.1-43.9); Red Blood Count 2.71 M/mm3 (4.6-6.2); White Blood Count 12.7 K/mm3 (4.4-11.0)
[2023-04-27 06:24] LABS: Differential Indicated SCAN CRITERIA MET
[2023-04-27 06:51] LABS: Anisocytosis 2+; Macrocytosis 1+
[2023-04-27 07:16] VITALS: PULSE 70; RESP 18; O2SAT 92
[2023-04-27] MEDS: Albuterol 2.5 MG/3 ML VIAL.NEB. INHALATION ×3 (07:16→20:00)
[2023-04-27] MEDS: Acetylcysteine 800 MG/4 ML VIAL.NEB. INHALATION ×2 (07:16→20:00)
[2023-04-27 07:36] LABS: Anion Gap 3 (5-15); BUN 17 mg/dL (7-18); BUN/Creat Ratio 29.4 RATIO (10-20); Calcium,Total 8.3 mg/dL (8.5-10.1); Chloride 104 mmol/L (98-107); Creatinine, Serum 0.58 mg/dL (0.70-1.30); EST Glomerular Filtration Rate 145 mL/min (>60); Est Glom Filt Rate - Afr Amer 176 mL/min (>60); Estimated Creatinine Clearance 63.83 ml/min; Glucose 82 mg/dL (74-106); Sodium Level 139 mmol/L (136-145)
[2023-04-27] MEDS: Spironolactone 25 MG Tablet PO (08:36)
[2023-04-27] MEDS: Juven (unflavored) Packet 1 PACKET PO ×2 (08:37→13:42)
[2023-04-27] MEDS: Potassium Chloride Oral Tablet 20 MEQ 40 MEQ PO ×3 (08:37→13:41)
[2023-04-27] MEDS: Amiodarone 200 MG Tablet PO (08:37)
--- NOTE | 2023-04-27 10:37 | PCM.PN.ID ---
Physical Exam Narrative Feeling better, breathing improved, no fever, no n/v/d. Const alert and no apparent distress General Appearance: cooperative Resp Resp Narrative: mild rhonchi bilat Auscultation: rhonchi Cardio regular rate and regular rhythm GI soft to palpation, non-tender and non-distended Skin no rashes or lesions noted ID ID: Route of nutrition/ use of supplements: [] Nutritional Intake: [] IV Site: [] Mcintosh Catheter: [] Assessment & Plan Assessment/Plan (1) Leukocytosis: PLAN: Treating for aspiration pneumonia with augmentin, sx improved, wbc much better. Cont course as planned. Will follow as needed, thank you
[2023-04-27 11:40] VITALS: PULSE 71; RESP 18
[2023-04-27] MEDS: traMADol 50 MG Tablet PO ×2 (12:14→17:42)
[2023-04-27 13:53] VITALS: BP 112/45; PULSE 71; RESP 14; TEMP 36.4; O2SAT 95
[2023-04-27] MEDS: Polyethylene Glycol 3350 17 GM PACKET PO (17:35)
[2023-04-27 20:00] VITALS: PULSE 70; RESP 16
[2023-04-27 21:07] VITALS: BP 116/57; PULSE 77
[2023-04-27] MEDS: Atorvastatin Calcium 80 MG Tablet PO (21:10)
[2023-04-27] MEDS: Carvedilol 3.125 MG TABLET PO (21:10)
[2023-04-27] MEDS: Dronabinol 2.5 MG Capsule PO (21:13)
[2023-04-27 21:19] VITALS: PULSE 75; RESP 20; O2SAT 96
[2023-04-28] MEDS: Fluoxetine HCl 40 MG CAPSULE PO (05:12)
[2023-04-28] MEDS: Bumetanide 2 MG Tablet PO (05:12)
[2023-04-28] MEDS: Calcium Carbonate 1250 MG/5 ML PO ×2 (05:12→16:52)
[2023-04-28] MEDS: Amox/Clav 250mg/5ml Suspension 500 MG PO ×3 (05:12→21:43)
[2023-04-28] MEDS: Lidocaine 5% Patch 1 PATCH TOPICAL (05:12)
[2023-04-28] MEDS: Senna/Docusate Sodium 1 Tablet 2 TABLET PO ×2 (05:13→16:53)
[2023-04-28] MEDS: Mexiletine 150 MG Capsule PO ×3 (05:13→20:56)
[2023-04-28] MEDS: Menthol/Lanolin/Calamine/Znox 113 GM Tube 1 APPLIC TOPICAL ×2 (05:14→16:55)
[2023-04-28] MEDS: Nystatin Powder 15gm Bottle 1 APPLIC TOPICAL ×2 (05:14→16:55)
[2023-04-28] MEDS: Pantoprazole Sodium 40 MG Tablet PO (05:17)
[2023-04-28] MEDS: oxyCODONE 5 MG Tablet PO ×2 (05:18→16:52)
[2023-04-28 05:36] LABS: Hematocrit 27.8 % (40-54); Hemoglobin 8.5 g/dL (13.0-16.5)
[2023-04-28 06:00] VITALS: BMI 23.6
[2023-04-28] MEDS: APIXABAN 2.5 MG TABLET (WCH) PO ×2 (06:38→17:03)
[2023-04-28] MEDS: Carvedilol 3.125 MG TABLET PO ×2 (08:18→20:56)
[2023-04-28] MEDS: Potassium Chloride Oral Tablet 20 MEQ 40 MEQ PO ×3 (08:18→16:52)
[2023-04-28] MEDS: Spironolactone 25 MG Tablet PO (08:18)
[2023-04-28] MEDS: Juven (unflavored) Packet 1 PACKET PO ×2 (08:18→16:53)
[2023-04-28] MEDS: Acetaminophen 500 MG Tablet 1000 MG PO ×2 (08:25→20:52)
[2023-04-28] MEDS: Amiodarone 200 MG Tablet PO (08:26)
[2023-04-28 08:45] LABS: Pathologist Review Reviewed
[2023-04-28 09:32] VITALS: O2SAT 97
[2023-04-28 13:33] VITALS: BP 105/49; PULSE 74; RESP 16; TEMP 36.5; O2SAT 96
[2023-04-28] MEDS: traMADol 50 MG Tablet PO ×2 (13:33→17:03)
[2023-04-28] MEDS: Polyethylene Glycol 3350 17 GM PACKET PO (16:52)
[2023-04-28] MEDS: Dronabinol 2.5 MG Capsule PO (20:52)
[2023-04-28] MEDS: Atorvastatin Calcium 80 MG Tablet PO (20:56)
[2023-04-28 22:00] VITALS: PULSE 77; RESP 16; O2SAT 99
[2023-04-28] MEDS: Albuterol 2.5 MG/3 ML VIAL.NEB. INHALATION (23:19)
[2023-04-28 23:20] VITALS: PULSE 70; RESP 16
[2023-04-29] MEDS: traMADol 50 MG Tablet PO ×4 (00:08→18:04)
[2023-04-29 06:00] VITALS: BMI 22.9
[2023-04-29] MEDS: Calcium Carbonate 1250 MG/5 ML PO ×2 (07:05→18:02)
[2023-04-29] MEDS: Lidocaine 5% Patch 1 PATCH TOPICAL (07:05)
[2023-04-29] MEDS: Amox/Clav 250mg/5ml Suspension 500 MG PO ×3 (07:06→21:21)
[2023-04-29] MEDS: Fluoxetine HCl 40 MG CAPSULE PO (07:10)
[2023-04-29] MEDS: Mexiletine 150 MG Capsule PO ×3 (07:10→21:21)
[2023-04-29] MEDS: Pantoprazole Sodium 40 MG Tablet PO (07:10)
[2023-04-29] MEDS: Senna/Docusate Sodium 1 Tablet 2 TABLET PO ×2 (07:10→18:03)
[2023-04-29] MEDS: APIXABAN 2.5 MG TABLET (WCH) PO ×2 (07:10→18:03)
[2023-04-29] MEDS: Bumetanide 2 MG Tablet PO (07:10)
[2023-04-29] MEDS: Menthol/Lanolin/Calamine/Znox 113 GM Tube 1 APPLIC TOPICAL ×2 (07:11→18:10)
[2023-04-29] MEDS: Nystatin Powder 15gm Bottle 1 APPLIC TOPICAL ×2 (07:11→18:10)
[2023-04-29] MEDS: Potassium Chloride Oral Tablet 20 MEQ 40 MEQ PO ×3 (08:54→18:03)
[2023-04-29] MEDS: Amiodarone 200 MG Tablet PO (08:54)
[2023-04-29] MEDS: Spironolactone 25 MG Tablet PO (08:54)
[2023-04-29] MEDS: Carvedilol 3.125 MG TABLET PO ×2 (08:54→20:25)
[2023-04-29] MEDS: Juven (unflavored) Packet 1 PACKET PO ×2 (08:55→18:04)
[2023-04-29] MEDS: Ergocalciferol 1.25 MG (50, 000 UNIT) Capsule PO (08:56)
[2023-04-29 15:49] VITALS: BP 116/60; PULSE 60; RESP 18; TEMP 36.2; O2SAT 2
[2023-04-29] MEDS: Acetaminophen 500 MG Tablet 1000 MG PO (18:03)
[2023-04-29] MEDS: oxyCODONE 5 MG Tablet PO (20:24)
[2023-04-29 20:31] VITALS: BP 119/61; PULSE 67; RESP 18; O2SAT 95
[2023-04-29] MEDS: Atorvastatin Calcium 80 MG Tablet PO (21:21)
[2023-04-29] MEDS: Dronabinol 2.5 MG Capsule PO (21:52)
[2023-04-30] MEDS: traMADol 50 MG Tablet PO ×4 (00:07→18:14)
[2023-04-30] MEDS: oxyCODONE 5 MG Tablet PO ×2 (02:33→15:57)
[2023-04-30] MEDS: 0.9% Saline Lock 10 ML Syringe IV ×2 (05:32→22:26)
[2023-04-30] MEDS: Lidocaine 5% Patch 1 PATCH TOPICAL (05:33)
[2023-04-30] MEDS: Amox/Clav 250mg/5ml Suspension 500 MG PO ×3 (05:34→22:23)
[2023-04-30] MEDS: Mexiletine 150 MG Capsule PO ×3 (05:38→22:26)
[2023-04-30] MEDS: APIXABAN 2.5 MG TABLET (WCH) PO ×2 (05:38→18:06)
[2023-04-30] MEDS: Fluoxetine HCl 40 MG CAPSULE PO (05:38)
[2023-04-30] MEDS: Pantoprazole Sodium 40 MG Tablet PO (05:38)
[2023-04-30] MEDS: Bumetanide 2 MG Tablet 1 MG PO (05:39)
[2023-04-30] MEDS: Nystatin Powder 15gm Bottle 1 APPLIC TOPICAL ×2 (05:41→18:07)
[2023-04-30] MEDS: Menthol/Lanolin/Calamine/Znox 113 GM Tube 1 APPLIC TOPICAL ×2 (05:41→18:05)
[2023-04-30] MEDS: Calcium Carbonate 1250 MG/5 ML PO ×2 (05:41→18:03)
[2023-04-30 06:00] VITALS: BMI 22.8
[2023-04-30 06:53] LABS: Hematocrit 30.2 % (40-54); Hemoglobin 9.4 g/dL (13.0-16.5)
[2023-04-30] MEDS: Spironolactone 25 MG Tablet PO (12:30)
[2023-04-30] MEDS: Amiodarone 200 MG Tablet PO (12:30)
[2023-04-30] MEDS: Potassium Chloride Oral Tablet 20 MEQ 40 MEQ PO ×3 (12:31→22:24)
[2023-04-30] MEDS: Juven (unflavored) Packet 1 PACKET PO ×2 (12:31→18:05)
[2023-04-30] MEDS: Carvedilol 3.125 MG TABLET PO ×2 (12:32→22:27)
[2023-04-30 14:32] VITALS: O2SAT 95
[2023-04-30 16:00] VITALS: BP 127/68; PULSE 76; RESP 12; TEMP 36.3; O2SAT 95
[2023-04-30 22:00] VITALS: PULSE 75; RESP 14
[2023-04-30] MEDS: Dronabinol 2.5 MG Capsule PO (22:22)
[2023-04-30] MEDS: Atorvastatin Calcium 80 MG Tablet PO (22:27)
[2023-05-01] MEDS: traMADol 50 MG Tablet PO ×4 (00:11→18:27)
[2023-05-01] MEDS: 0.9% Saline Lock 10 ML Syringe IV ×2 (05:40→18:38)
[2023-05-01] MEDS: Menthol/Lanolin/Calamine/Znox 113 GM Tube 1 APPLIC TOPICAL ×2 (05:53→18:18)
[2023-05-01] MEDS: Nystatin Powder 15gm Bottle 1 APPLIC TOPICAL ×2 (05:53→18:18)
[2023-05-01] MEDS: APIXABAN 2.5 MG TABLET (WCH) PO ×2 (05:54→18:22)
[2023-05-01] MEDS: Pantoprazole Sodium 40 MG Tablet PO (05:54)
[2023-05-01] MEDS: Lidocaine 5% Patch 1 PATCH TOPICAL (05:55)
[2023-05-01] MEDS: Calcium Carbonate 1250 MG/5 ML PO ×2 (05:55→18:22)
[2023-05-01] MEDS: Fluoxetine HCl 40 MG CAPSULE PO (05:56)
[2023-05-01] MEDS: Mexiletine 150 MG Capsule PO ×3 (05:56→21:24)
[2023-05-01] MEDS: Senna/Docusate Sodium 1 Tablet 2 TABLET PO ×2 (05:57→18:22)
[2023-05-01 06:00] VITALS: BMI 23.1
[2023-05-01] MEDS: Amox/Clav 250mg/5ml Suspension 500 MG PO ×3 (06:03→21:28)
[2023-05-01 06:09] VITALS: BP 111/61; PULSE 75; RESP 16
[2023-05-01 06:30] LABS: Absolute Lymphocyte Count 1.23 X10^3/uL (0.83-4.51); Basophil# 0.08 X10^3/uL; Basophil% 0.9 % (0-1); Eosinophil# 0.11 X10^3/uL; Eosinophils% 1.2 % (0-5); Hematocrit 29.6 % (40-54); Lymphocyte # 1.23 X10^3/ul (0.83-4.51); Lymphocyte % 13.9 % (19-41); Mean Corp Hgb Conc 30.4 g/dL (32-36); Mean Corpuscular Hgb 30.8 pg (27.0-32.0); Mean Corpuscular Volume 101.4 fL (80-94); Mean Platelet Vol. 10.8 fl (6.2-12.0); Monocyte# 1.22 X10^3/uL; Monocyte% 13.8 % (0-10); NRBC Flagged by Analyzer 0 % (0-5); Neutrophil # 6.01 X10^3/uL (2.7-7.7); Neutrophil % 68.3 % (47-70); POSITIVE MORPHOLOGY YES; Platelet Count 254 K/mm3 (150-450); RBC Distribution Width CV 19.9 % (11.6-14.6); RBC Distribution Width SD 73.1 fl (35.1-43.9); Red Blood Count 2.92 M/mm3 (4.6-6.2); White Blood Count 8.8 K/mm3 (4.4-11.0)
[2023-05-01 06:36] LABS: Differential Indicated SCAN CRITERIA MET
[2023-05-01 07:02] LABS: Anion Gap -2 (5-15); BUN 16 mg/dL (7-18); BUN/Creat Ratio 29.7 RATIO (10-20); Calcium,Total 8.1 mg/dL (8.5-10.1); Chloride 108 mmol/L (98-107); Creatinine, Serum 0.54 mg/dL (0.70-1.30); EST Glomerular Filtration Rate 158 mL/min (>60); Est Glom Filt Rate - Afr Amer 191 mL/min (>60); Estimated Creatinine Clearance 63.19 ml/min; Glucose 85 mg/dL (74-106); Potassium 4.2 mmol/L (3.5-5.1); Sodium Level 135 mmol/L (136-145)
[2023-05-01 07:07] LABS: Anisocytosis 1+; Burr Cells 1+
[2023-05-01 10:00] VITALS: PULSE 71; RESP 16
[2023-05-01] MEDS: Potassium Chloride Oral Tablet 20 MEQ 40 MEQ PO ×3 (10:02→18:21)
[2023-05-01] MEDS: Spironolactone 25 MG Tablet PO (10:04)
[2023-05-01] MEDS: Carvedilol 3.125 MG TABLET PO ×2 (10:11→21:24)
[2023-05-01] MEDS: Juven (unflavored) Packet 1 PACKET PO ×2 (10:12→18:21)
[2023-05-01] MEDS: Amiodarone 200 MG Tablet PO (10:22)
[2023-05-01 10:59] VITALS: BP 109/51; PULSE 71; RESP 16; TEMP 36.6; O2SAT 100
[2023-05-01 21:23] VITALS: BP 132/59; PULSE 68
[2023-05-01] MEDS: Atorvastatin Calcium 80 MG Tablet PO (21:24)
[2023-05-01] MEDS: Dronabinol 2.5 MG Capsule PO (21:26)
[2023-05-01] MEDS: oxyCODONE 5 MG Tablet PO (23:28)
[2023-05-02] MEDS: Acetaminophen 500 MG Tablet 1000 MG PO ×2 (01:17→18:31)
[2023-05-02 06:00] VITALS: BMI 23.3
[2023-05-02] MEDS: Calcium Carbonate 1250 MG/5 ML PO ×2 (06:42→18:31)
[2023-05-02] MEDS: Fluoxetine HCl 40 MG CAPSULE PO (06:43)
[2023-05-02] MEDS: Nystatin Powder 15gm Bottle 1 APPLIC TOPICAL ×2 (06:43→18:35)
[2023-05-02] MEDS: Senna/Docusate Sodium 1 Tablet 2 TABLET PO ×2 (06:43→18:25)
[2023-05-02] MEDS: Amox/Clav 250mg/5ml Suspension 500 MG PO ×3 (06:43→21:22)
[2023-05-02] MEDS: Menthol/Lanolin/Calamine/Znox 113 GM Tube 1 APPLIC TOPICAL ×2 (06:43→18:35)
[2023-05-02] MEDS: Lidocaine 5% Patch 1 PATCH TOPICAL (06:43)
[2023-05-02] MEDS: Mexiletine 150 MG Capsule PO ×3 (06:43→21:24)
[2023-05-02] MEDS: Pantoprazole Sodium 40 MG Tablet PO (06:43)
[2023-05-02] MEDS: APIXABAN 2.5 MG TABLET (WCH) PO ×2 (06:43→18:25)
[2023-05-02] MEDS: traMADol 50 MG Tablet PO ×3 (06:56→23:46)
[2023-05-02] MEDS: Spironolactone 25 MG Tablet PO (09:30)
[2023-05-02] MEDS: Potassium Chloride Oral Tablet 20 MEQ 40 MEQ PO ×3 (09:30→18:24)
[2023-05-02] MEDS: Juven (unflavored) Packet 1 PACKET PO ×2 (09:31→18:24)
[2023-05-02] MEDS: Carvedilol 3.125 MG TABLET PO ×2 (09:31→21:23)
--- NOTE | 2023-05-02 09:32 | SP.MBSS_ITS ---
Modified Barium Swallow - Patient Information Study Date: 05/02/23 Study Time: 09:00 Direct Billable Minutes: 125 Total Minutes procedure & reportin Diagnosis: PNEUMONIA (J18.9), CHF (I50.9), COPD (J44.9) Referring Physician: Romario Winn Chi Reason for Referral: Objectively assess swallow function, risk for aspiration, and determine recommendations for least restrictive diet textures and compensatory strategies to improve safety of swallow Medical History: Patient is a 73yo M who presented to [facility] ED on 04/08/23 w/ fall resulting in R ri b and R hip injury. R hip replaced 9 days ago d/t fall. Increased swelling, difficulty walking. Trauma scan shows 3 rib fracture. R chest pain and R lateral thigh hematoma. On 04/12/23 - patient was admitted to [facility] TCU w/ debility, here for rehabilitation, strengthening, prior to d/c home w/ . Speech therapy initially consulted d/t swallowing concerns noted by nursing and cognitive impairment. Patient participated in MBSS on 04/17/23 w/ dx of moderate oropharyngeal dysphagia w/ laryngeal penetration w/ several consistencies that was not fully ejected and patient is at high risk of post prandial aspiration of residue remaining in laryngeal vestibule. Aspiration w/ thin via cup was observed during study d/t suboptimal posture, unintentional chin tuck. Patient was then diagnosed w/ pneumonia, hospitalist suspected strep PNA and aspiration PNA. AUDIT REVIEWER downgraded patient to thin via tsp. Patient was treated w/ medications (Augmentin). AUDIT REVIEWER recommended repeat MBSS to assess swallow function prior to d/c home since patient has medically improved to determine LRD to maintain adequate nutrition and hydration w/o overt s/s of penetration/aspiration. Current Diet Ordered: Minced and Moist / Thin Dentition: Edentulous Mental Status: WNL Respiratory Status: Oxygenating on 2L/M nasal cannula - Penetration-Aspiration Scale Penetration-Aspiration Scale: OBJECTIVE ASSESSMENT OF SWALLOW FUNCTION (QUANTITATIVE ? PER TRIAL): PENETRATION / ASPIRATION SCALE (LUQUE): 1 = does not enter airway 2 = enters airway/above vocal folds/ejected 3 = enters airway/above vocal folds/not ejected 4 = enters airway/contacts vocal folds/ejected 5 = enters airway/contacts vocal folds/not ejected 6 = enters airway/below vocal folds/ejected 7 = enters airway/below vocal folds/not ejected despite effort 8 = enters airway/below vocal folds/no effort VIDEOFLOROSCOPIC SCALE SCORE (LUQUE): Grade I = aspiration of material that has penetrated into the laryngeal vestibule, intact cough reflex Grade II = aspiration < 10 % of the bolus, intact cough reflex Grade III = aspiration of < 10 % of the bolus, reduced cough reflex or aspiration of > 10 % of the bolus, intact cough reflex Grade IV = aspiration of > 10 % of the bolus, reduced cough reflex - Penetration-Aspiration Scale Score Thin Liquid via teaspoon Result: 1= does not enter airway Thin Liquid via teaspoon Trial 2 Result: 5= enters airways/contacts vocal folds/not ejected Thin Liquid via small single sip from cup Result: 2= enter airway/above vocal folds/ejected Thin Liquid via small single sip from cup Trial 2 Result: 2= enter airway/above vocal folds/ejected [place] Thick Liquid via small single sip from cup Result: 1= does not enter airway Honey Thick Liquid via small single sip from cup Result: 1= does not enter airway Pudding Result: 1= does not enter airway Cookie Result: 1= does not enter airway Thin Liquid via large single sip from cup Result: 1= does not enter airway Thin Liquid via large single sip from cup Trial 2 Result: 2= enter airway/above vocal folds/ejected - Oral Phase Labial Seal: No Labial Escape Tongue Control During Bolus Hold: Posterior escape of greater than half of bolus Bolus Preparation/Mastication: Slow prolonged chewing/mashing with complete recollection Bolus Transport/Lingual Motion: Repetitive/disorganized tongue motion Oral Residue: Trace residue lining oral structures - Pharyngeal Phase Initiation of Pharyngeal Swallow: Bolus head in valleculae Soft Palate Elevation: No bolus between soft palate and pharyngeal wall Laryngeal Elevation: Partial superior movement thyroid cart/partial apprx aryt- epig petiole Anterior Hyoid Excursion: Partial anterior movement Epiglottic Movement: Partial inversion Laryngeal Vestibule Closure at Height of Swallow: Incomplete; narrow column of air/contrast in laryngeal vestibule Pharyngeal Stripping Wave: Present - diminished Pharyngoesophageal Segment Opening: Parital distension and partial duration; parital obstruction of flow Tongue Base Retraction: Narrow column of contrast between tongue base & post. pharyngeal wall Pharyngeal Residue: Collection of residue within or on pharyngeal structures - increased pharyngeal residues w/ thicker viscosities - Esophageal Phase Esophageal Clearance: Esophageal retention w/ retrograde flow below pharyngoesophageal seg. - Treatment Strategies Effects of treatment strategies attemped:: double swallow = somewhat effective to clear pharyngeal residues cough and re-swallow = effective - Diagnosis/Impression Diagnosis: moderate oropharyngeal dysphagia (R13.12) Impression: Oral phase primarily marked by... - slowed mastication w/ <1/4 of Chanelle Doone cookie secondary to poor dentition - repetitive and disorganized tongue control w/ lingual pumping observed - swallow onset delay resulting in premature bolus loss to the vallecula - trace oral residue post deglutition Pharyngeal phase primarily marked by... - decreased airway closure during deglutition attributed to reduced laryngeal elevation and minimal anterior hyoid excursion - laryngeal penetration w/ thin via tsp in 1/2 trials that reached the vocal cords that was not fully ejected - laryngeal penetration w/ thin via cup in 2/4 trials that WAS fully ejected PAS=2 - post prandial penetration that reached vocal cords and elicited in reflective cough - increased pharyngeal residues w/ thicker viscosities re: HTL, pudding and 1/4 cookie. However, pharyngeal residue is greatly decreased compared to 04/17/23 study - cookie remaining in vallecula expectorated into oral cavity when attempting to clear residue w/ independent use of re-swallow to effectively clear * Significant improvement in swallow function compared to 04/17/23 MBSS as patient was able to demonstrate improved presence and strength of cough reflex and improved posture for safe swallowing. Of note, the patient is also requiring less supplemental oxygen and has medically improved all around. - Recommendations Diet: Regular Textures - Soft and Bite Size, Thin Liquids Compensatory Strategies: Small Bites, Small Sips, No Straws, Slow Rate, Multiple Swallows, Alternate bites/solids and sips/liquids, Sitting upright, Remain sitting upright for 30 minutes after PO intake Supervision: Distant Supervision Recommend Repeat Modified Barium Swallow: TBD Need for Skilled Speech Therapy Services: Yes Comment: Will recommend the patient for dysphagia therapy to address deficits in oropharyngeal swallow function. Would consider the patient for oropharyngeal strengthening. The patient would benefit from thorough education regarding diet recommendations and recommended compensatory strategies to improve swallow function and decrease risk of aspiration w/ PO intake. Education Completed: 1. Described result of evaluation., 2. Pt understands evaluation & agrees with goals and treatment plan. - Status Active ST Patient: Active - Contact Information [facility] Speech [facility]:: Anette Perez M.A., CCC-AUDIT REVIEWER Speech-Language Pathologist [facility] [address] [place] [address] [email or web address] [phone] 04/17/23 10:00
[2023-05-02] MEDS: Amiodarone 200 MG Tablet PO (09:37)
[2023-05-02 15:26] VITALS: BP 125/63; PULSE 60; RESP 19; TEMP 36.9; O2SAT 99
[2023-05-02 16:00] VITALS: BMI 23.3
[2023-05-02 21:15] VITALS: BP 128/68; PULSE 75; RESP 16
[2023-05-02] MEDS: Dronabinol 2.5 MG Capsule PO (21:22)
[2023-05-02] MEDS: Atorvastatin Calcium 80 MG Tablet PO (21:23)
[2023-05-02 21:40] VITALS: PULSE 70; RESP 14; O2SAT 98
[2023-05-03] MEDS: Pantoprazole Sodium 40 MG Tablet PO (05:22)
[2023-05-03] MEDS: Fluoxetine HCl 40 MG CAPSULE PO (05:22)
[2023-05-03] MEDS: APIXABAN 2.5 MG TABLET (WCH) PO ×2 (05:22→18:11)
[2023-05-03] MEDS: traMADol 50 MG Tablet PO ×4 (05:22→23:57)
[2023-05-03] MEDS: Mexiletine 150 MG Capsule PO ×3 (05:22→21:16)
[2023-05-03] MEDS: Amox/Clav 250mg/5ml Suspension 500 MG PO ×3 (05:23→21:15)
[2023-05-03] MEDS: Calcium Carbonate 1250 MG/5 ML PO ×2 (05:23→18:11)
[2023-05-03] MEDS: Lidocaine 5% Patch 1 PATCH TOPICAL (05:25)
[2023-05-03] MEDS: Bumetanide 0.5 MG Tablet 1 MG PO (05:38)
[2023-05-03 06:00] VITALS: BMI 23.3
[2023-05-03] MEDS: Potassium Chloride Oral Tablet 20 MEQ 40 MEQ PO ×3 (08:45→18:10)
[2023-05-03] MEDS: Carvedilol 3.125 MG TABLET PO ×2 (09:00→21:15)
[2023-05-03] MEDS: Juven (unflavored) Packet 1 PACKET PO ×2 (09:00→18:00)
[2023-05-03] MEDS: Spironolactone 25 MG Tablet PO (09:00)
[2023-05-03] MEDS: Amiodarone 200 MG Tablet PO (09:00)
[2023-05-03 10:00] VITALS: PULSE 73; RESP 16; O2SAT 98
[2023-05-03] MEDS: Nystatin Powder 15gm Bottle 1 APPLIC TOPICAL ×2 (11:00→21:21)
[2023-05-03] MEDS: Menthol/Lanolin/Calamine/Znox 113 GM Tube 1 APPLIC TOPICAL ×2 (11:00→21:21)
--- NOTE | 2023-05-03 11:19 | CASEMGMT ---
Social Work SW spoke with dtr to discuss DC plans. SW educated to current level of care and IDT recommendation for 19/06 hands on care. Unable to determine when/if pt will return to [facility]. Pt wishes to return home and dtr is in agreement. SW offered therapy training for or family. Dtr scheduled for therapy training on 05/04 at 1100. SW offered skilled HHC and DME needs. Pt used HHC prior but unable to recall name of agency. SW to provide list to pt to choose. Dtr requesting FWW at DC. SW spoke with pt to update on DC date 05/06. Provided printed list of skilled HHC agencies with quality and resource data via [employer]. [facility] SW phoned referral to [facility] PT/OT/ST/SN/VILLEDA/JIMMY. SW to follow for resources and if home going is not successful. Sent referral to [facility] for FWW via [employer]. Dtr to transport. Plan: DC home with 05/06, [facility] PT/OT/ST/SN/VILLEDA/JIMMY, FWW Geraldine Barajas, THERAPIST PHYS [facility]
[2023-05-03] MEDS: 0.9% Saline Lock 10 ML Syringe IV (11:47)
[2023-05-03] MEDS: oxyCODONE 5 MG Tablet PO ×2 (13:47→21:16)
[2023-05-03] MEDS: Acetaminophen 500 MG Tablet 1000 MG PO ×2 (13:47→21:16)
[2023-05-03 16:00] VITALS: BP 114/53; PULSE 65; RESP 12; TEMP 36.4; O2SAT 95
--- NOTE | 2023-05-03 16:21 | CHAPLAIN ---
Type of Pastoral Visit _x__ Initial Visit ___ Follow-up Visit ___ On-call Visit ___ General Patient Visit ___ Spiritual Assessment ___ Family Conference ___ Bereavement ___ Rapid Response ___ Code Blue ___ Other (describe below) Pastoral Care Referral From _x__ Patient ___ Family ___ Nurse ___ Physician ___ Photograph Mounter ___ Brake Lining Finisher Asbestos ___ Other (describe below) Sacrament/Intervention _x__ Active listening ___ Anointing ___ Adventist ___ Bereavement ___ Communion ___ Anette exploration ___ _x__ Life review _x__ Prayer ___ Reconciliation ___ Sacrament of Sick ___ Supportive presence ___ Wedding ___ Other (describe below) Pastoral Comments patient is talkative and gives details about all the good things going for him in life and family; pt has not be active in sikhism since his but is open to prayer support and visual manager visits;
--- NOTE | 2023-05-03 20:21 | DS.PCM_ITS ---
Providers Date of Admission: 04/12/23 Primary Care Physician: VIV Mcdaniel Consultations 04/14/23 07:54 Consult: Infectious Disease Routine Consulting Provider: Gilbert Cates Reason for Consult: Leukocytosis, infection source unclear. EMERGENT Consult: No MD Notified: Yes Date Notified: 04/14/23 Time Notified: 07:55 Method of Notification: Text Reason For Visit: WEAKNESS/ LEUKOCYTOSIS Diagnosis Discharge Diagnosis (1) Leukocytosis: Status: Acute Code(s): D72.829 - Elevated white blood cell count, unspecified Plan 73 year old male with recent right hip replacement after right hip fracture, hospitalized for fall, multiple rib fractures, right thigh hematoma, complicated by acute kidney injury, admitted to TCU with debility, here for rehabilitation, strengthening, prior to discharge home with . * Debility - PT/OT. * Cognition - ST. * Pain - Tylenol 1000mg tid thru 04/17/2023, 1000mg tid prn, Oxycodone 5mg q6h, Lidoderm patch 1 patch topical daily, Tramadol 50mg q6h prn pain (1-10). * Bowel - Miralax 17gm bid, senna/colace 2 tablets bid, Dulcolax 10mg pr x 1 prn, Lactulose 20gm po x 1 prn. * Adult immunization - Administer pneumonia vaccine, covid19 vaccine, flu vaccine as appropriate. * DVT prophylaxis - on Eliquis. * Atrial fibrillation - Coreg 3.125mg bid, Amiodarone 200mg daily, Mexiletine 150mg tid, Eliquis 2.5mg bid. * Hyperlipidemia - Atorvastatin 80mg qhs. * Nutrition - Ensure Plus 120ml 4x/day. * Depression - Fluoxetine 40mg daily, stable chronic truck terminal manager use, GDR not recommended. * Chronic diastolic congestive heart failure Coreg 3.125mg bid, Furosemide 20mg daily. * Mucinex 1200mg bid. * Allergic rhinitis - Loratadine 10mg daily. * Skin irritation - Calmoseptine topical bid. * Tinea Corporis - Nystatin powder topical bid. * GERD - Pantoprazole 40mg daily. Medications at Discharge Home Medications amiodarone 200 mg tablet 200 mg PO DAILY heart 02/08/23 atorvastatin 80 mg tablet 80 mg PO DAILY cholesterol 03/29/23 fluoxetine 40 mg capsule (Prozac) 40 mg PO DAILY anxiety 03/29/23 mexiletine 200 mg capsule 200 mg PO TID heart 03/29/23 apixaban 2.5 mg tablet 2.5 mg PO BID blood thinner 04/12/23 fexofenadine 180 mg tablet (Reva Allergy) 180 mg PO DAILY PRN allergy 30 days #0 tabs 04/12/23 acetaminophen 500 mg tablet 1,000 mg PO TID PRN LOVE 1-10 #0 tabs 05/03/23 bumetanide 1 mg tablet 1 mg PO DAILY #30 tabs 05/03/23 carvedilol 3.125 mg tablet 3.125 mg PO BID@0800,1999 30 days #60 tabs 05/03/23 pantoprazole 40 mg tablet,delayed release 40 mg PO DAILY 30 days #30 tabs 05/03/23 potassium chloride 20 mEq tablet,extended release(part/cryst) (Klor-Con M) 40 meq PO TIDCM 30 days #180 tabs 05/03/23 spironolactone 25 mg tablet 25 mg PO DAILYCM 30 days #30 tabs 05/03/23 Hospital Course Operations None Procedures None Summary of Care Provided Minutes Spent on Discharge: 35 Hospital Course: 73 year old male with recent right hip replacement after right hip fracture, hospitalized for fall, multiple rib fractures, right thigh hematoma, complicated by acute kidney injury, admitted to TCU with debility, here for rehabilitation, strengthening, prior to discharge home with . Resident treated aggressively for aspiration pneumonia, acute on chronic diastolic congestive heart failure. Discharge home with 05/06/2023, [facility] PT/OT/ST/SN/VILLEDA/SW, Front wheeled walker. Physical Exam Const alert General Appearance: cooperative HEENT normocephalic Eyes PERRL and EOMs intact bilaterally Neck supple, no JVD and no carotid bruits Resp normal respiratory effort, normal air movement and clear to auscultation bilaterally Cardio regular rate and regular rhythm GI normal to inspection, nondistended, normoactive bowel sounds, non-tender and non-distended Extremity normal capillary refill General Extremity: Negative for edema Skin no rashes or lesions noted General Skin Exam: no breakdown Psych affect normal Appearance: appropriate Medical Records Data Medical Nutrition Assessment Dietitian: Malnutrition Criteria Met Start: 04/13/23 09:41 Freq: Status: Active Protocol: Document 04/26/23 14:39 JENSEN (Rec: 04/26/23 14:39 SLA [id number]) Nutrition Malnutrition Evidence of Malnutrition Exists Yes Malnutrition (moderate): Chronic Evidenced By Suboptimal Energy Intake ( Moderate),Physical Changes ( Mild) Clinical Problem Chronic Disease or Condition Related Malnutrition Etiology moderate, chronic malnutrition related to inadequate energy intake d/t decreased appetite Signs/Symptoms as evidenced by estimated PO intake meeting <75% of estimated energy needs > 3 months; Mild muscle wasting/ fat loss evident in orbital, clavicle, acromion, and temporal areas per physical exam Status Active Problem Recommendation Dietitian Recommendations/Changes continue regular diet w/ 120mL ensure plus high protein 3x/ day w/ meals d/t malnutrition; will continue Galdino BID w/ medpass d/t wounds; offer ensure pudding or magic cup w/ lunch and dinner for increased nutrition if consumed. Weight / BMI Weight Weight: 71.849 kg Body Mass Index (BMI) 23.3 ABG / Lab / Microbiology Data Result Diagrams: 05/01/23 05:46 05/01/23 05:46 Microbiology: Microbiology 04/14/23 22:53 Sputum, Expectorated/Coughed Gram Stain - Final 04/14/23 22:53 Sputum, Expectorated/Coughed Respiratory Culture - Final Raoultella ornithinolytica Enterobacter cloacae complex Serratia marcescens 04/16/23 09:20 Nasal Secretion SARS-CoV-2 Antigen (Rapid) - Final 04/14/23 22:55 Urine Catheter - Catheter Legionella Antigen - Final 04/14/23 22:55 Urine Catheter - Catheter Streptococcus pneumoniae Antigen (M - Final Streptococcus pneumonia Ag 04/14/23 05:15 Nasal Secretion SARS-CoV-2 Antigen (Rapid) - Final D/C Instructions Discharge Diet: No restrictions Discharge Activity: Return to Normal Activity, May Shower and Use Walker Weight Bearing Status: Weight bearing as tolerated Call your doctor if you observe: Fever of 101 or Higher, Inability to urinate, Inability to have a bowel movement, Shortness of breath, Dizziness, Fainting spells, Swelling in the ankles, Chest pain and Uncontrolled pain Additional Instructions: Discharge home with 05/06/2023, [facility] PT/OT/ST/SN/VILLEDA/SW, Front wheeled walker. Meaningful Use Info Meaningful Use Diagnoses (Choose all that apply): None applicable Discharge Plan Admission Admit Date/Time: 04/12/23 14:20 Primary Reason for Your Visit: Debility. Attending Provider: Romario Winn Chi Primary Care Provider: Jovi Bradley SUPERVISOR [employer]OPELLANT CHARGE LOADING Consulting Providers: Gilbert Cates Instructions Additional Instructions / Restrictions: Discharge home with 05/06/2023, [facility] PT/OT/ST/SN/VILLEDA/SW, Front wheeled walker. Discharge Orders/Prescriptions Prescriptions: New acetaminophen 500 mg Tablet 1,000 mg PO TID PRN (Reason: LOVE 1-10) Qty: 0 0RF spironolactone 25 mg Tablet 25 mg PO DAILYCM 30 Days Qty: 30 0RF carvedilol 3.125 mg Tablet 3.125 mg PO BID@0800,2000 30 Days Qty: 60 0RF potassium chloride [Klor-Con M20] 20 mEq Tablet,Er Particles/Crystals 40 meq PO TIDCM 30 Days Qty: 180 0RF pantoprazole 40 mg Tablet,Delayed Release (Dr/Ec) 40 mg PO DAILY 30 Days Qty: 30 0RF bumetanide 1 mg tablet 1 mg PO DAILY Qty: 30 0RF Continued amiodarone 200 mg tablet 200 mg PO DAILY mexiletine 200 mg capsule 200 mg PO TID fluoxetine [Prozac] 40 mg Capsule 40 mg PO DAILY atorvastatin 80 mg Tablet 80 mg PO DAILY fexofenadine [Reva Allergy] 180 mg Tablet 180 mg PO DAILY PRN (Reason: allergy) 30 Days Qty: 0 0RF apixaban 2.5 mg tablet 2.5 mg PO BID Discontinued carvedilol 6.25 mg tablet 6.25 mg PO BID torsemide 20 mg Tablet 20 mg PO DAILY aspirin 81 mg Tablet,Chewable 81 mg PO DAILY Entresto 24-26 mg Tablet 1 tab PO BID mecobalamin (vitamin B12) [B12 Active] 1,000 mcg Tablet,Chewable 1,000 mcg PO DAILY eplerenone 25 mg Tablet 25 mg PO DAILY Qty: 30 0RF Rx Instructions: Hold for potassium more than 5.0. polyethylene glycol 3350 17 gram powder in packet 17 g PO DAILY sennosides-docusate sodium [Stool Softener-Stimulant Laxat] 8.6-50 mg tablet 2 tab PO BID acetaminophen 500 mg tablet 1,000 mg PO TID Rx Instructions: For 5 more days and then as needed pain pantoprazole 40 mg tablet,delayed release (DR/EC) 40 mg PO DAILY lidocaine 5 % adhesive patch,medicated 1 patch topical DAILY Protocol: *Topical Application Instructions APPLICATION INSTRUCTIONS: to right side/ ribs Rx Instructions: Remove for sedation confusion or disorientation. oxycodone 5 mg tablet 2.5 - 5 mg PO Q6 Mucus Relief ER 1,200 mg tablet extended release 12hr 1,200 mg PO BID Remove Patch 1 patch topical DAILY@2200 Referrals / Follow Up: Romario Winn Chi, MD [Med Staff - Active Staff] - Within 1 Week Disposition Disposition (needs filled in before D/C Order can be placed): Home Health Service
[2023-05-03 21:07] VITALS: BP 130/77; PULSE 92; RESP 18
[2023-05-03] MEDS: Atorvastatin Calcium 80 MG Tablet PO (21:15)
[2023-05-03] MEDS: Dronabinol 2.5 MG Capsule PO (21:16)
[2023-05-04] MEDS: 0.9% Saline Lock 10 ML Syringe IV (05:56)
[2023-05-04 06:00] VITALS: BMI 22.8
[2023-05-04] MEDS: Amox/Clav 250mg/5ml Suspension 500 MG PO ×3 (06:02→22:56)
[2023-05-04] MEDS: Bumetanide 0.5 MG Tablet 1 MG PO (06:04)
[2023-05-04] MEDS: APIXABAN 2.5 MG TABLET (WCH) PO ×2 (06:05→17:44)
[2023-05-04] MEDS: Fluoxetine HCl 40 MG CAPSULE PO (06:05)
[2023-05-04] MEDS: Mexiletine 150 MG Capsule PO ×3 (06:05→23:01)
[2023-05-04] MEDS: traMADol 50 MG Tablet PO ×3 (06:05→17:54)
[2023-05-04] MEDS: Pantoprazole Sodium 40 MG Tablet PO (06:05)
[2023-05-04] MEDS: Lidocaine 5% Patch 1 PATCH TOPICAL (06:06)
[2023-05-04] MEDS: Calcium Carbonate 1250 MG/5 ML PO ×2 (06:06→17:44)
[2023-05-04 06:18] LABS: Absolute Lymphocyte Count 1.34 X10^3/uL (0.83-4.51); Absolute Neutrophil Count 5.9 X10^3/uL (2.0-7.7); Basophil# 0.06 X10^3/uL; Basophil% 0.7 % (0-1); Differential Indicated SCAN CRITERIA MET; Eosinophil# 0.09 X10^3/uL; Hematocrit 30.5 % (40-54); Hemoglobin 9.4 g/dL (13.0-16.5); Lymphocyte # 1.34 X10^3/ul (0.83-4.51); Lymphocyte % 15.5 % (19-41); Mean Corp Hgb Conc 30.8 g/dL (32-36); Mean Corpuscular Hgb 31.4 pg (27.0-32.0); Mean Platelet Vol. 10.2 fl (6.2-12.0); Monocyte# 1.17 X10^3/uL; Monocyte% 13.5 % (0-10); NRBC Flagged by Analyzer 0 % (0-5); Neutrophil # 5.88 X10^3/uL (2.7-7.7); Neutrophil % 67.8 % (47-70); POSITIVE MORPHOLOGY YES; Platelet Count 214 K/mm3 (150-450); RBC Distribution Width CV 19.8 % (11.6-14.6); RBC Distribution Width SD 73.5 fl (35.1-43.9); Red Blood Count 2.99 M/mm3 (4.6-6.2); White Blood Count 8.7 K/mm3 (4.4-11.0)
[2023-05-04 06:26] VITALS: O2SAT 96
[2023-05-04 06:41] LABS: Acanthocytes RARE; Anisocytosis 1+; Differential Comment SCANNED; Schistocytes RARE
[2023-05-04] MEDS: Potassium Chloride Oral Tablet 20 MEQ 40 MEQ PO ×3 (07:53→17:44)
[2023-05-04] MEDS: Spironolactone 25 MG Tablet PO (07:53)
[2023-05-04] MEDS: Juven (unflavored) Packet 1 PACKET PO ×2 (07:54→17:43)
[2023-05-04] MEDS: Amiodarone 200 MG Tablet PO (07:56)
[2023-05-04] MEDS: Carvedilol 3.125 MG TABLET PO ×2 (08:02→23:01)
[2023-05-04 08:07] LABS: Anion Gap 2 (5-15); BUN 18 mg/dL (7-18); BUN/Creat Ratio 35.2 RATIO (10-20); Chloride 107 mmol/L (98-107); Creatinine, Serum 0.51 mg/dL (0.70-1.30); EST Glomerular Filtration Rate 168 mL/min (>60); Est Glom Filt Rate - Afr Amer 203 mL/min (>60); Estimated Creatinine Clearance 63.83 ml/min; Glucose 84 mg/dL (74-106); Potassium 4.2 mmol/L (3.5-5.1); Sodium Level 139 mmol/L (136-145)
[2023-05-04] MEDS: Nystatin Powder 15gm Bottle 1 APPLIC TOPICAL ×2 (12:02→23:02)
[2023-05-04] MEDS: Menthol/Lanolin/Calamine/Znox 113 GM Tube 1 APPLIC TOPICAL ×2 (12:03→23:02)
--- NOTE | 2023-05-04 12:39 | MDS.RN ---
MDS pain interview for ethel 05/06/23 completed.
--- NOTE | 2023-05-04 13:42 | CASEMGMT ---
Social Work [facility] is outside of service area. JIMMY referred to 6 other skilled [facility] [place] agencies and [facility] is the only accepting agency. JIMMY spoke with pt and pt is agreeable. Plan: DC home with [facility] PT/OT/ST/SN/VILLEDA/JIMMY Barajas, PRODUCTION TRAINER CAN FEEDER
[2023-05-04 15:07] VITALS: BP 124/61; PULSE 68; RESP 16; TEMP 36.8; O2SAT 90
--- NOTE | 2023-05-04 16:08 | NURSING ---
PICC line removed from CIRA. 41 CM removed, tip intact. Patient tolerated well. Petroleum, gauze, and clear dressing applied.
[2023-05-04 23:00] VITALS: PULSE 71; RESP 16; O2SAT 96
[2023-05-04] MEDS: Dronabinol 2.5 MG Capsule PO (23:00)
[2023-05-04] MEDS: oxyCODONE 5 MG Tablet PO (23:00)
[2023-05-04] MEDS: Atorvastatin Calcium 80 MG Tablet PO (23:01)
[2023-05-05 06:00] VITALS: BMI 23.0
[2023-05-05 06:36] VITALS: BP 114/69; PULSE 66
[2023-05-05] MEDS: Amox/Clav 250mg/5ml Suspension 500 MG PO ×3 (06:37→21:29)
[2023-05-05] MEDS: Acetaminophen 500 MG Tablet 1000 MG PO (06:37)
[2023-05-05] MEDS: Lidocaine 5% Patch 1 PATCH TOPICAL (06:38)
[2023-05-05] MEDS: Bumetanide 0.5 MG Tablet PO (06:38)
[2023-05-05] MEDS: Pantoprazole Sodium 40 MG Tablet PO (06:38)
[2023-05-05] MEDS: APIXABAN 2.5 MG TABLET (WCH) PO ×2 (06:38→18:16)
[2023-05-05] MEDS: Mexiletine 150 MG Capsule PO ×3 (06:38→21:31)
[2023-05-05] MEDS: Fluoxetine HCl 40 MG CAPSULE PO (06:38)
[2023-05-05] MEDS: Calcium Carbonate 1250 MG/5 ML PO ×2 (06:39→18:16)
[2023-05-05 07:31] VITALS: O2SAT 95
[2023-05-05] MEDS: Potassium Chloride Oral Tablet 20 MEQ 40 MEQ PO ×3 (08:24→18:15)
[2023-05-05] MEDS: Spironolactone 25 MG Tablet PO (08:25)
[2023-05-05] MEDS: Carvedilol 3.125 MG TABLET PO ×2 (08:26→21:31)
[2023-05-05] MEDS: Juven (unflavored) Packet 1 PACKET PO ×2 (08:26→18:15)
[2023-05-05] MEDS: Amiodarone 200 MG Tablet PO (08:34)
[2023-05-05] MEDS: oxyCODONE 5 MG Tablet PO ×2 (08:34→21:32)
[2023-05-05] MEDS: Nystatin Powder 15gm Bottle 1 APPLIC TOPICAL ×2 (10:56→21:24)
[2023-05-05] MEDS: Menthol/Lanolin/Calamine/Znox 113 GM Tube 1 APPLIC TOPICAL ×2 (10:56→21:34)
[2023-05-05] MEDS: traMADol 50 MG Tablet PO ×2 (12:11→18:16)
--- NOTE | 2023-05-05 13:18 | CASEMGMT ---
Social Work BIMS () and PHQ-9 (06/22) completed for MDS assessment. SW is following for [facility] at [place]. Geraldine Barajas, NICCI STERNW
[2023-05-05 16:00] VITALS: BP 123/61; PULSE 61; RESP 16; TEMP 36.6; O2SAT 95
[2023-05-05] MEDS: Atorvastatin Calcium 80 MG Tablet PO (21:31)
[2023-05-05] MEDS: Dronabinol 2.5 MG Capsule PO (21:31)
[2023-05-06] MEDS: traMADol 50 MG Tablet PO ×3 (00:14→10:49)
[2023-05-06] MEDS: Lidocaine 5% Patch 1 PATCH TOPICAL (05:44)
[2023-05-06] MEDS: APIXABAN 2.5 MG TABLET (WCH) PO (05:44)
[2023-05-06] MEDS: Calcium Carbonate 1250 MG/5 ML PO (05:45)
[2023-05-06] MEDS: Bumetanide 0.5 MG Tablet PO (05:45)
[2023-05-06] MEDS: Fluoxetine HCl 40 MG CAPSULE PO (05:45)
[2023-05-06] MEDS: Pantoprazole Sodium 40 MG Tablet PO (05:46)
[2023-05-06] MEDS: Mexiletine 150 MG Capsule PO (05:46)
[2023-05-06 05:53] VITALS: BP 125/75; PULSE 69; BMI 22.6
[2023-05-06] MEDS: Ergocalciferol 1.25 MG (50, 000 UNIT) Capsule PO (08:46)
[2023-05-06] MEDS: Acetaminophen 500 MG Tablet 1000 MG PO (08:46)
[2023-05-06] MEDS: oxyCODONE 5 MG Tablet PO (08:46)
[2023-05-06] MEDS: Amiodarone 200 MG Tablet PO (08:46)
[2023-05-06] MEDS: Spironolactone 25 MG Tablet PO (08:46)
[2023-05-06] MEDS: Carvedilol 3.125 MG TABLET PO (08:47)
[2023-05-06] MEDS: Menthol/Lanolin/Calamine/Znox 113 GM Tube 1 APPLIC TOPICAL (08:47)
[2023-05-06] MEDS: Nystatin Powder 15gm Bottle 1 APPLIC TOPICAL (08:47)
[2023-05-06] MEDS: Potassium Chloride Oral Tablet 20 MEQ 40 MEQ PO (08:47)
[2023-05-06] MEDS: Juven (unflavored) Packet 1 PACKET PO (08:54)
[2023-05-06 11:02] VITALS: BP 113/67; PULSE 66; RESP 16; TEMP 36.2; O2SAT 96
== END 2023-05-06 11:26 | disposition home health service (06) | DRG 559 ==
PROVIDERS: Internal Medicine; Internal Medicine Infectious Disease; Admitting Provider Family Medicine Geriatric Medicine; PCP Nurse Practitioner Family; Referring Provider Family Medicine Geriatric Medicine; Visit Provider Family Medicine Geriatric Medicine
DX: S22.41XD Multiple fractures of ribs, right side, subsequent encounter for fracture with routine healing (principal); J69.0 Pneumonitis due to inhalation of food and vomit; I50.33 Acute on chronic diastolic (congestive) heart failure; J13 Pneumonia due to Streptococcus pneumoniae; I50.32 Chronic diastolic (congestive) heart failure; J44.0 Chronic obstructive pulmonary disease with (acute) lower respiratory infection; M41.9 Scoliosis, unspecified; B35.4 Tinea corporis; I48.91 Unspecified atrial fibrillation; E78.5 Hyperlipidemia, unspecified; J30.9 Allergic rhinitis, unspecified; K21.9 Gastro-esophageal reflux disease without esophagitis; E61.1 Iron deficiency; F32.A Depression, unspecified; Z96.641 Presence of right artificial hip joint; Z95.5 Presence of coronary angioplasty implant and graft; Z87.891 Personal history of nicotine dependence; Z79.899 Other long term (current) drug therapy; Z79.82 Long term (current) use of aspirin; Z79.01 Long term (current) use of anticoagulants; R13.10 Dysphagia, unspecified; Z95.2 Presence of prosthetic heart valve
CPT/HCPCS: 36415; 36569; 71045; 71046; 74230; 80048; 80076; 82306; 82607; 82728; 82746; 82962; 83540; 83550; 83735; 83880; 84100; 84145; 84443; 85014; 85018; 85025; 85652; 86140; 87070; 87077; 87186; 87205; 87449; 87811; 92507; 92523; 92526; 92610; 92611; 94640; 94668; 97110; 97116; 97162; 97166; 97530; 97535; 97802; J1756; J7030; J7050; P9047; A4216; J0696; J1940; J2916

== ENCOUNTER → 2023-04-21 | Outpatient (CLI) | payer MEDICARE, OTHER, SELFPAY ==
--- NOTE | 2023-04-21 15:53 | CT_ITS ---
EXAM: CT ANGIOGRAPHY CHEST WITHOUT AND WITH INTRAVENOUS CONTRAST CLINICAL INDICATION: pneumonia, pleural effusion, exacerbation COPD TECHNIQUE: Helically acquired angiography images were obtained of the chest without and with intravenous contrast. This CT exam was performed using one or more of the following dose reduction techniques: automated exposure control, adjustment of the mA and/or kV according to patient size, and/or use of iterative reconstruction technique. MIP reconstructed images were created and reviewed. CONTRAST: IV 100mL Isovue-370 RADIATION DOSE: CTDIvol = 10.80 mGy, DLP = 518.05 mGy-cm COMPARISON: 02/08/2023, 04/08/2023 FINDINGS: PULMONARY ARTERIES: Unremarkable. Normal in caliber. No evidence of pulmonary embolism. AORTA: Calcified plaque. Normal in caliber. No evidence of dissection. GREAT VESSELS OF AORTIC ARCH: Unremarkable. Normal in caliber. No evidence of dissection. LUNGS AND PLEURAL SPACES: Small right pleural effusion, not present previously. Moderate compressive atelectasis of the right lower lobe. Overlying pneumonia not excluded. Mild atelectasis or infiltrate in the posterior left lung base. New small area of atelectasis or infiltrate in the lateral right apex. Stable collection of partially calcified nodules in the posterior left lower lobe. HEART: Moderate cardiomegaly. Previous CABG. Aortic valve stent in typical location. No pericardial effusion. No significant coronary artery calcifications. MEDIASTINUM: Unremarkable. No mediastinal or hilar adenopathy. Esophagus is unremarkable. No hiatal hernia. THYROID: Unremarkable. No thyroid lesions. BONES/JOINTS: Stable diffuse demineralization. Stable multiple right rib fractures. Stable markedly accentuated thoracic kyphosis and extremely numerous compression fractures. No suspicious lytic or blastic abnormality. CT/CTA Chest W/WO Contrast IMPRESSION: 1. No gross evidence for PE. 2. Development of right pleural effusion and compressive atelectasis of the right lower lobe. 3. Development of mild atelectasis or infiltrate in the posterior left lower lobe. 4. No other definite changes. Electronically Signed: Baljit Quintana MD at 16:38 EDT ,
== END | disposition home or self-care (01) ==
LOC: CT 15:53
PROVIDERS: PCP Nurse Practitioner Family; Referring Provider Internal Medicine; Visit Provider Internal Medicine
DX: J44.0 Chronic obstructive pulmonary disease with (acute) lower respiratory infection (principal); J18.9 Pneumonia, unspecified organism
CPT/HCPCS: 71275; Q9967; A4216

== ENCOUNTER 2023-12-04 21:41 | Inpatient (IN) | payer MEDICARE, OTHER, SELFPAY ==
[2023-12-04 21:42] VITALS: PULSE 68; RESP 12; RESP 20; O2SAT 94
[2023-12-04 21:43] VITALS: BP 131/70; PULSE 68; RESP 31; TEMP 36.2; O2SAT 94; O2SAT 95; BMI 26.3
[2023-12-04 21:48] VITALS: O2SAT 97
--- NOTE | 2023-12-04 21:53 | RAD_ITS ---
STUDY: X-RAY CHEST REASON FOR EXAM: Male, 73 years old. dyspnea TECHNIQUE: AP portable COMPARISON: None. FINDINGS: There is right lower lobe atelectasis or infiltrate.. There is pleural thickening along right lateral chest wall in association with old healed rib fractures. Postop change status post median sternotomy. There is aortic valve prosthesis noted. Heart is enlarged.. Normal mediastinum and billy. Normal visualized pulmonary arteries. Mildly calcified aortic arch and descending thoracic aorta. Pacer noted on the left electrodes in satisfactory position. Dorsal spine and shoulders demonstrate degenerative change. Normal visualized ribs, and clavicles.. There is no demonstrated abnormality of the visualized soft tissue structures of the upper abdomen. RAD/Chest 1 View (Portable) IMPRESSION: ASHD and mild right lower lobe atelectasis or infiltrate.. Status post median sternotomy and aortic valve placement Electronically Signed: Neri Ventura MD at 22:28 EST Reading Location ID and State: [facility] / [place] Tel , Service support ,
--- NOTE | 2023-12-04 21:57 | EKG12_ITS ---
Test Reason : DYSRHYTHMIA Blood Pressure : / mmHG Vent. Rate : 064 BPM Atrial Rate : 064 BPM P-R Int : 168 ms QRS Dur : 176 ms QT Int : 528 ms P-R-T Axes : 000 191 042 degrees QTc Int : 544 ms AV dual-paced rhythm in a pattern of bigeminy Abnormal ECG Confirmed by JANE ANTON, KALYN ([id number]), slot editor IRAIS LAYTON ([id number]) on 12/05/2023 10:11:14 AM Referred By: Confirmed By:KALYN LARA MD
[2023-12-04 22:06] LABS: Allen Test Positive; Base Excess 0 mmol/L (-2 to +2); Bicarbonate 26.1 mmol/L (22-26); Blood Gas Specimen Type ART; Mode Not entered; O2 Delivery Device BiPAP; PO2 128 mmHG (75-100); RR 12; SITE R Radial; SO2 99 % (95-99); Total Carbon Dioxide 28 mmol/L; pCO2 52.5 mmHg (35-45); pH 7.31 (7.35-7.45)
--- NOTE | 2023-12-04 22:15 | EDS_ITS ---
HPI History of Present Illness Chief Complaint: Shortness of Breath Informant: spouse/S.O., family and EMS Narrative Narrative: 73-year-old male presenting with dyspnea. EMS tells me that he was asleep in his chair and suddenly woke from sleep gasping for breath. EMS states that he was tripoding and was hypoxic in the 80s. They noted that he has wheezing and they gave a breathing treatment which improved. They noted some leg swelling were concerned about heart failure and placed him on CPAP then transition to BiPAP in the emergency department. The family states that he gets some care at NH some in [place] some in [place]. They states that he was admitted here in the hospital a couple months ago and that his medication should be up-to-date. They note he is on a blood thinner but does not know which one. They deny history of heart failure. Per our chart patient has a history of atrial fibrillation chronic diastolic heart failure. He is on Eliquis and amiodarone and also takes Bumex. He has a pacemaker. He appears to have had open heart surgery for possible valve replacement. [facility] Medical History A-fib Closed intertrochanteric fracture of right femur with routine healing Closed right hip fracture Eye abnormality Multiple rib fractures Pacemaker Home Medications amiodarone 200 mg tablet 200 mg PO DAILY heart 02/08/23 [History Last Taken Unknown] atorvastatin 80 mg tablet 80 mg PO DAILY cholesterol 03/29/23 [History Last Taken Unknown] fluoxetine 40 mg capsule (Prozac) 40 mg PO DAILY anxiety 03/29/23 [History Last Taken Unknown] mexiletine 200 mg capsule 200 mg PO BID heart 03/29/23 [History Last Taken Unknown] apixaban 2.5 mg tablet 2.5 mg PO BID blood thinner 04/12/23 [History Last Taken Unknown] fexofenadine 180 mg tablet (Reva Allergy) 180 mg PO DAILY PRN allergy 30 days #0 tabs 04/12/23 [Rx Last Taken Unknown] carvedilol 3.125 mg tablet 3.125 mg PO BID@0800,2000 30 days #60 tabs 05/03/23 [Rx Last Taken Unknown] spironolactone 25 mg tablet 25 mg PO DAILYCM 30 days #30 tabs 05/03/23 [Rx Last Taken Unknown] acetaminophen 500 mg tablet 500 mg PO Q6H PRN LOVE 1-10 12/04/23 [History Last Taken Unknown] aspirin 81 mg chewable tablet (Aspirin Childrens) 1 tab PO DAILY 12/04/23 [History Last Taken Unknown] cholecalciferol (vitamin D3) 25 mcg (1,000 unit) capsule 125 mcg PO DAILY 12/04/23 [History Last Taken Unknown] eplerenone 25 mg tablet (Inspra) 25 mg PO DAILY 12/04/23 [History Last Taken Unknown] mecobalamin (vitamin B12) 1,000 mcg lozenges 1,000 mcg PO DAILY 12/04/23 [History Last Taken Unknown] olopatadine 0.1 % eye drops 1 drp EACH EYE BID 12/04/23 [History Last Taken Unknown] oxycodone 5 mg tablet 5 mg PO Q6H PRN pain 12/04/23 [History Last Taken Unknown] potassium chloride 20 mEq tablet,extended release(part/cryst) (Klor-Con M) 40 meq PO BID 12/04/23 [History Last Taken Unknown] sennosides 8.6 mg-docusate sodium 50 mg tablet (Stool Softener-Stimulant Laxative) 1 tab-cap PO DAILY PRN constipation 12/04/23 [History Last Taken Unknown] thiamine HCl (vitamin B1) 100 mg/mL injection solution 100 mg IM DAILY 12/04/23 [History Last Taken Unknown] torsemide 20 mg tablet 20 mg PO DAILY 12/04/23 [History Last Taken Unknown] Allergy/AdvReac Type Severity Reaction Status Date / Time lisinopril Allergy Mild Laryngospas Verified 04/08/23 10:21 ms Family History Father CVA (cerebral vascular accident) Mother Laryngeal cancer Surgical History H/O cardiac radiofrequency ablation H/O eye surgery H/O heart surgery H/O total knee replacement History of appendectomy History of hip surgery History of surgery on arm History of transcatheter aortic valve replacement (TAVR) Stented coronary artery Social History household members: spouse Smoking Status: Former smoker alcohol intake: never substance use type: does not use ROS ROS ED Constitutional Constitutional ED: Denies chills, fever(s) or weight loss Eyes Eyes: Denies change in vision or diplopia ENT ENT ED: Denies ear pain, rhinorrhea or sore throat Cardiovascular Cardiovascular: Denies chest pain, orthopnea, palpitations or racing heartbeat Respiratory/Chest Respiratory/Chest: Reports dyspnea; Denies cough or orthopnea Gastrointestinal Gastrointestinal: Denies abdominal pain, diarrhea, nausea or vomiting Genitourinary Genitourinary ED: Denies dysuria, hematuria or urinary frequency Musculoskeletal Musculoskeletal: Denies arthralgias or myalgias Integumentary Denies abscess or rash Neurologic Neurologic: Denies headache(s) or weakness Psychiatric Psychiatric: Denies anxiety, depression, suicidal ideation or suicidal thoughts Endocrine Endocrinology: Denies polydipsia, polyphagia or polyuria Allergic/Immunologic Allergic/Immunologic ED: Denies mouth swelling, tongue swelling or urticaria EXAM Physical Exam Narrative Exam Narrative: Elderly male leaning forward. He appears lethargic and dyspneic. He has BiPAP in place. Const Vital Signs: 12/04/23 21:43 12/04/23 21:48 12/04/23 21:42 Temperature 97.2 F L Temperature Source Temporal Pulse Rate 68 68 Respiratory Rate 31 H 20 H Respiratory Effort Short of Breath Labored Respiratory Depth Shallow Respiratory Pattern Tachypnea Normal Blood Pressure 131/70 H Blood Pressure Mean 90 Pulse Ox 95 94 Oxygen Delivery Method Bi-pap Bi-pap Fraction of Inspired Oxygen (FIO2) 100 12/04/23 22:47 12/04/23 23:28 Temperature Temperature Source Pulse Rate 62 67 Respiratory Rate 16 16 Respiratory Effort Respiratory Depth Respiratory Pattern Blood Pressure 123/64 H 112/65 Blood Pressure Mean 83 80 Pulse Ox 94 93 Oxygen Delivery Method Bi-pap Bi-pap Fraction of Inspired Oxygen (FIO2) Positive well nourished and well developed General Appearance ED: well developed and pallor HEENT Reports normocephalic, head/scalp atraumatic and moist mucous membranes Eyes PERRL and EOMs intact bilaterally Neck no lymphadenopathy, supple and no JVD Chest Wall Chest Narrative: Pacemaker left chest. Well-healed midline incision of the chest wall. Resp Resp Narrative: Tachypneic and diminished particularly on the left Rales at bases Auscultation: rales right base and diminished lung sounds Cardio regular rate and regular rhythm GI normal to inspection, nondistended, normoactive bowel sounds and non-tender GI Narrative: Faint heart sounds Palpation: soft Back/Spine no CVA tenderness Back/Spine Narrative: Patient is significantly kyphotic Extremity normal to inspection Extremity Narrative: Bilateral compression stockings in place General Extremety ED: Yes edema General Extremity: edema bilateral lower extremity Details: moderate Neuro CN's II-XII intact bilaterally Sensorium / Orientation: lethargic Skin no rashes or lesions noted and no wounds General Skin Exam: pallor Sepsis Attestation Sepsis Alert: Yes Sepsis Attestation: Sepsis Ruled Out Date exam was performed: 12/04/23 Time exam was performed: 22:30 Possible Source of Sepsis: Pulmonary Sepsis Organ Dysfunction Criteria Present: Acute Respiratory Failure (New need for BiPAP/CPAP or MV) and Lactic Acid > 2 mmol/L Supportive Findings: I do not believe that the patient is currently septic. I believe that he had significant respiratory distress. The lactic acid elevation is most likely due to the work of breathing and the hypoxia. This is subsequently improved. I do not believe that he is bacteremic at this time. I do not believe that he is in a shock state and I do not believe that additional fluids would be of benefit in fact it may actually be harmful to him. MDM MDM MDM Narrative Medical decision making narrative: ABG upon arrival shows a pH of 7.306 pCO2 53.5 pO2 128.3 bicarb 26. My in dependent interpretation of the chest x-ray is cardiomegaly with cardiac support lines. Old rib fractures on the right. There is some airspace disease noted in the right lower lobe. My concern is for possible aspiration. His sodium 128 creatinine 0.60 white count 26 which I think is in some part reactive to the respiratory distress. Hemoglobin 14.1. Normal troponin. BNP 411. Patient was placed on BiPAP and had significant improvement. I doubt pulmonary embolism as he is anticoagulated. Repeat examination and his color is significantly improved. He is now speaking and joking. Will transition him to nasal cannula. He received a dose of Unasyn. He also received an additional breathing treatment. Patient's prior admission was reviewed. He was noted to have a persistently high white count with neutrophilia. As the patient reportedly was doing well during the day until he suddenly awoke from sleep with a question whether or not he aspirated during his sleep. Certainly his kyphosis restricting his lung disease is not helping. He was noticed to have some dysphagia and aspiration pneumonia.Plan will be for admission. History & Record Review Discussion w/independent historian: Patient, Family and Significant other Additional record(s) reviewed:: Prior inpatient record, Prior ED visit and Prior labs Lab Data Attestation: I reviewed the patient's lab results. Labs: Laboratory Results - last 24 hr 12/04/23 12/04/23 21:45 22:37 WBC 26.0 H RBC 4.81 Hgb 14.1 Hct 44.2 MCV 91.9 MCH 29.3 MCHC 31.9 L RDW Std Deviation 52.5 H RDW Coeff of Rohit 15.6 H Plt Count 363 MPV 10.1 Immature Gran % (Auto) 1.900 H Neut % (Auto) 85.5 H Lymph % (Auto) 6.6 L [place] % (Auto) 5.1 Eos % (Auto) 0.3 Baso % (Auto) 0.6 Absolute Neuts (auto) 22.2 H Absolute Lymphs (auto) 1.72 Nucleated RBC % 0 Differential Comment SEE COMMENT Platelet Estimate ADEQUATE RBC Morphology N CHROM Anisocytosis RARE Macrocytosis RARE PT 13.6 INR 1.0 APTT 32.6 Sodium 128 L Potassium 3.6 Chloride 92 L Carbon Dioxide 29.0 Anion Gap 7 BUN 8 Creatinine 0.60 L Estim Creat Clear Calc 63.83 Est GFR (MDRD) Af Amer 167 Est GFR (MDRD) Non-Af 138 BUN/Creatinine Ratio 13.2 Glucose 148 H Lactic Acid 2.3 H* Calcium 8.6 Total Bilirubin 0.80 AST 65 H ALT 70 H Alkaline Phosphatase 194 H Troponin I High Sens 13 B-Natriuretic Peptide 411.7 H Total Protein 7.7 Albumin 3.0 L Globulin 4.7 H Albumin/Globulin Ratio 0.6 L Lipase 14 ABG Data ABG results: ABG 12/04/23 22:02 Specimen Type ART Sample Site R Radial pH 7.31 L Bicarbonate Actual 26.1 H Total CO2 28 Base Excess 0 O2 Saturation 99 O2 % 100.0 ABG pCO2 52.5 H ABG pO2 128 H Jay Test Positive Respiration Rate 12 O2 Delivery Device BiPAP Vent Mode Not entered Tidal Volume 450.0 Clinical Comments Radiography Diagnostic Testing: Clinical Impression(s) from Imaging Studies Chest X-Ray 12/04/23 21:53 IMPRESSION: ASHD and mild right lower lobe atelectasis or infiltrate.. Status post median sternotomy and aortic valve placement Electronically Signed: Neri Ventura MD at 22:28 EST , EKG Initial EKG: Attestation: I personally reviewed and interpreted this EKG as follows: Comments: AV paced rhythm ventricular rate of 64 bpm Management Discussion w/another healthcare provider: Hospitalist Discharge Plan Dx/Rx/DC Orders Clinical Impression: Anticoagulated, Aspiration into airway, Acute respiratory failure with hypoxemia, Chronic diastolic congestive heart failure, Restrictive lung disease due to kyphoscoliosis Disposition Disposition: Acute Care Hospital [facility]
[2023-12-04 22:17] LABS: Absolute Lymphocyte Count 1.72 X10^3/uL (0.83-4.51); Absolute Neutrophil Count 22.2 X10^3/uL (2.0-7.7); Basophil# 0.15 X10^3/uL; Basophil% 0.6 % (0-1); Eosinophil# 0.09 X10^3/uL; Eosinophils% 0.3 % (0-5); Hematocrit 44.2 % (40-54); Hemoglobin 14.1 g/dL (13.0-16.5); Lymphocyte # 1.72 X10^3/ul (0.83-4.51); Lymphocyte % 6.6 % (19-41); Mean Corp Hgb Conc 31.9 g/dL (32-36); Mean Corpuscular Hgb 29.3 pg (27.0-32.0); Mean Corpuscular Volume 91.9 fL (80-94); Mean Platelet Vol. 10.1 fl (6.2-12.0); Monocyte# 1.34 X10^3/uL; Monocyte% 5.1 % (0-10); NRBC Flagged by Analyzer 0 % (0-5); Neutrophil # 22.24 X10^3/uL (2.7-7.7); Neutrophil % 85.5 % (47-70); POSITIVE DIFFERENTIAL YES; POSITIVE MORPHOLOGY YES; Platelet Count 363 K/mm3 (150-450); RBC Distribution Width CV 15.6 % (11.6-14.6); RBC Distribution Width SD 52.5 fl (35.1-43.9); Red Blood Count 4.81 M/mm3 (4.6-6.2)
[2023-12-04 22:29] LABS: Prothrombin Time (Protime)PT. 13.6 SECONDS (11.7-14.9)
[2023-12-04 22:30] LABS: Partial Thromboplast Time 32.6 Seconds (24.1-36.2)
[2023-12-04 22:33] LABS: Differential Indicated SCAN CRITERIA MET
[2023-12-04 22:35] LABS: ALB/GLOB Ratio 0.6 RATIO (0.9-2.4); AST(SGOT) 65 U/L (15-37); Alanine Aminotransfer ALT/SGPT 70 U/L (16-61); Alkaline Phosphatase 194 U/L (45-117); Anion Gap 7 (5-15); BUN 8 mg/dL (7-18); BUN/Creat Ratio 13.2 RATIO (10-20); Calcium,Total 8.6 mg/dL (8.5-10.1); Chloride 92 mmol/L (98-107); EST Glomerular Filtration Rate 138 mL/min (>60); Est Glom Filt Rate - Afr Amer 167 mL/min (>60); Estimated Creatinine Clearance 63.83 ml/min; Globulin 4.7 g/dL (2.2-4.2); Glucose 148 mg/dL (74-106); Lipase 14 U/L (13-75); Potassium 3.6 mmol/L (3.5-5.1); Protein, Total 7.7 g/dL (6.4-8.2); Sodium Level 128 mmol/L (136-145); Troponin-I HS 13 pg/mL (3.0-78.0)
[2023-12-04 22:39] LABS: Anisocytosis RARE; Macrocytosis RARE; Platelet Estimate ADEQUATE (ADEQ); Red Cell Morphology N CHROM NORMAL (NORM C&C)
[2023-12-04 22:41] LABS: BNP,B-Type NATRIURETIC PEPTIDE 411.7 pg/mL (0-100)
[2023-12-04] MEDS: Ampicillin/Sulbactam 3 GM in 0.9% Normal Saline (100mL MB+) 100 ML IV (22:46)
[2023-12-04 22:47] VITALS: BP 123/64; PULSE 62; RESP 16; O2SAT 94
[2023-12-04 23:28] VITALS: BP 112/65; PULSE 67; RESP 16; O2SAT 93
--- NOTE | 2023-12-04 23:51 | HP.PCM_ITS ---
[facility] - General General Date of Service: 12/04/23 Chief Complaint: Shortness of breath HPI Narrative KOSTAS WOLF, is a 73 M who presents to the emergency room with acute shortness of breath. Patient had fallen asleep in his chair and awoke suddenly gasping for air. It seems more likely than not he may have aspirated at that time. EMS was called and initiated CPAP treatment in the field and BiPAP was initiated in the emergency room as patient was not verbal upon arrival. Patient has a past medical history of coronary artery disease, heart failure with a pacemaker and takes Eliquis,amiodarone, Bumex routinely. Patient responded to the emergency room to BiPAP treatment and improved his respiratory status to the point we weaned him off the BiPAP and started nasal cannula oxygen which she was able to maintain oxygenation greater than 90% while being observed. CBC shows an elevated white count with a marked left shift consistent with pneumonia, chest x-ray is negative for pneumothorax but patient does have limited lung volumes due to significant kyphosis (poor posture). He will be admitted for impending respiratory failure secondary to suspected aspiration pneumonia. Currently he denies any chest pain, fevers or chills or nausea or vomiting. He does wish to be full code as this was discussed while he was lucid and competent along with family member and daughter present. [facility] Medical History A-fib Closed intertrochanteric fracture of right femur with routine healing Closed right hip fracture Eye abnormality Multiple rib fractures Pacemaker Home Medications amiodarone 200 mg tablet 200 mg PO DAILY heart 02/08/23 [History Last Taken Unknown] atorvastatin 80 mg tablet 80 mg PO DAILY cholesterol 03/29/23 [History Last Taken Unknown] fluoxetine 40 mg capsule (Prozac) 40 mg PO DAILY anxiety 03/29/23 [History Last Taken Unknown] mexiletine 200 mg capsule 200 mg PO BID heart 03/29/23 [History Last Taken Unknown] apixaban 2.5 mg tablet 2.5 mg PO BID blood thinner 04/12/23 [History Last Taken Unknown] fexofenadine 180 mg tablet (Reva Allergy) 180 mg PO DAILY PRN allergy 30 days #0 tabs 04/12/23 [Rx Last Taken Unknown] carvedilol 3.125 mg tablet 3.125 mg PO BID@0800,1999 30 days #60 tabs 05/03/23 [Rx Last Taken Unknown] spironolactone 25 mg tablet 25 mg PO DAILYCM 30 days #30 tabs 05/03/23 [Rx Last Taken Unknown] acetaminophen 500 mg tablet 500 mg PO Q6H PRN LOVE 1-10 12/04/23 [History Last Taken Unknown] aspirin 81 mg chewable tablet (Aspirin Childrens) 1 tab PO DAILY 12/04/23 [History Last Taken Unknown] cholecalciferol (vitamin D3) 25 mcg (1,000 unit) capsule 125 mcg PO DAILY 12/04/23 [History Last Taken Unknown] eplerenone 25 mg tablet (Inspra) 25 mg PO DAILY 12/04/23 [History Last Taken Unknown] mecobalamin (vitamin B12) 1,000 mcg lozenges 1,000 mcg PO DAILY 12/04/23 [History Last Taken Unknown] olopatadine 0.1 % eye drops 1 drp EACH EYE BID 12/04/23 [History Last Taken Unknown] oxycodone 5 mg tablet 5 mg PO Q6H PRN pain 12/04/23 [History Last Taken Unknown] potassium chloride 20 mEq tablet,extended release(part/cryst) (Klor-Con M) 40 meq PO BID 12/04/23 [History Last Taken Unknown] sennosides 8.6 mg-docusate sodium 50 mg tablet (Stool Softener-Stimulant Laxative) 1 tab-cap PO DAILY PRN constipation 12/04/23 [History Last Taken Unknown] thiamine HCl (vitamin B1) 100 mg/mL injection solution 100 mg IM DAILY 12/04/23 [History Last Taken Unknown] torsemide 20 mg tablet 20 mg PO DAILY 12/04/23 [History Last Taken Unknown] Allergy/AdvReac Type Severity Reaction Status Date / Time lisinopril Allergy Mild Laryngospas Verified 04/08/23 10:21 ms Family History Father CVA (cerebral vascular accident) Mother Laryngeal cancer Surgical History H/O cardiac radiofrequency ablation H/O eye surgery H/O heart surgery H/O total knee replacement History of appendectomy History of hip surgery History of surgery on arm History of transcatheter aortic valve replacement (TAVR) Stented coronary artery Social History household members: spouse Smoking Status: Former smoker alcohol intake: never substance use type: does not use ROS Constitutional Constitutional: Reports weakness; Denies chills or fever(s) Eyes Eyes: Denies blurry vision ENT HEENT: Denies abnormal hearing Cardiovascular Cardiovascular: Denies chest pain Respiratory/Chest Respiratory/Chest: Reports cough and shortness of breath at rest Gastrointestinal Gastrointestinal: Denies abdominal pain Genitourinary Genitourinary: Denies dysuria Musculoskeletal Musculoskeletal: Reports back pain Integumentary Integumentary: Denies dry skin Neurologic Neurologic: Denies abnormal gait Psychiatric Psychiatric: Denies anxiety Endocrine Endocrinology: Denies change in body appearance Hematologic/Lymphatic Hematologic/Lymphatic: Reports easy bruising Vital Signs Vital Signs Vital Signs: 12/04/23 21:43 12/04/23 21:48 12/04/23 21:42 Temperature 97.2 F L Temperature Source Temporal Pulse Rate 68 68 Respiratory Rate 31 H 20 H Respiratory Effort Short of Breath Labored Respiratory Depth Shallow Respiratory Pattern Tachypnea Normal Blood Pressure 131/70 H Blood Pressure Mean 90 Pulse Ox 95 94 Oxygen Delivery Method Bi-pap Bi-pap Fraction of Inspired Oxygen (FIO2) 100 12/04/23 22:47 12/04/23 23:28 Temperature Temperature Source Pulse Rate 62 67 Respiratory Rate 16 16 Respiratory Effort Respiratory Depth Respiratory Pattern Blood Pressure 123/64 H 112/65 Blood Pressure Mean 83 80 Pulse Ox 94 93 Oxygen Delivery Method Bi-pap Bi-pap Fraction of Inspired Oxygen (FIO2) Weight Weight: 178 lb 5.663 oz Body Mass Index (BMI) 26.3 Physical Exam Const oriented x3 General Appearance: cooperative and well developed HEENT normocephalic and head/scalp atraumatic Eyes PERRL Neck no lymphadenopathy Lymph Lymphatic: no lymphadenopathy noted Resp Auscultation: rhonchi left upper Cardio regular rate, regular rhythm, S1 normal heart sound and S2 normal heart sound GI normal to inspection, nondistended, normoactive bowel sounds, soft to palpation, non-tender and non-distended Extremity no calf tenderness Skin Skin Narrative: Bruising noted on bilateral upper extremities Neuro no focal motor deficits and no sensory deficits noted Speech: speech normal Psych Appearance: appropriate Results Lab / Micro Data 12/04/23 21:45 12/04/23 21:45 Labs: Laboratory Results - last 24 hr 12/04/23 21:45: WBC 26.0 H, RBC 4.81, Hgb 14.1, Hct 44.2, MCV 91.9, MCH 29.3, MCHC 31.9 L, RDW Std Deviation 52.5 H, RDW Coeff of Rohit 15.6 H, Plt Count 363, MPV 10.1, Immature Gran % (Auto) 1.900 H, Neut % (Auto) 85.5 H, Lymph % (Auto) 6.6 L, [place] % (Auto) 5.1, Eos % (Auto) 0.3, Baso % (Auto) 0.6, Absolute Neuts (auto) 22.2 H, Absolute Lymphs (auto) 1.72, Nucleated RBC % 0, Differential Comment SEE COMMENT, Platelet Estimate ADEQUATE, RBC Morphology N CHROM, Anisocytosis RARE, Macrocytosis RARE, PT 13.6, INR 1.0, APTT 32.6, Sodium 128 L, Potassium 3.6, Chloride 92 L, Carbon Dioxide 29.0, Anion Gap 7, BUN 8, Creatinine 0.60 L, Estim Creat Clear Calc 63.83, Est GFR (MDRD) Af Amer 167, Est GFR (MDRD) Non-Af 138, BUN/Creatinine Ratio 13.2, Glucose 148 H, Calcium 8.6, Total Bilirubin 0.80, AST 65 H, ALT 70 H, Alkaline Phosphatase 194 H, Troponin I High Sens 13, B-Natriuretic Peptide 411.7 H, Total Protein 7.7, Albumin 3.0 L, Globulin 4.7 H, Albumin/Globulin Ratio 0.6 L, Lipase 14 ABG Data ABG results: ABG 12/04/23 22:02 Specimen Type ART Sample Site R Radial pH 7.31 L Bicarbonate Actual 26.1 H Total CO2 28 Base Excess 0 O2 Saturation 99 O2 % 100.0 ABG pCO2 52.5 H ABG pO2 128 H Jay Test Positive Respiration Rate 12 O2 Delivery Device BiPAP Vent Mode Not entered Tidal Volume 450.0 Clinical Comments Imagaing Radiology Impression Chest X-Ray 12/04/23 21:53 IMPRESSION: ASHD and mild right lower lobe atelectasis or infiltrate.. Status post median sternotomy and aortic valve placement Electronically Signed: Neri Ventura MD at 22:28 EST , Assessment & Plan Assessment/Plan (1) Aspiration into airway: (2) Acute respiratory failure with hypoxemia: (3) Restrictive lung disease due to kyphoscoliosis: (4) COPD (chronic obstructive pulmonary disease): (5) Hypokalemia: (6) Depression: (7) Hyperlipidemia: (8) Atrial fibrillation: (9) Debility: PLAN: Plan 1 impending respiratory failure secondary to suspected aspiration pneumonia?a dmit patient to progressive care unit, oxygen support per routine protocol, IV Solu-Medrol 40 mg IV every 8 hours, levofloxacin 500 mg IV daily. Add albuterol inhalation treatments every 4 hours as needed 2. Hypokalemia?replace potassium 3. Hyperlipidemia?continue home statin medication 4. Atrial fibrillation?rate controlled continue anticoagulation therapy 5. Depression continue home antidepressant medication 6. DVT prophylaxis no medication needed as patient is anticoagulated for atrial fibrillation 7. CODE STATUS?patient is full code Charges/Coding Visit Charges Inpatient E&M: 17006 Init Hosp L2
[2023-12-04 23:52] LABS: Lactic Acid 2.3 mmol/L (0.4-1.9)
[2023-12-05] VITALS (18 sets, daily range): BP systolic 107–153; BP diastolic 60–78; PULSE 60–78; RESP 12–32; TEMP 36.3–36.6; O2SAT 88–100; BMI 21.9
[2023-12-05] MEDS: Ipratropium/Albuterol Sulfate 3 ML AMPUL.NEB INHALATION (00:12)
[2023-12-05] MEDS: MethylPREDNISolone 125 MG/2 ML Vial 80 MG IV (00:15)
[2023-12-05] MEDS: oxyCODONE 5 MG Tablet PO ×4 (02:02→22:51)
[2023-12-05 02:42] LABS: Reflex Lactate? Y
[2023-12-05 03:46] LABS: Absolute Lymphocyte Count 0.23 X10^3/uL (0.83-4.51); Absolute Neutrophil Count 20.6 X10^3/uL (2.0-7.7); Basophil# 0.09 X10^3/uL; Basophil% 0.4 % (0-1); Hematocrit 41.9 % (40-54); Hemoglobin 13.7 g/dL (13.0-16.5); Lymphocyte # 0.23 X10^3/ul (0.83-4.51); Mean Corp Hgb Conc 32.7 g/dL (32-36); Mean Corpuscular Hgb 29.1 pg (27.0-32.0); Mean Platelet Vol. 9.6 fl (6.2-12.0); Monocyte# 0.86 X10^3/uL; Monocyte% 3.9 % (0-10); NRBC Flagged by Analyzer 0 % (0-5); Neutrophil % 94.1 % (47-70); POSITIVE DIFFERENTIAL YES; POSITIVE MORPHOLOGY YES; Platelet Count 316 K/mm3 (150-450); RBC Distribution Width CV 15.3 % (11.6-14.6); RBC Distribution Width SD 50.3 fl (35.1-43.9); Red Blood Count 4.71 M/mm3 (4.6-6.2); White Blood Count 21.9 K/mm3 (4.4-11.0)
[2023-12-05 04:01] LABS: Anion Gap 12 (5-15); BUN 9 mg/dL (7-18); BUN/Creat Ratio 16.2 RATIO (10-20); Calcium,Total 8.3 mg/dL (8.5-10.1); Chloride 93 mmol/L (98-107); Creatinine, Serum 0.56 mg/dL (0.70-1.30); EST Glomerular Filtration Rate 152 mL/min (>60); Est Glom Filt Rate - Afr Amer 185 mL/min (>60); Estimated Creatinine Clearance 60.85 ml/min; Glucose 131 mg/dL (74-106); Potassium 4.1 mmol/L (3.5-5.1); Sodium Level 129 mmol/L (136-145)
[2023-12-05 04:05] LABS: Lactic Acid 3.2 mmol/L (0.4-1.9)
[2023-12-05] MEDS: Ondansetron 4 MG/2 ML Vial IV (04:22)
[2023-12-05] MEDS: 0.9% Saline Lock 10 ML Syringe IV (04:25)
[2023-12-05 04:28] LABS: Differential Indicated SCAN CRITERIA MET
[2023-12-05 04:33] LABS: Differential Comment SCANNED
--- NOTE | 2023-12-05 04:33 | CPS ---
decreased to 50% -nurse aware
--- NOTE | 2023-12-05 07:46 | PCM.PN.HOSP ---
Reason for Visit Reason for Visit: Diagnoses Hyperlipidemia, unspecified (12/04/23) Hypokalemia (12/04/23) Depression, unspecified (12/04/23) Unspecified atrial fibrillation (12/04/23) Chronic obstructive pulmonary disease, unspecified (12/04/23) Acute respiratory failure with hypoxia (12/04/23) Other disorders of lung (12/04/23) Scoliosis, unspecified (12/04/23) Other malaise (12/04/23) Unspecified foreign body in respiratory tract, part unspecified causing other injury, initial encounter (12/04/23) Subjective Subjective Patient is a 73-year-old gentleman with multiple comorbidities admitted with progressive shortness of breath. An assessment of COPD with acute exacerbation made admitted to the intensive care unit for further management Objective Data Objective Data Vital Signs: Vital Signs Temp Pulse Resp BP Pulse Ox O2 Del Method FiO2 97.4 F L 61 18 132/64 H 98 Bi-pap 40 12/05/23 01:21 12/05/23 07:05 12/05/23 07:05 12/05/23 01:21 12/05/23 07:05 12/05/23 02:00 12/05/23 07:05 Oxygen Delivery Method Bi-pap Weight: 67.4 kg Body Mass Index (BMI) 21.9 Intake & Output: Intake and Output for Last 24 Hours 12/03/23 12/04/23 12/05/23 23:59 23:59 23:59 Intake Total 112 / 112 Output Total 100 / 100 Balance Lab / Micro Data 12/05/23 03:38 12/05/23 03:38 Labs: Laboratory Results - last 24 hr 12/04/23 21:45: WBC 26.0 H, RBC 4.81, Hgb 14.1, Hct 44.2, MCV 91.9, MCH 29.3, MCHC 31.9 L, RDW Std Deviation 52.5 H, RDW Coeff of Rohit 15.6 H, Plt Count 363, MPV 10.1, Immature Gran % (Auto) 1.900 H, Neut % (Auto) 85.5 H, Lymph % (Auto) 6.6 L, [place] % (Auto) 5.1, Eos % (Auto) 0.3, Baso % (Auto) 0.6, Absolute Neuts (auto) 22.2 H, Absolute Lymphs (auto) 1.72, Nucleated RBC % 0, Differential Comment SEE COMMENT, Platelet Estimate ADEQUATE, RBC Morphology N CHROM, Anisocytosis RARE, Macrocytosis RARE, PT 13.6, INR 1.0, APTT 32.6, Sodium 128 L, Potassium 3.6, Chloride 92 L, Carbon Dioxide 29.0, Anion Gap 7, BUN 8, Creatinine 0.60 L, Estim Creat Clear Calc 63.83, Est GFR (MDRD) Af Amer 167, Est GFR (MDRD) Non-Af 138, BUN/Creatinine Ratio 13.2, Glucose 148 H, Calcium 8.6, Total Bilirubin 0.80, AST 65 H, ALT 70 H, Alkaline Phosphatase 194 H, Troponin I High Sens 13, B-Natriuretic Peptide 411.7 H, Total Protein 7.7, Albumin 3.0 L, Globulin 4.7 H, Albumin/Globulin Ratio 0.6 L, Lipase 14 12/04/23 22:37: Lactic Acid 2.3 H* 12/05/23 03:20: Lactic Acid 3.2 H* 12/05/23 03:38: WBC 21.9 H, RBC 4.71, Hgb 13.7, Hct 41.9, MCV 89.0, MCH 29.1, MCHC 32.7, RDW Std Deviation 50.3 H, RDW Coeff of Rohit 15.3 H, Plt Count 316, MPV 9.6, Immature Gran % (Auto) 0.600, Neut % (Auto) 94.1 H, Lymph % (Auto) 1.0 L, [place] % (Auto) 3.9, Eos % (Auto) 0.0, Baso % (Auto) 0.4, Absolute Neuts (auto) 20.6 H, Absolute Lymphs (auto) 0.23 L, Nucleated RBC % 0, Differential Comment SCANNED, Sodium 129 L, Potassium 4.1, Chloride 93 L, Carbon Dioxide 24.0, Anion Gap 12, BUN 9, Creatinine 0.56 L, Estim Creat Clear Calc 60.85, Est GFR (MDRD) Af Amer 185, Est GFR (MDRD) Non-Af 152, BUN/Creatinine Ratio 16.2, Glucose 131 H, Calcium 8.3 L ABG Data ABG results: ABG 12/04/23 22:02 Specimen Type ART Sample Site R Radial pH 7.31 L Bicarbonate Actual 26.1 H Total CO2 28 Base Excess 0 O2 Saturation 99 O2 % 100.0 ABG pCO2 52.5 H ABG pO2 128 H Jay Test Positive Respiration Rate 12 O2 Delivery Device BiPAP Vent Mode Not entered Tidal Volume 450.0 Clinical Comments Radiography Diagnostic Testing: Radiology Impression Chest X-Ray 12/04/23 21:53 IMPRESSION: ASHD and mild right lower lobe atelectasis or infiltrate.. Status post median sternotomy and aortic valve placement Electronically Signed: Neri Ventura MD at 22:28 EST Reading Location ID and State: [facility] / [place] Tel , Service support , Physical Exam Narrative GENERAL: cooperative but dyspneic at rest HEENT: Atraumatic; normocephalic EYES; Anicteric, Normal Conjunctiva NECK; supple, normal thyroid, RESPIRATORY: Diminished to auscultation CARDIOVASCULAR: Regular S1 S2, GI: soft, normoactive bowel sounds, : No Renal angle tenderness; EXTREMITIES: No edema, no clubbing, MUSCULOSKELETAL: no muscle wasting NEURO: Awake; no lateralizing signs. SKIN: No Rash PSYCH; Flat affect Assessment & Plan Assessment/Plan (1) Acute respiratory failure with hypoxemia: (2) Restrictive lung disease due to kyphoscoliosis: (3) Chronic diastolic congestive heart failure: PLAN: Plan Patient is a 73-year-old gentleman with multiple comorbidities admitted with progressive shortness of breath. An assessment of COPD with acute exacerbation made admitted to the intensive care unit for further management 1. Acute hypoxic respiratory failure ? Present on admission; this was evidenced by patient being tachypneic and patient being placed on noninvasive ventilation CPAP which was then transitioned to BiPAP. Patient was admitted to the intensive care unit. Managed as a case of pneumonia as well COPD with acute exacerbation 2. COPD with acute exacerbation ? Patient presented with acute respiratory failure managed with systemic steroid antibiotic therapy as well as supplemental oxygen 3. Pneumonia - Suspected to be secondary to streptococcal pneumonia, Blood and sputum cultures sent. Patient placed Levaquin, oxygen titrated to keep Pulse Ox greater than 90 4. Hypokalemia ? Corrected per protocol repeat labs ordered for monitoring 5. Hyponatremia ? Do suspect SIADH from patient underlying lung disease as well as patient being on diuretics placed on fluid restriction 6. Chronic congestive heart failure with preserved ejection fraction ? Echo from 03/30/2023 demonstrated EF of 55%. Patient is on torsemide as well as Aldactone; continued 7. Depression ? Patient is on fluoxetine did continue 8. Valvular heart disease ? With with history of TAVR at [facility] for aortic stenosis as well as previous history of mitral valve repair 9. Conduction system disorder ? Status post pacemaker placement 10. Paroxysmal A-fib ? Rate controlled on amiodarone and on systemic anticoagulation with 11. Physical deconditioning - Requested for PT OT eval and manager social media to assist with discharge planning 12. Hypertension - Blood pressure controlled, home medications continued with dose adjustment as needed 13. DVT prophylaxis ? Patient on apixaban Time spent in the patient's overall evaluation,decision-making process, review of diagnostic data, adjustment of management, discussion with other providers, nursing nursing and ancillary staff involved in patient's care documentation, 55minutes Charges/Coding Visit Charges Inpatient E&M: 14304 Subs Hosp L3
[2023-12-05] MEDS: Spironolactone 25 MG Tablet PO (08:41)
[2023-12-05] MEDS: Carvedilol 3.125 MG TABLET PO (08:41)
[2023-12-05] MEDS: Aspirin 81 MG TAB.CHEW PO (08:41)
[2023-12-05] MEDS: Amiodarone 200 MG Tablet PO (08:41)
[2023-12-05] MEDS: Eplerenone 25 MG Tablet PO (08:42)
[2023-12-05] MEDS: Potassium Chloride Oral Tablet 20 MEQ 40 MEQ PO ×2 (08:42→16:06)
[2023-12-05] MEDS: APIXABAN 2.5 MG TABLET (WCH) PO ×2 (08:42→22:52)
[2023-12-05] MEDS: Fluoxetine HCl 40 MG CAPSULE PO (08:43)
[2023-12-05] MEDS: Cholecalciferol (Vit D3) 125 MCG CAPSULE (5,000 UNITS) PO (08:43)
[2023-12-05] MEDS: Furosemide 40 MG Tablet PO (08:43)
[2023-12-05] MEDS: levoFLOXacin IV 500 MG/100 ML BAG 100 MG IV (10:20)
[2023-12-05] MEDS: Albuterol 2.5 MG/3 ML VIAL.NEB. INHALATION ×3 (11:12→20:07)
--- NOTE | 2023-12-05 14:45 | CASEMGMT ---
NICOL ROBINS Assessment: Face to Face with pt for initial transition planning/care coordination assessment. NICOL ROBINS introduced self and role at [facility], pt voices understanding and consents to assessment. Pt is A&O x4 and answers all questions appropriately at this time. Pt lying in bed with oxygen on in no distress with dtr at bedside. Care providers, pharmacy, and demographics verified/updated. Admitting Dx:impending resp failure PCP:Jovi Bradley, MANAGER APPLIED Specialists:Piyush, cardio; scooter [facility] Preferred Pharmacy:[facility] Insurance:[place], [facility]- Pt states he does not want [facility]. Will need [place] declination form. Prescription Benefit: [facility] LNOK:Kathleen Hussein, ; Alethea Skelton, dtr Living Arrangements: Pt lives with in a two story home with FFSU and a ramp to enter. Pt two children visit daily. Pt reports he was I in ADL's prior to hospitalization but was present for safety in bathing. Pt denies concerns at home. Transportation: Pt transports pt to medical appts. DME:w/c, pox, toilet rails, shower chair, BSC, walker, scooter HHC/SNF:[facility], [facility] Pt states no concerns with going home at time of dc. Pt states he had to stop HH approx a month ago d/t his hernia. Discussed HH options with pt, he does not want to commit to HHC at this time although states he was doing very well when he had it. Pt states he would like to go home and see how he does first. ST, PT and OT evals pending. Pt is on 5L oxygen currently. Pt states he would not want his oxygen through the [facility] if needed at dc. Pt states he plans on dc'ing tomorrow. Pt states no further concerns/needs. CM to follow. Advised pt to ask CM if any further question/concerns/needs arise, voices understanding. Pt Goal:Home Plan:Home pending therapy evals, follow for oxygen, need to have pt sign [facility] declination form
[2023-12-05] MEDS: CLARIFY ORDER NOTE ×2 (15:41→16:06)
[2023-12-05] MEDS: guaiFENesin 1,200 MG Tablet 1200 MG PO (22:51)
[2023-12-05] MEDS: Atorvastatin Calcium 80 MG Tablet PO (22:52)
[2023-12-05] MEDS: Mexiletine HCl 200 MG Capsule PO (22:52)
[2023-12-06] VITALS (13 sets, daily range): BP systolic 107–129; BP diastolic 55–74; PULSE 64–77; RESP 16–20; TEMP 36.4–36.6; O2SAT 83–99
[2023-12-06] MEDS: Albuterol 2.5 MG/3 ML VIAL.NEB. INHALATION ×6 (03:39→23:33)
[2023-12-06 06:52] LABS: Absolute Lymphocyte Count 0.53 X10^3/uL (0.83-4.51); Absolute Neutrophil Count 18.7 X10^3/uL (2.0-7.7); Basophil# 0.03 X10^3/uL; Basophil% 0.1 % (0-1); Hemoglobin 13.4 g/dL (13.0-16.5); Lymphocyte # 0.53 X10^3/ul (0.83-4.51); Lymphocyte % 2.6 % (19-41); Mean Corp Hgb Conc 34.4 g/dL (32-36); Mean Corpuscular Hgb 30.7 pg (27.0-32.0); Mean Corpuscular Volume 89.2 fL (80-94); Mean Platelet Vol. 10.1 fl (6.2-12.0); Monocyte# 0.83 X10^3/uL; Monocyte% 4.1 % (0-10); NRBC Flagged by Analyzer 0 % (0-5); Neutrophil # 18.73 X10^3/uL (2.7-7.7); Neutrophil % 92.5 % (47-70); POSITIVE DIFFERENTIAL YES; Platelet Count 284 K/mm3 (150-450); RBC Distribution Width CV 15.6 % (11.6-14.6); RBC Distribution Width SD 51.4 fl (35.1-43.9); Red Blood Count 4.37 M/mm3 (4.6-6.2); White Blood Count 20.3 K/mm3 (4.4-11.0)
[2023-12-06 07:16] LABS: Anion Gap 3 (5-15); BUN 15 mg/dL (7-18); BUN/Creat Ratio 29.1 RATIO (10-20); Calcium,Total 8.8 mg/dL (8.5-10.1); Chloride 99 mmol/L (98-107); Creatinine, Serum 0.52 mg/dL (0.70-1.30); EST Glomerular Filtration Rate 166 mL/min (>60); Est Glom Filt Rate - Afr Amer 201 mL/min (>60); Estimated Creatinine Clearance 76.06 ml/min; Glucose 145 mg/dL (74-106); Phosphorus 3.3 mg/dL (2.5-4.9); Potassium 4.4 mmol/L (3.5-5.1); Sodium Level 133 mmol/L (136-145)
[2023-12-06 07:49] LABS: Differential Indicated SCAN CRITERIA MET
[2023-12-06 08:00] LABS: Differential Comment SCANNED
[2023-12-06] MEDS: Furosemide 40 MG Tablet PO (09:26)
[2023-12-06] MEDS: Potassium Chloride Oral Tablet 20 MEQ 40 MEQ PO ×2 (09:26→15:56)
[2023-12-06] MEDS: CARBOXYMETHYLCELLULOSE SODIUM 1 DRP DROPS OPHTHALMIC (09:27)
[2023-12-06] MEDS: Aspirin 81 MG TAB.CHEW PO (09:27)
[2023-12-06] MEDS: Fluoxetine HCl 40 MG CAPSULE PO (09:27)
[2023-12-06] MEDS: Thiamine Hydrochloride 100 MG Tablet PO (09:27)
[2023-12-06] MEDS: Mexiletine HCl 200 MG Capsule PO ×2 (09:27→22:00)
[2023-12-06] MEDS: APIXABAN 2.5 MG TABLET (WCH) PO ×2 (09:27→22:00)
[2023-12-06] MEDS: Carvedilol 3.125 MG TABLET PO ×2 (09:28→15:56)
[2023-12-06] MEDS: Amiodarone 200 MG Tablet PO (09:28)
[2023-12-06] MEDS: Eplerenone 25 MG Tablet PO (09:28)
[2023-12-06] MEDS: Cholecalciferol (Vit D3) 125 MCG CAPSULE (5,000 UNITS) PO (09:28)
[2023-12-06] MEDS: guaiFENesin 1,200 MG Tablet 1200 MG PO ×2 (09:29→22:00)
[2023-12-06] MEDS: Spironolactone 25 MG Tablet PO (09:29)
[2023-12-06] MEDS: oxyCODONE 5 MG Tablet PO ×3 (09:43→22:00)
--- NOTE | 2023-12-06 10:26 | PCM.PN.HOSP ---
Reason for Visit Reason for Visit: Diagnoses Hyperlipidemia, unspecified (12/04/23) Hypokalemia (12/04/23) Depression, unspecified (12/04/23) Unspecified atrial fibrillation (12/04/23) Chronic diastolic (congestive) heart failure (12/04/23) Chronic obstructive pulmonary disease, unspecified (12/04/23) Acute respiratory failure with hypoxia (12/04/23) Other disorders of lung (12/04/23) Scoliosis, unspecified (12/04/23) Other malaise (12/04/23) Unspecified foreign body in respiratory tract, part unspecified causing other injury, initial encounter (12/04/23) Subjective Subjective Patient scheduled for videofluoroscopy for swallow eval Objective Data Objective Data Vital Signs: Vital Signs Temp Pulse Resp BP Pulse Ox O2 Del Method O2 Flow Rate 97.6 F L 77 16 125/55 H 95 Nasal Cannula 2 12/06/23 09:23 12/06/23 09:23 12/06/23 09:23 12/06/23 09:23 12/06/23 09:23 12/06/23 09:23 12/06/23 09:23 FiO2 40 12/05/23 07:05 Oxygen Flow Rate (L/min) 2 Oxygen Delivery Method Nasal Cannula Weight: 67.4 kg Body Mass Index (BMI) 21.9 Intake & Output: Intake and Output for Last 24 Hours 12/04/23 12/05/23 12/06/23 23:59 23:59 23:59 Intake Total 332 / 332 0 / 0 Output Total 350 / 350 0 / 0 Balance -18 / -18 0 / 0 Lab / Micro Data 12/06/23 06:30 12/06/23 06:30 Labs: Laboratory Results - last 24 hr 12/06/23 06:30: WBC 20.3 H, RBC 4.37 L, Hgb 13.4, Hct 39.0 L, MCV 89.2, MCH 30.7, MCHC 34.4 D, RDW Std Deviation 51.4 H, RDW Coeff of Rohit 15.6 H, Plt Count 284, MPV 10.1, Immature Gran % (Auto) 0.700, Neut % (Auto) 92.5 H, Lymph % (Auto) 2.6 L, [place] % (Auto) 4.1, Eos % (Auto) 0.0, Baso % (Auto) 0.1, Absolute Neuts (auto) 18.7 H, Absolute Lymphs (auto) 0.53 L, Nucleated RBC % 0, Differential Comment SCANNED, Sodium 133 L, Potassium 4.4, Chloride 99, Carbon Dioxide 31.0, Anion Gap 3 L, BUN 15, Creatinine 0.52 L, Estim Creat Clear Calc 76.06, Est GFR (MDRD) Af Amer 201, Est GFR (MDRD) Non-Af 166, BUN/Creatinine Ratio 29.1 H, Glucose 145 H, Calcium 8.8, Phosphorus 3.3, Magnesium 2.0 Micro: Microbiology 12/05/23 12:41 Sputum, Expectorated/Coughed Gram Stain - Final 12/05/23 11:15 Mucosa - Nose Respiratory Panel (PCR) - Final 12/05/23 12:05 Urine, Random Legionella Antigen - Final 12/05/23 12:05 Urine, Random Streptococcus pneumoniae Antigen (M - Final 12/05/23 11:15 Mucosa - Nose Streptococcus pyogenes (PCR) - Final Physical Exam Narrative GENERAL: cooperative HEENT: Atraumatic; normocephalic EYES; Anicteric, Normal Conjunctiva NECK; supple, normal thyroid, RESPIRATORY: Diminished to auscultation CARDIOVASCULAR: Regular S1 S2, GI: soft, normoactive bowel sounds, : No Renal angle tenderness; EXTREMITIES: No edema, no clubbing, MUSCULOSKELETAL: no muscle wasting NEURO: Awake; no lateralizing signs. SKIN: No Rash PSYCH; Flat affect Const oriented x3 General Appearance: cooperative and well developed HEENT normocephalic and head/scalp atraumatic Eyes PERRL Neck no lymphadenopathy Lymph Lymphatic: no lymphadenopathy noted Resp Auscultation: rhonchi left upper Cardio regular rate, regular rhythm, S1 normal heart sound and S2 normal heart sound GI normal to inspection, nondistended, normoactive bowel sounds, soft to palpation, non-tender and non-distended Extremity no calf tenderness Skin Skin Narrative: Bruising noted on bilateral upper extremities Neuro no focal motor deficits and no sensory deficits noted Speech: speech normal Psych Appearance: appropriate Assessment & Plan Assessment/Plan (1) Acute respiratory failure with hypoxemia: (2) Restrictive lung disease due to kyphoscoliosis: (3) Chronic diastolic congestive heart failure: PLAN: Plan Patient is a 73-year-old gentleman with multiple comorbidities admitted with progressive shortness of breath. An assessment of COPD with acute exacerbation made admitted to the intensive care unit for further management 1. Acute hypoxic respiratory failure ? Present on admission; this was evidenced by patient being tachypneic and patient being placed on noninvasive ventilation CPAP which was then transitioned to BiPAP. Patient was admitted to the intensive care unit. Managed as a case of pneumonia as well COPD with acute exacerbation 2. COPD with acute exacerbation ? Patient presented with acute respiratory failure managed with systemic steroid antibiotic therapy as well as supplemental oxygen 3. Pneumonia - Suspected to be secondary to aspiration pneumonia. Blood and sputum cultures sent. Patient placed Levaquin, oxygen titrated to keep Pulse Ox greater than 90 -12/06/2019 patient underwent speech and swallow eval findings and recommendations as below Impression: The oral phase is primarily marked by... -Decreased bolus control with <1/2 of the bolus spilling posteriorly to the pyriforms prior to swallow onset observed with thin liquid. -Delayed tongue motion. -Small collection of oral residue on tongue surface with thin liquids. -Slowed, but adequate mastication of cookie. The pharyngeal phase is primarily marked by... -Mildly decreased airway closure during the swallow due to partial anterior hyoid excursion, decreased laryngeal elevation, and inconsistent epiglottic inversion. -Mild-moderately decreased tongue base retraction, mildly decreased UES opening/duration, mildly decreased pharyngeal stripping wave, resulting in trace-mild pharyngeal residues after the swallow. Vallecular residues greatly increased with cookie trial. Liquid wash effectively cleared majority of cookie residue. -SILENT aspiration of thin liquids via cup with chin tuck, which fully ejected. Consistent, deep laryngeal penetration of thin liquids via cup and straw with no reflexive cough, delayed reflexive throat clear that somewhat cleared contrast from the laryngeal vestibule. Cued cough and re-swallow was most effective in decreasing aspiration risk. Recommendations Diet: Regular Textures (Easy to Chew textures IDDSI Level 7) and [place]-thick Liquids (Mildly Thick liquids IDDSI Level 2) Compensatory Strategies: Small Bites, Small Sips, Slow Rate, Alternate bites/solids and sips/liquids, Sitting upright and Remain sitting upright for 30 minutes after PO intake 4. Sepsis ? Present on admission patient treated with broad-spectrum antibiotic therapy. Patient did not receive IV fluids per protocol given concerns for possible fluid overload 5. Hypokalemia ? Corrected per protocol repeat labs ordered for monitoring 6. Hyponatremia ? Do suspect SIADH from patient underlying lung disease as well as patient being on diuretics placed on fluid restriction 7. Chronic congestive heart failure with preserved ejection fraction ? Echo from 03/30/2023 demonstrated EF of 55%. Patient is on torsemide as well as Aldactone; continued 8. Valvular heart disease ? With with history of TAVR at [facility] for aortic stenosis as well as previous history of mitral valve repair 9. Conduction system disorder ? Status post pacemaker placement 10. Paroxysmal A-fib ? Rate controlled on amiodarone and on systemic anticoagulation with 11. Physical deconditioning - Requested for PT OT eval and social security benefits interviewer to assist with discharge planning 12. Hypertension - Blood pressure controlled, home medications continued with dose adjustment as needed 13. Depression ? Patient is on fluoxetine did continue 14. DVT prophylaxis ? Patient on apixaban Time spent in the patient's overall evaluation,decision-making process, review of diagnostic data, adjustment of management, discussion with other providers, nursing nursing and ancillary staff involved in patient's care documentation, 50 minutes Charges/Coding Visit Charges Inpatient E&M: 00567 [facility] Hosp L3
[2023-12-06] MEDS: levoFLOXacin IV 500 MG/100 ML BAG 100 MG IV (11:14)
--- NOTE | 2023-12-06 11:40 | SP.MBSS_ITS ---
Modified Barium Swallow Patient Information Study Date: 12/06/23 Study Time: 10:30 Direct Billable Minutes: 94 Total Minutes procedure & reportin Diagnosis: COPD J44.9; Aspiration into airway T17.908A Referring Physician: Feroz Bucio Reason for Referral: Objectively assess swallow function, assess risk for aspiration, and determine recommendations for least restrictive diet textures and compensatory strategies to improve safety of swallow. Medical History: Vikas Crawley is a 73 M who presented to [facility] ED on 12/04/2022 with acute shortness of breath. Patient had fallen asleep in his chair and awoke suddenly gasping for air. There was suspicion for aspiration. EMS was called and initiated CPAP treatment in the field and BiPAP was initiated in the emergency room as patient was not verbal upon arrival. Patient has a past medical history of coronary artery disease, heart failure with a pacemaker and takes Eliquis, amiodarone, Bumex routinely, A-fib, Closed intertrochanteric fracture of right femur with routine healing, Closed right hip fracture, Eye abnormality, Multiple rib fractures (SEE EMR for full PMH). Patient responded to the emergency room to BiPAP treatment and improved his respiratory status to the point we weaned him off the BiPAP and started nasal cannula oxygen which she was able to maintain oxygenation greater than 90% while being observed. CBC shows an elevated white count with a marked left shift consistent with pneumonia, chest x-ray is negative for pneumothorax but patient does have limited lung volumes due to significant kyphosis (poor posture). Patient was admitted to the intensive care unit. Managed as a case of pneumonia as well COPD with acute exacerbation. Chest x-ray 12/04/23 revealed ASHD and mild right lower lobe atelectasis or infiltrate. Status post median sternotomy and aortic valve placement. Referral received for Clinical Bedside Swallow Evaluation d/t suspicion for aspiration PNA precipitating this admission. He was recommended for soft and bite size textures / thin liquids with plans for MBSS to further assess swallow function and aspiration risk. This patient is known to [facility] Speech Therapy Department from prior MBSS x 2 and dysphagia intervention during TCU stay 04/2023. MBSS completed on 04/17/23 w/ dx of moderate oropharyngeal dysphagia w/ laryngeal penetration w/ several consistencies that was not fully ejected and patient is at high risk of post prandial aspiration of residue remaining in laryngeal vestibule. Aspiration w/ thin via cup was observed during study d/t suboptimal posture, unintentional chin tuck. Diet recommended - Regular Textures - Easy to Chew/Thin Liquids w/ the following compensatory strategies: Small Bites, Small S ips, Slow Rate, Alternate bites/solids and sips/liquids, Sitting upright - slightly reclined, Remain sitting upright for 30 minutes after PO intake, Assist with verbal cues to use recommended strategies. The patient was subsequently downgraded to thin via tsp. A repeat MBSS was completed 05/02/23 w/ dx of moderate oropharyngeal dysphagia w/ significant improvement in swallow function compared to 04/17/23 MBSS as patient was able to demonstrate improved presence and strength of cough reflex and improved posture for safe swallowing. Diet recommended - Regular Textures - Soft and Bite Size/Thin Liquids w/ the following compensatory strategies: Small Bites, Small Sips, No Straws, Slow Rate, Multiple Swallows, Alternate bites/solids and sips/liquids, Sitting upright, Remain sitting upright for 30 minutes after PO intake Current Diet Ordered: Soft and bite size / Thin liquids Dentition: Partials (lower partials in, upper dentures left in room) Mental Status: WNL Respiratory Status: Oxygenating on 2L/M nasal cannula Penetration-Aspiration Scale Penetration-Aspiration Scale: OBJECTIVE ASSESSMENT OF SWALLOW FUNCTION (QUANTITATIVE ? PER TRIAL): PENETRATION / ASPIRATION SCALE (LUQUE): 1 = does not enter airway 2 = enters airway/above vocal folds/ejected 3 = enters airway/above vocal folds/not ejected 4 = enters airway/contacts vocal folds/ejected 5 = enters airway/contacts vocal folds/not ejected 6 = enters airway/below vocal folds/ejected 7 = enters airway/below vocal folds/not ejected despite effort 8 = enters airway/below vocal folds/no effort VIDEOFLOROSCOPIC SCALE SCORE (LUQUE): Grade I = aspiration of material that has penetrated into the laryngeal vestibule, intact cough reflex Grade II = aspiration < 10 % of the bolus, intact cough reflex Grade III = aspiration of < 10 % of the bolus, reduced cough reflex or aspiration of > 10 % of the bolus, intact cough reflex Grade IV = aspiration of > 10 % of the bolus, reduced cough reflex Penetration-Aspiration Scale Score Thin Liquid via teaspoon: Result: 1= does not enter airway Thin Liquid via teaspoon Trial 2: Result: 1= does not enter airway Thin Liquid via small single sip: cup: Result: 5= enters airways/contacts vocal folds/not ejected Emmett Thick Liquid via small single sip: cup: Result: 2= enter airway/above vocal folds/ejected Pudding via teaspoon: Result: 1= does not enter airway 1/4 Cookie: Result: 1= does not enter airway Thin Liquid via single sip: straw: Result: 2= enter airway/above vocal folds/ejected Thin Liquid via small single sip: cup Trial 2: Result: 5= enters airways/contacts vocal folds/not ejected Thin Liquid via small single sip: cup Effortful swallow: Result: 5= enters airways/contacts vocal folds/not ejected Thin Liquid via small single sip: cup Chin tuck: Result: 8= enters airway/below vocal folds/no effort Emmett Thick Liquid via small single sip: cup Trial 2: Result: 1= does not enter airway Oral Phase Labial Seal: Interlabial escape, no progression to anterior lip Tongue Control During Bolus Hold: Posterior escape of less than half of bolus Bolus Preparation/Mastication: Slow prolonged chewing/mashing with complete recollection Bolus Transport/Lingual Motion: Delayed initiation of tongue motion Oral Residue: Residue collection on oral structures Pharyngeal Phase Initiation of Pharyngeal Swallow: Bolus head in pyriforms Soft Palate Elevation: No bolus between soft palate and pharyngeal wall Laryngeal Elevation: Partial superior movement thyroid cart/partial apprx aryt- epig petiole Anterior Hyoid Excursion: Partial anterior movement Epiglottic Movement: No inversion (inconsistent inversion) Laryngeal Vestibule Closure at Height of Swallow: Incomplete; narrow column of air/contrast in laryngeal vestibule Pharyngeal Stripping Wave: Present - diminished Pharyngoesophageal Segment Opening: Parital distension and partial duration; parital obstruction of flow Tongue Base Retraction: Wide column of contrast between tongue base & post. pharyngeal wall Pharyngeal Residue: Collection of residue within or on pharyngeal structures Esophageal Phase Esophageal Clearance: Complete clearance Diagnosis/Impression Diagnosis: Moderate oropharyngeal dysphagia R13.12 Impression: The oral phase is primarily marked by... -Decreased bolus control with <1/2 of the bolus spilling posteriorly to the pyriforms prior to swallow onset observed with thin liquid. -Delayed tongue motion. -Small collection of oral residue on tongue surface with thin liquids. -Slowed, but adequate mastication of cookie. The pharyngeal phase is primarily marked by... -Mildly decreased airway closure during the swallow due to partial anterior hyoid excursion, decreased laryngeal elevation, and inconsistent epiglottic inversion. -Mild-moderately decreased tongue base retraction, mildly decreased UES opening/duration, mildly decreased pharyngeal stripping wave, resulting in trace-mild pharyngeal residues after the swallow. Vallecular residues greatly increased with cookie trial. Liquid wash effectively cleared majority of cookie residue. -SILENT aspiration of thin liquids via cup with chin tuck, which fully ejected. Consistent, deep laryngeal penetration of thin liquids via cup and straw with no reflexive cough, delayed reflexive throat clear that somewhat cleared contrast from the laryngeal vestibule. Cued cough and re-swallow was most effective in decreasing aspiration risk. Recommendations Diet: Regular Textures (Easy to Chew textures IDDSI Level 7) and Emmett-thick Liquids (Mildly Thick liquids IDDSI Level 2) Compensatory Strategies: Small Bites, Small Sips, Slow Rate, Alternate bites/solids and sips/liquids, Sitting upright and Remain sitting upright for 30 minutes after PO intake Supervision: Distant Supervision Recommend Repeat Modified Barium Swallow: TBD Need for Skilled Speech Therapy Services: Yes Comment: STUDIO OPERATOR is recommending ST services at discharge. Continued ST to include... -Train the patient in use of strategies to decrease risk for aspiration. -Ongoing assessment of diet tolerance of recommended textures. -Train the patient oropharyngeal exercise program to improve tongue base retraction, pharyngeal stripping wave, and airway closure (Mya, Effortful, Zayra, CTAR). -Would consider the patient for implementation of [place] Free Water Protocol (FFWP) to encourage hydration, improve quality of life, and promote increased opportunities for swallowing throughout the day. Education Completed: 1. Described result of evaluation., 2. Pt understands evaluation & agrees with goals and treatment plan. and 7. Pt requires further education on strategies & risks. Status Active ST Patient: Active Contact Information [facility] Speech Therapy:: Gabriela Vogt M.A. [facility]-STUDIO OPERATOR Speech-Language Pathologist [facility] [address] [place] [address] [email or web address] [phone]
[2023-12-06] MEDS: Atorvastatin Calcium 80 MG Tablet PO (22:00)
[2023-12-06] MEDS: 0.9% Saline Lock 10 ML Syringe IV (22:00)
[2023-12-07] VITALS (9 sets, daily range): BP systolic 102–137; BP diastolic 62–70; PULSE 65–80; RESP 16–20; TEMP 36.4–36.8; O2SAT 87–96
[2023-12-07] MEDS: Albuterol 2.5 MG/3 ML VIAL.NEB. INHALATION ×4 (02:44→14:14)
[2023-12-07] MEDS: oxyCODONE 5 MG Tablet PO (03:53)
[2023-12-07] MEDS: 0.9% Saline Lock 10 ML Syringe IV ×4 (06:10→13:26)
[2023-12-07 08:57] LABS: Absolute Lymphocyte Count 0.58 X10^3/uL (0.83-4.51); Absolute Neutrophil Count 18.1 X10^3/uL (2.0-7.7); Basophil# 0.02 X10^3/uL; Basophil% 0.1 % (0-1); Hematocrit 42.6 % (40-54); Hemoglobin 13.7 g/dL (13.0-16.5); Lymphocyte # 0.58 X10^3/ul (0.83-4.51); Mean Corp Hgb Conc 32.2 g/dL (32-36); Mean Corpuscular Hgb 29.3 pg (27.0-32.0); Mean Corpuscular Volume 91.2 fL (80-94); Mean Platelet Vol. 10.3 fl (6.2-12.0); Monocyte# 0.58 X10^3/uL; NRBC Flagged by Analyzer 0 % (0-5); Neutrophil # 18.05 X10^3/uL (2.7-7.7); Neutrophil % 92.7 % (47-70); POSITIVE DIFFERENTIAL YES; Platelet Count 334 K/mm3 (150-450); RBC Distribution Width SD 53.5 fl (35.1-43.9); Red Blood Count 4.67 M/mm3 (4.6-6.2); White Blood Count 19.5 K/mm3 (4.4-11.0)
[2023-12-07] MEDS: Aspirin 81 MG TAB.CHEW PO (09:01)
[2023-12-07] MEDS: Spironolactone 25 MG Tablet PO (09:01)
[2023-12-07] MEDS: Potassium Chloride Oral Tablet 20 MEQ 40 MEQ PO (09:02)
[2023-12-07] MEDS: Amiodarone 200 MG Tablet PO (09:02)
[2023-12-07] MEDS: Carvedilol 3.125 MG TABLET PO (09:02)
[2023-12-07] MEDS: Eplerenone 25 MG Tablet PO (09:02)
[2023-12-07] MEDS: APIXABAN 2.5 MG TABLET (WCH) PO (09:02)
[2023-12-07] MEDS: Furosemide 40 MG Tablet PO (09:02)
[2023-12-07] MEDS: Mexiletine HCl 200 MG Capsule PO (09:03)
[2023-12-07] MEDS: Thiamine Hydrochloride 100 MG Tablet PO (09:03)
[2023-12-07] MEDS: Cholecalciferol (Vit D3) 125 MCG CAPSULE (5,000 UNITS) PO (09:03)
[2023-12-07] MEDS: guaiFENesin 1,200 MG Tablet 1200 MG PO (09:03)
[2023-12-07] MEDS: Fluoxetine HCl 40 MG CAPSULE PO (09:03)
[2023-12-07] MEDS: Senna/Docusate Sodium 1 Tablet PO (09:09)
[2023-12-07] MEDS: levoFLOXacin IV 500 MG/100 ML BAG 100 MG IV (09:10)
[2023-12-07 09:26] LABS: Anion Gap 4 (5-15); BUN 20 mg/dL (7-18); BUN/Creat Ratio 34.2 RATIO (10-20); Calcium,Total 9.1 mg/dL (8.5-10.1); Chloride 98 mmol/L (98-107); Creatinine, Serum 0.58 mg/dL (0.70-1.30); EST Glomerular Filtration Rate 144 mL/min (>60); Est Glom Filt Rate - Afr Amer 174 mL/min (>60); Estimated Creatinine Clearance 76.06 ml/min; Glucose 130 mg/dL (74-106); Potassium 4.7 mmol/L (3.5-5.1); Sodium Level 132 mmol/L (136-145)
[2023-12-07 09:35] LABS: Differential Indicated SCAN CRITERIA MET
--- NOTE | 2023-12-07 09:49 | PCM.PN.HOSP ---
Reason for Visit Reason for Visit: Diagnoses Hyperlipidemia, unspecified (12/04/23) Hypokalemia (12/04/23) Depression, unspecified (12/04/23) Unspecified atrial fibrillation (12/04/23) Chronic diastolic (congestive) heart failure (12/04/23) Chronic obstructive pulmonary disease, unspecified (12/04/23) Acute respiratory failure with hypoxia (12/04/23) Other disorders of lung (12/04/23) Scoliosis, unspecified (12/04/23) Other malaise (12/04/23) Unspecified foreign body in respiratory tract, part unspecified causing other injury, initial encounter (12/04/23) Subjective Subjective Patient seen remains on oxygen. He request to be discharged home. Patient to be assessed which is 6 minutes walk for home oxygen needs prior to discharge and Objective Data Objective Data Vital Signs: Vital Signs Temp Pulse Resp BP Pulse Ox O2 Del Method O2 Flow Rate 98.3 F 74 16 137/68 H 96 Nasal Cannula 2 12/07/23 08:51 12/07/23 08:51 12/07/23 08:51 12/07/23 08:51 12/07/23 08:51 12/07/23 08:51 12/07/23 08:51 FiO2 40 12/05/23 07:05 Oxygen Flow Rate (L/min) 2 Oxygen Delivery Method Nasal Cannula Weight: 67.4 kg Body Mass Index (BMI) 21.9 Intake & Output: Intake and Output for Last 24 Hours 12/05/23 12/06/23 12/07/23 23:59 23:59 23:59 Intake Total 332 / 332 100 / 130 30 / 30 Output Total 350 / 350 300 / 300 0 / 0 Balance -18 / -18 -200 / -170 30 / 30 Lab / Micro Data 12/07/23 08:16 12/07/23 08:16 Labs: Laboratory Results - last 24 hr 12/07/23 08:16: WBC 19.5 H, RBC 4.67, Hgb 13.7, Hct 42.6, MCV 91.2, MCH 29.3, MCHC 32.2 D, RDW Std Deviation 53.5 H, RDW Coeff of Rohit 16.0 H, Plt Count 334, MPV 10.3, Immature Gran % (Auto) 1.200 H, Neut % (Auto) 92.7 H, Lymph % (Auto) 3.0 L, Bartow % (Auto) 3.0, Eos % (Auto) 0.0, Baso % (Auto) 0.1, Absolute Neuts (auto) 18.1 H, Absolute Lymphs (auto) 0.58 L, Nucleated RBC % 0, Sodium 132 L, Potassium 4.7, Chloride 98, Carbon Dioxide 30.0, Anion Gap 4 L, BUN 20 H, Creatinine 0.58 L, Estim Creat Clear Calc 76.06, Est GFR (MDRD) Af Amer 174, Est GFR (MDRD) Non-Af 144, BUN/Creatinine Ratio 34.2 H, Glucose 130 H, Calcium 9.1 Micro: Microbiology 12/05/23 12:41 Sputum, Expectorated/Coughed Gram Stain - Final 12/05/23 12:41 Sputum, Expectorated/Coughed Respiratory Culture - Final Klebsiella oxytoca 12/05/23 11:15 Mucosa - Nose Respiratory Panel (PCR) - Final 12/05/23 12:05 Urine, Random Legionella Antigen - Final 12/05/23 12:05 Urine, Random Streptococcus pneumoniae Antigen (M - Final 12/05/23 11:15 Mucosa - Nose Streptococcus pyogenes (PCR) - Final Physical Exam Narrative GENERAL: cooperative HEENT: Atraumatic; normocephalic EYES; Anicteric, Normal Conjunctiva NECK; supple, normal thyroid, RESPIRATORY: Diminished to auscultation CARDIOVASCULAR: Regular S1 S2, GI: soft, normoactive bowel sounds, : No Renal angle tenderness; EXTREMITIES: No edema, no clubbing, MUSCULOSKELETAL: no muscle wasting NEURO: Awake; no lateralizing signs. SKIN: No Rash PSYCH; Flat affect Assessment & Plan Assessment/Plan (1) Acute respiratory failure with hypoxemia: (2) Restrictive lung disease due to kyphoscoliosis: (3) Chronic diastolic congestive heart failure: PLAN: Plan Patient is a 73-year-old gentleman with multiple comorbidities admitted with progressive shortness of breath. An assessment of COPD with acute exacerbation made admitted to the intensive care unit for further management 1. Acute hypoxic respiratory failure ? Present on admission; this was evidenced by patient being tachypneic and patient being placed on noninvasive ventilation CPAP which was then transitioned to BiPAP. Patient was admitted to the intensive care unit. Managed as a case of pneumonia as well COPD with acute exacerbation ? 12/07/2023; patient to be assessed for home oxygen prior to discharge. Patient will need portability since he is active both at home as well as in the community 2. COPD with acute exacerbation ? Patient presented with acute respiratory failure managed with systemic steroid antibiotic therapy as well as supplemental oxygen 3. Pneumonia - Suspected to be secondary to aspiration pneumonia. Blood and sputum cultures sent. Patient placed Levaquin, oxygen titrated to keep Pulse Ox greater than 90 -12/06/2019 patient underwent speech and swallow eval findings and recommendations as below 4. Dysphagia ? Patient underwent speech and swallow eval via videofluoroscopy. Impressions and recommendations as below Impression: The oral phase is primarily marked by... -Decreased bolus control with <1/2 of the bolus spilling posteriorly to the pyriforms prior to swallow onset observed with thin liquid. -Delayed tongue motion. -Small collection of oral residue on tongue surface with thin liquids. -Slowed, but adequate mastication of cookie. The pharyngeal phase is primarily marked by... -Mildly decreased airway closure during the swallow due to partial anterior hyoid excursion, decreased laryngeal elevation, and inconsistent epiglottic inversion. -Mild-moderately decreased tongue base retraction, mildly decreased UES opening/duration, mildly decreased pharyngeal stripping wave, resulting in trace-mild pharyngeal residues after the swallow. Vallecular residues greatly increased with cookie trial. Liquid wash effectively cleared majority of cookie residue. -SILENT aspiration of thin liquids via cup with chin tuck, which fully ejected. Consistent, deep laryngeal penetration of thin liquids via cup and straw with no reflexive cough, delayed reflexive throat clear that somewhat cleared contrast from the laryngeal vestibule. Cued cough and re-swallow was most effective in decreasing aspiration risk. Recommendations Diet: Regular Textures (Easy to Chew textures IDDSI Level 7) and Mcnab-thick Liquids (Mildly Thick liquids IDDSI Level 2) Compensatory Strategies: Small Bites, Small Sips, Slow Rate, Alternate bites/solids and sips/liquids, Sitting upright and Remain sitting upright for 30 minutes after PO intake 5. Sepsis ? Present on admission patient treated with broad-spectrum antibiotic therapy. Patient did not receive IV fluids per protocol given concerns for possible fluid overload 6. Hyponatremia ? Do suspect SIADH from patient underlying lung disease as well as patient being on diuretics placed on fluid restriction 7. Chronic congestive heart failure with preserved ejection fraction ? Echo from 03/30/2023 demonstrated EF of 55%. Patient is on torsemide as well as Aldactone; continued 8. Valvular heart disease ? With with history of T[facility]R at [facility] for aortic stenosis as well as previous history of mitral valve repair 9. Conduction system disorder ? Status post pacemaker placement 10. Paroxysmal A-fib ? Rate controlled on amiodarone and on systemic anticoagulation with 11. Physical deconditioning - Requested for PT OT eval and social sciences instructor to assist with discharge planning 12. Hypertension - Blood pressure controlled, home medications continued with dose adjustment as needed 13. Depression ? Patient is on fluoxetine did continue 14. Hypokalemia ? Corrected per protocol repeat labs ordered for monitoring 15. DVT prophylaxis ? Patient on apixaban Time spent in the patient's overall evaluation,decision-making process, review of diagnostic data, adjustment of management, discussion with other providers, nursing nursing and ancillary staff involved in patient's care documentation, 40 minutes Charges/Coding Visit Charges Inpatient E&M: 80947 Subs Hosp L2
[2023-12-07 10:28] LABS: Differential Comment SCANNED
--- NOTE | 2023-12-07 10:51 | CASEMGMT ---
[facility] declination formed signed by the pt. Copy given to the patient. Form [facility] registration and the [facility]. Registration called and notified by this RN JULIENNE.
--- NOTE | 2023-12-07 11:07 | DS.PCM_ITS ---
Providers Date of Admission: 12/04/23 Date of Discharge: 12/07/23 Primary Care Physician: VIV Mcdaniel Reason For Visit: IMPENDING RESPIRATORY FAILURE SECONDARY TO Diagnosis Discharge Diagnosis (1) Acute respiratory failure with hypoxemia: Status: Acute Code(s): J96.01 - Acute respiratory failure with hypoxia (2) Restrictive lung disease due to kyphoscoliosis: Status: Acute Code(s): J98.4 - Other disorders of lung; M41.9 - Scoliosis, unspecified (3) Chronic diastolic congestive heart failure: Status: Chronic Code(s): I50.32 - Chronic diastolic (congestive) heart failure Plan Patient is a 73-year-old gentleman with multiple comorbidities admitted with progressive shortness of breath. An assessment of COPD with acute exacerbation made admitted to the intensive care unit for further management 1. Acute hypoxic respiratory failure ? Present on admission; this was evidenced by patient being tachypneic and patient being placed on noninvasive ventilation CPAP which was then transitioned to BiPAP. Patient was admitted to the intensive care unit. Managed as a case of pneumonia as well COPD with acute exacerbation ? 12/07/2023; patient to be assessed for home oxygen prior to discharge. Patient will need portability since he is active both at home as well as in the community 2. COPD with acute exacerbation ? Patient presented with acute respiratory failure managed with systemic steroid antibiotic therapy as well as supplemental oxygen 3. Recent pneumonia with Klebsiella oxytocin - Suspected to be secondary to aspiration pneumonia. Blood and sputum cultures sent. Patient placed Levaquin, oxygen titrated to keep Pulse Ox greater than 90 -12/06/2019 patient underwent speech and swallow eval findings and recommendations as below ? 12/07/2023 cultures came back positive for Klebsiella oxytocin. Patient was treated appropriately with the right antibiotics based on his sensitivities 4. Dysphagia ? Patient underwent speech and swallow eval via videofluoroscopy. Impressions and recommendations as below Impression: The oral phase is primarily marked by... -Decreased bolus control with <1/2 of the bolus spilling posteriorly to the pyriforms prior to swallow onset observed with thin liquid. -Delayed tongue motion. -Small collection of oral residue on tongue surface with thin liquids. -Slowed, but adequate mastication of cookie. The pharyngeal phase is primarily marked by... -Mildly decreased airway closure during the swallow due to partial anterior hyoid excursion, decreased laryngeal elevation, and inconsistent epiglottic inversion. -Mild-moderately decreased tongue base retraction, mildly decreased UES opening/duration, mildly decreased pharyngeal stripping wave, resulting in trace-mild pharyngeal residues after the swallow. Vallecular residues greatly increased with cookie trial. Liquid wash effectively cleared majority of cookie residue. -SILENT aspiration of thin liquids via cup with chin tuck, which fully ejected. Consistent, deep laryngeal penetration of thin liquids via cup and straw with no reflexive cough, delayed reflexive throat clear that somewhat cleared contrast from the laryngeal vestibule. Cued cough and re-swallow was most effective in decreasing aspiration risk. Recommendations Diet: Regular Textures (Easy to Chew textures IDDSI Level 7) and Sarah Ann-thick Liquids (Mildly Thick liquids IDDSI Level 2) Compensatory Strategies: Small Bites, Small Sips, Slow Rate, Alternate bites/solids and sips/liquids, Sitting upright and Remain sitting upright for 30 minutes after PO intake 5. Sepsis ? Present on admission patient treated with broad-spectrum antibiotic therapy. Patient did not receive IV fluids per protocol given concerns for possible fluid overload 6. Hyponatremia ? Do suspect SIADH from patient underlying lung disease as well as patient being on diuretics placed on fluid restriction 7. Chronic congestive heart failure with preserved ejection fraction ? Echo from 03/30/2023 demonstrated EF of 55%. Patient is on torsemide as well as Aldactone; continued 8. Valvular heart disease ? With with history of TAVR at [facility] for aortic stenosis as well as previous history of mitral valve repair 9. Conduction system disorder ? Status post pacemaker placement 10. Paroxysmal A-fib ? Rate controlled on amiodarone and on systemic anticoagulation with 11. Physical deconditioning - Requested for PT OT eval and social media sr strategy manager to assist with discharge planning 12. Hypertension - Blood pressure controlled, home medications continued with dose adjustment as needed 13. Depression ? Patient is on fluoxetine did continue 14. Hypokalemia ? Corrected per protocol repeat labs ordered for monitoring 15. DVT prophylaxis ? Patient on apixaban Time spent in the patient's overall evaluation,decision-making process, review of diagnostic data, adjustment of management, discussion with other providers, nursing nursing and ancillary staff involved in patient's care documentation, 40 minutes Medications at Discharge Home Medications amiodarone 200 mg tablet 200 mg PO DAILY heart 02/08/23 atorvastatin 80 mg tablet 80 mg PO DAILY cholesterol 05/03/23 fluoxetine 40 mg capsule (Prozac) 40 mg PO DAILY anxiety 03/29/23 mexiletine 200 mg capsule 200 mg PO BID heart 03/29/23 apixaban 2.5 mg tablet 2.5 mg PO BID blood thinner 04/12/23 fexofenadine 180 mg tablet (Reva Allergy) 180 mg PO DAILY PRN allergy 30 days #0 tabs 04/12/23 carvedilol 3.125 mg tablet 3.125 mg PO BID@0800,2000 30 days #60 tabs 05/03/23 spironolactone 25 mg tablet 25 mg PO DAILYCM 30 days #30 tabs 05/03/23 acetaminophen 500 mg tablet 500 mg PO Q6H PRN LOVE 1-10 12/04/23 aspirin 81 mg chewable tablet (Aspirin Childrens) 1 tab PO DAILY 12/04/23 cholecalciferol (vitamin D3) 25 mcg (1,000 unit) capsule 125 mcg PO DAILY 07/20 eplerenone 25 mg tablet (Inspra) 25 mg PO DAILY 12/04/23 mecobalamin (vitamin B12) 1,000 mcg lozenges 1,000 mcg PO DAILY 12/04/23 olopatadine 0.1 % eye drops 1 drp EACH EYE BID 12/04/23 oxycodone 5 mg tablet 5 mg PO Q6H PRN pain 12/04/23 potassium chloride 20 mEq tablet,extended release(part/cryst) (Klor-Con M) 40 meq PO BID 12/04/23 sennosides 8.6 mg-docusate sodium 50 mg tablet (Stool Softener-Stimulant Laxative) 1 tab-cap PO DAILY PRN constipation 12/04/23 thiamine HCl (vitamin B1) 100 mg/mL injection solution 100 mg IM DAILY 12/04/23 torsemide 20 mg tablet 20 mg PO DAILY 12/04/23 cefdinir 300 mg capsule 300 mg PO BID #14 caps 12/07/23 guaifenesin 1,200 mg tablet, extended release 12 hr (Mucus Relief ER) 1,200 mg PO BID 10 days #20 tabs 12/07/23 prednisone 20 mg tablet 20 mg PO BID #10 tabs 12/07/23 Hospital Course Summary of Care Provided Minutes Spent on Discharge: 40 Physical Exam Narrative GENERAL: cooperative HEENT: Atraumatic; normocephalic EYES; Anicteric, Normal Conjunctiva NECK; supple, normal thyroid, RESPIRATORY: Diminished to auscultation CARDIOVASCULAR: Regular S1 S2, GI: soft, normoactive bowel sounds, : No Renal angle tenderness; EXTREMITIES: No edema, no clubbing, MUSCULOSKELETAL: no muscle wasting NEURO: Awake; no lateralizing signs. SKIN: No Rash PSYCH; Flat affect Weight / BMI Weight Weight: 67.4 kg Body Mass Index (BMI) 21.9 ABG / Lab / Microbiology Data 12/07/23 08:16 12/07/23 08:16 Laboratory: Laboratory Results - last 24 hr 12/07/23 08:16: WBC 19.5 H, RBC 4.67, Hgb 13.7, Hct 42.6, MCV 91.2, MCH 29.3, MCHC 32.2 D, RDW Std Deviation 53.5 H, RDW Coeff of Rohit 16.0 H, Plt Count 334, MPV 10.3, Immature Gran % (Auto) 1.200 H, Neut % (Auto) 92.7 H, Lymph % (Auto) 3.0 L, [place] % (Auto) 3.0, Eos % (Auto) 0.0, Baso % (Auto) 0.1, Absolute Neuts (auto) 18.1 H, Absolute Lymphs (auto) 0.58 L, Nucleated RBC % 0, Differential Comment SCANNED, Sodium 132 L, Potassium 4.7, Chloride 98, Carbon Dioxide 30.0, Anion Gap 4 L, BUN 20 H, Creatinine 0.58 L, Estim Creat Clear Calc 76.06, Est GFR (MDRD) Af Amer 174, Est GFR (MDRD) Non-Af 144, BUN/Creatinine Ratio 34.2 H, Glucose 130 H, Calcium 9.1 Microbiology: Microbiology 12/04/23 21:45 Blood Culture (Wb) - Anticubital Left Blood Culture - Preliminary No growth in 48 hours. 12/04/23 21:45 Blood Culture (Wb) - Anticubital Right Blood Culture - Preliminary No growth in 48 hours. 12/05/23 12:41 Sputum, Expectorated/Coughed Gram Stain - Final 12/05/23 12:41 Sputum, Expectorated/Coughed Respiratory Culture - Final Klebsiella oxytoca 12/05/23 11:15 Mucosa - Nose Respiratory Panel (PCR) - Final 12/05/23 12:05 Urine, Random Legionella Antigen - Final 12/05/23 12:05 Urine, Random Streptococcus pneumoniae Antigen (M - Final 12/05/23 11:15 Mucosa - Nose Streptococcus pyogenes (PCR) - Final Meaningful Use Info Meaningful Use Diagnoses (Choose all that apply): None applicable Discharge Plan Admission Admit Date/Time: 12/04/23 23:59 Attending Provider: Feroz Bucio Primary Care Provider: Jovi Bradley NP Consulting Providers: Farzad Liu Discharge Orders/Prescriptions Prescriptions: New guaifenesin [Mucus Relief ER] 1,200 mg Tablet Extended Release 12hr 1,200 mg PO BID 10 Days Qty: 20 0RF prednisone 20 mg tablet 20 mg PO BID Qty: 10 0RF cefdinir 300 mg capsule 300 mg PO BID Qty: 14 0RF Continued amiodarone 200 mg tablet 200 mg PO DAILY mexiletine 200 mg capsule 200 mg PO BID fluoxetine [Prozac] 40 mg Capsule 40 mg PO DAILY atorvastatin 80 mg Tablet 80 mg PO DAILY fexofenadine [Reva Allergy] 180 mg Tablet 180 mg PO DAILY PRN (Reason: allergy) 30 Days Qty: 0 0RF apixaban 2.5 mg tablet 2.5 mg PO BID spironolactone 25 mg Tablet 25 mg PO DAILYCM 30 Days Qty: 30 0RF carvedilol 3.125 mg Tablet 3.125 mg PO BID@0800,2000 30 Days Qty: 60 0RF torsemide 20 mg tablet 20 mg PO DAILY eplerenone [Inspra] 25 mg tablet 25 mg PO DAILY cholecalciferol (vitamin D3) 25 mcg (1,000 unit) capsule 125 mcg PO DAILY sennosides-docusate sodium [Stool Softener-Stimulant Laxat] 8.6-50 mg tablet 1 tab-cap PO DAILY PRN (Reason: constipation) Patient Comments: TAKE TWO TABLETS BY MOUTHC2 TIMES A DAY NEEDED FOR CONSTIPATION mecobalamin (vitamin B12) 1,000 mcg lozenge 1,000 mcg PO DAILY Rx Instructions: allow to dissolve in mouth OR may chew lightly before swallowing olopatadine 0.1 % drops 1 drp EACH EYE BID Rx Instructions: separate doses by at least 6-8 hours oxycodone 5 mg tablet 5 mg PO Q6H PRN (Reason: pain) aspirin [Aspirin Childrens] 81 mg tablet,chewable 1 tab PO DAILY thiamine HCl (vitamin B1) 100 mg/mL solution 100 mg IM DAILY acetaminophen 500 mg Tablet 500 mg PO Q6H PRN (Reason: LOVE 1-10) potassium chloride [Klor-Con M20] 20 mEq Tablet,Er Particles/Crystals 40 meq PO BID Referrals / Follow Up: Jovi Bradley PRE OWNED SALES CONSULTANT, PRE OWNED SALES CONSULTANT-C [Primary Care Provider] - Disposition Disposition (needs filled in before D/C Order can be placed): Home, Self Care Charges/Coding Visit Charges Inpatient E&M: 75708 Disch Hosp >30min
[2023-12-07] MEDS: Furosemide 100 MG/10 ML Vial 80 MG IV (11:16)
--- NOTE | 2023-12-07 11:53 | CASEMGMT ---
RN CM in to discuss needs at discharge. Patient states he would like HHC at discharge and prefers HHC he had last time, declined list. [facility] Patient prefers [facility] for DME, will monitor for home oxygen. Patient denied further needs at this time. NICOL ROBINS updated discharge business planning analyst to send referral to [facility] for HHC. CM will continue to follow this patient and plan for a safe discharge.
--- NOTE | 2023-12-07 12:16 | CASEMGMT ---
Addendum entered by Michelle Díaz 12/07/23 16:25: [facility] accepted patient. SOC will be over the weekend. RN CM updated. Michelle Díaz, Discharge Planning Asst. Original Note: Discharge Planning HH [facility] Michelle Díaz, Discharge Planning Asst.
--- NOTE | 2023-12-07 15:19 | CASEMGMT ---
Patient will need oxygen at discharge. Script received and referral sent to [facility] via [facility] with arrangements for tank to be delivered to patient room. NICOL ROBNIS updated patient that [facility] was setup with [facility] and they will be contacting him for start of care. Patient had no further questions or concerns.
--- NOTE | 2023-12-07 16:43 | PHA.DC.MC.R ---
Pharmacy [facility] has performed discharge medication reconciliation and counseling for this patient. 1. CEFDINIR 300MG PO BID X 7 DAYS 2. GUAIFENESIN 1200MG PO BID 3. PREDNISONE 20MG PO BID X 5 DAYS The patient's discharge medication list was reviewed for discrepancies and discrepancies were resolved. The patient was counseled on the following discharge medications and changes in medications for homegoing were reviewed. The Reason for Use, instructions for use, and potential side effects were reviewed for all new medications. The patient's questions regarding all of their medications were answered. The patient was able to verbally demonstrate an understanding of their discharge medications. Medications at Discharge Home Medications amiodarone 200 mg tablet 200 mg PO DAILY heart 02/08/23 atorvastatin 80 mg tablet 80 mg PO DAILY cholesterol 03/29/23 fluoxetine 40 mg capsule (Prozac) 40 mg PO DAILY anxiety 03/29/23 mexiletine 200 mg capsule 200 mg PO BID heart 03/29/23 apixaban 2.5 mg tablet 2.5 mg PO BID blood thinner 04/12/23 fexofenadine 180 mg tablet (Reva Allergy) 180 mg PO DAILY PRN allergy 30 days #0 tabs 04/12/23 carvedilol 3.125 mg tablet 3.125 mg PO BID@0800,2000 heart rate 30 days #60 tabs 05/03/23 spironolactone 25 mg tablet 25 mg PO DAILYCM diuretic 30 days #30 tabs 05/03/23 acetaminophen 500 mg tablet 500 mg PO Q6H PRN LOVE 1-10 12/04/23 aspirin 81 mg chewable tablet (Aspirin Childrens) 1 tab PO DAILY heart health 12/04/23 cholecalciferol (vitamin D3) 25 mcg (1,000 unit) capsule 125 mcg PO DAILY vitamin 12/04/23 eplerenone 25 mg tablet (Inspra) 25 mg PO DAILY blood pressure 12/04/23 mecobalamin (vitamin B12) 1,000 mcg lozenges 1,000 mcg PO DAILY vitamin 12/04/23 olopatadine 0.1 % eye drops 1 drp EACH EYE BID eye health 12/04/23 oxycodone 5 mg tablet 5 mg PO Q6H PRN pain 12/04/23 potassium chloride 20 mEq tablet,extended release(part/cryst) (Klor-Con M) 40 meq PO BID supplement 12/04/23 sennosides 8.6 mg-docusate sodium 50 mg tablet (Stool Softener-Stimulant Laxative) 1 tab-cap PO DAILY PRN constipation 12/04/23 thiamine HCl (vitamin B1) 100 mg/mL injection solution 100 mg IM DAILY vitamin 12/04/23 torsemide 20 mg tablet 20 mg PO DAILY diuretic 12/04/23 cefdinir 300 mg capsule 300 mg PO BID #14 caps 12/07/23 guaifenesin 1,200 mg tablet, extended release 12 hr (Mucus Relief ER) 1,200 mg PO BID 10 days #20 tabs 12/07/23 prednisone 20 mg tablet 20 mg PO BID #10 tabs 12/07/23
== END 2023-12-07 16:23 | disposition home health service (06) | DRG 871 ==
LOC: ED 22:32 → ICU 12-05 00:27 → PCU 12-05 18:40
PROVIDERS: Admitting Provider Family Medicine; Emergency Provider Emergency Medicine; PCP Nurse Practitioner Family; Visit Provider Internal Medicine
DX: A41.9 Sepsis, unspecified organism (principal); J69.0 Pneumonitis due to inhalation of food and vomit; J96.01 Acute respiratory failure with hypoxia; J15.4 Pneumonia due to other streptococci; I50.32 Chronic diastolic (congestive) heart failure; J44.0 Chronic obstructive pulmonary disease with (acute) lower respiratory infection; J44.1 Chronic obstructive pulmonary disease with (acute) exacerbation; E22.2 Syndrome of inappropriate secretion of antidiuretic hormone; I11.0 Hypertensive heart disease with heart failure; I48.0 Paroxysmal atrial fibrillation; F32.A Depression, unspecified; M41.9 Scoliosis, unspecified; E78.5 Hyperlipidemia, unspecified; I25.10 Atherosclerotic heart disease of native coronary artery without angina pectoris; E87.6 Hypokalemia; R53.81 Other malaise; Z79.82 Long term (current) use of aspirin; Z79.01 Long term (current) use of anticoagulants; Z79.899 Other long term (current) drug therapy; Z87.891 Personal history of nicotine dependence; Z95.5 Presence of coronary angioplasty implant and graft; Z95.0 Presence of cardiac pacemaker
CPT/HCPCS: 36415; 36600; 71045; 74230; 80048; 80053; 82803; 83605; 83690; 83735; 83880; 84100; 84484; 85025; 85610; 85730; 87040; 87070; 87077; 87186; 87205; 87449; 87633; 87651; 92526; 92610; 92611; 93005; 94002; 94003; 94640; 97162; 97166; 97802; 99252; 99285; J7040; A4216; G0463; J0295; J1940; J2405